=== PATIENT | male | born 1955 | race Caucasian/White ===

== ENCOUNTER 2017-08-19 21:37 | Inpatient (IN) | payer MEDICARE, OTHER ==
[2017-08-19] MEDS ORDERED: ALBUTEROL 2.5 MG/3 ML NEB SOL ONE (21:55)
[2017-08-19 22:38] LABS: Potassium 4.1 mEq/L (3.6-5.0)
[2017-08-19 22:43] LABS: Arterial Blood Carboxyhemoglob 2.9 % (0-1.5); Blood Gas Oxyhemoglobin 92.4 % (94-97); Blood O2 Saturation 96.1 % (92-98.5)
[2017-08-19 22:44] LABS: Albumin 4.4 g/dL (3.2-5.5); Bilirubin Direct 0.1 mg/dL (0-0.2); Bilirubin Total 0.9 mg/dL (0.3-1.2); Protein, Total 8.5 g/dL (6.0-8.3)
[2017-08-19 22:45] LABS: Absolute Lymphocytes (CBC) 2.9 K/uL (0.7-4.9); Absolute Monocytes 0.8 K/uL (0.1-1.3); Absolute Neutrophil 6.5 K/uL (1.8-8.0); Basophils % 0.7 % (0-1.3); Eosinophils % 13.8 % (0-4.4); Hematocrit 51.4 % (39.6-49.0); Lymphocytes % 24.3 % (15.3-44.8); MCH 29.8 pg (27.0-35.0); MCV 89.5 fL (80-100); MPV 8.7 fL (7.6-11.3); Monocytes % 6.4 % (3.3-12.3); RBC Red Blood Cell Count 5.74 M/uL (4.33-5.43)
[2017-08-19 22:49] LABS: Protime INR 1.19
[2017-08-19] MEDS ORDERED: NA CHLORIDE 0.9% 1,000 ML ONE (23:05)
[2017-08-19] MEDS ORDERED: HYDRALAZINE HCL 20 MG/ML VIAL ONE (23:05)
--- NOTE | 2017-08-19 23:08 | EDPHYS ---
Physician Documentation [facility] Name: Hubert Lynch Age: 61 yrs Sex: Male : 1955 Arrival Date: 08/19/2017 Time: 21:39 Bed 4 Private MD: ED Physician Brad Jin HPI: 08/19 22:01 This 61 yrs old Male presents to ER via EMS with complaints of shortness of jr8 breath. 22:01 The patient has shortness of breath at rest. Onset: The symptoms/episode began/occurred jr8 gradually, 2 day(s) ago. Duration: The symptoms are continuous, and are steadily getting worse. The patient's shortness of breath is aggravated by walking. Associated signs and symptoms: The patient has no apparent associated signs or symptoms. Severity of symptoms: At their worst the symptoms were moderate in the emergency department the symptoms are unchanged. It is unknown whether or not the patient has had similar symptoms in the past. The patient has not recently seen a physician. Patient stated that he has had worsening of shortness of breath over the last few days. Stated that it was so bad tonight he called EMS. EMS stated that he was 84% on RA upon arrival. GEOFFREY with steroids given. CPAP applied after no relief. Patient stated that he feels better on CPAP . Historical: - Allergies: 21:43 No Known Allergies; bb - Home Meds: 21:43 Combivent 18-103 mcg/actuation Inhl aero [Active]; bb - PMHx: 21:43 Hypertension; COPD; bb - Immunization history:: Adult Immunizations unknown. - Social history:: Smoking status: Patient uses tobacco products, smokes one pack cigarettes per day. ROS: 22:01 Eyes: Negative for injury, pain, redness, and discharge, ENT: Negative for injury, jr8 pain, and discharge, Neck: Negative for injury, pain, and swelling, Cardiovascular: Negative for chest pain, palpitations, and edema, Abdomen/GI: Negative for abdominal pain, nausea, vomiting, diarrhea, and constipation, Back: Negative for injury and pain, MS/Extremity: Negative for injury and deformity, Skin: Negative for injury, rash, and discoloration, Neuro: Negative for headache, weakness, numbness, tingling, and seizure. 22:01 Respiratory: Positive for cough, dyspnea on exertion, shortness of breath, wheezing. Exam: 22:01 Eyes: Pupils equal round and reactive to light, extra-ocular motions intact. Lids and jr8 lashes normal. Conjunctiva and sclera are non-icteric and not injected. Cornea within normal limits. Periorbital areas with no swelling, redness, or edema. ENT: Nares patent. No nasal discharge, no septal abnormalities noted. Tympanic membranes are normal and external auditory canals are clear. Oropharynx with no redness, swelling, or masses, exudates, or evidence of obstruction, uvula midline. Mucous membranes moist. Neck: Trachea midline, no thyromegaly or masses palpated, and no cervical lymphadenopathy. Supple, full range of motion without nuchal rigidity, or vertebral point tenderness. No Meningismus. Abdomen/GI: Soft, non-tender, with normal bowel sounds. No distension or tympany. No guarding or rebound. No evidence of tenderness throughout. Back: No spinal tenderness. No costovertebral tenderness. Full range of motion. Skin: Warm, dry with normal turgor. Normal color with no rashes, no lesions, and no evidence of cellulitis. MS/ Extremity: Pulses equal, no cyanosis. Neurovascular intact. Full, normal range of motion. Neuro: Awake and alert, GCS 15, oriented to person, place, time, and situation. Cranial nerves II-XII grossly intact. Motor strength 5/5 in all extremities. Sensory grossly intact. Cerebellar exam normal. Normal gait. 22:01 Cardiovascular: Rate: tachycardic, Rhythm: regular, Pulses: Pulses are 2+ in bilateral radial, brachial, femoral, popliteal, posterior tibial and and dorsalis pedis arteries.. Heart sounds: normal, normal S1and S2, no S3 or S4, no murmur, no rub, no gallop, Edema: is not appreciated, JVD: is not appreciated. 22:01 Respiratory: moderate respiratory distress is noted, Respirations: labored breathing, tachypnea, Breath sounds: rales, that are mild, are located in both bases, wheezing: expiratory that is moderate, is heard diffusely. Vital Signs: 21:43 BP 172 / 131; Pulse 127; Resp 30 S; Temp 97.6(A); Pulse Ox 97% on 35% BiPAP; Weight bb 65.77 kg (R); Height 5 ft. 8 in. (172.72 cm) (R); 22:30 BP 183 / 119; Pulse 115; Resp 23; Pulse Ox 99% on 35% BiPAP; lp1 23:00 BP 158 / 100; Pulse 108; Resp 23; Pulse Ox 98% on 35% BiPAP; lp1 23:20 BP 178 / 105; Pulse 117; Resp 25; Pulse Ox 98% on 35% BiPAP; lp1 23:40 BP 159 / 92; Pulse 114; Resp 25; Pulse Ox 98% on 35% BiPAP; lp1 21:43 Body Mass Index 22.05 (65.77 kg, 172.72 cm) bb MDM: 21:40 Patient medically screened. jr8 23:06 Data reviewed: vital signs, nurses notes, lab test result(s), EKG, radiologic studies, jr8 plain films, and as a result, I will admit patient. Data interpreted: Pulse oximetry: on room air is 84 %. Interpretation: hypoxia. Counseling: I had a detailed discussion with the patient and/or guardian regarding: the historical points, exam findings, and any diagnostic results supporting the discharge/admit diagnosis, lab results, radiology results, the need for further work-up and treatment in the hospital. Response to treatment: the patient's symptoms have mildly improved after treatment. Physician consultation: Aparna Valdez MD was called at 23:07, was contacted at 23:07, regarding admission, to the telemetry unit. and will see patient in ED. 08/19 21:40 Order name: Basic Metabolic Panel; Complete Time: 22:50 08/19 21:40 Order name: BNP; Complete Time: 22:50 08/19 21:40 Order name: CBC with Diff; Complete Time: 22:50 08/19 21:40 Order name: LFT's; Complete Time: 22:50 [facility] 08/19 21:40 Order name: Magnesium; Complete Time: 22:50 08/19 21:40 Order name: PT-INR; Complete Time: 22:50 08/19 21:40 Order name: Ptt, Activated; Complete Time: 22:50 [facility] 08/19 21:40 Order name: Troponin (emerg Dept Use Only); Complete Time: 22:50 [facility] 08/19 21:40 Order name: XRAY Chest (1 view) 08/19 21:40 Order name: Blood Culture Adult (2) [facility] 08/19 22:29 Order name: ABG; Complete Time: 22:55 [facility] 08/19 22:35 Order name: BIPAP [facility] 08/19 21:40 Order name: EKG; Complete Time: 21:41 [facility] 08/19 21:40 Order name: Cardiac monitoring; Complete Time: 21:52 [facility] 08/19 21:40 Order name: EKG - Nurse/Tech; Complete Time: 21:52 [facility] 08/19 21:40 Order name: IV Saline Lock; Complete Time: 22:09 [facility] 08/19 21:40 Order name: Labs collected and sent; Complete Time: 23:16 [facility] 08/19 21:40 Order name: O2 Per Protocol; Complete Time: 22:09 [facility] 08/19 21:40 Order name: O2 Sat Monitoring; Complete Time: 21:53 [facility] Administered Medications: 22:09 Drug: Albuterol 2.5 mg Route: Inhalation; 1 22:30 Drug: Albuterol 2.5 mg Route: Inhalation; 1 23:01 Drug: Albuterol 2.5 mg Route: Inhalation; [facility] 23:15 Drug: NS 0.9% 1000 ml Route: IV; Rate: 1000 ml; Site: left wrist; [facility] 08/20 00:16 Follow up: IV Status: Infusion continued upon admission [facility] 08/19 23:15 Drug: hydrALAZINE 10 mg Route: IV; Rate: calculated rate; Site: left wrist; [facility] 08/20 00:15 Follow up: Response: Blood pressure is lowered; IV Status: Completed infusion 1 Disposition: 05:41 Co-signature as Attending Physician, Brad Jin MD. [email or web address] Disposition: 08/19/17 23:07 Hospitalization ordered by Aparna Valdez for Inpatient Admission. Preliminary diagnosis is Chronic obstructive pulmonary disease with (acute) exacerbation. - Bed requested for Telemetry/MedSurg (Inpatient). - Status is Inpatient Admission. lp1 - Condition is Stable. - Problem is new. - Symptoms have improved. UTI on Admission? No Signatures: Dispatcher [employer] EDMS Esmer Parra RN RN bb Pena, Laura, RN RN lp1 Hipolito Arita PA PA jr8 Belen Yang RN RN cg Brad Jin MD MD ma2
--- NOTE | 2017-08-19 23:08 | ER ---
Nurse's Notes [facility] Emergency Department Name: Hubert Lynch Age: 61 yrs Sex: Male : 1955 Arrival Date: 08/19/2017 Time: 21:39 Bed 4 Private MD: Diagnosis: Chronic obstructive pulmonary disease with (acute) exacerbation Presentation: 08/19 21:33 Presenting complaint: EMS states: they were toned out for report of pt with respiratory bb distress pt's room sats were 84% on their arrival they put pt on C-pap and administered solu-medrol 125 mg and neb txs A\T\A x 2. Transition of care: patient was not received from another setting of care. Onset of symptoms was August 17, 2017. Care prior to arrival: Medication(s) given: Albuterol Neb x 2, Atrovent Neb x 2, solu-medrol 125 mg IV initiated. 20 GA, in the left wrist. 21:33 Method Of Arrival: EMS: [facility] bb 21:33 Acuity: DAVID 2 bb Historical: - Allergies: 21:43 No Known Allergies; bb - Home Meds: 21:43 Combivent 18-103 mcg/actuation Inhl aero [Active]; bb - PMHx: 21:43 Hypertension; COPD; bb - Immunization history:: Adult Immunizations unknown. - Social history:: Smoking status: Patient uses tobacco products, smokes one pack cigarettes per day. Screenin:25 Abuse screen: Denies threats or abuse. Denies injuries from another. Nutritional lp1 screening: No deficits noted. Tuberculosis screening: No symptoms or risk factors identified. Fall Risk Total Garg Fall Scale indicates High Risk Score (45 or more points). Fall prevention measures have been instituted. Side Rails Up X 2 As available patient and family educated on Fall Prevention Program and Strategies. Assessment: 21:54 Reassessment: pt states he is supposed to take cholesterol and blood pressure bb medication but he does not take them. 22:00 General: Appears distressed, Behavior is calm, cooperative. Pain: Denies pain. Neuro: lp1 Level of Consciousness is awake, alert, obeys commands, Oriented to person, place, time, situation. Cardiovascular: Capillary refill is > 3 seconds is sluggish Patient's skin is warm and dry. Rhythm is sinus tachycardia. Respiratory: Airway is patent Trachea midline Respiratory effort is even, labored, Respiratory pattern is tachypnea Breath sounds with wheezes bilaterally. GI: Abdomen is flat. : No signs and/or symptoms were reported regarding the genitourinary system. EENT: No signs and/or symptoms were reported regarding the EENT system. Derm: Skin is fragile, is thin, with poor turgor Skin is dry, Skin is pale. Musculoskeletal: Circulation, motion, and sensation intact. 23:00 Reassessment: Patient and/or family updated on plan of care and expected duration. Pain lp1 level reassessed. Patient continuing with BiPAP; Patient states symptoms have improved. Vital Signs: 21:43 BP 172 / 131; Pulse 127; Resp 30 S; Temp 97.6(A); Pulse Ox 97% on 35% BiPAP; Weight bb 65.77 kg (R); Height 5 ft. 8 in. (172.72 cm) (R); 22:30 BP 183 / 119; Pulse 115; Resp 23; Pulse Ox 99% on 35% BiPAP; lp1 23:00 BP 158 / 100; Pulse 108; Resp 23; Pulse Ox 98% on 35% BiPAP; lp1 23:20 BP 178 / 105; Pulse 117; Resp 25; Pulse Ox 98% on 35% BiPAP; lp1 23:40 BP 159 / 92; Pulse 114; Resp 25; Pulse Ox 98% on 35% BiPAP; lp1 21:43 Body Mass Index 22.05 (65.77 kg, 172.72 cm) bb ED Course: 21:39 Patient arrived in ED. jr8 21:40 Hipolito Arita PA is PHCP. jr8 21:40 Brad Jin MD is Attending Physician. jr8 21:43 Triage completed. bb 21:43 Arm band placed on Patient placed in an exam room, on a stretcher, on oxygen, on bb awake overnight monitor, on pulse oximetry, RT at bedside for placement of Bipap. Settings: 12/6, 12, 35%. 22:00 Patient has correct armband on for positive identification. Bed in low position. Call lp1 light in reach. equipment monitor phototypesetting on. Pulse ox on. NIBP on. 22:00 Inserted saline lock: 22 gauge in right antecubital area, using aseptic technique. lp1 22:00 Maintain EMS IV. Dressing intact. Site clean \T\ dry. Gauge \T\ site: 20g Left Wrist. lp 1 22:08 Suzan Mcgovern, RN is Primary Nurse. lp1 22:10 Inserted saline lock: 20 gauge in left forearm, using aseptic technique. Blood bb collected. 22:24 X-ray completed. Portable x-ray completed in exam room. Patient tolerated procedure 1 well. 22:25 XRAY Chest (1 view) In Process Unspecified. EDMS 23:07 Aparna Valdez MD is Hospitalizing Provider. jr8 23:26 No provider procedures requiring assistance completed. Patient admitted, IV remains in lp1 place. 20g IV to left forearm DC'd due to infiltration. Administered Medications: 22:09 Drug: Albuterol 2.5 mg Route: Inhalation; lp1 22:30 Drug: Albuterol 2.5 mg Route: Inhalation; lp1 23:01 Drug: Albuterol 2.5 mg Route: Inhalation; lp1 23:15 Drug: NS 0.9% 1000 ml Route: IV; Rate: 1000 ml; Site: left wrist; lp1 08/20 00:16 Follow up: IV Status: Infusion continued upon admission lp1 08/19 23:15 Drug: hydrALAZINE 10 mg Route: IV; Rate: calculated rate; Site: left wrist; lp1 08/20 00:15 Follow up: Response: Blood pressure is lowered; IV Status: Completed infusion lp1 Outcome: 08/19 23:07 Decision to Hospitalize by Provider. jr8 23:27 Condition: stable lp1 23:27 Instructed on the need for admit. 08/20 00:22 Admitted to Tele accompanied by nurse, via stretcher, room 422, with oxygen, with 1 chart, Report called to MORENA Griffin 00:30 Patient left the ED. 1 Signatures: Dispatcher [employer] EDMS Dilia Rose [facility] Esmer Parra RN RN bb Pena, Laura, MORENA RN 1 Hipolito Arita PA PA jr8 Corrections: (The following items were deleted from the chart) 00:50 00:49 Patient left the ED. 1 1
--- NOTE | 2017-08-19 23:30 | P.HP ---
Certification for Inpatient Patient admitted to: Inpatient With expected LOS: >2 Midnights Practitioner: I am a practitioner with admitting privileges, knowledge of patient current condition, hospital course, and medical plan of care. Services: Services provided to patient in accordance with Admission requirements found in Title 42 Section 412.3 of the Code of Federal Regulations Patient History Date of Service: 08/19/17 Reason for admission: COPD exacerbation History of Present Illness: Mr Lynch is a 61 years old male with history of COPD, HTN, dyslipidemia, who start about 3 weeks ago with increasing cough, unable to bring up any secretions. He has been feeling worse in the last couple of days, more SOB and cough. He denied fever or chills. No chest pain either. He called 911 today since he had severe SOB. EMS found the patient on respiratory distress, O2 Sat 84% on RA. The patient states that has not been treated with Advair for the last month due to refill problems. In ER the patient was placed on BiPAP, had several breathing treatments rounds, IV steroids, and slowly has been improving. At presentation he was afebrile, tachycardic, tachypneic, WBC 11.9K, CXR shows no acute infiltrate, awaiting final report by radiologist. Allergies No Known Drug Allergies Allergy (Unverified 11/14/14 14:11) Unknown - Past Medical/Surgical History -: COPD -: tobacco abuse -: HTN -: dyslipidemia Past Surgical History: Reviewed- Non-Contributory - Family History Family History: Reviewed- Non-Contributory - Social History Smoking Status: Heavy Tobacco smoker (>10 cigarettes/day) Counseled patient to stop smoking for: less than 10 minutes Smoking therapy provided: Yes Patient receptive to therapy: Yes CD- Drugs: No Place of Residence: Home Review of Systems 10-point ROS is otherwise unremarkable Physical Examination - Physical Exam General: Alert, In no apparent distress HEENT: Atraumatic, PERRLA, Mucous membr. moist/pink, EOMI, Sclerae nonicteric Neck: Supple, 2+ carotid pulse no bruit, No LAD, Without JVD or thyroid abnormality Respiratory: Diminished, Expiratory wheezes (bilateral) Cardiovascular: Regular rate/rhythm, Normal S1 S2 Gastrointestinal: Normal bowel sounds, No tenderness Musculoskeletal: No tenderness Integumentary: No rashes Neurological: Normal speech, Normal strength at 5/5 x4 extr, Normal tone, Normal affect Lymphatics: No axilla or inguinal lymphadenopathy - Studies Laboratory Data (last 24 hrs) 08/19/17 22:15: PT 14.1 H, INR 1.19, APTT 29.4 08/19/17 22:15: WBC 11.9 H, Hgb 17.1, Hct 51.4 H, Plt Count 187 08/19/17 22:15: B-Natriuretic Peptide 35 08/19/17 22:15: Sodium 137, Potassium 4.1, BUN 18, Creatinine 1.07, Glucose 96, Magnesium 2.0, Total Bilirubin 0.9, AST 32, ALT 31, Alkaline Phosphatase 91 Assessment and Plan - Problems (Diagnosis) (1) COPD exacerbation Current Visit: Yes Status: Acute (2) HTN (hypertension) Current Visit: Yes Status: Acute Qualifiers: Hypertension type: essential hypertension Qualified Code(s): I10 - Essential (primary) hypertension (3) Tobacco abuse Current Visit: Yes Status: Acute - Plan The patient will be admitted to the hospital due to COPD exacerbation due to acute bronchitis. CXR shows no acute infiltrate, WBC elevated. Will give empiric antibiotic, IV steroids and scheduled breathing treatment. Consult Dr Denney. - Advance Directives Does patient have a Living Will: No Does patient have a Durable POA for Healthcare: No - Code Status/Comfort Care Code Status Assessed: Yes Code Status: Full Code
[2017-08-20] MEDS ORDERED: ACETAMINOPHEN 500 MG TAB PO PRN (01:07)
[2017-08-20] MEDS: NA CHLORIDE 0.9% 1,000 ML IV SCH ×4 (01:07→16:55)
[2017-08-20] MEDS ORDERED: ONDANSETRON 4 MG/2 ML VIAL IV PRN (01:07)
[2017-08-20] MEDS: METHYLPREDNISOLONE 125 MG INJ IV SCH ×4 (02:12→17:01)
[2017-08-20] MEDS: Levofloxacin 750mg IV 750 MG/150 ML BAG IV SCH (02:13)
[2017-08-20] MEDS: IPRATROPIUM BROM 0.5MG/2.5ML NEB SCH ×7 (02:36→23:38)
[2017-08-20] MEDS: ALBUTEROL 2.5 MG/3 ML NEB SOL NEB SCH ×7 (02:36→23:38)
[2017-08-20 06:54] LABS: Potassium 4.8 mEq/L (3.6-5.0)
[2017-08-20 07:09] LABS: Absolute Lymphocytes (CBC) 0.6 K/uL (0.7-4.9); Absolute Monocytes 0.1 K/uL (0.1-1.3); Absolute Neutrophil 4.3 K/uL (1.8-8.0); Basophils % 0.3 % (0-1.3); Eosinophils % 0.2 % (0-4.4); Hematocrit 49.6 % (39.6-49.0); Lymphocytes % 12.7 % (15.3-44.8); MCH 30.4 pg (27.0-35.0); MCV 89.7 fL (80-100); MPV 8.9 fL (7.6-11.3); Monocytes % 1.2 % (3.3-12.3); RBC Red Blood Cell Count 5.53 M/uL (4.33-5.43)
--- NOTE | 2017-08-20 07:24 | RAD REPORT ---
EXAM DESCRIPTION: RAD - Chest Single View - 08/19/2017 10:26 pm CLINICAL HISTORY: Dyspnea COMPARISON: None. TECHNIQUE: AP portable chest image was obtained 2215 hours . FINDINGS: Lungs are hyperexpanded with flattened diaphragm and costophrenic angle blunting. Fibrotic lung pattern is present. This COPD pattern has no comparison to assess for progression. Small granul omas are noted. No consolidation or mass. Minimal interstitial edema or infiltrate could be masked in this setting. No significant infiltrative process currently seen. Failure and volume overload are no t suspected. Heart and vasculature are normal. No measurable pleural effusion and no pneumothorax. No gross bony abnormality seen. No acute aortic findings suspected. IMPRESSION: Prominent COPD pattern without focal infiltrate, mass or consolidation. Chronic interstitial lung disease can mask early stages of edema or infiltrate.
[2017-08-20] MEDS: ENOXAPARIN 40 MG/0.4 ML SQ SCH (09:50)
[2017-08-20 10:04] LABS: Blood Morphology Comment NOT SEEN (NOT SEEN); Platelet Estimate ADEQ; Urine White Blood Cell Casts OK
[2017-08-20] MEDS ORDERED: IPRATROPIUM BROM 0.5MG/2.5ML NEB SCH (14:00)
--- NOTE | 2017-08-20 14:03 | PN ---
Date of Progress Note: 08/20/2017 Subjective: The patient seen and examined, chart reviewed, and case discussed with RN. The patient states, he is very much short of breath. States, he ran out of his Advair. Review of Systems: Negative except as above. Medications: Reviewed. Physical Examination: Vital Signs: Temperature 99.5, heart rate 117, respirations 20, blood pressure 130/86, and O2 95% on 3 L via nasal cannula. General: Awake, alert, oriented x3, in some mild respiratory distress, appears older than stated age . Ill-appearing male. CV: S1, S2. Sinus tachycardia. No murmurs. Peripheral pulses weak bilaterally. Respiratory: diminished breath sounds. Wheezing is present throughout. The patient is tachypneic. Gastrointestinal: Abdomen is soft, nontender, nondistended. Positive bowel sounds. No guarding or rigidity. Extremities: No clubbing, cyanosis, edema. Neurologic: Nonfocal. Laboratory Data: Sodium 138, potassium 4.8, chloride 105, CO2 25, BUN 20, creatinine 1, glucose 124, and calcium 9.4. WBC 5, H and H 16.8, 49.6, platelets 177, and neutrophils 85%. Blood culture pend ing. Assessment: A 61-year-old male with; 1.Acute chronic obstructive pulmonary disease exacerbation. We will continue with breathing treatme nts and IV steroids. Chest x-ray did not show any acute infiltrate. We will continue to monitor. W e will get respiratory therapy to evaluate for possible home oxygen need. 2.Essential hypertension. We will resume home medications as appropriate. 3.Nicotine dependence with cigarette smoking. Counseled. 4.Dyslipidemia. Resume home medications as appropriate. Plan: Followup with pulmonology evaluation. Continue prophylactic antibiotics. SA/MODL Voice ID: [id number] Report ID: [id number]
[2017-08-20] MEDS: NICOTINE 21 MG/PAT TD PRN (16:52)
[2017-08-21] MEDS: METHYLPREDNISOLONE 125 MG INJ IV SCH ×2 (00:43→05:44)
[2017-08-21] MEDS: Levofloxacin 750mg IV 750 MG/150 ML BAG IV SCH (00:43)
[2017-08-21] MEDS: NA CHLORIDE 0.9% 1,000 ML IV SCH (00:44)
[2017-08-21] MEDS: IPRATROPIUM BROM 0.5MG/2.5ML NEB SCH ×2 (04:00→07:28)
[2017-08-21] MEDS: ALBUTEROL 2.5 MG/3 ML NEB SOL NEB SCH ×2 (04:00→07:28)
[2017-08-21 05:16] LABS: Absolute Monocytes 0.7 K/uL (0.1-1.3); Absolute Neutrophil 14.4 K/uL (1.8-8.0); Basophils % 0.2 % (0-1.3); Hematocrit 46.3 % (39.6-49.0); Lymphocytes % 6.2 % (15.3-44.8); MCH 29.9 pg (27.0-35.0); MCV 91.2 fL (80-100); MPV 9.1 fL (7.6-11.3); Monocytes % 4.4 % (3.3-12.3); RBC Red Blood Cell Count 5.07 M/uL (4.33-5.43)
[2017-08-21 05:46] LABS: Potassium 4.7 mEq/L (3.6-5.0)
[2017-08-21 08:29] LABS: Blood Morphology Comment NOT SEEN (NOT SEEN); Platelet Estimate ADEQ
[2017-08-21] MEDS: ENOXAPARIN 40 MG/0.4 ML SQ SCH (09:00)
--- NOTE | 2017-08-21 10:28 | P.DS ---
Admission Date: 08/19/17 Discharge Date: 08/21/17 Disposition: ROUTINE DISCHARGE Discharge Condition: FAIR Reason for Admission: COPD exacerbation Brief History of Present Illness: Patient is 61 years of age admitted with COPD exacerbation Hospital Course: Patient did well low no complaints he was hypoxic hypercapnic apparently he ran out of his inhaler the time of discharge he was doing well alert oriented responsive cooperative in no significant distress room-air sats were fine he did have mild hypoxemia on exertion patient is to resume his Advair prescribed him some prednisone chest x-ray shows hyperinflation he continues to smoke I counseled him for 3 min not to smoke and nicotine replacement therapy The time of discharge vital signs all stable chest examination renal shows bilateral rhonchi diminished air entry cardiovascular smiles was normal abdomen soft extremities no edema he was ambulating prior to discharge Vital Signs/Physical Exam: Temp Pulse Resp BP Pulse Ox 98.4 F 96 H 18 152/86 H 93 08/21/17 08:00 08/21/17 08:00 08/21/17 08:00 08/21/17 08:00 08/21/17 08:00 Laboratory Data at Discharge: WBC 16.1 K/uL (4.3-10.9) H D 08/21/17 04:17 Hgb 15.2 g/dL (13.6-17.9) 08/21/17 04:17 Hct 46.3 % (39.6-49.0) 08/21/17 04:17 Plt Count 187 K/uL (152-406) 08/21/17 04:17 PT 14.1 SECONDS (9.5-12.5) H 08/19/17 22:15 INR 1.19 08/19/17 22:15 APTT 29.4 SECONDS (24.3-36.9) 08/19/17 22:15 Sodium 137 mEq/L (135-145) 08/21/17 04:17 Potassium 4.7 mEq/L (3.6-5.0) 08/21/17 04:17 BUN 20 mg/dL (6-20) 08/21/17 04:17 Creatinine 0.96 mg/dL (0.61-1.24) 08/21/17 04:17 Glucose 116 mg/dL (65-120) 08/21/17 04:17 Magnesium 2.0 mg/dL (1.8-2.5) 08/19/17 22:15 Total Bilirubin 0.9 mg/dL (0.3-1.2) 08/19/17 22:15 AST 32 IU/L (10-42) 08/19/17 22:15 ALT 31 IU/L (10-60) 08/19/17 22:15 Alkaline Phosphatase 91 IU/L (42-121) 08/19/17 22:15 B-Natriuretic Peptide 35 pg/ml (<=100) 08/19/17 22:15 Home Medications: Ipratropium/Albuterol Sulfate [Combivent Respimat Inhal [place]] 1 puff IH BID Fluticasone/Salmeterol [Advair 250-50 Diskus] 1 each IH BID #1 blst.w.dev Prednisone [Deltasone] 20 mg PO BID #14 tablet 08/21/17 New Medications: Fluticasone/Salmeterol [Advair 250-50 Diskus] 1 each IH BID #1 blst.w.dev Prednisone [Deltasone] 20 mg PO BID #14 tablet Patient Discharge Instructions: Patient to follow with me in 2 weeks discharge room-air sat at rest greater than 88% Diet: Regular Activity: Ad alena
[2017-08-21] MEDS: NICOTINE 21 MG/PAT TD PRN (11:14)
--- NOTE | 2017-08-21 22:39 | EKG ---
Test Date: 2017-08-19 Test Time: 21:47:16 Athletic Monitor: CHRISTEN MEASUREMENT RESULTS: Intervals: Rate: 116 MA: 122 QRSD: 76 QT: 320 QTc: 444 [place]: P: 86 MA: 122 QRS: 79 T: 73 INTERPRETIVE STATEMENTS: Sinus tachycardia Biatrial enlargement Abnormal ECG No previous ECG available for comparison Electronically Signed On 08-21-17 22:38:25 CDT by Terence Mohan
== END 2017-08-21 12:41 | disposition home or self-care (01) | DRG 192 ==
LOC: ER 21:37 → 4TH 23:07
PROVIDERS: ADMIT Internal Medicine; ATTEND Internal Medicine
PROC: 5A09357 Assistance with Respiratory Ventilation, Less than 24 Consecutive Hours, Continuous Positive Airway Pressure (ICD-10-PCS; principal; 2017-08-19)
DX: J44.1 Chronic obstructive pulmonary disease with (acute) exacerbation (principal); I10 Essential (primary) hypertension; R06.03 Acute respiratory distress; E78.5 Hyperlipidemia, unspecified; F17.210 Nicotine dependence, cigarettes, uncomplicated; R09.02 Hypoxemia; R06.89 Other abnormalities of breathing
CPT/HCPCS: 36415; 71045; 80048; 80076; 82805; 83735; 83880; 84484; 85025; 85610; 85730; 87040; 93005; 94640; 94660; 96365; 99285; J0360; J1650; J2930; J7030

== ENCOUNTER 2021-12-13 15:48 | Emergency (ER) | payer MEDICARE, OTHER ==
--- OUTSIDE RECORDS SUMMARY | 2021-12-13 15:51 | XMS REPORT | Continuity of Care Document ---
:1955 Author Organization [facility] t Address [address] [place] [address] Care Team Providers Name Role Phone Ruddy Garcia MD Attending Clinician Doctor Unassigned, [place] Attending Clinician Unavailable Ruddy Garcia MD Admitting Clinician Payers Payer Name Policy Type Policy Number Effective Date Expiration Date S ource Problems This patient has no known problems. Allergies, Adverse Reactions, Alerts This patient has no known allergies or adverse reactions. Social History Social Habit Start Date Stop Date Quantity Comments Source Alcohol intake [facility] Sex Assigned At [facility] Smoking Status Start Date Stop Date Source Current some day smoker 2018-12-19 00:00:00 [facility] Medications Ordered Filled Start Stop Current Ordering Indication Dosage Frequency Signature Comments Components Source Medication Medication Date Date Medication? Clinician (SIG) Name Name budesonide/ 2019-0 Yes Inhale. Uni vers formoterol 8-14 ity of fumarate 20:20: [place] (SYMBICORT 01 Medical INHALE) [place] ipratropium 2019-0 Yes Inhale. Uni vers /albuterol 8-14 ity of sulfate 20:20: [place] (COMBIVENT 01 Medical INHALE) [place] fluticasone 2019-0 Yes Inhale. Uni vers propion/cornelius 8-14 ity of meterol 20:20: [place] (ADVAIR Medical DISKUS [place] INHALE) ceFAZolin 2019-0 Yes PRN, Univers (ANCEF) 8-14 Starting ity of injection 19:30: 12/20/18 at [place] [id number], Branch Until Discontinu ed, ALEJANDRA, Intra-op carbachol 2019-0 Yes PRN, Univers (MIOSTAT) 8-14 Starting ity of 0.01 % 19:29: Wed [place] intraocular 12/20/18 at [place] injection 1429, Branch Until Discontinu ed, Routine, Intra-op balanced 2019-0 Yes PRN, [facility] salt irrig 12-20 Starting ity o f soln comb1 19:16: Wed [place] (BSS PLUS) 12/20/[address] [facility] ical ophthalmic 1416, Branch solution Until 500 mL bag Discontinu ed, Routine, Intra-op bupivacaine 2019-0 Yes PRN, [facility] s (preserv 12-20 Starting ity of free) 19:07: Tue [place] (SENSORCAIN 00 12/20/18 at [place] dical E MPF) 0.75 1407, Branch % (7.5 Until mg/mL) Discontinu injection ed, Routine, Intra-op lactated 2018-0 2019- No 500mL at [address] [place] [address] s ringers IV 12-20 mL/hr, 500 it y of infusion 16:15: 16:32 mL, IV [place] 500 mL 00 :00 Infusion, Medical ONCE, 1 Branch dose, Tue12/20/18 at 1115, Routine, [facility] Pre-op budesonide/ 2019-0 Yes Inhale. Uni vers formoterol 8-13 ity of fumarate 13:41: [place] (SYMBICORT 21 Medical INHALE) Branch ipratropium 2019-0 Yes Inhale. Uni vers /albuterol 8-13 ity of sulfate 13:41: [place] (COMBIVENT 21 Medical INHALE) Branch fluticasone 2019-0 Yes Inhale. Uni vers propion/cornelius 8-13 ity of meterol 13:41: [place] (ADVAIR 21 Medical DISKUS Branch INHALE) Vital Signs Vital Name Observation Time Observation Value Comments Source Systolic blood 2018-12-20 19:42:00 156 mm[Hg] [facility] pressure [facility] Diastolic blood 2018-12-20 19:42:00 96 mm[Hg] [facility] Body temperature 2018-12-20 19:42:00 36.78 Bonnie [facility] rate 2018-12-20 19:42:00 18 /min [facility] O[facility] saturation in 2018-12-20 19:42:00 100 /min [facility] Arterial blood by [facility] Pulse oximetry Branch Heart rate 2018-12-20 16:23:00 73 /min [facility] acute hospital Body height 2018-12-18 18:12:00 172.7 cm General acute hospital Body weight 2018-12-18 18:12:00 65.772 kg [facility] acute hospital BMI 2018-12-18 18:12:00 22.05 kg/m2 [facility] acute hospital Procedures Procedure Date / Time Performed Performing Clinician Sourc e ASSIGNMENT OF BENEFITS 2018-12-19 14:02:27 Doctor Unassigned, No [facility] Name [facility] Encounters Start End Encounter Admission Attending Care Care Encounter Source Date/Time Date/Time Type Type Clinicians Facility Department ID 2018-12-20 2018-12-20 [facility] [id number] Univers 11:11:00 15:19:00 Encounter Ruddy Robertson [id number] ity of [place] [id number] [place] [id number] [facility] 071 Branch 2018-12-19 2018-12-19 Orders Doctor CHRISSY [id number] Univers 00:00:00 00:00:00 Only Unassigned, KEITH [id number] ity of [place] [facility] [id number] Alli as [id number] [place] [id number] Branch Results This patient has no known results.
[2021-12-13] MEDS ORDERED: IPRATROPIUM BROM 0.5MG/2.5ML ONE (16:50)
[2021-12-13] MEDS ORDERED: ALBUTEROL 2.5 MG/3 ML NEB SOL ONE (16:50)
[2021-12-13] MEDS ORDERED: METHYLPREDNISOLONE 125 MG INJ ONE (16:50)
[2021-12-13 17:33] LABS: Absolute Lymphocytes (CBC) 1.8 K/uL (0.7-4.9); Hematocrit 45.6 % (39.6-49.0); Lymphocytes % 25.5 % (15.3-44.8); MPV 7.6 fL (7.6-11.3); RBC Red Blood Cell Count 5.18 M/uL (4.33-5.43)
[2021-12-13 17:51] LABS: Bilirubin Total 0.5 mg/dL (0.2-1.0); Potassium 3.9 mmol/L (3.5-5.1); Protein, Total 9.3 g/dL (6.4-8.2); Troponin High Sensitivity 5.9 pg/mL (<58.9)
--- NOTE | 2021-12-13 18:02 | RAD REPORT ---
EXAM DESCRIPTION: Luis Single View12/13/2021 5:14 pm CLINICAL HISTORY: Shortness of breath COMPARISON: 2018 FINDINGS: Lungs are markedly hyperaerated. Calcified granulomas left lung. The lungs appear clear of acute infiltrate. The heart is normal size IMPRESSION: COPD without visualization of an acute abnormality
[2021-12-13] MEDS ORDERED: DIPHENHYDRAMINE 50 MG/ML VIAL ONE (18:15)
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
[2021-12-13 19:53] VITALS: TEMP 97.9
[2021-12-13 19:55] VITALS: O2SAT 99
[2021-12-13 19:58] VITALS: BP 182/84
== END 2021-12-13 18:29 | disposition home or self-care (01) ==
LOC: ER 15:48
PROC: 05HQ33Z Insertion of Infusion Device into Left External Jugular Vein, Percutaneous Approach (ICD-10-PCS; principal; 2021-12-13)
DX: J44.1 Chronic obstructive pulmonary disease with (acute) exacerbation (principal); I10 Essential (primary) hypertension; F17.210 Nicotine dependence, cigarettes, uncomplicated; Z20.822 Contact with and (suspected) exposure to COVID-19
CPT/HCPCS: 85025; 36415; 84484; 80053; 71045; 94640; 96372; 96374; 99285; 36569; U0003; J1200; J2930

== ENCOUNTER 2024-06-17 17:21 | Inpatient (IN) | payer OTHER ==
[2024-06-17] MEDS ORDERED: IPRATROPIUM BROM 0.5MG/2.5ML ONE (17:40)
[2024-06-17] MEDS ORDERED: LEVALBUTEROL 1.25 MG/3 ML NEB ONE (17:41)
[2024-06-17] MEDS ORDERED: METHYLPREDNISOLONE 125 MG INJ ONE (17:41)
--- NOTE | 2024-06-17 18:23 | RAD REPORT ---
EXAMINATION: ONE VIEW CHEST XR CLINICAL INDICATION: LABORER ELECTROPLATING TECHNIQUE: Frontal chest projection is submitted. Examination is limited by patient positioning and t echnique. COMPARISON: 12/13/2021 FINDINGS: The lungs are diffusely emphysematous but grossly clear. The heart is normal in size. Numerous calcif ied granulomata. No displaced fractures identified. IMPRESSION: COPD without an acute process suspected. Evidence of prior granulomatous infection.
[2024-06-17] MEDS ORDERED: CEFTRIAXONE 1000 MG/VIAL ONE (18:44)
[2024-06-17] MEDS ORDERED: NA CHLORIDE 0.9% 250 ML ONE (18:44)
[2024-06-17] MEDS ORDERED: AZITHROMYCIN 500 MG INJ IVPB ONE (18:44)
--- NOTE | 2024-06-17 18:55 | EDPHYS ---
Physician Documentation [facility] Name: Hubert Lynch Age: 68 yrs Sex: Male : 1955 Arrival Date: 06/17/2024 Time: 17:21 Bed 4 Private MD: ED Physician Tristin Bond HPI: 06/17 17:48 This 68 yrs old Male presents to ER via EMS with complaints of Shortness Of Breath. rn 17:48 The patient has shortness of breath at rest, with light activity. Onset: The rn symptoms/episode began/occurred 2 week(s) ago. Duration: The symptoms are intermittent. The patient's shortness of breath is aggravated by coughing, exertion, light activity. Associated signs and symptoms: Pertinent positives: productive cough, fever, Pertinent negatives: hemoptysis. Severity of symptoms: At their worst the symptoms were moderate in the emergency department the symptoms are unchanged. The patient has experienced similar episodes in the past. Historical: - Allergies: 17:33 No Known Allergies; iw - Home Meds: 17:33 Combivent 18-103 mcg/actuation Inhl aero [Active]; iw - PMHx: 17:33 COPD; Hypertension; iw - Immunization history:: Adult Immunizations. - Infectious Disease History:: Denies. - Family history:: not pertinent. - Hospitalizations: : No recent hospitalization is reported. - Social history:: Smoking status: Patient reports the use of cigarette tobacco products. ROS: 17:48 Constitutional: Positive for subjective fever and chills Cardiovascular: Negative for rn chest pain, palpitations, and edema, Respiratory: Positive for shortness of breath and productive cough Abdomen/GI: Negative for abdominal pain, nausea, vomiting, diarrhea, and constipation, MS/Extremity: Negative for injury and deformity, Skin: Negative for injury, rash, and discoloration, Neuro: Negative for headache, weakness, numbness, tingling, and seizure, Exam: 17:48 Constitutional: Thin male, tachypneic Head/Face: Normocephalic, atraumatic. salesperson men's furnishings: Tachycardic, regular Respiratory: Moderate tachypnea with diffuse wheezing Abdomen/GI: Soft, nontender 20:04 ECG was reviewed by the Attending Physician. wayne Vital Signs: 17:30 BP 161 / 110; Pulse 113; Resp 28 S; Temp 97.6(TE); Pulse Ox 95% on 4 lpm NC; iw MDM: 17:28 Medical Screening Exam initiated rn 17:49 ED course: EMS gave DuoNeb prior to arrival. Patient was 84% saturation on room air, rn does not have oxygen prescribed, has been using his roommates oxygen.. 18:50 Differential diagnosis: Chronic Obstructive Pulmonary Disease pneumonia, Pneumothorax rn pulmonary edema, reactive airway disease. Data reviewed: vital signs, nurses notes, lab test result(s), radiologic studies, plain films, and as a result, I will admit patient. Consideration of Admission/Observation Patient was admitted/placed on observation. Counseling: I had a detailed discussion with the patient and/or guardian regarding the historical points, exam findings, and any diagnostic results supporting the discharge/admit diagnosis, lab results, radiology results, the need for further work-up and treatment in the hospital. Response to treatment: the patient's symptoms have mildly improved after treatment, and as a result, I will admit patient. 06/17 17:31 Order name: Blood Culture Adult (2) rn 06/17 17:31 Order name: CBC with Diff rn 06/17 17:31 Order name: CMP rn 06/17 17:31 Order name: Lactate w/ 2H reflex if indic. rn 06/17 17:31 Order name: Protime (+inr) rn 06/17 17:31 Order name: Ptt, Activated rn 06/17 17:31 Order name: SARS-COV-2 Antigen Rapid rn 06/17 17:31 Order name: Flu rn 06/17 19:44 Order name: Urinalysis w/ reflexes EDMS 06/17 19:44 Order name: CBC with Automated Diff EDMS 06/17 19:44 Order name: CBC with Automated Diff EDMS 06/17 19:44 Order name: Comprehensive Metabolic Panel EDMS 06/17 19:44 Order name: Comprehensive Metabolic Panel EDVT 06/17 17:31 Order name: Chest Single View XRAY; Complete Time: 18:29 rn 06/17 17:31 Order name: EKG; Complete Time: 17:31 rn 06/17 17:31 Order name: Accucheck; Complete Time: 18:37 rn 06/17 17:31 Order name: Cardiac monitoring; Complete Time: 18:31 rn 06/17 17:31 Order name: EKG - Nurse/Tech; Complete Time: 18:37 rn 06/17 17:31 Order name: IV Saline Lock - Large Bore; Complete Time: 18:56 rn 06/17 17:31 Order name: Labs collected and sent; Complete Time: 19:08 rn 06/17 17:31 Order name: O2 Per Protocol; Complete Time: 18:37 rn 06/17 17:31 Order name: O2 Sat Monitoring; Complete Time: 18:37 rn 06/17 17:31 Order name: Vital Signs; Complete Time: 18:37 rn EC:04 Rate is 129 beats/min. Rhythm is regular. QRS [place] is Normal. [place] interval is normal. [place] QRS interval is normal. QT interval is normal. No Q waves. T waves are Normal. No ST changes noted. Clinical impression: Sinus tachycardia and No evidence of ischemia. Interpreted by me. Reviewed by me. Administered Medications: 18:27 Drug: Levalbuterol Inhalation 1.25 mg Inhalation once Route: Inhalation; iw 18:27 Drug: Levalbuterol Inhalation 1.25 mg Inhalation once Route: Inhalation; iw 18:27 Drug: Ipratropium Inhalation Aerosol 0.5 mg Inhalation once Route: Inhalation; iw 19:08 Drug: MethylPrednisoLONE IVP 125 mg IVP once Route: IVP; Site: left forearm; iw 19:08 Follow up: Response: No adverse reaction iw 19:08 Drug: Zithromax IVPB 500 mg IVPB once over 1 hrs; mix in 250 mL NS Route: IVPB; Infused iw Over: 1 hrs; Site: left forearm; 19:08 Drug: Rocephin IV 1 grams IV at calculated rate once; Given slow IV push per pharmacy iw instructions Route: IV; Rate: calculated rate; Site: left forearm; 19:08 Follow up: IV Status: Completed infusion iw Disposition: 18:53 Critical Care:. 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 Total time: 35 minutes rn Signatures: Dispatcher [employer] Olman Theodore MD MD cha Williams, Irene, RN RN iw Nieto, Roman, MD MD rn Villegas, Rebecca rv1 Corrections: (The following items were deleted from the chart) 19:52 18:54 rn rv1
--- NOTE | 2024-06-17 18:55 | ER ---
Nurse's Notes [facility] Name: Hubert Lynch Age: 68 yrs Sex: Male : 1955 Arrival Date: 06/17/2024 Time: 17:21 Bed 4 Private MD: Diagnosis: COPD/ Chronic obstructive pulmonary disease with (acute) exacerbation;Hypoxemia Presentation: 06/17 17:32 Chief complaint: EMS states: COPD exacerbation, audible wheezing, BP was 172/102, HR iw 120 , 82 RA, up to 94 on NC , had breathing tx earlier today. Coronavirus screen: Client presents with at least one sign or symptom that may indicate coronavirus-19. Ebola Screen: No symptoms or risks identified at this time. Risk Assessment: Do you want to hurt yourself or someone else? Patient reports no desire to harm self or others. Onset of symptoms was June 17, 2024. 17:32 Method Of Arrival: EMS: [facility] iw 17:32 Acuity: DAVID 3 iw 17:32 Initial Sepsis Screen: Does the patient meet any 2 criteria? RR > 20 per min. HR > 90 iw bpm. Does the patient have a suspected source of infection? No. Patient's initial sepsis screen is negative. Historical: - Allergies: 17:33 No Known Allergies; iw - Home Meds: 17:33 Combivent 18-103 mcg/actuation Inhl aero [Active]; iw - PMHx: 17:33 COPD; Hypertension; iw - Immunization history:: Adult Immunizations. - Infectious Disease History:: Denies. - Family history:: not pertinent. - Hospitalizations: : No recent hospitalization is reported. - Social history:: Smoking status: Patient reports the use of cigarette tobacco products. Screenin:30 [facility] ED Fall Risk Assessment (Adult) History of falling in the last 3 months, iw including since admission No falls in past 3 months (0 pts) Confusion or Disorientation No (0 pts) Intoxicated or Sedated No (0 pts) Impaired Gait No (0 pts) Mobility Assist Device Used No (0 pt) Altered Elimination No (0 pt) Score/Fall Risk Level 0 - 2 = Low Risk Oriented to surroundings. Abuse screen: Denies threats or abuse. Nutritional screening: No deficits noted. Tuberculosis screening: No symptoms or risk factors identified. Assessment: 17:45 General: Appears uncomfortable, Behavior is calm, cooperative. Pain: Denies pain. iw Neuro: Level of Consciousness is awake, alert, obeys commands, Oriented to person, place, time, situation, Moves all extremities. Full function. Cardiovascular: Patient's skin is warm and dry. Rhythm is sinus tachycardia. Respiratory: Reports shortness of breath at rest on exertion cough that is productive, labored breathing Airway is patent Respiratory effort is even, labored, Respiratory pattern is regular, symmetrical, tachypnea. GI: Abdomen is flat, non-distended. Derm: Skin is intact, is fragile, Skin is normal. Musculoskeletal: Range of motion: intact in all extremities. 18:29 Reassessment: unable to obtain IV access at this time, Charge Nurse at bedside for US IV. 19:00 Reassessment: pt refused 2nd set of blood cultures, has been stuck 4 times , ER iw notified. Vital Signs: 17:30 BP 161 / 110; Pulse 113; Resp 28 S; Temp 97.6(TE); Pulse Ox 95% on 4 lpm NC; iw ED Course: 17:23 Patient arrived in ED. eb 17:28 Tristin Bond MD is Attending Physician. rn 17:33 Triage completed. iw 17:34 Lana Platt, RN is Primary Nurse. iw 17:34 Arm band placed on. iw 18:00 Missed attempt(s): 24 gauge in right hand. Bleeding controlled, band aid applied, iw catheter tip intact. 18:00 Missed attempt(s): 22 gauge in right wrist. Bleeding controlled, band aid applied, iw catheter tip intact. 18:05 Chest Single View XRAY In Process Unspecified. EDMS 18:31 Patient has correct armband on for positive identification. Client placed on continuous iw cardiac and pulse oximetry monitoring. NIBP monitoring applied. clinical research monitor on. 18:40 Missed attempt(s): 20 gauge in left antecubital area. VIA Ultrasound. Bleeding ss controlled, band aid applied, catheter tip intact. 18:54 Onofre Corbett MD is Hospitalizing Provider. rn 18:54 Accessed peripheral vein via ultrasound, utilizing dynamic ultrasound technique Blood ss collected. using 20G Nexia IV catheter ,sterile technique, per hospital protocol. Clean \T\ dry. Dressing intact. Good blood return. Flushes easily. . 19:11 Provided Education on: lab wait time . iw 19:59 No provider procedures requiring assistance completed. Patient admitted, IV remains in cp4 place. Administered Medications: 18:27 Drug: Levalbuterol Inhalation 1.25 mg Inhalation once Route: Inhalation; iw 18: Drug: Levalbuterol Inhalation 1.25 mg Inhalation once Route: Inhalation; iw 18: Drug: Ipratropium Inhalation Aerosol 0.5 mg Inhalation once Route: Inhalation; iw 19:08 Drug: MethylPrednisoLONE IVP 125 mg IVP once Route: IVP; Site: left forearm; iw 19:08 Follow up: Response: No adverse reaction iw 19: Drug: Zithromax IVPB 500 mg IVPB once over 1 hrs; mix in 250 mL NS Route: IVPB; Infused iw Over: 1 hrs; Site: left forearm; 19:08 Drug: Rocephin IV 1 grams IV at calculated rate once; Given slow IV push per pharmacy iw instructions Route: IV; Rate: calculated rate; Site: left forearm; 19:08 Follow up: IV Status: Completed infusion iw Medication: 21:52 VIS not applicable for this client. ha1 Outcome: 18:54 Decision to Hospitalize by Provider. rn 21:51 Admitted to Med/surg accompanied by tech, via stretcher, room 229, with chart, [facility] 21:51 Condition: stable 21:51 Instructed on the need for admit, Demonstrated understanding of instructions, 21:52 Patient left the ED. ha1 Signatures: Dispatcher [employer] EDLana Martell RN RN Tristin Bond MD MD rn Blanchard, Shelby, RN RN Katie Diallo Heidy, RN RN [facility] Nisa Oneal [facility] Corrections: (The following items were deleted from the chart) 18:29 17:30 BP 161 / 110; Pulse 113bpm; Resp 28bpm; Spontaneous; Temp 97.6F Temporal; iw
[2024-06-17 19:03] LABS: Absolute Lymphocytes (CBC) 1.2 K/uL (0.7-4.9); Absolute Monocytes 1.2 K/uL (0.1-1.3); Absolute Neutrophil 8.7 K/uL (1.8-8.0); Basophils % 0.2 % (0-1.3); Eosinophils % 0.3 % (0-4.4); Hematocrit 48.8 % (39.6-49.0); Hemoglobin 16.1 g/dL (13.6-17.9); MCH 30.5 pg (27.0-35.0); MCV 92.5 fL (80-100); MPV 8.3 fL (7.6-11.3); Monocytes % 10.5 % (3.3-12.3); Nucleated Red Blood Cells % 0.1 % (0-0); Platelets 204 thou/uL (152-406); RBC Red Blood Cell Count 5.27 M/uL (4.33-5.43)
[2024-06-17 19:07] LABS: SARS-CoV-2 Antigen CONTROL BLUE LINE VIS/BG OK; SARS-CoV-2 Antigen Rapid Res Negative (Negative)
[2024-06-17 19:12] LABS: PT Prothrombin Time 14.2 SECONDS (9.4-12.5); PTT, Activated Partial Thromb 29.8 SECONDS (24.3-36.9); Protime INR 1.36
[2024-06-17 19:19] LABS: Albumin 3.3 g/dL (3.4-5.0); Albumin/Globulin Ratio 0.6 (1.1-1.8); Anion Gap 9.1 mEq/L (5.0-15.0); Bilirubin Total 0.9 mg/dL (0.2-1.0); Globulin 5.5 g/dL (2.3-3.5); Potassium 4.1 mEq/L (3.5-5.1); Protein, Total 8.8 g/dL (6.4-8.2)
[2024-06-17] MEDS ORDERED: ACETAMINOPHEN 325 MG TABLET PO PRN (19:40)
[2024-06-17] MEDS ORDERED: ALBUTEROL 2.5 MG/3 ML NEB SOL NEB PRN (19:40)
[2024-06-17] MEDS ORDERED: ONDANSETRON 4 MG/2 ML VIAL IV PRN (19:40)
--- NOTE | 2024-06-17 19:40 | P.HP ---
Certification for Inpatient Patient admitted to: Inpatient With expected LOS: >2 Midnights Practitioner: I am a practitioner with admitting privileges, knowledge of patient current condition, hospital course, and medical plan of care. Services: Services provided to patient in accordance with Admission requirements found in Title 42 Section 412.3 of the Code of Federal Regulations Patient History Date of Service: 06/17/24 Reason for admission: COPD exacerbation History of Present Illness: 68 yrs old Male with past medical history of COPD, hypertension, hyperlipidemia who was brought to ER with shortness of breath which has been going on for the last 2 weeks and has been progressively getting worse. Associated with cough with mucoid expectoration with some yellowish tinge. Denies any hemoptysis. No nausea vomiting or diarrhea. Denies any sick contacts. Has subjective fever. Shortness of breath worsens with even minimal exertions. Patient was assessed in the ER and is admitted for further management of COPD exacerbation Allergies No Known Drug Allergies Allergy (Verified 08/20/17 01:40) Unknown No Known Allergies Allergy (Uncoded 08/20/17 01:10) Unknown Home medications list reviewed: Yes Home Medications: Fluticasone/Salmeterol [Advair 250/50 Diskus*] 1 puff IH BID #1 disk 10/01/14 predniSONE [Deltasone] 10 mg PO BID #20 tab 10/01/14 levoFLOXacin [Levaquin] 500 mg PO DAILY #10 tab 10/02/14 Ipratropium/Albuterol Sulfate [Combivent Respimat 20-100 Mcg] 1 puff IH BID 08/20/17 Fluticasone Propion/Salmeterol [Advair 250-50 Diskus] 1 each IH BID #1 blst.w.dev 08/21/17 Nicotine [Nicoderm] 21 mg TD DAILY #30 patch.td24 08/21/17 predniSONE [Deltasone] 20 mg PO BID #14 tablet 08/21/17 - Past Medical/Surgical History Diabetic: No Past Medical History: Reviewed- Non-Contributory -: COPD -: tobacco abuse -: HTN -: dyslipidemia Past Surgical History: Reviewed- Non-Contributory - Family History Mother -: Heart disease Notes: had pacemaker - Social History Smoking Status: Current some day smoker Alcohol use: No CD- Drugs: Yes Caffeine use: Yes Review of Systems 10-point ROS is otherwise unremarkable Physical Examination - Vital Signs Temperature: 97.6 F Blood Pressure: 160/110 Pulse: 110 Respirations: 20 Pulse Ox (%): 92 - Physical Exam General: Alert, Oriented x3, Cooperative, Moderate distress HEENT: Atraumatic, Normocephalic Neck: Supple, No Thyromegaly Respiratory: Diminished, Crackles/rales, Expiratory wheezes Cardiovascular: No edema, Regular rate/rhythm, Normal S1 S2 Capillary refill: <2 Seconds Gastrointestinal: Soft and benign, W/out hepatosplenomegaly Musculoskeletal: No clubbing, No swelling Integumentary: No rashes Neurological: Normal speech, Normal strength at 5/5 x4 extr, Cranial nerves 3-12 intact Lymphatics: No axilla or inguinal lymphadenopathy - Studies Laboratory Data (last 24 hrs) 06/17/24 06/17/24 06/17/24 18:50 18:50 18:50 WBC 11.10 H Hgb 16.1 Hct 48.8 Plt Count 204 PT 14.2 H INR 1.36 APTT 29.8 Sodium 135 L Potassium 4.1 BUN 13 Creatinine 1.12 Glucose 112 H Total Bilirubin 0.9 AST 20 ALT 35 Alkaline Phosphatase 129 H Microbiology Data (last 24 hrs): 06/17/24 18:35 Nasopharnyx Influenza Type A Antigen Screen - Final 06/17/24 18:35 Nasopharnyx Influenza Type B Antigen Screen - Final Assessment and Plan - Plan COPD exacerbation Monitor closely on telemetry Started on bronchodilators Oxygen supplementation Steroids added Chest x-ray findings noted Acute hypoxic respiratory failure Oxygen supplementation Will try to wean down oxygen requirement Monitor closely Pneumonitis Started on empiric antibiotic Will obtain chest x-ray in a.m. COVID-negative Influenza negative Hypertension Continue home medications and titrate as needed GI/DVT prophylaxis Advanced directive full code Discharge Plan: Home Plan to discharge in: 48 Hours - Advance Directives Does patient have a Living Will: No Does patient have a Durable POA for Healthcare: No - Code Status/Comfort Care Code Status: Full Code Time Spent Managing Pts Care (In Minutes): 48
[2024-06-17 22:20] VITALS: BMI 22.0
[2024-06-18] MEDS: HYDRALAZINE HCL 20 MG/ML VIAL IV PRN (00:44)
[2024-06-18] MEDS: ALBUTEROL 2.5 MG/3 ML NEB SOL NEB SCH (01:00)
[2024-06-18] MEDS: IPRATROPIUM BROM 0.5MG/2.5ML NEB SCH (01:00)
[2024-06-18 05:24] LABS: Absolute Lymphocytes (CBC) 0.5 K/uL (0.7-4.9); Absolute Monocytes 0.2 K/uL (0.1-1.3); Absolute Neutrophil 8.3 K/uL (1.8-8.0); Basophils % 0.1 % (0-1.3); Hematocrit 44.7 % (39.6-49.0); Hemoglobin 15.5 g/dL (13.6-17.9); Lymphocytes % 5.6 % (15.3-44.8); MCH 31.6 pg (27.0-35.0); MCHC 34.5 g/dL (32.0-36.0); MCV 91.4 fL (80-100); Monocytes % 2.2 % (3.3-12.3); Neutrophils % 92.1 % (41.7-73.7); Platelets 192 thou/uL (152-406); RBC Red Blood Cell Count 4.89 M/uL (4.33-5.43); Red Cell Distribution Width 13.9 % (12.1-15.2)
[2024-06-18 05:58] LABS: Albumin 2.7 g/dL (3.4-5.0); Albumin/Globulin Ratio 0.5 (1.1-1.8); Anion Gap 7.4 mEq/L (5.0-15.0); Bilirubin Total 0.4 mg/dL (0.2-1.0); Potassium 4.4 mEq/L (3.5-5.1); Protein, Total 7.7 g/dL (6.4-8.2)
[2024-06-18] MEDS: DULERA 200/5 (MOMETASONE/FORMOTEROL) INHALER IH SCH (07:00)
[2024-06-18 08:59] LABS: Band Neutrophils 7 % (0-1); Differential Total Cells Count 100; Lymphocytes 7 % (15-42); Segmented Neutrophils 85 % (40-80)
[2024-06-18 09:00] LABS: Blood Morphology Comment NOT SEEN (NOT SEEN); Dohle Bodies PRESENT; Monocytes 1 % (0-10); Platelet Estimate ADEQ; Platelets, Giant FEW
[2024-06-18] MEDS: NICOTINE 21 MG/PAT TD SCH (09:00)
[2024-06-18] MEDS: CEFTRIAXONE 1,000 MG in NA CHLORIDE 0.9% 50 ML IVPB SCH (09:06)
[2024-06-18] MEDS: AZITHROMYCIN IV 500 MG in NA CHLORIDE 0.9% 250 ML IVPB SCH (09:07)
[2024-06-18] MEDS: ENOXAPARIN 40 MG/0.4 ML SQ SCH (09:07)
[2024-06-18 09:08] LABS: Magnesium 2.5 mg/dL (1.6-2.4)
[2024-06-18 09:11] LABS: Phosphorus 1.3 mg/dL (2.5-4.9)
[2024-06-18] MEDS: SODIUM PHOSPHATE 15 MM in NA CHLORIDE 0.9% 250 ML IV ONE (10:31)
[2024-06-18] MEDS: lisinopriL 5 MG TAB PO SCH (10:31)
[2024-06-18 10:45] LABS: Specific Gravity 1.023 (1.005-1.030); Sqamous Epithelial None Seen /HPF (None Seen); Urine Bacteria None Seen /HPF (<20); Urine Bilirubin NEGATIVE (Negative); Urine Blood Negative (Negative); Urine Clarity Clear (Clear); Urine Color Yellow (Yellow); Urine Culture Reflex Order NOT NEEDED; Urine Glucose 3+ (Negative); Urine Ketones 1+ (Negative); Urine Microscopic Reflex YN ORDER UMIC; Urine Mucus Slight /HPF (None Seen); Urine Nitrite NEGATIVE (Negative); Urine Protein 1+ (Negative); Urine RBC <5 /HPF (None Seen); Urine Urobilinogen 1+ (Normal); Urine WBC <5 /HPF (<5)
[2024-06-18] MEDS: CHLORASEPTIC LOZENGES PO PRN (13:55)
--- NOTE | 2024-06-18 15:05 | P.PN ---
Date of Service: 06/18/24 Subjective awake eating breakfast, on 5 LNC Reports seeing a providers at the [facility] Reports he is using Oxygen from a friend and receives his inhalers from "the street" Home O2 evaluation, 88% on room air ROS 10 point ROS as noted above, otherwise negative Physical Exam General: Alert, Oriented x3, NAD HEENT: Atraumatic, Normocephalic Neck: Supple, No Thyromegaly Respiratory: Crackles/rales, Expiratory wheezes, on 5 LNC Cardiovascular: No edema, mild tachycardia, Normal S1 S2 Capillary refill: <2 Seconds Gastrointestinal: Soft and benign on palpation, active bowel sounds Musculoskeletal: No clubbing, No swelling Integumentary: No rashes Neurological: Normal speech, Normal strength at 5/5 x4 extr, Cranial nerves 3-12 intact Lymphatics: No axilla or inguinal lymphadenopathy Vitals Reviewed Problem list Acute hypoxic respiratory failure 2/2 COPD exacerbation Pneumonitis Sore throat Assessment and Plan Acute hypoxic respiratory failure 2/2 COPD exacerbation Monitor closely on telemetry Continue bronchodilators Oxygen supplementation Steroids added Chest x-ray findings noted Will try to wean down oxygen requirement Monitor closely Home O2 evaluation, 88% on room air, home oxygen ordered Pneumonitis Started on empiric antibiotic Will obtain chest x-ray in a.m. COVID-negative Influenza negative Hypertension Continue home medications and titrate as needed Consult Dr. Denney Sore throat -Chloraseptic lozenge DVT prophylaxis lovenox Advanced directive full code Discharge Plan: Home Plan to discharge in: 48 Hours
[2024-06-18] MEDS ORDERED: Levofloxacin 750mg IV 750 MG/150 ML BAG IV SCH (20:00)
[2024-06-18] MEDS: levoFLOXacin 750 MG TAB PO SCH (21:05)
[2024-06-18] MEDS: ALBUTEROL 2.5 MG/3 ML NEB SOL ONE (22:28)
[2024-06-18] MEDS: IPRATROPIUM BROM 0.5MG/2.5ML ONE (22:28)
[2024-06-19 05:28] LABS: Absolute Lymphocytes (CBC) 0.8 K/uL (0.7-4.9); Absolute Monocytes 1.4 K/uL (0.1-1.3); Absolute Neutrophil 10.2 K/uL (1.8-8.0); Basophils % 0.2 % (0-1.3); Eosinophils % 0.2 % (0-4.4); Hematocrit 44.6 % (39.6-49.0); Hemoglobin 15.4 g/dL (13.6-17.9); Lymphocytes % 6.8 % (15.3-44.8); MCH 31.6 pg (27.0-35.0); MCHC 34.6 g/dL (32.0-36.0); MCV 91.2 fL (80-100); Monocytes % 10.9 % (3.3-12.3); Neutrophils % 81.9 % (41.7-73.7); Platelets 222 thou/uL (152-406); RBC Red Blood Cell Count 4.89 M/uL (4.33-5.43); Red Cell Distribution Width 14.1 % (12.1-15.2)
[2024-06-19 05:49] LABS: Anion Gap 6.3 mEq/L (5.0-15.0)
[2024-06-19 05:50] LABS: Magnesium 2.4 mg/dL (1.6-2.4); Phosphorus 1.5 mg/dL (2.5-4.9); Potassium 4.3 mEq/L (3.5-5.1)
--- NOTE | 2024-06-19 07:18 | RAD REPORT ---
Procedure: Chest Single View HISTORY: Cough COMPARISON: June 17, 2024 FINDINGS: The lungs appear clear of acute infiltrate.. The lungs remain moderately to markedly hyperaerated. No significant pleural effusion noted. The heart is normal size. IMPRESSION: COPD without visualization acute abnormality
[2024-06-19 08:19] VITALS: BP 141/78
[2024-06-19 08:21] VITALS: O2SAT 99
[2024-06-19] MEDS ORDERED: lisinopriL 5 MG TAB PO SCH (09:00)
[2024-06-19 09:33] VITALS: TEMP 97.9
[2024-06-19] MEDS: predniSONE 20 MG TAB PO ONE (10:57)
--- NOTE | 2024-06-19 11:42 | P.DS ---
Admission Date: 06/17/24 Discharge Date: 06/19/24 Disposition: ROUTINE DISCHARGE Discharge Condition: GOOD Reason for Admission: COPD exacerbation Brief History of Present Illness: 68 yrs old Male with past medical history of COPD, hypertension, hyperlipidemia who was brought to ER with shortness of breath which has been going on for the last 2 weeks and has been progressively getting worse. Associated with cough with mucoid expectoration with some yellowish tinge. Denies any hemoptysis. No nausea vomiting or diarrhea. Denies any sick contacts. Has subjective fever. Shortness of breath worsens with even minimal exertions. Patient was assessed in the ER and is admitted for further management of COPD exacerbation Hospital Course: Problem list Acute hypoxic respiratory failure 2/2 COPD exacerbation Pneumonitis Sore throat Patient was admitted to the hospital for COPD exacerbation. He was started on steroids, empiric antibiotics with levofloxacin, as needed nebulizer treatments had gradual improvement in his symptoms. He has a concentrator for home oxygen at home but did not have a portable tank, we attempted to arrange for portable tank/formal home oxygen set up but patient declined as they would not do this without setting up a concentrator which she already had. He states at home that he has inhalers including Combivent, Trelegy which he will be using. He will be sent a prescription for a short course of prednisone and levofloxacin. It will be important he follows up with his primary care doctor as well as a pulmonologistDr. Denney. He had a chest x-ray this morning that showed COPD with no visualized acute abnormality. He has remained afebrile throughout hospitalization. Continue your home medication as previously prescribed Prescription for prednisone and levofloxacin the antibiotic sent to pharmacy [facility] in [place] follow-up with your primary care doctor in Dr. Denney in the next 1 to 2 weeks Vital Signs/Physical Exam: Temp Pulse Resp BP Pulse Ox 97.9 F 98 H 18 141/78 H 90 L 06/19/24 08:00 06/19/24 08:16 06/19/24 08:00 06/19/24 08:16 06/19/24 08:00 General: Alert, In no apparent distress, Oriented x3 HEENT: Atraumatic, PERRLA Neck: Supple, JVD not distended Respiratory: Diminished, Expiratory wheezes (mild) Cardiovascular: Regular rate/rhythm, Normal S1 S2 Gastrointestinal: Normal bowel sounds Musculoskeletal: No tenderness Integumentary: No rashes Neurological: Normal speech, Normal tone, Normal affect Lymphatics: No axilla or inguinal lymphadenopathy Laboratory Data at Discharge: WBC 12.40 thou/uL (4.3-10.9) H 06/19/24 05:05 Hgb 15.4 g/dL (13.6-17.9) 06/19/24 05:05 Hct 44.6 % (39.6-49.0) 06/19/24 05:05 Plt Count 222 thou/uL (152-406) 06/19/24 05:05 PT 14.2 SECONDS (9.4-12.5) H 06/17/24 18:50 INR 1.36 06/17/24 18:50 APTT 29.8 SECONDS (24.3-36.9) 06/17/24 18:50 Sodium 136 mEq/L (136-145) 06/19/24 05:05 Potassium 4.3 mEq/L (3.5-5.1) 06/19/24 05:05 BUN 26 mg/dL (7-18) H 06/19/24 05:05 Creatinine 1.03 mg/dL (0.70-1.30) 06/19/24 05:05 Glucose 116 mg/dL (74-106) H 06/19/24 05:05 Phosphorus 1.5 mg/dL (2.5-4.9) L* 06/19/24 05:05 Magnesium 2.4 mg/dL (1.6-2.4) 06/19/24 05:05 Total Bilirubin 0.4 mg/dL (0.2-1.0) 06/18/24 05:08 AST 15 U/L (15-37) 06/18/24 05:08 ALT 27 U/L (16-61) 06/18/24 05:08 Alkaline Phosphatase 107 U/L (45-117) 06/18/24 05:08 Home Medications: Fluticasone/Salmeterol [Advair 250/50 Diskus*] 1 puff IH BID #1 disk 10/01/14 Ipratropium/Albuterol Sulfate [Combivent Respimat 20-100 Mcg] 1 puff IH BID 08/20/17 Fluticasone Propion/Salmeterol [Advair 250-50 Diskus] 1 each IH BID #1 blst.w.dev 08/21/17 Nicotine [Nicoderm*] 21 mg TD DAILY #30 patch.td24 08/21/17 levoFLOXacin [Levaquin*] 750 mg PO DAILY #5 tab 06/19/24 predniSONE [Deltasone*] 10 mg PO BID 7 Days #14 tab 06/19/24 New Medications: predniSONE [Deltasone*] 10 mg PO BID 7 Days #14 tab levoFLOXacin [Levaquin*] 750 mg PO DAILY #5 tab Physician Discharge Instructions: Patient was admitted to the hospital for COPD exacerbation. He was started on steroids, empiric antibiotics with levofloxacin, as needed nebulizer treatments had gradual improvement in his symptoms. He has a concentrator for home oxygen at home but did not have a portable tank, we attempted to arrange for portable tank/formal home oxygen set up but patient declined as they would not do this without setting up a concentrator which she already had. He states at home that he has inhalers including Combivent, Trelegy which he will be using. He will be sent a prescription for a short course of prednisone and levofloxacin. It will be important he follows up with his primary care doctor as well as a pulmonologistDr. Denney. He had a chest x-ray this morning that showed COPD with no visualized acute abnormality. He has remained afebrile throughout hospitalization. Continue your home medication as previously prescribed Prescription for prednisone and levofloxacin the antibiotic sent to pharmacy [facility] in [place] follow-up with your primary care doctor in Dr. Denney in the next 1 to 2 weeks Diet: Regular Activity: Ad alena Followup: Tommie Denney MD [ACTIVE - CAN ADMIT] - 1-2 Weeks Moises Vyas DO [Primary Care Provider] - 1 Week Time spent managing pt's care (in minutes): 41
--- NOTE | 2024-06-19 12:46 | EKG ---
Test Date: 2024-06-17 Test Time: 18:29:10 Grain Sacker: DAVIAN MEASUREMENT RESULTS: Intervals: Rate: 129 [place]: 130 QRSD: 78 QT: 294 QTc: 430 [place]: P: 86 [place]: 130 QRS: 80 T: 67 INTERPRETIVE STATEMENTS: Sinus tachycardia Biatrial enlargement Abnormal ECG Compared to ECG 08/19/2017 21:47:16 No significant changes Electronically Signed On 06-19-24 12:42:28 RUBY SOFTWARE DEVELOPER by Noah Cobos
--- NOTE | 2024-06-19 12:53 | P.CNS ---
Date of Consult: 06/19/24 Reason for Consult: COPD exacerbation Chief Complaint: COPD exacerbation History of Present Illness: Patient is 68 years of age has been sick for about 3 days admitted with worsening dyspnea cough congestion history of COPD heavy smoker 1 pack a day denies any fever chills had a productive cough takes his friends Trevor does not follow-up with any physicians Allergies No Known Drug Allergies Allergy (Verified 08/20/17 01:40) Unknown No Known Allergies Allergy (Uncoded 08/20/17 01:10) Unknown Home Medications: Fluticasone/Salmeterol [Advair 250/50 Diskus*] 1 puff IH BID #1 disk 10/01/14 Ipratropium/Albuterol Sulfate [Combivent Respimat 20-100 Mcg] 1 puff IH BID 08/20/17 Fluticasone Propion/Salmeterol [Advair 250-50 Diskus] 1 each IH BID #1 blst.w.dev 08/21/17 Nicotine [Nicoderm*] 21 mg TD DAILY #30 patch.td24 08/21/17 levoFLOXacin [Levaquin*] 750 mg PO DAILY #5 tab 06/19/24 predniSONE [Deltasone*] 10 mg PO BID 7 Days #14 tab 06/19/24 - Past Medical/Surgical History Diabetic: No -: COPD -: tobacco abuse -: HTN -: dyslipidemia -: TUBERCULOSIS IN - Family History Mother Medical History: Heart disease Notes: had pacemaker - Social History Smoking Status: Current every day smoker Alcohol use: No CD- Drugs: Yes Caffeine use: Yes Place of Residence: Home Review of Systems 10-point ROS is otherwise unremarkable Physical Examination Temp Pulse Resp BP Pulse Ox 97.9 F 98 H 18 141/78 H 90 L 06/19/24 08:00 06/19/24 08:16 06/19/24 08:00 06/19/24 08:16 06/19/24 08:00 General: Alert, Oriented x3 Neck: Supple Respiratory: Rhonchi/gurgles Cardiovascular: No edema, Regular rate/rhythm, Normal S1 S2 Gastrointestinal: Normal bowel sounds, Soft and benign, Non-distended - Problems (1) COPD exacerbation Status: Acute Plan: Patient is 68 years of age admitted with worsening dyspnea cough congestion chest x-ray hyperinflated consistent with COPD admitted with an exacerbation takes his friend's trilogy at home he is doing much better plan to discharge him on prednisone antibiotics continue with Trevor to follow-up with me as an outpatient will need outpatient pulmonary function testing he will need low-dose CAT scan for lung cancer screening patient has been counseled not to smoke was reviewed unremarkable patient's phosphorus is a little low
== END 2024-06-19 12:09 | disposition home or self-care (01) | DRG 190 ==
LOC: ER 17:21 → 2ND 19:40
PROVIDERS: ADMIT Family Medicine; ATTEND Hospitalist
DX: J44.1 Chronic obstructive pulmonary disease with (acute) exacerbation (principal); J96.01 Acute respiratory failure with hypoxia; J98.4 Other disorders of lung; J02.9 Acute pharyngitis, unspecified; I10 Essential (primary) hypertension; E78.5 Hyperlipidemia, unspecified; F17.210 Nicotine dependence, cigarettes, uncomplicated; Z79.51 Long term (current) use of inhaled steroids; Z79.52 Long term (current) use of systemic steroids; Z99.81 Dependence on supplemental oxygen; Z11.52 Encounter for screening for COVID-19; Z82.49 Family history of ischemic heart disease and other diseases of the circulatory system
CPT/HCPCS: 36415; 71045; 80048; 80053; 81001; 83605; 83735; 84100; 85025; 85610; 85730; 87040; 87804; 87811; 93005; 94640; 94760; 96374; 96375; 99285; J0360; J0696; J1650; J2919; J3535; J7050; J7512; J7613; J7614; J7644

== ENCOUNTER 2024-07-02 12:50 | Inpatient (IN) | payer OTHER ==
[2024-07-02 14:17] LABS: Absolute Basophils 0.1 K/uL (0-0.5); Absolute Eosinophils 0.1 K/uL (0-0.5); Absolute Lymphocytes (CBC) 1.3 K/uL (0.7-4.9); Absolute Monocytes 0.7 K/uL (0.1-1.3); Absolute Neutrophil 9.3 K/uL (1.8-8.0); Basophils % 0.6 % (0-1.3); Hemoglobin 16.2 g/dL (13.6-17.9); Lymphocytes % 11.4 % (15.3-44.8); MCH 30.7 pg (27.0-35.0); MCHC 33.1 g/dL (32.0-36.0); MCV 92.7 fL (80-100); MPV 7.9 fL (7.6-11.3); Monocytes % 6.4 % (3.3-12.3); Neutrophils % 80.6 % (41.7-73.7); Nucleated Red Blood Cells % 0.1 % (0-0); Platelets 272 thou/uL (152-406); RBC Red Blood Cell Count 5.29 M/uL (4.33-5.43); Red Cell Distribution Width 14.9 % (12.1-15.2)
--- NOTE | 2024-07-02 15:11 | RAD REPORT ---
EXAM: Chest Single View HISTORY: COPD COMPARISON: 06/19/2024 FINDINGS: LUNGS/PLEURA: The lungs are clear. No pleural effusions or pneumothorax. No pulmonary edema. Emphysem a. MEDIASTINUM: The mediastinal silhouette is within normal limits. CARDIAC: The cardiac silhouette is within normal limits. UPPER ABDOMEN: No significant abnormality. BONES: No acute abnormality. LINES/TUBES/OTHER: N/A IMPRESSION: Emphysema without superimposed acute process.
[2024-07-02] MEDS ORDERED: METHYLPREDNISOLONE 125 MG INJ ONE (15:25)
[2024-07-02] MEDS ORDERED: IPRATROPIUM BROM 0.5MG/2.5ML ONE ×2 (15:25→20:06)
[2024-07-02] MEDS ORDERED: ALBUTEROL 2.5 MG/3 ML NEB SOL ONE ×2 (15:25→20:05)
[2024-07-02 16:06] LABS: Anion Gap 6.2 mEq/L (5.0-15.0); Potassium 4.2 mEq/L (3.5-5.1)
[2024-07-02 16:13] LABS: Troponin High Sensitivity 565.3 pg/mL (<58.9)
--- NOTE | 2024-07-02 16:26 | EDPHYS ---
Physician Documentation [facility] Name: Hubert Lynch Age: 68 yrs Sex: Male : 1955 Arrival Date: 07/02/2024 Time: 12:50 Bed 14 Private MD: ED Physician Juan Carlos Winslow HPI: 07/02 16:22 This 68 yrs old Male presents to ER via EMS with complaints of Breathing Difficulty, ms3 Shortness Of Breath. 16:22 68-year-old male with past medical history of COPD and hypertension presents to the [facility] emergency department for shortness of breath, cough with congestion. Patient denies pain. Patient states he is on home oxygen at 2 to 3 L. Patient states that shortness of breath has recently become worse.. Historical: - Allergies: 13:05 No Known Allergies; db - PMHx: 13:05 COPD; Hypertension; db - Immunization history:: Adult Immunizations unknown. - Infectious Disease History:: Denies. - Social history:: Smoking status: Patient reports the use of cigarette tobacco products, smokes one pack cigarettes per day. ROS: 16:22 Constitutional: Negative for fever, and chills. Cardiovascular: Negative for chest ms3 pain, and palpitations. Abdomen/GI: Negative for abdominal pain, nausea, vomiting, diarrhea, and constipation, MS/Extremity: Negative for injury and deformity, 16:22 Respiratory: Positive for cough, shortness of breath, wheezing, Exam: 16:22 Constitutional: This is a well developed, well nourished patient who is awake, alert, ms3 and in no acute distress. Cardiovascular: Regular rate and rhythm with a normal S1 and S2. No gallops, murmurs, or rubs. Normal PMI, no JVD. No pulse deficits. Abdomen/GI: Soft, non-tender, with normal bowel sounds. No distension or tympany. No guarding or rebound. No evidence of tenderness throughout. 16:22 ECG was reviewed by the Attending Physician. 16:22 Respiratory: the patient does not display signs of respiratory distress, Respirations: labored breathing, that is mild, Breath sounds: wheezing: expiratory that is moderate, is heard in the left posterior upper lobe, right posterior upper lobe, left posterior lower lobe, right posterior middle lobe and right posterior lower lobe, Vital Signs: 12:53 BP 143 / 109; Pulse 120; Resp 22; Temp 98.5(O); Pulse Ox 92% on R/A; Weight 65.77 kg; db Height 5 ft. 8 in. ; 14:00 BP 148 / 111; Pulse 110; Resp 24; Pulse Ox 100% on 2 lpm NC; db 15:00 BP 154 / 93; Pulse 115; Resp 28; Pulse Ox 96% on 2 lpm NC; db 16:30 BP 157 / 94; Pulse 128; Resp 24; Pulse Ox 97% on 2 lpm NC; db 17:35 BP 152 / 97; Pulse 120; Resp 24; Pulse Ox 96% 2 lpm ; db 18:30 BP 137 / 95; Pulse 120; Resp 22; Pulse Ox 97% on 2 lpm NC; db 12:53 Body Mass Index 22.05 (65.77 kg, 172.72 cm) db 12:53 PLACED ON 2L NC O2 db MDM: 13:28 Medical Screening Exam initiated ms3 16:20 Differential diagnosis: CHF exacerbation, Chronic Obstructive Pulmonary Disease ms3 Myocardial Infarction pulmonary edema, Pulmonary Embolism. Data reviewed: vital signs, nurses notes, lab test result(s), EKG, radiologic studies, and as a result, I will admit patient. Consideration of Admission/Observation Patient was admitted/placed on observation. Management of patient was discussed with the following: Assistant Project Manager: Dr Cobos- Recommends Heparin, NPO after midnight. Management of patient was discussed with the following: Hospitalist: Dr De La Rosa. I considered the following discharge prescriptions or medication management in the emergency department Medications were administered in the Emergency Department. See MAR. Independent interpretation of the following test(s) in the Emergency Department EKG: See my EKG interpretation above. Counseling: I had a detailed discussion with the patient and/or guardian regarding the historical points, exam findings, and any diagnostic results supporting the discharge/admit diagnosis, lab results, radiology results, the need for further work-up and treatment in the hospital. ED course: Discussed case with Dr. Cobos he recommends heparin drip. He will consult on patient. Discussed plan with patient he understands and agrees with plan. All questions were answered. 07/02 13:29 Order name: Basic Metabolic Panel; Complete Time: 16:19 ms3 07/02 13:29 Order name: CBC with Diff; Complete Time: 15:46 ms3 07/02 13:29 Order name: Troponin HS; Complete Time: 16:19 ms3 07/02 16:47 Order name: Ptt, Activated; Complete Time: 18:47 db 07/02 17:10 Order name: Protime (+INR); Complete Time: 18:47 EDMS 07/02 17:25 Order name: NT PRO-BNP EDMS 07/02 17:25 Order name: Thyroid Stimulating Hormone EDMS 07/02 17:25 Order name: CBC with Automated Diff EDMS 07/02 17:25 Order name: CBC with Automated Diff EDMS 07/02 17:25 Order name: Comprehensive Metabolic Panel EDMS 07/02 17:25 Order name: Comprehensive Metabolic Panel EDMS 07/02 17:25 Order name: Lipid Profile EDMS 07/02 17:25 Order name: Lipid Profile EDMS 07/02 17:25 Order name: Lipid Profile EDMS 07/02 17:25 Order name: Lipid Profile EDMS 07/02 17:25 Order name: Magnesium EDMS 07/02 17:25 Order name: Magnesium EDMS 07/02 17:25 Order name: Troponin High Sensitivity EDMS 07/02 17:25 Order name: Troponin High Sensitivity EDMS 07/02 17:25 Order name: Troponin High Sensitivity EDMS 07/02 17:25 Order name: Troponin High Sensitivity EDMS 07/02 17:25 Order name: Troponin High Sensitivity EDMS 07/02 17:25 Order name: Urinalysis w/ reflexes EDMS 07/02 17:26 Order name: Blood Culture EDMS 07/02 17:26 Order name: Sputum Culture EDMS 07/02 13:29 Order name: XRAY Chest (1 view); Complete Time: 15:46 ms3 07/02 17:25 Order name: Echo with Doppler EDMS 07/02 13:29 Order name: EKG; Complete Time: 13:30 ms3 07/02 17:25 Order name: Physical Therapy Consult EDMS 07/02 13:29 Order name: Cardiac monitoring; Complete Time: 14:03 ms3 07/02 13:29 Order name: EKG - Nurse/Tech; Complete Time: 14:03 ms3 07/02 13:29 Order name: IV Saline Lock; Complete Time: 14:03 ms3 07/02 13:29 Order name: Labs collected and sent; Complete Time: 14:03 ms3 07/02 13:29 Order name: O2 Per Protocol; Complete Time: 14:03 ms3 07/02 13:29 Order name: O2 Sat Monitoring; Complete Time: 14:03 ms3 07/02 14:21 Order name: Labs - recollect needed: recollect green top; Complete Time: 15:37 bd EC:22 Rate is 109 beats/min. Rhythm is regular. QRS [place] is Normal. UT interval is normal. ms3 QRS interval is normal. Clinical impression: Sinus tachycardia. Interpreted by me. Reviewed by me. Administered Medications: 15:30 Drug: DuoNeb Nebulize (2.5 mg - 0.5 mg) 3 ml Nebulizer once Route: Nebulizer; db 15:32 Drug: MethylPrednisoLONE IVP 125 mg IVP once Route: IVP; Site: right hand; db 17:18 Drug: Aspirin PO Chewable Tablet 324 mg PO once; 81 mg tablets x 4 Route: PO; db 17:28 Drug: Heparin (NM-Bolus No thrombolytic) - HEParin IVP 60 units/kg IVP once; Max 5000 db units {Co-Signature: aa5 (Xiomy Velez RN).} Route: IVP; Site: right hand; 17:30 Drug: Heparin (NM Drip) 12 units/kg/hr - ([place] [address] units, D5W IV 500 ml) IV at db calculated rate Per protocol; Max initial rate 1000 units/hr {Co-Signature: aa5 (Xiomy Velez RN).} {Note: STARTED AT 800UNITS/HR.} Route: IV; Rate: calculated rate; Site: right hand; Disposition: 16:25 Critical Care:. ms3 Disposition Summary: 07/02/24 16:25 Hospitalization Ordered Notes: Hospitalization Status: Inpatient Admission ms3 Provider: Amado De La Rosa ms3 Location: Telemetry/MedSurg (Inpatient) ms3 Condition: Stable ms3 Problem: new ms3 Symptoms: are unchanged ms3 Bed/Room Type: Standard ms3 Room Assignment: 405(07/02/24 18:15) bd Diagnosis - Subsequent non-ST elevation (NSTEMI) myocardial infarction ms3 - Shortness of breath ms3 - COPD/ Chronic obstructive pulmonary disease with (acute) exacerbation ms3 Forms: - Medication Reconciliation Form ms3 - SBAR form ms3 - Leadership Thank You Letter ms3 Critical care time excluding procedures: 16:25 Critical care time: Bedside Care: 40 minutes, Consultation: 10 minutes. Total time: 50 ms3 minutes Signatures: Dispatcher [employer] EDMS Dorothea Gannon Marcus, DO DO ms3 Malissa Fonseca, RN RN db Xiomy Velez RN aa5 Corrections: (The following items were deleted from the chart) 13:06 13:05 Social history: Smoking status: Patient denies any tobacco usage or history of. dbdb 17:09 17:02 PROTIME (+INR)+COAG.LAB.BRZ ordered. EDMS EDMS 18:15 16:25 ms3 bd
--- NOTE | 2024-07-02 16:26 | ER ---
Nurse's Notes [facility] Name: Hubert Lynch Age: 68 yrs Sex: Male : 1955 Arrival Date: 07/02/2024 Time: 12:50 Bed 14 Private MD: Diagnosis: Subsequent non-ST elevation (NSTEMI) myocardial infarction;Shortness of breath;COPD/ Chronic obstructive pulmonary disease with (acute) exacerbation Presentation: 07/02 12:53 Chief complaint: EMS states: DIFFICULTY BREATHING WITH SOB, COPD X 1 WEEK. STATES SEEN db 2 WEEKS AGO FOR SIMILAR COMPLAINT. PT REPORTS TAKING BREATHING TREATMENT PRIOR TO EMS ARRIVAL. 92% RA PLACED ON 2L NC O2 BY EMS. Coronavirus screen: Client denies travel out of the [place] in the last 14 days. At this time, the client does not indicate any symptoms associated with coronavirus-19. Ebola Screen: Patient negative for fever greater than or equal to 101.5 degrees Fahrenheit, and additional compatible Ebola Virus Disease symptoms Patient denies exposure to infectious person. Patient denies travel to an Ebola-affected area in the 21 days before illness onset. No symptoms or risks identified at this time. Initial Sepsis Screen: Does the patient meet any 2 criteria? No. Patient's initial sepsis screen is negative. Does the patient have a suspected source of infection? No. Patient's initial sepsis screen is negative. Risk Assessment: Do you want to hurt yourself or someone else? Patient reports no desire to harm self or others. Onset of symptoms was June 25, 2024. Care prior to arrival: Oxygen administered. via nasal cannula. 12:53 Method Of Arrival: EMS: [facility] db 12:53 Acuity: DAVID 2 db Triage Assessment: 13:05 General: Appears in no apparent distress. uncomfortable, Behavior is calm, cooperative. db Pain: Denies pain. Neuro: Level of Consciousness is awake, alert, obeys commands, Oriented to person, place, time, situation. Respiratory: Reports shortness of breath at rest Airway is patent Respiratory effort is even, unlabored, Respiratory pattern is regular, symmetrical, Breath sounds are coarse bilaterally. Onset: The symptoms/episode began/occurred gradually, the patient has mild shortness of breath. Historical: - Allergies: 13:05 No Known Allergies; db - PMHx: 13:05 COPD; Hypertension; db - Immunization history:: Adult Immunizations unknown. - Infectious Disease History:: Denies. - Social history:: Smoking status: Patient reports the use of cigarette tobacco products, smokes one pack cigarettes per day. Screenin:06 [facility] ED Fall Risk Assessment (Adult) History of falling in the last 3 months, db including since admission No falls in past 3 months (0 pts) Confusion or Disorientation No (0 pts) Intoxicated or Sedated No (0 pts) Impaired Gait No (0 pts) Mobility Assist Device Used No (0 pt) Altered Elimination No (0 pt) Score/Fall Risk Level 0 - 2 = Low Risk Oriented to surroundings, Maintained a safe environment. Abuse screen: Denies threats or abuse. Denies injuries from another. Nutritional screening: No deficits noted. Tuberculosis screening: No symptoms or risk factors identified. Assessment: 13:06 Reassessment: SEE TRIAGE FOR INITIAL ASSESSMENT. db 14:04 Reassessment: Patient appears in no apparent distress at this time. Patient and/or db family updated on plan of care and expected duration. Pain level reassessed. Patient is alert, oriented x 3, equal unlabored respirations, skin warm/dry/pink. General: Appears in no apparent distress. comfortable, Behavior is calm, cooperative. Pain: Denies pain. Neuro: Level of Consciousness is awake, alert, obeys commands, Oriented to person, place, time, situation. Cardiovascular: Reports shortness of breath, Capillary refill < 3 seconds Patient's skin is warm and dry. Rhythm is sinus tachycardia. Respiratory: Reports cough that is Airway is patent Respiratory effort is even, unlabored, Respiratory pattern is regular, symmetrical. 14:40 Reassessment: CALLED LAB FOR RECOLLECT. db 15:30 Reassessment: Patient appears in no apparent distress at this time. Patient and/or db family updated on plan of care and expected duration. Pain level reassessed. Patient is alert, oriented x 3, equal unlabored respirations, skin warm/dry/pink. 16:48 Reassessment: Patient appears in no apparent distress at this time. No changes from db previously documented assessment. Patient and/or family updated on plan of care and expected duration. Pain level reassessed. Patient is alert, oriented x 3, equal unlabored respirations, skin warm/dry/pink. 17:38 Reassessment: Patient appears in no apparent distress at this time. Patient and/or db family updated on plan of care and expected duration. Pain level reassessed. Patient is alert, oriented x 3, equal unlabored respirations, skin warm/dry/pink. Respiratory: Airway is patent Respiratory effort is even, unlabored, Respiratory pattern is regular, symmetrical. 18:30 Reassessment: Patient appears in no apparent distress at this time. Patient and/or db family updated on plan of care and expected duration. Pain level reassessed. Patient is alert, oriented x 3, equal unlabored respirations, skin warm/dry/pink. 19:00 Reassessment: Pt alert and oriented, respiratory distress noted, on 3L NC pt saturation ay above 96%. On heparin gtt at 800 units/hr. Vital Signs: 12:53 BP 143 / 109; Pulse 120; Resp 22; Temp 98.5(O); Pulse Ox 92% on R/A; Weight 65.77 kg; db Height 5 ft. 8 in. ; 14:00 BP 148 / 111; Pulse 110; Resp 24; Pulse Ox 100% on 2 lpm NC; db 15:00 BP 154 / 93; Pulse 115; Resp 28; Pulse Ox 96% on 2 lpm NC; db 16:30 BP 157 / 94; Pulse 128; Resp 24; Pulse Ox 97% on 2 lpm NC; db 17:35 BP 152 / 97; Pulse 120; Resp 24; Pulse Ox 96% 2 lpm ; db 18:30 BP 137 / 95; Pulse 120; Resp 22; Pulse Ox 97% on 2 lpm NC; db 12:53 Body Mass Index 22.05 (65.77 kg, 172.72 cm) db 12:53 PLACED ON 2L NC O2 db ED Course: 12:50 Initial Neb Treatment Given as ordered Patient was instructed and evaluated on db procedure Patient tolerated procedure well without adverse effect. 12:53 Arm band placed on Patient placed in an exam room. db 13:01 Patient arrived in ED. db 13:05 Triage completed. db 13:07 Malissa Fonseca, MORENA is Primary Nurse. db 13:13 Juan Carlos Winslow DO is Attending Physician. ms3 14:00 Initial lab(s) drawn, by me, sent to lab. Inserted saline lock: 22 gauge in right hand, db using aseptic technique. Blood collected. Flushed with 10 mL NS. 14:04 Patient has correct armband on for positive identification. Bed in low position. Call db light in reach. Side rails up X 1. Client placed on continuous cardiac and pulse oximetry monitoring. NIBP monitoring applied. nurseryman assistant on. Pulse ox on. NIBP on. Warm blanket given. Pillow given. 14:14 XRAY Chest (1 view) In Process Unspecified. EDMS 15:35 Lab(s) recollected, by me, sent to lab. db 16:25 Amado De La Rosa MD is Hospitalizing Provider. ms3 20:51 No provider procedures requiring assistance completed. Patient admitted, IV remains in ha1 place. Administered Medications: 15:30 Drug: DuoNeb Nebulize (2.5 mg - 0.5 mg) 3 ml Nebulizer once Route: Nebulizer; db 15:32 Drug: MethylPrednisoLONE IVP 125 mg IVP once Route: IVP; Site: right hand; db 17:18 Drug: Aspirin PO Chewable Tablet 324 mg PO once; 81 mg tablets x 4 Route: PO; db 17:28 Drug: Heparin (MA-Bolus No thrombolytic) - HEParin IVP 60 units/kg IVP once; Max 5000 db units {Co-Signature: aa5 (Xiomy Velez RN).} Route: IVP; Site: right hand; 17:30 Drug: Heparin (MA Drip) 12 units/kg/[place] - ([place] [address] units, D5W IV 500 ml) IV at db calculated rate Per protocol; Max initial rate 1000 units/hr {Co-Signature: aa5 (Xiomy Velez RN).} {Note: STARTED AT 800UNITS/HR.} Route: IV; Rate: calculated rate; Site: right hand; Medication: 13:06 VIS not applicable for this client. db Outcome: 16:25 Decision to Hospitalize by Provider. ms3 20:51 Admitted to Tele accompanied by tech, via stretcher, room 408, ha1 20:51 Condition: stable 20:51 Instructed on the need for admit, Demonstrated understanding of instructions, 20:52 Patient left the ED. ha1 Signatures: Dispatcher [employer] EDMS Juan Carlos Winslow DO DO ms3 Cecilia Brito RN RN ha1 Malissa Fonseca RN RN db [place], AwMORENA melvin RN, Audri RN aa5 Corrections: (The following items were deleted from the chart) 13:06 13:05 Social history: Smoking status: Patient denies any tobacco usage or history of. dbdb
--- NOTE | 2024-07-02 16:46 | P.CNS ---
Date of Consult: 07/02/24 Chief Complaint: SOB History of Present Illness: Patient with PMH of COPD on home oxygen, tobacco use, presented with worsening SOB, denies chest pain, no palpitations, no syncope. Allergies No Known Drug Allergies Allergy (Verified 08/20/17 01:40) Unknown No Known Allergies Allergy (Uncoded 08/20/17 01:10) Unknown Home medications list reviewed: Yes Home Medications: Fluticasone/Salmeterol [Advair 250/50 Diskus*] 1 puff IH BID #1 disk 10/01/14 Ipratropium/Albuterol Sulfate [Combivent Respimat 20-100 Mcg] 1 puff IH BID 08/20/17 Fluticasone Propion/Salmeterol [Advair 250-50 Diskus] 1 each IH BID #1 blst.w.dev 08/21/17 Nicotine [Nicoderm*] 21 mg TD DAILY #30 patch.td24 08/21/17 levoFLOXacin [Levaquin*] 750 mg PO DAILY #5 tab 06/19/24 predniSONE [Deltasone*] 10 mg PO BID 7 Days #14 tab 06/19/24 - Past Medical/Surgical History Diabetic: No -: COPD -: tobacco abuse -: HTN -: dyslipidemia -: TUBERCULOSIS IN - Family History Mother Medical History: Heart disease Notes: had pacemaker - Social History Smoking Status: Current every day smoker Alcohol use: No CD- Drugs: Yes Caffeine use: Yes Review of Systems 10-point ROS is otherwise unremarkable Physical Examination General: Alert, In no apparent distress HEENT: Atraumatic, PERRLA, Mucous membr. moist/pink, EOMI, Sclerae nonicteric Neck: Supple, 2+ carotid pulse no bruit, No LAD, Without JVD or thyroid abnormality Respiratory: Clear to auscultation bilaterally, Normal air movement Cardiovascular: Regular rate/rhythm, Normal S1 S2 Gastrointestinal: Normal bowel sounds, No tenderness Musculoskeletal: No tenderness Integumentary: No rashes Neurological: Normal gait, Normal speech, Normal tone, Normal affect Lymphatics: No axilla or inguinal lymphadenopathy Laboratory Data (last 24 hrs) 07/02/24 07/02/24 15:35 14:00 WBC 11.50 H Hgb 16.2 Hct 49.0 Plt Count 272 Sodium 137 Potassium 4.2 BUN 14 Creatinine 1.03 Glucose 96 - Problems (1) NSTEMI (non-ST elevated myocardial infarction) Current Visit: Yes Status: Acute Plan: Patient denies chest pain but first set of enzymes is elevated, which can be demand ischemia from his COPD, although patient got multiple risk factors for CAD. Keep patient NPO after midnight trend cardiac enzymes for 3 sets, if troponin trending down then get nuclear stress test (Lexiscan in am) ASA 81 mg daily Lipitor 40 mg daily Heparin drip get Echo (2) Tachycardia Current Visit: Yes Status: Acute Plan: most likely secondary to his COPD exacerbation, continue to monitor on tele (3) COPD exacerbation Current Visit: No Status: Acute Plan: per primary team.
[2024-07-02] MEDS ORDERED: ASPIRIN 81 MG CHEWABLE TABLET ONE (17:06)
[2024-07-02] MEDS ORDERED: HEPARIN/D5W 25,000 UNIT/500 ML BAG IV ONE (17:06)
[2024-07-02] MEDS ORDERED: HEPARIN 5000 UNIT/ML 1 ML VIAL ONE (17:06)
[2024-07-02] MEDS ORDERED: ZOLPIDEM TARTRATE 5 MG TABLET PO PRN (17:10)
[2024-07-02] MEDS ORDERED: ALPRAZOLAM 0.25 MG TABLET PO PRN (17:10)
[2024-07-02] MEDS ORDERED: MORPHINE 4 MG/ML SYR IV PRN (17:10)
[2024-07-02] MEDS ORDERED: ACETAMINOPHEN 500 MG TAB PO PRN (17:10)
[2024-07-02] MEDS ORDERED: NITROGLYCERIN 0.4 MG/TAB SL PRN (17:10)
[2024-07-02] MEDS ORDERED: ONDANSETRON 4 MG/2 ML VIAL IV PRN (17:10)
[2024-07-02 17:23] LABS: PTT, Activated Partial Thromb 26.5 SECONDS (24.3-36.9); Protime INR 1.06
--- NOTE | 2024-07-02 17:41 | P.HP ---
Patient History Date of Service: 07/02/24 Reason for admission: SOB History of Present Illness: This is a 68-year-old male with a past medical history of COPD on home oxygen, current tobacco use, hypertension and, dyslipidemia presenting with shortness of breath that has been worsening over the last day. He states he is on 2 to 3 L of oxygen at home. He denies any fevers alcohol use or illicit drug use. He is a current every day smoker. He is tripoding. He does endorse some mild chest. He rates the discomfort at a 7 out of 10. Associated symptoms include cough Allergies No Known Drug Allergies Allergy (Verified 08/20/17 01:40) Unknown No Known Allergies Allergy (Uncoded 08/20/17 01:10) Unknown Home Medications: Fluticasone/Salmeterol [Advair 250/50 Diskus*] 1 puff IH BID #1 disk 10/01/14 Ipratropium/Albuterol Sulfate [Combivent Respimat 20-100 Mcg] 1 puff IH BID 08/20/17 Fluticasone Propion/Salmeterol [Advair 250-50 Diskus] 1 each IH BID #1 blst.w.dev 08/21/17 Nicotine [Nicoderm*] 21 mg TD DAILY #30 patch.td24 08/21/17 levoFLOXacin [Levaquin*] 750 mg PO DAILY #5 tab 06/19/24 predniSONE [Deltasone*] 10 mg PO BID 7 Days #14 tab 06/19/24 - Past Medical/Surgical History Diabetic: No -: COPD -: tobacco abuse -: HTN -: dyslipidemia -: TUBERCULOSIS IN - Family History Mother -: Heart disease Notes: had pacemaker - Social History Smoking Status: Current every day smoker Counseled patient to stop smoking for: less than 10 minutes Smoking therapy provided: Yes Alcohol use: No CD- Drugs: Yes Caffeine use: Yes Review of Systems General: Unremarkable Eyes: Unremarkable ENT: Unremarkable Respiratory: Cough, Shortness of Breath Cardiovascular: Unremarkable Gastrointestinal: Unremarkable Musculoskeletal: Unremarkable Integumentary: Unremarkable Neurological: Unremarkable Lymphatics: Unremarkable Physical Examination - Physical Exam General: Alert, Oriented x3, Moderate distress HEENT: Atraumatic, Normocephalic Neck: Supple Respiratory: Expiratory wheezes, Inspiratory wheezes Cardiovascular: No edema, Normal pulses Capillary refill: <2 Seconds Gastrointestinal: Normal bowel sounds Musculoskeletal: No clubbing, Swelling Integumentary: No rashes Neurological: Normal gait - Studies Laboratory Data (last 24 hrs) 07/02/24 07/02/24 07/02/24 17:01 17:00 15:35 WBC Hgb Hct Plt Count PT Cancelled 12.0 INR Cancelled 1.06 APTT 26.5 Sodium 137 Potassium 4.2 BUN 14 Creatinine 1.03 Glucose 96 07/02/24 14:00 WBC 11.50 H Hgb 16.2 Hct 49.0 Plt Count 272 PT INR APTT Sodium Potassium BUN Creatinine Glucose Assessment and Plan - Plan Shortness of breath NSTEMI Elevated troponin COPD exacerbation Acute on chronic respiratory failure Leukocytosis Tachycardia -Admit plan for possible heart cath in the a.m. -Will continue to trend troponins, could be demand ischemia -Cardiology consulted in the ED -Continue ASA, statin, therapeutic Lovenox -Echo pending -Start nebulized albuterol and nebulized ipratropium -Start steroids DVT prophylaxis with weight-based Lovenox - Advance Directives Does patient have a Living Will: No Does patient have a Durable POA for Healthcare: No
[2024-07-02] MEDS: ALBUTEROL 2.5 MG/3 ML NEB SOL NEB SCH ×2 (19:00→20:59)
[2024-07-02] MEDS: IPRATROPIUM BROM 0.5MG/2.5ML NEB SCH ×2 (19:00→21:02)
[2024-07-02 19:15] LABS: Specific Gravity 1.008 (1.005-1.030); Urine Bilirubin NEGATIVE (Negative); Urine Blood Negative (Negative); Urine Clarity Clear (Clear); Urine Color Light-Yellow (Yellow); Urine Glucose NEGATIVE (Negative); Urine Ketones NEGATIVE (Negative); Urine Microscopic Reflex YN NO UMIC; Urine Nitrite NEGATIVE (Negative); Urine Protein NEGATIVE (Negative); Urine Urobilinogen Normal (Normal); Urine pH 6.5 (5.0-7.0)
[2024-07-02 20:37] LABS: Thyroid Stimulating Hormone 1.37 uIU/mL (0.358-3.740)
[2024-07-02 20:40] LABS: Troponin High Sensitivity 375.4 pg/mL (<58.9)
[2024-07-02] MEDS: ENOXAPARIN 80 MG/0.8 ML SQ SCH (21:06)
[2024-07-02] MEDS: ATORVASTATIN 40 MG TAB PO SCH (21:06)
[2024-07-02] MEDS: predniSONE 20 MG TAB PO SCH (21:06)
[2024-07-02 21:55] VITALS: BMI 22.4
[2024-07-03 04:33] VITALS: TEMP 98.1
[2024-07-03] MEDS: METOPROLOL TAR 25 MG TAB PO SCH (06:00)
[2024-07-03 06:39] LABS: Absolute Lymphocytes (CBC) 0.4 K/uL (0.7-4.9); Absolute Monocytes 0.2 K/uL (0.1-1.3); Eosinophils % 0.4 % (0-4.4); Hematocrit 46.1 % (39.6-49.0); Hemoglobin 15.8 g/dL (13.6-17.9); Lymphocytes % 4.4 % (15.3-44.8); MCH 31.4 pg (27.0-35.0); MCHC 34.2 g/dL (32.0-36.0); MCV 91.7 fL (80-100); MPV 8.3 fL (7.6-11.3); Monocytes % 2.1 % (3.3-12.3); Neutrophils % 93.1 % (41.7-73.7); Platelets 273 thou/uL (152-406); RBC Red Blood Cell Count 5.03 M/uL (4.33-5.43); Red Cell Distribution Width 14.6 % (12.1-15.2)
[2024-07-03 07:00] LABS: Albumin/Globulin Ratio 0.7 (1.1-1.8); Anion Gap 9.1 mEq/L (5.0-15.0); Bilirubin Total 0.4 mg/dL (0.2-1.0); Globulin 4.5 g/dL (2.3-3.5); Magnesium 2.7 mg/dL (1.6-2.4); Potassium 5.1 mEq/L (3.5-5.1); Protein, Total 7.5 g/dL (6.4-8.2)
[2024-07-03] MEDS: ASPIRIN 325 MG TAB PO SCH (08:53)
--- NOTE | 2024-07-03 09:34 | P.PN ---
Subjective Date of Service: 07/03/24 Chief Complaint: SOB Subjective: No new changes (patient still feel shortness of breath with cough) Review of Systems 10-point ROS is otherwise unremarkable Physical Examination - Vital Signs Temperature: 98.1 F Blood Pressure: 162/95 Pulse: 104 Respirations: 20 Pulse Ox (%): 96 - Physical Exam General: Alert, In no apparent distress HEENT: Atraumatic, PERRLA, EOMI Neck: Supple, JVD not distended Respiratory: Clear to auscultation bilaterally, Normal air movement Cardiovascular: Regular rate/rhythm, Normal S1 S2 Gastrointestinal: Normal bowel sounds, No tenderness Musculoskeletal: No tenderness Integumentary: No rashes Neurological: Normal speech, Normal tone, Normal affect Lymphatics: No axilla or inguinal lymphadenopathy - Studies Laboratory Data (last 24 hrs) 07/02/24 07/02/24 07/02/24 17:01 17:00 15:35 WBC Hgb Hct Plt Count PT Cancelled 12.0 INR Cancelled 1.06 APTT 26.5 Sodium 137 Potassium 4.2 BUN 14 Creatinine 1.03 Glucose 96 07/02/24 14:00 WBC 11.50 H Hgb 16.2 Hct 49.0 Plt Count 272 PT INR APTT Sodium Potassium BUN Creatinine Glucose Medications List Reviewed: Yes Assessment And Plan - Current Problems (Diagnosis) (1) NSTEMI (non-ST elevated myocardial infarction) Current Visit: Yes Status: Acute Plan: Patient denies chest pain but first set of enzymes is elevated, which can be demand ischemia from his COPD, although patient got multiple risk factors for CAD. Keep patient NPO after midnight cardiac enzymes trending down but will do coronary angiogram due to patient multiple risk factors. ASA 81 mg daily Lipitor 40 mg daily Heparin drip get Echo (2) Tachycardia Current Visit: Yes Status: Acute Plan: most likely secondary to his COPD exacerbation, continue to monitor on tele (3) COPD exacerbation Current Visit: No Status: Acute Plan: per primary team. Patient still feel very short of breath.
--- NOTE | 2024-07-03 09:57 | P.PN ---
Date of Service: 07/03/24 Subjective: Had a bad last night last. States he was up coughing for most of the night. Associated symptoms include sputum production, mild headache. He rates the cough as a 9 out of 10. He denies any chest pain. Review of Systems General: Unremarkable Eyes: Unremarkable ENT: Unremarkable Respiratory: Cough, Shortness of Breath Cardiovascular: Unremarkable Gastrointestinal: Unremarkable Musculoskeletal: Unremarkable Integumentary: Unremarkable Neurological: Unremarkable Lymphatics: Unremarkable Physical Examination - Physical Exam General: Alert, Oriented x3, Moderate distress HEENT: Atraumatic, Normocephalic Neck: Supple Respiratory: Expiratory wheezes, Inspiratory wheezes, coarse breath sounds bilaterally Cardiovascular: No edema, Normal pulses Capillary refill: <2 Seconds Gastrointestinal: Normal bowel sounds Musculoskeletal: No clubbing, Swelling Integumentary: No rashes Neurological: Normal gait - Studies Laboratory Data (last 24 hrs) 07/02/24 07/02/24 07/02/24 17:01 17:00 15:35 WBC Hgb Hct Plt Count PT Cancelled 12.0 INR Cancelled 1.06 APTT 26.5 Sodium 137 Potassium 4.2 BUN 14 Creatinine 1.03 Glucose 96 07/02/24 14:00 WBC 11.50 H Hgb 16.2 Hct 49.0 Plt Count 272 PT INR APTT Sodium Potassium BUN Creatinine Glucose Assessment and Plan - Plan Shortness of breath NSTEMI Elevated troponin COPD exacerbation Acute on chronic respiratory failure Tachycardia Hyponatremia Hyperlipidemia Leukocytosis resolved -Echo pending -Troponin downtrending could be due to demand ischemia -Cardiology consulted in the ED -Continue ASA, statin, therapeutic Lovenox -Echo pending -Switched over to levalbuterol for the tachycardia -Start IV Solu-Medrol -Blood cultures with no growth to date -Lipid panel reviewed. Elevated LDL. Elevated total cholesterol DVT prophylaxis with weight-based Lovenox - Advance Directives Does patient have a Living Will: No Does patient have a Durable POA for Healthcare: No
[2024-07-03] MEDS ORDERED: NA CHLORIDE 0.9% 500 ML ONE (10:35)
[2024-07-03] MEDS ORDERED: HEPA 1000U/500MLS 2,000 UNIT/1,000 ML BAG IV ONE (10:45)
[2024-07-03] MEDS ORDERED: HEPARIN 10,000 UNIT/10 ML VIAL IV ONE (10:45)
[2024-07-03] MEDS ORDERED: MIDAZOLAM HCL 2 MG/2 ML INJ ONE (10:45)
[2024-07-03] MEDS ORDERED: LIDOCAINE 1% 20 ML MDV ONE (10:45)
[2024-07-03] MEDS ORDERED: ATROPINE SULF 1 MG/10 ML SYR IV ONE (10:45)
[2024-07-03] MEDS ORDERED: TICAGRELOR 90 MG TABLET PO ONE (10:46)
[2024-07-03] MEDS ORDERED: HEPARIN 5000 UNIT/ML 1 ML VIAL ONE (10:46)
[2024-07-03] MEDS ORDERED: CLOPIDOGREL 75 MG TABLET ONE (10:46)
[2024-07-03] MEDS ORDERED: ASPIRIN 325 MG TAB ONE (10:46)
[2024-07-03] MEDS ORDERED: FENTANYL CITR 100 MCG/2 ML ONE (10:47)
[2024-07-03] MEDS ORDERED: ALBUTEROL 2.5 MG/3 ML NEB SOL ONE (13:12)
[2024-07-03] MEDS ORDERED: IPRATROPIUM BROM 0.5MG/2.5ML ONE (13:12)
[2024-07-03] MEDS: LEVALBUTEROL 1.25 MG/3 ML NEB NEB SCH (13:25)
[2024-07-03] MEDS: IPRATROPIUM BROM 0.5MG/2.5ML NEB SCH (13:25)
[2024-07-03 15:22] VITALS: BP 141/86; O2SAT 98
[2024-07-03] MEDS ORDERED: METHYLPREDNISOLONE 40 MG INJ IV SCH (17:00)
--- NOTE | 2024-07-03 21:50 | OP ---
Date of Procedure: 07/03/2024 Surgeon: Noah Cobos Procedure Performed: Left heart catheterization with selective coronary angiogram. Indication For Procedure: [id number]. Complications: None. Estimated Blood Loss: Less than 50 cc. Access: Right ulnar, closed by TR band. Sedation Time: 20 minutes with 1 of Versed and 25 of fentanyl. Description Of Procedure: After risks, benefits, and alternatives were explained to the patient, the patient agreed to proceed with procedure and signed informed consent. The patient was brought back to the supervisor dental laboratory, prepped and draped in sterile fashion. Time-out was performed. Sedation was admini stered. Next, we tried the right radial artery to access, but it was too small, so we switched to th e right ulnar artery. 6-Syriac sheath was introduced without any difficulty. Mize 4 catheter was a dvanced over J-wire to the LV cavity. LVEDP was obtained. Pullback did not show any gradient. Same catheter was used for selective angiogram of the left and right coronary systems, and then this cath eter was pulled back to do nonselective angiogram of the left subclavian and CRUZ arteries. At the e nd of the procedure, catheter was removed over a J-wire. Sheath was removed. TR band was applied, h emostasis achieved, and the patient was moved back to recovery room in stable condition. Findings: 1. Left main: Ostial 30% disease, then distal 50% disease, calcified into the LAD. 2. LAD with ostial 70% disease, then proximal mild luminal irregularities, followed by mid long diffu se disease ranging between 70% to 95% with mid to distal mild luminal irregularities. 3. Left circumflex: Mild luminal irregularities. 4. OM1: Large with a proximal 80% disease, then mild luminal irregularities. 5. RCA: Dominant with proximal 50% disease, then mild luminal irregularities, followed by mid 50% di sease, then distal mild luminal irregularities. 6. RPDA: Mild luminal irregularities. 7. Subclavian artery/CRUZ: Patent. 8. LVEDP: 10 mmHg. Assessment And Plan: Significant multivessel disease, including distal left main, ostial left anteri or descending, mid left anterior descending, and obtuse marginal 1. Moderate right coronary artery d isease. Plan is to transfer to [facility] to be evaluated for CABG. BARNHART/NICK Voice ID: [id number] Report ID: [id number]
--- NOTE | 2024-07-05 17:00 | EKG ---
Test Date: 2024-07-02 Test Time: 13:51:21 Spanish Interpreter/Translator: SHANNON MEASUREMENT RESULTS: Intervals: Rate: 109 MO: 140 QRSD: 66 QT: 342 QTc: 460 [place]: P: 89 MO: 140 QRS: 82 T: 46 INTERPRETIVE STATEMENTS: Sinus tachycardia Right atrial enlargement Septal infarct, age undetermined Abnormal ECG Compared to ECG 06/17/2024 18:29:10 Myocardial infarct finding now present Electronically Signed On 07-05-24 16:48:22 HEAD TRANSFER CLERK by Noah Cobos
== END 2024-07-03 14:30 | disposition short-term general hospital (02) | DRG 280 ==
LOC: ER 12:50 → ERHOLD 17:10 → 4TH 18:55
PROVIDERS: ADMIT Family Medicine; ATTEND Family Medicine
PROC: 4A023N7 Measurement of Cardiac Sampling and Pressure, Left Heart, Percutaneous Approach (ICD-10-PCS; principal; 2024-07-02)
PROC: B2111ZZ Fluoroscopy of Multiple Coronary Arteries using Low Osmolar Contrast (ICD-10-PCS; 2024-07-02)
DX: I21.4 Non-ST elevation (NSTEMI) myocardial infarction (principal); J15.1 Pneumonia due to Pseudomonas; J96.21 Acute and chronic respiratory failure with hypoxia; J44.1 Chronic obstructive pulmonary disease with (acute) exacerbation; E87.1 Hypo-osmolality and hyponatremia; I25.10 Atherosclerotic heart disease of native coronary artery without angina pectoris; I10 Essential (primary) hypertension; Z99.81 Dependence on supplemental oxygen; Z72.0 Tobacco use; E78.5 Hyperlipidemia, unspecified; D72.829 Elevated white blood cell count, unspecified; R00.0 Tachycardia, unspecified
CPT/HCPCS: 36415; 71045; 76937; 80048; 80053; 80061; 81003; 83735; 83880; 84443; 84484; 85025; 85610; 85730; 87040; 87070; 87077; 87186; 87205; 93005; 93458; 94640; 94760; 96374; 96375; 99152; 99285; C1893; J0461; J1644; J2003; J2250; J2919; J3010; J7040; J7512; J7613; J7614; J7644; Q9966

== ENCOUNTER 2024-07-31 12:07 | Inpatient (IN) | payer OTHER ==
--- OUTSIDE RECORDS SUMMARY | 2024-07-31 12:17 | XMS REPORT | Continuity of Care Document ---
Author Name Unknown Address [address] [facility] [place] [address] [facility] Address [address] [place] [address] Care Team Providers Care Selling Specialist Name Role Phone Maribel Suresh Primary Care Physician [phone] Marcellus Gilbert Attending Clinician Unavailjeanna dugan Doctor Unassigned, [place] Attending Clinician U MARIELA Lau Attending Clinician Unavail Mariela Cervantes MD Attending Clinician [phone] Barbara BERG, Eliu Duenas Attending Clinician Unavail able ERIC FERRER Attending Clinician Unavailable Angie Platt DO Attending Clinician [phone] Eric Ferrer MD Attending Clinician [phone] Jose MORRISSEY, Ruddy Duenas Attending Clinician [phone] Marcellus Gilbert Admitting Clinician MARIELA Ambriz Admitting Clinician Unavail able ERIC FERRER Admitting Clinician Hebert Ferrer MD, Eric Admitting Clinician [phone] Jose MORRISSEY, Ruddy Duenas Admitting Clinician [phone] Payers Payer Name Policy Type Policy Number Effective Date Expirati on Date Source Problems Condition Name Condition Details Condition Category Status Onset Date Resolution Date Last Treatment Date Treating Clinician Comments Source SOB (shortness of breath) SOB (shortness of breath) Disease Active 2021-05 0- 00:00: 00 [facility] Allergies, Adverse Reactions, Alerts Allergy Name Allergy Type Status Severity Reaction(s) Onset Date Inactive Date Treating Clinician Comments Source No Known Allergie s DA Active U 2 00:00: 00 [facility] NO KNOWN ALLERGIE S Drug Class Active [facility] Social History Social Habit Start Date Stop Date Quantity Comments Source History of tobacco use Occasional tobacco smoker [facility] Exposure to SARS-CoV-2 (event) 2022-06-30 00:00:00 2022-07-10 18:14:00 Not sure [facility] Alcohol intake 2022-07-10 00:00:00 2022-07-10 00:00:00 Current drinker of alcohol (finding) [facility] History SDOH Transport Med 2022-03-09 00:00:00 2022-03-09 00:00:00 2 [facility] History SDOH Transport Non-Med 2022-03-09 00:00:00 2022-03-09 00:00:00 2 [facility] Tobacco use and exposure 2018 00:00:00 2018 00:00:00 Smokeless tobacco non-user [facility] Sex Ass[birth year] At 1955 00:00:00 1955 00:00:00 [facility] Smoking Status Start Date Stop Date Source Occasional tobacco smoker 2018 00:00:00 [facility] Medications Ordered Medication Name Filled Medication Name Start Date Stop Date Current Medication? Ordering Clinician Indication Dosage Frequency Signature (SIG) Comments Components Source doxycycline hyclate (Vibramycin ) capsule 100 mg 3- 03:00: 00 07-11 02:57 :00 No 100mg 100 mg, Oral, ONCE, 1 dose, On 07/10/22 at 2100, ALEJANDRA
Re ason for Anti-Infec tive: Empiric Therapy for Suspected Infection< br>Empiric Therapy Site: Respirator y
Durat ion of therapy: 72 hours [facility] ipratropium -albuteroL (DUONEB) 0.5 mg-3 mg(2.5 mg base)/3 mL nebulizer solution 3 mL 07-11 01:15: 00 07-11 01:29 :00 No 3mL 3 mL, Inhalation , ONCE, 1 dose, On 07/10/22 at 191[facility] (CATAPRES[facility] tablet 0.2 mg 07-11 01:15: 00 07-11 01:23 :00 No .2mg 0.2 mg, Oral, ONCE, 1 dose, On 07/10/22 at 191, STAT [facility] methylpredn isolone sod succ (SOLU-MEDRO L) injection 125 mg 07-11 01:15: 00 07-11 02:04 :00 No 125mg 125 mg, Intravenou s, ONCE, 1 dose, On 07/10/22 at 191, 2 mL [facility] furosemide (LASIX) injection 40 mg 07-11 00:30: 00 07-11 02:03 :00 No 40mg 40 mg, IV Push, ONCE, 1 dose, On 07/10/22 at 1830, [facility] ipratropium -albuteroL (DUONEB) 0.5 mg-3 mg(2.5 mg base)/3 mL nebulizer solution 3 mL 07-11 00:30: 00 07-11 00:36 :00 No 3mL 3 mL, Inhalation , ONCE, 1 dose, On 07/10/22 at 1830, [facility] doxycycline hyclate 100 mg capsule 07-10 00:00: 00 Yes [id number] 100mg Take 1 capsule by mouth in the morning and 1 capsule in the evening. [facility] hydrOXYzine 10 mg tablet 07-10 00:00: 00 Yes [id number] 10mg Take 1 tablet by mouth every 8 (eight) hours as needed for Itching for up to 10 doses. [facility] amLODIPine 5 mg tablet 07-10 00:00: 00 08-10 04:59 :00 No [id number] 5mg Take 1 tablet by mouth in the morning for 30 doses. [facility] hydrocortis one 1 % ointment 07-10 00:00: 00 07-21 04:59 :00 No [id number] Apply to affected area(s) 2 (two) times daily as needed for Itching or Dermatitis /Rash for up to 10 days. [facility] predniSONE 20 mg tablet 07-10 00:00: 00 07-16 05:59 :00 No [id number] 20mg Take 1 tablet by mouth in the morning and 1 tablet in the evening. Do all this for 5 days. [facility] hydroCHLORO thiazide 25 mg tablet 2021-05 00:00: 00 04-09 05:59 :00 No [id number] 25mg Take 1 tablet by mouth in the morning for 30 days. [facility] predniSONE 20 mg tablet 2021-05 00:00: 00 03-13 04:59 :00 No [id number] 40mg Take 2 tablets by mouth in the morning for 3 days. [facility] ipratropium /albuterol sulfate (COMBIVENT INHALE) 2021-05 15:45: 43 Yes Inhale. [facility] budesonide/ formoterol fumarate (SYMBICORT INHALE) 2021-05 14:43: 19 03-08 00:00 :00 No Inhale. [facility] amLODIPine 5 mg tablet 2021-05 14:43: 19 03-08 00:00 :00 No 5mg Take 5 mg by mouth in the morning. [facility] dextrometho rphan-mackenzief enesin 10-100 mg/5 mL solution 2021-05 00:00: 00 Yes [id number] 10mL Take 10 mL by mouth every 6 (six) hours as needed for Cough. [facility] albuterol 90 mcg/actuati on inhaler 2021-05 00:00: 00 Yes [id number] 2{puff} Inhale 2 Puffs every 4 (four) hours as needed for Wheezing or Shortness of Breath. [facility] hydrocortis one 1 % ointment 2021-05 00:00: 00 07-10 00:00 :00 No [id number] Apply to affected area(s) 2 (two) times daily as needed for Itching or Dermatitis /Rash. [facility] hydrOXYzine 10 mg tablet 2021-05 00:00: 00 07-10 00:00 :00 No [id number] 10mg Take 1 tablet by mouth every 8 (eight) hours as needed for Itching. [facility] lisinopriL 5 mg tablet 2021-05 00:00: 00 04-08 05:59 :00 No [id number] 5mg Take 1 tablet by mouth in the morning for 30 days. [facility] levoFLOXaci n 750 mg tablet 2021-05 00:00: 00 03-13 04:59 :00 No [id number] 750mg Take 1 tablet by mouth in the morning for 4 days. [facility] sodium chloride 7% (HYPER-CHARLIE) nebulizer solution 4 mL 2021-05 17:45: 00 Yes 4mL 4 mL, Inhalation , DAILY, First dose on 03/07/22 at 1245, Until Discontinu ed, Routine [facility] predniSONE (DELTASONE) tablet 40 mg 2021-05 14:00: 00 03-12 13:59 :00 No 40mg 40 mg, Oral, DAILY, 5 doses, First dose on 03/07/22 at 0900, Last dose on Bianka 03/11/22 at 0900, Routine [facility] hydrOXYzine (ATARAX) tablet 10 mg 2021-05 12:32: 22 Yes 10mg 10 mg, Oral, Q8HPRN, Starting on 03/07/22 at 0732, Until Discontinu ed, Routine, Itching [facility] ipratropium -albuteroL (DUONEB) 0.5 mg-3 mg(2.5 mg base)/3 mL nebulizer solution 3 mL 2021-05 01:00: 00 Yes 3mL 3 mL, Inhalation , Q4H, First dose (after last modificati on) on 03/06/22 at 2000, Until Discontinu ed, Routine [facility] enoxaparin (LOVENOX) injection 40 mg 2021-05 22:00: 00 Yes 40mg 40 mg, Subcutaneo us, DAILY, First dose on 03/06/22 at 1700, Until Discontinu ed, Routine [facility] nicotine (NICODERM) 21 mg/24 hr patch 1 Patch 2021-05 21:30: 00 Yes 1{patch } 1 Patch, Topical, Administer over 24 Hours, Q24H, First dose on 03/06/22 at 1630, Until Discontinu ed, Routine [facility] hydroCHLORO thiazide (ESIDRIX) tablet 25 mg 2021-05 20:30: 00 Yes 25mg 25 mg, Oral, DAILY, First dose on 03/06/22 at 1530, Until Discontinu ed, Routine [facility] amLODIPine (NORVASC) tablet 10 mg 2021-05 20:30: 00 Yes 10mg 10 mg, Oral, DAILY, First dose on 03/06/22 at 1530, Until Discontinu ed, Routine [facility] hydrocortis one (CORTIZONE- 10) 1 % ointment 2021-05 20:30: 00 Yes Topical (Apply To Affected Areas), BID, First dose on 03/06/22 at 1530, Until Discontinu ed, Routine [facility] levoFLOXaci n (LEVAQUIN) tablet 750 mg 2021-05 17:00: 00 03-13 16:59 :00 No 750mg 750 mg, Oral, Q24H ABX, 7 doses, First dose on Tue03/06/22 at 1200, Last dose on Tue03/12/22 at 1200, ALEJANDRA
Re ason for Anti-Infec tive: Documented Infection< br>Documen aracely Infection Site: Respirator y
Durat ion of Therapy: 7 days
Re stricted use approved by: ADC PROVIDER [facility] ipratropium -albuteroL (DUONEB) 0.5 mg-3 mg(2.5 mg base)/3 mL nebulizer solution 3 mL 2021-05 17:00: 00 03-06 20:51 :01 No 3mL 3 mL, Inhalation , Q6H, First dose on 03/06/22 at 1200, Until Discontinu ed, Routine [facility] dextrometho rphan-guaif enesin (ROBITUSSIN DM) 10-100 mg/5 mL solution 10 mL 2021-05 16:58: 57 Yes 10mL 10 mL, Oral, Q6HPRN, Starting on 03/06/22 at 1158, Until Discontinu ed, Routine, Cough [facility] ondansetron (ZOFRAN (PF)) injection 4 mg 2021-05 16:57: 41 Yes 4mg 4 mg, Slow IV Push, Q6HPRN, Starting on 03/06/22 at 1157, Until Discontinu ed, Routine, Nausea and Vomiting (N/V) [facility] acetaminoph en (TYLENOL) tablet 650 mg 2021-05 16:57: 29 Yes 650mg 650 mg, Oral, Q6HPRN, Starting on 03/06/22 at 1157, Until Discontinu ed, Routine, Pain (scale 1-3), Temp > 38.5 C [facility] albuterol (PROVENTIL) 2.5 mg /3 mL (0.083 %) nebulizer solution 5 mg 2021-05 16:15: 00 03-06 15:19 :00 No 5mg 5 mg, Inhalation , ONCE, 1 dose, On 03/06/22 at 1115, ALEJANDRA [facility] magnesium sulfate in water 2 gram/50 mL (4 %) infusion 2 g 2021-05 16:15: 00 03-06 16:20 :00 No 2g 2 g, IV Piggyback, Administer over 60 Minutes, ONCE, 1 dose, On 03/06/22 at 1115, Routine [facility] ipratropium (ATROVENT) 0.02 % nebulizer solution 0.5 mg 2021-05 15:00: 00 03-06 14:13 :00 No .5mg 0.5 mg, Inhalation , ONCE, 1 dose, On 03/06/22 at 1000, ALEJANDRA [facility] methylpredn isolone sod succ (SOLU-MEDRO L) injection 125 mg 2021-05 15:00: 00 03-06 14:17 :00 No 125mg 125 mg, Slow IV Push, ONCE NOW, 1 dose, On 03/06/22 at 1000, ALEJANDRA [facility] albuterol (PROVENTIL) 2.5 mg /3 mL (0.083 %) nebulizer solution 5 mg 2021-05 15:00: 00 03-06 14:13 :00 No 5mg 5 mg, Inhalation , ONCE, 1 dose, On 03/06/22 at 1000, ALEJANDRA [facility] budesonide/ formoterol fumarate (SYMBICORT INHALE) 0 12-20 20:20: 01 Yes Inhale. [facility] ipratropium /albuterol sulfate (COMBIVENT INHALE) 0 12-20 20:20: 01 Yes Inhale. [facility] fluticasone propion/charlie meterol (ADVAIR DISKUS INHALE) 0 12-20 20:20: 01 Yes Inhale. [facility] ceFAZolin (ANCEF) injection 0 12-20 19:30: 00 Yes PRN, Starting Tue12/20/18 at 1430, Until Discontinu ed, ALEJANDRA, Intra-op [facility] carbachol (MIOSTAT) 0.01 % intraocular injection 12-20 19:29: 00 Yes PRN, Starting Tue12/20/18 at 1429, Until Discontinu ed, Routine, Intra-op [facility] balanced salt irrig soln comb1 (BSS PLUS) ophthalmic solution 500 mL bag 12-20 19:16: 00 Yes PRN, Starting Tue12/20/18 at 1416, Until Discontinu ed, Routine, Intra-op [facility] bupivacaine (preserv free) (SENSORCAIN E MPF) 0.75 % (7.5 mg/mL) injection 12-20 19:07: 00 Yes PRN, Starting Tue12/20/18 at 1407, Until Discontinu ed, Routine, Intra-op [facility] lactated ringers IV infusion 500 mL 12-20 16:15: 00 12-20 16:32 :00 No 500mL at 20 mL/hr, 500 mL, IV Infusion, ONCE, 1 dose, Tue12/20/18 at 1115, Routine, DSU Pre-op [facility] budesonide/ formoterol fumarate (SYMBICORT INHALE) 12-20 15:20: 01 Yes Inhale. [facility] budesonide/ formoterol fumarate (SYMBICORT INHALE) 12-19 13:41: 21 Yes Inhale. [facility] ipratropium /albuterol sulfate (COMBIVENT INHALE) 12-19 13:41: 21 Yes Inhale. [facility] fluticasone propion/charlie meterol (ADVAIR DISKUS INHALE) 12-19 13:41: 21 Yes Inhale. [facility] Vital Signs Vital Name Observation Time Observation Value Comments S oureliud Systolic blood pressure 2022-07-11 02:30:00 134 mm[facility]Hg[facility] Diastolic blood pressure 2022-07-11 02:30:00 86 mm[Hg] [facility] Heart rate 2022-07-11 02:30:00 100 /min [facility] Respiratory rate 2022-07-11 02:30:00 31 /min [facility] Oxygen saturation in Arterial blood by Pulse oximetry 2022-07-11 02:30:00 93 /min [facility] Body temperature 2022-07-11 00:15:00 36.78 Bonnie [facility] Body height 2022-07-11 00:15:00 172.7 cm [facility] Body weight 2022-07-11 00:15:00 63.504 kg [facility] BMI 2022-07-11 00:15:00 21.29 kg/m2 [facility] Respiratory rate 2022-03-08 17:00:00 16 /min [facility] Oxygen saturation in Arterial blood by Pulse oximetry 2022-03-08 17:00:00 92 /min [facility] Heart rate 2022-03-08 16:30:00 99 /min [facility] Body temperature 2022-03-08 16:30:00 36.39 Bonnie [facility] Systolic blood pressure 2022-03-08 16:30:00 145 mm[Hg] [facility] Diastolic blood pressure 2022-03-08 16:30:00 93 mm[Hg] [facility] Body weight 2022-03-08 09:00:00 66.996 kg [facility] BMI 2022-03-08 09:00:00 22.46 kg/m2 [facility] Body height 2022-03-06 14:02:00 172.7 cm [facility] Systolic blood pressure 2018-12-20 19:42:00 156 mm[Hg] [facility] Diastolic blood pressure 2018-12-20 19:42:00 96 mm[Hg] [facility] Body temperature 2018-12-20 19:42:00 36.78 Bonnie [facility] Respiratory rate 2018-12-20 19:42:00 18 /min [facility] Oxygen saturation in Arterial blood by Pulse oximetry 2018-12-20 19:42:00 100 /min [facility] Heart rate 2018-12-20 16:23:00 73 /min [facility] Body height 2018-12-18 18:12:00 172.7 cm [facility] Body weight 2018-12-18 18:12:00 65.772 kg [facility] BMI 2018-12-18 18:12:00 22.05 kg/m2 [facility] Procedures Procedure Date / Time Performed Performing Clinician Source DILATION OF 2 COR ART WITH 4 DRUG-ELUT, PERC APPRO 2024-07-11 00:00:00 [facility] INSERT EXT HEART ASSIST IN HEART, INTRAOP, PERC 2024-07-11 00:00:00 [facility] MEASURE OF CARDIAC SAMPL PRESSURE, L HEART, PERC 2024-07-11 00:00:00 [facility] ASSIST WITH CARDIAC OUTPUT USING IMPELLER PUMP, CO 2024-07-11 00:00:00 [facility] FLUOROSCOPY OF MULT COR ART USING L OSM CONTRAST 2024-07-11 00:00:00 [facility] ULTRASONOGRAPHY OF MULTIPLE CORONARY ARTERIES, INT 2024-07-11 00:00:00 [facility] MEDICATION CORRESPONDENCE 2022-08-02 05:01:00 Do ctor Unassigned, [place] [facility] EKG-12 LEAD 2022-07-11 02:53:59 Mariela Jerry [facility] COMP. METABOLIC PANEL ([id number]) 2022-07-11 02:00:00 Mariela Jerry [facility] RAPID STREP SCREEN FOR GROUP A 2022-07-11 01:23:00 Mariela Jerry [facility] RAPID INFLUENZA A/B 2022-07-11 01:23:00 Mariela Jerry [facility] XR CHEST 2 VW 2022-07-11 01:21:24 Mariela Jerry [facility] TROPONIN I 2022-07-11 00:59:00 Mariela Jerry [facility] CBC WITH DIFF 2022-07-11 00:59:00 Mariela Jerry [facility] N-TERMINAL PRO-BNP 2022-07-11 00:59:00 Mariela Jerry [facility] COVID-19 (ID NOW RAPID TESTING) 2022-07-11 00:59:00 Mariela Jerry [facility] CONSENT/REFUSAL FOR DIAGNOSIS AND TREATMENT 2022-07-11 00:03:12 Doctor Unassigned, [place] [facility] AUTHORIZATION FOR RELEASE OF PHI 2022-06-22 06:01:00 Doctor Unassigned, [place] [facility] EXTERNAL PROVIDER - ADC REFERRAL 2022-03-17 06:01:00 Doctor Unassigned, [place] [facility] MAGNESIUM 2022-03-07 08:47:[address] [facility] BASIC METABOLIC PANEL (NA, K, CL, CO2, GLUCOSE, BUN, CREATININE, CA) 2022-03-07 08:47:00 Eric Ferrer [facility] CBC WITH DIFF 2022-03-07 08:47:[address] [facility] LEGIONELLA URINARY ANTIGEN TST 2022-03-06 21:41[facility] 2022-03-06 21:41:00 Carissa [facility] PNEUMOCOCCAL ANTIGEN 2022-03-06 21:40:00 Kavin Ferrer i [facility] PROCALCITONIN 2022-03-06 18:08:00 Eric Ferrer [facility] MRSA / MSSA SCREEN BY PCRSAPPHIRE 2022-03-06 18:08:00 Eric Ferrer [facility] RESPIRATORY PANEL BY PCR 2022-03-06 18:08:00 Glenna Ferrer [facility] XR CHEST 1 VW 2022-03-06 14:30:00 Angie Platt [facility] HB ECG ROUTINE & RHYTHM STRIP 2022-03-06 14:15:12 Angie Platt [facility] TROPONIN I 2022-03-06 14:09:00 Angie Platt Un [facility] COMP. METABOLIC PANEL ([id number]) 2022-03-06 14:09:00 Angie Platt [facility] CBC WITH DIFF 2022-03-06 14:09:00 Angie Platt [facility] COVID-19 (ID NOW RAPID TESTING) 2022-03-06 14:09:00 Angie Platt [facility] NOTICE OF PRIVACY PRACTICES 2022-03-06 13:48:55 Doctor Unassigned, [place] [facility] CONSENT/REFUSAL FOR DIAGNOSIS AND TREATMENT 2022-03-06 13:48:32 Doctor Unassigned, [place] [facility] ASSIGNMENT OF BENEFITS 2018-12-19 14:02:27 Docto r Unassigned, [place] [facility] Encounters Start Date/Time End Date/Time Encounter Type Admission Type Attending [facility] Facility Care Department Encounter ID Source 2024-07-03 16:22:00 2024-07-12 10:12:00 Inpatient UR Marcellus Gilbert [facility] INTE.02 [id number] [facility] 2022-08-02 00:00:00 2022-08-02 00:00:00 Orders Only Doctor Unassigned, [place] [facility] 1.2840.114 350.1.13.10 [id number] [id number] [facility] 2022-07-10 18:17:00 2022-07-10 21:16:00 Emergency X MARIELA JERRY [facility] ERT [id number] [facility] 2022-07-10 18:17:00 2022-07-10 21:16:[address] [facility] [id number] 350.1.13.10 [id number] [id number] [facility] 2022-06-22 00:00:00 2022-06-22 00:00:00 Orders Only Doctor Unassigned, [place] [facility] 1.2840.114 350.1.13.10 [id number] [id number] [facility] 2022-03-17 00:00:00 2022-03-17 00:00:00 Orders Only Doctor Unassigned, [place] [facility] [id number] 350.1.13.10 [id number] [id number] [facility] 2022-03-09 00:00:00 2022-03-09 00:00:00 Transition of Care Abiel Jimenezele Henrique BRIENZane AMOR [facility]STRADA [id number] 350.1.13.10 [id number] [id number] [facility] 2022-03-06 08:50:00 2022-03-08 15:45:00 Inpatient X [facility] [id number] [facility] 2022-03-06 08:50:00 2022-03-08 15:45:00 Hospital Encounter LcAngie Jelani [facility] [id number] 350.1.13.10 4.2.7.2.686 [id number] [facility] 2022-03-06 00:00:00 2022-03-06 00:00:00 Orders Only Doctor Unassigned, [place] [facility] [id number] 350.1.13.10 4.2.7.2.686 [id number] [facility] 2018-12-20 11:11:00 2018-12-20 15:19:00 Hospital Encounter Jose Ruddy Henrique [facility] [id number] 350.1.13.10 4.2.7.2.686 [id number] [facility] 2018-12-19 00:00:00 2018-12-19 00:00:00 Orders Only Doctor Unassigned, [place] [facility] [id number] 350.1.13.10 4.2.7.2.686 [id number] [facility] Results Test Description Test Time Test Comments Results Result Co mments Source [id number] 08:37:00* Test Item Value Reference Range Interpretation Comme nts MAGNESIUM (test code = MAG) 2.15 mg/dL 1.6-2.6 N CBC W/AUTO [id number] 07:49:00* Test Item Value Reference Range Interpretation Comme nts WHITE BLOOD CELL (test code = WBC) 7.4 x10 3/uL 4.5-11.0 N RED BLOOD CELL (test code = RBC) 4.10 x10 6/uL 4.00-5.60 N HEMOGLOBIN (test code = HGB) 12.3 g/dL 12.5-16.9 L HEMATOCRIT (test code = HCT) 38.5 % 37.5-50.7 N MEAN CELL VOLUME (test code = MCV) 93.9 fL 81.0-99.0 N MEAN CELL HGB (test code = MCH) 30.0 pg 27.0-33.0 N MEAN CELL HGB CONCETRATION (test code = MCHC) 31.9 g/dL 33.0-37.0 L RED CELL DISTRIBUTION WIDTH CV (test code = RDW) 14.3 % 11.5-14.5 N RED CELL DISTRIBUTION WIDTH SD (test code = RDW-SD) 49.5 fL 37.0-54.0 N PLATELET COUNT (test code = PLT) 143 x10 3/uL 150-400 L MEAN PLATELET VOLUME (test c ode = MPV) 10.8 fL 7.0-9.0 H NEUTROPHIL % (test code = NT%) 88.4 % 56.0-77.0 H IMMATURE GRANULOCYTE % (test code = IG%) 0.8 % 0.0-2.0 N LYMPHOCYTE % (test code = LY%) 7.3 % 14.0-32.0 L MONOCYTE % (test code = MO%) 3.4 % 4.8-9.0 L EOSINOPHIL % (test code = EO%) 0.0 % 0.3-3.7 L BASOPHIL % (test code = BA%) 0.1 % 0.0-2.0 N NUCLEATED RBC % (test code = NRBC%) 0.0 % 0-0 N NEUTROPHIL # (test code = NT#) 6.56 x10 3/uL 2.0-7.6 N IMMATURE GRANULOCYTE # (test code = IG#) 0.06 x10 3/uL 0.00-0.03 H LYMPHOCYTE # (test code = LY#) 0.54 x10 3/uL 1.0-3.8 L MONOCYTE # (test code = MO#) 0.25 x10 3/uL 0.1-0.8 N EOSINOPHIL # (test code = EO#) 0.00 x10 3/uL 0.0-0.2 N BASOPHIL # (test code = BA#) 0.01 x10 3/uL 0.0-0.2 N NUCLEATED RBC # (test code = NRBC#) 0.00 x10 3/uL 0.0-0.1 N COAGULATION TIME [id number] 09:48:00* Test Item Value Reference Range Interpretation Comme nts COAGULATION TIME ACTIVATED (test code = ACT) 291 SECONDS Performed by certified dehydrogenation operator head at [facility] COAGULATION TIME [id number] 09:09:00* Test Item Value Reference Range Interpretation Comme nts COAGULATION TIME ACTIVATED (test code = ACT) 313 SECONDS Performed by certified dehydrogenation operator head at [facility] COAGULATION TIME [id number] 08:48:00* Test Item Value Reference Range Interpretation Comme nts COAGULATION TIME ACTIVATED (test code = ACT) 324 SECONDS Performed by certified dehydrogenation operator head at [facility] COAGULATION TIME [id number] 08:16:00* Test Item Value Reference Range Interpretation Comme nts COAGULATION TIME ACTIVATED (test code = ACT) 233 SECONDS Performed by certified dehydrogenation operator head at [facility] COAGULATION TIME [id number] 08:05:00* Test Item Value Reference Range Interpretation Comme nts COAGULATION TIME ACTIVATED (test code = ACT) 211 SECONDS Performed by certified dehydrogenation operator head at [facility] BASIC METABOLIC [id number] 07:46:00* Test Item Value Reference Range Interpretation Comme nts SODIUM (test code = NA) 139 mEq/L 134-147 N POTASSIUM (test code = K) 4.3 mEq/L 3.4-5.0 N CHLORIDE (test code = CL) 102 mEq/L 100-108 N CARBON DIOXIDE (test code = CO2) 32 mEq/l 21-33 N ANION GAP (test code = GAP) 9 0-20 N GLUCOSE (test code = GLU) 106 mg/dL 77-141 BLOOD UREA NITROGEN (test code = BUN) 15 mg/dL 7-25 N GLOMERULAR FILTRATION RATE (test code = GFR) 95.2 70-80 H The Glomerular Filtration Rate is a calculated parameterbased on serum Creatinine, patient age and sex. GFR valuesless than 60 mL/min/1.73 square meters are indicative ofChronic Kidney Disease. Values less than 15 mL/min/1.73square meters indicate Kidney failure. The calculation forGFR is based on the CKD-EPI (2020) calculation. This formulais race indifferent and is the recommended formula for GFRby the National Kidney Foundation for Adults.The GFR will not calculate if the sex is unknown or if thepatient's age is <18 years. CREATININE (test code = CREAT) 0.8 mg/dL 0.6-1.3 N CALCIUM (test code = CA) 8.2 mg/dL 8.0-10.5 N [id number] 07:46:00* Test Item Value Reference Range Interpretation Comme nts MAGNESIUM (test code = MAG) 1.90 mg/dL 1.6-2.6 N CBC W/AUTO [id number] 06:50:00* Test Item Value Reference Range Interpretation Comme nts WHITE BLOOD CELL (test code = WBC) 8.3 x10 3/uL 4.5-11.0 N RED BLOOD CELL (test code = RBC) 4.33 x10 6/uL 4.00-5.60 N HEMOGLOBIN (test code = HGB) 13.0 g/dL 12.5-16.9 N HEMATOCRIT (test code = HCT) 40.2 % 37.5-50.7 N MEAN CELL VOLUME (test code = MCV) 92.8 fL 81.0-99.0 N MEAN CELL HGB (test code = MCH) 30.0 pg 27.0-33.0 N MEAN CELL HGB CONCETRATION (test code = MCHC) 32.3 g/dL 33.0-37.0 L RED CELL DISTRIBUTION WIDTH CV (test code = RDW) 14.3 % 11.5-14.5 N RED CELL DISTRIBUTION WIDTH SD (test code = RDW-SD) 48.8 fL 37.0-54.0 N PLATELET COUNT (test code = PLT) 167 x10 3/uL 150-400 N MEAN PLATELET VOLUME (test c ode = MPV) 10.4 fL 7.0-9.0 H NEUTROPHIL % (test code = NT%) 73.0 % 56.0-77.0 N IMMATURE GRANULOCYTE % (test code = IG%) 0.8 % 0.0-2.0 N LYMPHOCYTE % (test code = LY%) 18.2 % 14.0-32.0 N MONOCYTE % (test code = MO%) 7.4 % 4.8-9.0 N EOSINOPHIL % (test code = EO%) 0.5 % 0.3-3.7 N BASOPHIL % (test code = BA%) 0.1 % 0.0-2.0 N NUCLEATED RBC % (test code = NRBC%) 0.0 % 0-0 N NEUTROPHIL # (test code = NT#) 6.03 x10 3/uL 2.0-7.6 N IMMATURE GRANULOCYTE # (test code = IG#) 0.07 x10 3/uL 0.00-0.03 H LYMPHOCYTE # (test code = LY#) 1.50 x10 3/uL 1.0-3.8 N MONOCYTE # (test code = MO#) 0.61 x10 3/uL 0.1-0.8 N EOSINOPHIL # (test code = EO#) 0.04 x10 3/uL 0.0-0.2 N BASOPHIL # (test code = BA#) 0.01 x10 3/uL 0.0-0.2 N NUCLEATED RBC # (test code = NRBC#) 0.00 x10 3/uL 0.0-0.1 N PROTHROMBIN [id number] 16:59:00* Test Item Value Reference Range Interpretation Comme nts PROTHROMBIN TIME PATIENT (test code = PTP) 12.0 SECONDS 9.3-12.9 N INTERNATIONAL NORMAL RATIO (test code = INR) 1.1 0.8-1.2 N TARGET INR BY INDICATION Indication INR1. Prophylaxis of venous thrombosis 2.0 - 3.0 (orthopedic surgery), Prophylaxis of venous thrombosis (other than high-risk surgery), Treatment of Deep Vein Thrombosis/Pulmonary Embolism, Prevention of systemic embolism - Tissue heart valves, Acute Myocardial Infarction (to prevent systemic embolism), Valvular heart disease, Atrial Fibrillation, Bileaflet mechanical valve in aortic position.2. Mechanical prosthetic valves (high risk), 2.5 - 3.5 Presence of Lupus Anticoagulant or Antiphospholipid Antibodies, Prevention of systemic embolism - Acute Myocardial Infarction (to prevent recurrent infarct). BASIC METABOLIC [id number] 07:17:00* Test Item Value Reference Range Interpretation Comme nts SODIUM (test code = NA) 133 mEq/L 134-147 L POTASSIUM (test code = K) 4.3 mEq/L 3.4-5.0 N CHLORIDE (test code = CL) 96 mEq/L 100-108 L CARBON DIOXIDE (test code = CO2) 32 mEq/l 21-33 N ANION GAP (test code = GAP) 10 0-20 N GLUCOSE (test code = GLU) 189 mg/dL 77-141 H BLOOD UREA NITROGEN (test code = BUN) 19 mg/dL 7-25 N GLOMERULAR FILTRATION RATE (test code = GFR) 95.2 70-80 H The Glomerular Filtration Rate is a calculated parameterbased on serum Creatinine, patient age and sex. GFR valuesless than 60 mL/min/1.73 square meters are indicative ofChronic Kidney Disease. Values less than 15 mL/min/1.73square meters indicate Kidney failure. The calculation forGFR is based on the CKD-EPI (2020) calculation. This formulais race indifferent and is the recommended formula for GFRby the National Kidney Foundation for Adults.The GFR will not calculate if the sex is unknown or if thepatient's age is <18 years. CREATININE (test code = CREAT) 0.8 mg/dL 0.6-1.3 N CALCIUM (test code = CA) 8.4 mg/dL 8.0-10.5 N [id number] 07:17:00* Test Item Value Reference Range Interpretation Comme nts MAGNESIUM (test code = MAG) 1.96 mg/dL 1.6-2.6 N CBC W/AUTO [id number] 06:52:00* Test Item Value Reference Range Interpretation Comme nts WHITE BLOOD CELL (test code = WBC) 8.5 x10 3/uL 4.5-11.0 N RED BLOOD CELL (test code = RBC) 4.30 x10 6/uL 4.00-5.60 N HEMOGLOBIN (test code = HGB) 12.9 g/dL 12.5-16.9 N HEMATOCRIT (test code = HCT) 40.2 % 37.5-50.7 N MEAN CELL VOLUME (test code = MCV) 93.5 fL 81.0-99.0 N MEAN CELL HGB (test code = MCH) 30.0 pg 27.0-33.0 N MEAN CELL HGB CONCETRATION (test code = MCHC) 32.1 g/dL 33.0-37.0 L RED CELL DISTRIBUTION WIDTH CV (test code = RDW) 14.3 % 11.5-14.5 N RED CELL DISTRIBUTION WIDTH SD (test code = RDW-SD) 49.1 fL 37.0-54.0 N PLATELET COUNT (test code = PLT) 144 x10 3/uL 150-400 L MEAN PLATELET VOLUME (test c ode = MPV) 10.3 fL 7.0-9.0 H NEUTROPHIL % (test code = NT%) 90.1 % 56.0-77.0 H IMMATURE GRANULOCYTE % (test code = IG%) 0.9 % 0.0-2.0 N LYMPHOCYTE % (test code = LY%) 4.3 % 14.0-32.0 L MONOCYTE % (test code = MO%) 4.6 % 4.8-9.0 L EOSINOPHIL % (test code = EO%) 0.0 % 0.3-3.7 L BASOPHIL % (test code = BA%) 0.1 % 0.0-2.0 N NUCLEATED RBC % (test code = NRBC%) 0.0 % 0-0 N NEUTROPHIL # (test code = NT#) 7.63 x10 3/uL 2.0-7.6 H IMMATURE GRANULOCYTE # (test code = IG#) 0.08 x10 3/uL 0.00-0.03 H LYMPHOCYTE # (test code = LY#) 0.36 x10 3/uL 1.0-3.8 L MONOCYTE # (test code = MO#) 0.39 x10 3/uL 0.1-0.8 N EOSINOPHIL # (test code = EO#) 0.00 x10 3/uL 0.0-0.2 N BASOPHIL # (test code = BA#) 0.01 x10 3/uL 0.0-0.2 N NUCLEATED RBC # (test code = NRBC#) 0.00 x10 3/uL 0.0-0.1 N BASIC METABOLIC [id number] 09:12:00* Test Item Value Reference Range Interpretation Comme nts SODIUM (test code = NA) 136 mEq/L 134-147 N POTASSIUM (test code = K) 5.1 mEq/L 3.4-5.0 H CHLORIDE (test code = CL) 96 mEq/L 100-108 L CARBON DIOXIDE (test code = CO2) 34 mEq/l 21-33 H ANION GAP (test code = GAP) 11 0-20 N GLUCOSE (test code = GLU) 234 mg/dL 77-141 H BLOOD UREA NITROGEN (test code = BUN) 22 mg/dL 7-25 N GLOMERULAR FILTRATION RATE (test code = GFR) 81.0 70-80 H The Glomerular Filtration Rate is a calculated parameterbased on serum Creatinine, patient age and sex. GFR valuesless than 60 mL/min/1.73 square meters are indicative ofChronic Kidney Disease. Values less than 15 mL/min/1.73square meters indicate Kidney failure. The calculation forGFR is based on the CKD-EPI (2020) calculation. This formulais race indifferent and is the recommended formula for GFRby the National Kidney Foundation for Adults.The GFR will not calculate if the sex is unknown or if thepatient's age is <18 years. CREATININE (test code = CREAT) 1.0 mg/dL 0.6-1.3 N CALCIUM (test code = CA) 9.3 mg/dL 8.0-10.5 N [id number] 09:12:00* Test Item Value Reference Range Interpretation Comme nts MAGNESIUM (test code = MAG) 2.12 mg/dL 1.6-2.6 N CBC W/AUTO [id number] 08:57:00* Test Item Value Reference Range Interpretation Comme nts WHITE BLOOD CELL (test code = WBC) 9.6 x10 3/uL 4.5-11.0 N RED BLOOD CELL (test code = RBC) 4.86 x10 6/uL 4.00-5.60 N HEMOGLOBIN (test code = HGB) 14.6 g/dL 12.5-16.9 N HEMATOCRIT (test code = HCT) 46.8 % 37.5-50.7 N MEAN CELL VOLUME (test code = MCV) 96.3 fL 81.0-99.0 N MEAN CELL HGB (test code = MCH) 30.0 pg 27.0-33.0 N MEAN CELL HGB CONCETRATION (test code = MCHC) 31.2 g/dL 33.0-37.0 L RED CELL DISTRIBUTION WIDTH CV (test code = RDW) 14.7 % 11.5-14.5 H RED CELL DISTRIBUTION WIDTH SD (test code = RDW-SD) 52.2 fL 37.0-54.0 N PLATELET COUNT (test code = PLT) 173 x10 3/uL 150-400 N MEAN PLATELET VOLUME (test c ode = MPV) 10.7 fL 7.0-9.0 H NEUTROPHIL % (test code = NT%) 89.5 % 56.0-77.0 H IMMATURE GRANULOCYTE % (test code = IG%) 0.5 % 0.0-2.0 N LYMPHOCYTE % (test code = LY%) 6.8 % 14.0-32.0 L MONOCYTE % (test code = MO%) 3.1 % 4.8-9.0 L EOSINOPHIL % (test code = EO%) 0.0 % 0.3-3.7 L BASOPHIL % (test code = BA%) 0.1 % 0.0-2.0 N NUCLEATED RBC % (test code = NRBC%) 0.0 % 0-0 N NEUTROPHIL # (test code = NT#) 8.62 x10 3/uL 2.0-7.6 H IMMATURE GRANULOCYTE # (test code = IG#) 0.05 x10 3/uL 0.00-0.03 H LYMPHOCYTE # (test code = LY#) 0.66 x10 3/uL 1.0-3.8 L MONOCYTE # (test code = MO#) 0.30 x10 3/uL 0.1-0.8 N EOSINOPHIL # (test code = EO#) 0.00 x10 3/uL 0.0-0.2 N BASOPHIL # (test code = BA#) 0.01 x10 3/uL 0.0-0.2 N NUCLEATED RBC # (test code = NRBC#) 0.00 x10 3/uL 0.0-0.1 N COMPREHENSIVE METABOLIC [id number] 06:08:00* Test Item Value Reference Range Interpretation Comme nts SODIUM (test code = NA) 138 mEq/L 134-147 N POTASSIUM (test code = K) 4.9 mEq/L 3.4-5.0 N CHLORIDE (test code = CL) 100 mEq/L 100-108 N CARBON DIOXIDE (test code = CO2) 34 mEq/l 21-33 H ANION GAP (test code = GAP) 9 0-20 N GLUCOSE (test code = GLU) 127 mg/dL 77-141 N BLOOD UREA NITROGEN (test code = BUN) 20 mg/dL 7-25 N GLOMERULAR FILTRATION RATE (test code = GFR) 95.2 70-80 H The Glomerular Filtration Rate is a calculated parameterbased on serum Creatinine, patient age and sex. GFR valuesless than 60 mL/min/1.73 square meters are indicative ofChronic Kidney Disease. Values less than 15 mL/min/1.73square meters indicate Kidney failure. The calculation forGFR is based on the CKD-EPI (202) calculation. This formulais race indifferent and is the recommended formula for GFRby the National Kidney Foundation for Adults.The GFR will not calculate if the sex is unknown or if thepatient's age is <18 years. CREATININE (test code = CREAT) 0.8 mg/dL 0.6-1.3 N TOTAL PROTEIN (test code = PROT) 6.7 g/dL 5.7-8.2 N Note change in REFERENCE RANGE due to change in REAGENT. ALBUMIN (test code = ALB) 3.20 g/dL 3.4-5.0 L CALCIUM (test code = CA) 9.2 mg/dL 8.0-10.5 N BILIRUBIN TOTAL (test code = BILT) 0.50 mg/dL 0.0-1.0 N SGOT/AST (test code = AST) 32 IUnit/L 8-34 N SGPT/ALT (test code = ALT) 59 IUnit/L 10-49 H ALKALINE PHOSPHATASE TOTAL (test code = ALKP) 93 IUnit/L 20-125 N [id number] 06:08:00* Test Item Value Reference Range Interpretation Comme nts MAGNESIUM (test code = MAG) 2.18 mg/dL 1.6-2.6 N CBC W/AUTO [id number] 05:37:00* Test Item Value Reference Range Interpretation Comme nts WHITE BLOOD CELL (test code = WBC) 9.7 x10 3/uL 4.5-11.0 N RED BLOOD CELL (test code = RBC) 4.85 x10 6/uL 4.00-5.60 N HEMOGLOBIN (test code = HGB) 14.9 g/dL 12.5-16.9 N HEMATOCRIT (test code = HCT) 45.4 % 37.5-50.7 N MEAN CELL VOLUME (test code = MCV) 93.6 fL 81.0-99.0 N MEAN CELL HGB (test code = MCH) 30.7 pg 27.0-33.0 N MEAN CELL HGB CONCETRATION (test code = MCHC) 32.8 g/dL 33.0-37.0 L RED CELL DISTRIBUTION WIDTH CV (test code = RDW) 14.5 % 11.5-14.5 N RED CELL DISTRIBUTION WIDTH SD (test code = RDW-SD) 50.3 fL 37.0-54.0 N PLATELET COUNT (test code = PLT) 188 x10 3/uL 150-400 N MEAN PLATELET VOLUME (test c ode = MPV) 10.5 fL 7.0-9.0 H NEUTROPHIL % (test code = NT%) 89.8 % 56.0-77.0 H IMMATURE GRANULOCYTE % (test code = IG%) 0.5 % 0.0-2.0 N LYMPHOCYTE % (test code = LY%) 4.3 % 14.0-32.0 L MONOCYTE % (test code = MO%) 5.3 % 4.8-9.0 N EOSINOPHIL % (test code = EO%) 0.0 % 0.3-3.7 L BASOPHIL % (test code = BA%) 0.1 % 0.0-2.0 N NUCLEATED RBC % (test code = NRBC%) 0.0 % 0-0 N NEUTROPHIL # (test code = NT#) 8.72 x10 3/uL 2.0-7.6 H IMMATURE GRANULOCYTE # (test code = IG#) 0.05 x10 3/uL 0.00-0.03 H LYMPHOCYTE # (test code = LY#) 0.42 x10 3/uL 1.0-3.8 L MONOCYTE # (test code = MO#) 0.51 x10 3/uL 0.1-0.8 N EOSINOPHIL # (test code = EO#) 0.00 x10 3/uL 0.0-0.2 N BASOPHIL # (test code = BA#) 0.01 x10 3/uL 0.0-0.2 N NUCLEATED RBC # (test code = NRBC#) 0.00 x10 3/uL 0.0-0.1 N COMPREHENSIVE METABOLIC [id number] 06:25:00* Test Item Value Reference Range Interpretation Comme nts SODIUM (test code = NA) 138 mEq/L 134-147 N POTASSIUM (test code = K) 4.3 mEq/L 3.4-5.0 N CHLORIDE (test code = CL) 99 mEq/L 100-108 L CARBON DIOXIDE (test code = CO2) 33 mEq/l 21-33 N ANION GAP (test code = GAP) 10 0-20 N GLUCOSE (test code = GLU) 108 mg/dL 77-141 N BLOOD UREA NITROGEN (test code = BUN) 18 mg/dL 7-25 N GLOMERULAR FILTRATION RATE (test code = GFR) 91.9 70-80 H The Glomerular Filtration Rate is a calculated parameterbased on serum Creatinine, patient age and sex. GFR valuesless than 60 mL/min/1.73 square meters are indicative ofChronic Kidney Disease. Values less than 15 mL/min/1.73square meters indicate Kidney failure. The calculation forGFR is based on the CKD-EPI (202) calculation. This formulais race indifferent and is the recommended formula for GFRby the National Kidney Foundation for Adults.The GFR will not calculate if the sex is unknown or if thepatient's age is <18 years. CREATININE (test code = CREAT) 0.9 mg/dL 0.6-1.3 N TOTAL PROTEIN (test code = PROT) 7.1 g/dL 5.7-8.2 N Note change in REFERENCE RANGE due to change in REAGENT. ALBUMIN (test code = ALB) 3.50 g/dL 3.4-5.0 N CALCIUM (test code = CA) 9.0 mg/dL 8.0-10.5 N BILIRUBIN TOTAL (test code = BILT) 0.60 mg/dL 0.0-1.0 N SGOT/AST (test code = AST) 39 IUnit/L 8-34 H SGPT/ALT (test code = ALT) 65 IUnit/L 10-49 H ALKALINE PHOSPHATASE TOTAL (test code = ALKP) 95 IUnit/L 20-125 N [id number] 06:25:00* Test Item Value Reference Range Interpretation Comme nts MAGNESIUM (test code = MAG) 2.28 mg/dL 1.6-2.6 N CBC W/AUTO [id number] 06:18:00* Test Item Value Reference Range Interpretation Comme nts WHITE BLOOD CELL (test code = WBC) 9.0 x10 3/uL 4.5-11.0 N RED BLOOD CELL (test code = RBC) 4.93 x10 6/uL 4.00-5.60 N HEMOGLOBIN (test code = HGB) 14.9 g/dL 12.5-16.9 N HEMATOCRIT (test code = HCT) 46.5 % 37.5-50.7 N MEAN CELL VOLUME (test code = MCV) 94.3 fL 81.0-99.0 N MEAN CELL HGB (test code = MCH) 30.2 pg 27.0-33.0 N MEAN CELL HGB CONCETRATION (test code = MCHC) 32.0 g/dL 33.0-37.0 L RED CELL DISTRIBUTION WIDTH CV (test code = RDW) 14.3 % 11.5-14.5 N RED CELL DISTRIBUTION WIDTH SD (test code = RDW-SD) 49.7 fL 37.0-54.0 N PLATELET COUNT (test code = PLT) 195 x10 3/uL 150-400 N MEAN PLATELET VOLUME (test c ode = MPV) 10.8 fL 7.0-9.0 H NEUTROPHIL % (test code = NT%) 88.9 % 56.0-77.0 H IMMATURE GRANULOCYTE % (test code = IG%) 0.7 % 0.0-2.0 N LYMPHOCYTE % (test code = LY%) 4.9 % 14.0-32.0 L MONOCYTE % (test code = MO%) 5.5 % 4.8-9.0 N EOSINOPHIL % (test code = EO%) 0.0 % 0.3-3.7 L BASOPHIL % (test code = BA%) 0.0 % 0.0-2.0 N NUCLEATED RBC % (test code = NRBC%) 0.0 % 0-0 N NEUTROPHIL # (test code = NT#) 8.03 x10 3/uL 2.0-7.6 H IMMATURE GRANULOCYTE # (test code = IG#) 0.06 x10 3/uL 0.00-0.03 H LYMPHOCYTE # (test code = LY#) 0.44 x10 3/uL 1.0-3.8 L MONOCYTE # (test code = MO#) 0.50 x10 3/uL 0.1-0.8 N EOSINOPHIL # (test code = EO#) 0.00 x10 3/uL 0.0-0.2 N BASOPHIL # (test code = BA#) 0.00 x10 3/uL 0.0-0.2 N NUCLEATED RBC # (test code = NRBC#) 0.00 x10 3/uL 0.0-0.1 N COMPREHENSIVE METABOLIC [id number] 06:04:00* Test Item Value Reference Range Interpretation Comme nts SODIUM (test code = NA) 137 mEq/L 134-147 N POTASSIUM (test code = K) 4.3 mEq/L 3.4-5.0 N CHLORIDE (test code = CL) 97 mEq/L 100-108 L CARBON DIOXIDE (test code = CO2) 38 mEq/l 21-33 H ANION GAP (test code = GAP) 6 0-20 N GLUCOSE (test code = GLU) 116 mg/dL 77-141 N BLOOD UREA NITROGEN (test code = BUN) 23 mg/dL 7-25 N GLOMERULAR FILTRATION RATE (test code = GFR) 91.9 70-80 H The Glomerular Filtration Rate is a calculated parameterbased on serum Creatinine, patient age and sex. GFR valuesless than 60 mL/min/1.73 square meters are indicative ofChronic Kidney Disease. Values less than 15 mL/min/1.73square meters indicate Kidney failure. The calculation forGFR is based on the CKD-EPI (202) calculation. This formulais race indifferent and is the recommended formula for GFRby the National Kidney Foundation for Adults.The GFR will not calculate if the sex is unknown or if thepatient's age is <18 years. CREATININE (test code = CREAT) 0.9 mg/dL 0.6-1.3 N TOTAL PROTEIN (test code = PROT) 6.5 g/dL 5.7-8.2 N Note change in REFERENCE RANGE due to change in REAGENT. ALBUMIN (test code = ALB) 3.20 g/dL 3.4-5.0 L CALCIUM (test code = CA) 8.7 mg/dL 8.0-10.5 BILIRUBIN TOTAL (test code = BILT) 0.50 mg/dL 0.0-1.0 N SGOT/AST (test code = AST) 50 IUnit/L 8-34 H SGPT/ALT (test code = ALT) 65 IUnit/L 10-49 H ALKALINE PHOSPHATASE TOTAL (test code = ALKP) 85 IUnit/L 20-125 N [id number] 06:04:00* Test Item Value Reference Range Interpretation Comme nts PHOSPHOROUS (test code = PHOS) 2.7 MG/DL 2.5-4.9 N [id number] 06:04:00* Test Item Value Reference Range Interpretation Comme nts MAGNESIUM (test code = MAG) 2.33 mg/dL 1.6-2.6 N CALCIUM [id number] 06:04:00* Test Item Value Reference Range Interpretation Comme nts CALCIUM IONIZED (test code = NAMITA) 1.14 MMOL/L 1.09-1.30 N CBC W/AUTO [id number] 04:44:00* Test Item Value Reference Range Interpretation Comme nts WHITE BLOOD CELL (test code = WBC) 9.5 x10 3/uL 4.5-11.0 N RED BLOOD CELL (test code = RBC) 4.44 x10 6/uL 4.00-5.60 N HEMOGLOBIN (test code = HGB) 13.9 g/dL 12.5-16.9 HEMATOCRIT (test code = HCT) 42.0 % 37.5-50.7 MEAN CELL VOLUME (test code = MCV) 94.6 fL 81.0-99.0 N MEAN CELL HGB (test code = MCH) 31.3 pg 27.0-33.0 N MEAN CELL HGB CONCETRATION (test code = MCHC) 33.1 g/dL 33.0-37.0 N RED CELL DISTRIBUTION WIDTH CV (test code = RDW) 14.4 % 11.5-14.5 N RED CELL DISTRIBUTION WIDTH SD (test code = RDW-SD) 50.0 fL 37.0-54.0 N PLATELET COUNT (test code = PLT) 190 x10 3/uL 150-400 N MEAN PLATELET VOLUME (test c ode = MPV) 10.5 fL 7.0-9.0 H NEUTROPHIL % (test code = NT%) 88.2 % 56.0-77.0 H IMMATURE GRANULOCYTE % (test code = IG%) 0.8 % 0.0-2.0 N LYMPHOCYTE % (test code = LY%) 5.0 % 14.0-32.0 L MONOCYTE % (test code = MO%) 5.9 % 4.8-9.0 N EOSINOPHIL % (test code = EO%) 0.0 % 0.3-3.7 L BASOPHIL % (test code = BA%) 0.1 % 0.0-2.0 N NUCLEATED RBC % (test code = NRBC%) 0.0 % 0-0 N NEUTROPHIL # (test code = NT#) 8.36 x10 3/uL 2.0-7.6 H IMMATURE GRANULOCYTE # (test code = IG#) 0.08 x10 3/uL 0.00-0.03 H LYMPHOCYTE # (test code = LY#) 0.47 x10 3/uL 1.0-3.8 L MONOCYTE # (test code = MO#) 0.56 x10 3/uL 0.1-0.8 N EOSINOPHIL # (test code = EO#) 0.00 x10 3/uL 0.0-0.2 N BASOPHIL # (test code = BA#) 0.01 x10 3/uL 0.0-0.2 N NUCLEATED RBC # (test code = NRBC#) 0.00 x10 3/uL 0.0-0.1 N BASIC METABOLIC [id number] 05:55:00* Test Item Value Reference Range Interpretation Comme nts SODIUM (test code = NA) 141 mEq/L 134-147 N POTASSIUM (test code = K) 4.7 mEq/L 3.4-5.0 N CHLORIDE (test code = CL) 107 mEq/L 100-108 N CARBON DIOXIDE (test code = CO2) 31 mEq/l 21-33 N ANION GAP (test code = GAP) 8 0-20 N GLUCOSE (test code = GLU) 128 mg/dL 77-141 N BLOOD UREA NITROGEN (test code = BUN) 23 mg/dL 7-25 N GLOMERULAR FILTRATION RATE (test code = GFR) 95.2 70-80 H The Glomerular Filtration Rate is a calculated parameterbased on serum Creatinine, patient age and sex. GFR valuesless than 60 mL/min/1.73 square meters are indicative ofChronic Kidney Disease. Values less than 15 mL/min/1.73square meters indicate Kidney failure. The calculation forGFR is based on the CKD-EPI (2020) calculation. This formulais race indifferent and is the recommended formula for GFRby the National Kidney Foundation for Adults.The GFR will not calculate if the sex is unknown or if thepatient's age is <18 years. CREATININE (test code = CREAT) 0.8 mg/dL 0.6-1.3 N CALCIUM (test code = CA) 6.9 mg/dL 8.0-10.5 L [id number] 05:55:00* Test Item Value Reference Range Interpretation Comme nts MAGNESIUM (test code = MAG) 1.87 mg/dL 1.6-2.6 CBC W/AUTO [id number] 05:31:00* Test Item Value Reference Range Interpretation Comme nts WHITE BLOOD CELL (test code = WBC) 8.5 x10 3/uL 4.5-11.0 N RED BLOOD CELL (test code = RBC) 3.53 x10 6/uL 4.00-5.60 L HEMOGLOBIN (test code = HGB) 10.6 g/dL 12.5-16.9 L HEMATOCRIT (test code = HCT) 34.1 % 37.5-50.7 L MEAN CELL VOLUME (test code = MCV) 96.6 fL 81.0-99.0 N MEAN CELL HGB (test code = MCH) 30.0 pg 27.0-33.0 N MEAN CELL HGB CONCETRATION (test code = MCHC) 31.1 g/dL 33.0-37.0 L RED CELL DISTRIBUTION WIDTH CV (test code = RDW) 14.7 % 11.5-14.5 H RED CELL DISTRIBUTION WIDTH SD (test code = RDW-SD) 51.8 fL 37.0-54.0 N PLATELET COUNT (test code = PLT) 155 x10 3/uL 150-400 N MEAN PLATELET VOLUME (test c ode = MPV) 10.2 fL 7.0-9.0 H NEUTROPHIL % (test code = NT%) 89.0 % 56.0-77.0 H IMMATURE GRANULOCYTE % (test code = IG%) 0.8 % 0.0-2.0 N LYMPHOCYTE % (test code = LY%) 3.5 % 14.0-32.0 L MONOCYTE % (test code = MO%) 6.7 % 4.8-9.0 N EOSINOPHIL % (test code = EO%) 0.0 % 0.3-3.7 L BASOPHIL % (test code = BA%) 0.0 % 0.0-2.0 N NUCLEATED RBC % (test code = NRBC%) 0.0 % 0-0 N NEUTROPHIL # (test code = NT#) 7.57 x10 3/uL 2.0-7.6 N IMMATURE GRANULOCYTE # (test code = IG#) 0.07 x10 3/uL 0.00-0.03 H LYMPHOCYTE # (test code = LY#) 0.30 x10 3/uL 1.0-3.8 L MONOCYTE # (test code = MO#) 0.57 x10 3/uL 0.1-0.8 N EOSINOPHIL # (test code = EO#) 0.00 x10 3/uL 0.0-0.2 N BASOPHIL # (test code = BA#) 0.00 x10 3/uL 0.0-0.2 N NUCLEATED RBC # (test code = NRBC#) 0.00 x10 3/uL 0.0-0.1 N B-TYPE NATRIURETIC [id number] 10:16:00* Test Item Value Reference Range Interpretation Comme nts B-TYPE NATRIURETIC PEPTIDE ( test code = BNP) 174.0 PG/ML 0-100 H BASIC METABOLIC [id number] 10:14:00* Test Item Value Reference Range Interpretation Comme nts SODIUM (test code = NA) 135 mEq/L 134-147 N POTASSIUM (test code = K) 5.0 mEq/L 3.4-5.0 N CHLORIDE (test code = CL) 102 mEq/L 100-108 N CARBON DIOXIDE (test code = CO2) 34 mEq/l 21-33 H ANION GAP (test code = GAP) 4 0-20 N GLUCOSE (test code = GLU) 131 mg/dL 77-141 N BLOOD UREA NITROGEN (test code = BUN) 30 mg/dL 7-25 H GLOMERULAR FILTRATION RATE (test code = GFR) 72.2 70-80 N The Glomerular Filtration Rate is a calculated parameterbased on serum Creatinine, patient age and sex. GFR valuesless than 60 mL/min/1.73 square meters are indicative ofChronic Kidney Disease. Values less than 15 mL/min/1.73square meters indicate Kidney failure. The calculation forGFR is based on the CKD-EPI (2021) calculation. This formulais race indifferent and is the recommended formula for GFRby the National Kidney Foundation for Adults.The GFR will not calculate if the sex is unknown or if thepatient's age is <18 years. CREATININE (test code = CREAT) 1.1 mg/dL 0.6-1.3 N CALCIUM (test code = CA) 8.3 mg/dL 8.0-10.5 N COMPREHENSIVE METABOLIC [id number] 04:03:00* Test Item Value Reference Range Interpretation Comme nts SODIUM (test code = NA) 137 mEq/L 134-147 N POTASSIUM (test code = K) 5.5 mEq/L 3.4-5.0 H CHLORIDE (test code = CL) 103 mEq/L 100-108 N CARBON DIOXIDE (test code = CO2) 33 mEq/l 21-33 N ANION GAP (test code = GAP) 7 0-20 N GLUCOSE (test code = GLU) 152 mg/dL 77-141 H BLOOD UREA NITROGEN (test code = BUN) 28 mg/dL 7-25 H GLOMERULAR FILTRATION RATE (test code = GFR) 65.1 70-80 L The Glomerular Filtration Rate is a calculated parameterbased on serum Creatinine, patient age and sex. GFR valuesless than 60 mL/min/1.73 square meters are indicative ofChronic Kidney Disease. Values less than 15 mL/min/1.73square meters indicate Kidney failure. The calculation forGFR is based on the CKD-EPI (2021) calculation. This formulais race indifferent and is the recommended formula for GFRby the National Kidney Foundation for Adults.The GFR will not calculate if the sex is unknown or if thepatient's age is <18 years. CREATININE (test code = CREAT) 1.2 mg/dL 0.6-1.3 N TOTAL PROTEIN (test code = PROT) 6.8 g/dL 5.7-8.2 Note change in REFERENCE RANGE due to change in REAGENT. ALBUMIN (test code = ALB) 3.40 g/dL 3.4-5.0 N CALCIUM (test code = CA) 8.8 mg/dL 8.0-10.5 N BILIRUBIN TOTAL (test code = BILT) 0.50 mg/dL 0.0-1.0 N SGOT/AST (test code = AST) 60 IUnit/L 8-34 H SGPT/ALT (test code = ALT) 48 IUnit/L 10-49 N ALKALINE PHOSPHATASE TOTAL (test code = ALKP) 93 IUnit/L 20-125 N [id number] 04:03:00* Test Item Value Reference Range Interpretation Comme nts PHOSPHOROUS (test code = PHOS) 3.9 MG/DL 2.5-4.9 N [id number] 04:03:00* Test Item Value Reference Range Interpretation Comme nts MAGNESIUM (test code = MAG) 2.64 mg/dL 1.6-2.6 H CALCIUM [id number] 04:03:00* Test Item Value Reference Range Interpretation Comme nts CALCIUM IONIZED (test code = NAMITA) 1.12 MMOL/L 1.09-1.30 N CBC W/AUTO [id number] 02:55:00* Test Item Value Reference Range Interpretation Comme nts WHITE BLOOD CELL (test code = WBC) 11.2 x10 3/uL 4.5-11.0 H RED BLOOD CELL (test code = RBC) 4.64 x10 6/uL 4.00-5.60 N HEMOGLOBIN (test code = HGB) 14.5 g/dL 12.5-16.9 N HEMATOCRIT (test code = HCT) 44.1 % 37.5-50.7 N MEAN CELL VOLUME (test code = MCV) 95.0 fL 81.0-99.0 N MEAN CELL HGB (test code = MCH) 31.3 pg 27.0-33.0 N MEAN CELL HGB CONCETRATION (test code = MCHC) 32.9 g/dL 33.0-37.0 L RED CELL DISTRIBUTION WIDTH CV (test code = RDW) 14.9 % 11.5-14.5 H RED CELL DISTRIBUTION WIDTH SD (test code = RDW-SD) 51.5 fL 37.0-54.0 N PLATELET COUNT (test code = PLT) 243 x10 3/uL 150-400 N MEAN PLATELET VOLUME (test code = MPV) 9.7 fL 7.0-9.0 H NEUTROPHIL % (test code = NT%) 91.1 % 56.0-77.0 H IMMATURE GRANULOCYTE % (test code = IG%) 0.5 % 0.0-2.0 N LYMPHOCYTE % (test code = LY%) 3.8 % 14.0-32.0 L MONOCYTE % (test code = MO%) 4.5 % 4.8-9.0 L EOSINOPHIL % (test code = EO%) 0.0 % 0.3-3.7 L BASOPHIL % (test code = BA%) 0.1 % 0.0-2.0 N NUCLEATED RBC % (test code = NRBC%) 0.0 % 0-0 N NEUTROPHIL # (test code = NT#) 10.17 x10 3/uL 2.0-7.6 H IMMATURE GRANULOCYTE # (test code = IG#) 0.06 x10 3/uL 0.00-0.03 H LYMPHOCYTE # (test code = LY#) 0.42 x10 3/uL 1.0-3.8 L MONOCYTE # (test code = MO#) 0.50 x10 3/uL 0.1-0.8 N EOSINOPHIL # (test code = EO#) 0.00 x10 3/uL 0.0-0.2 N BASOPHIL # (test code = BA#) 0.01 x10 3/uL 0.0-0.2 N NUCLEATED RBC # (test code = NRBC#) 0.00 x10 3/uL 0.0-0.1 N SED RATE [id number] 21:17:00* Test Item Value Reference Range Interpretation Comme nts SED RATE WESTERGREN (test co de = SEDW) 18 mm/hr 0-15 H LACTIC [id number] 21:05:00* Test Item Value Reference Range Interpretation Comme nts LACTIC ACID (test code = LACT) 1.6 mmol/L 0.4-1.9 N BASIC METABOLIC [id number] 20:54:00* Test Item Value Reference Range Interpretation Comme nts SODIUM (test code = NA) 135 mEq/L 134-147 N POTASSIUM (test code = K) 5.4 mEq/L 3.4-5.0 H CHLORIDE (test code = CL) 103 mEq/L 100-108 N CARBON DIOXIDE (test code = CO2) 27 mEq/l 21-33 N ANION GAP (test code = GAP) 10 0-20 N GLUCOSE (test code = GLU) 138 mg/dL 77-141 N BLOOD UREA NITROGEN (test code = BUN) 24 mg/dL 7-25 N GLOMERULAR FILTRATION RATE (test code = GFR) 59.1 70-80 L The Glomerular Filtration Rate is a calculated parameterbased on serum Creatinine, patient age and sex. GFR valuesless than 60 mL/min/1.73 square meters are indicative ofChronic Kidney Disease. Values less than 15 mL/min/1.73square meters indicate Kidney failure. The calculation forGFR is based on the CKD-EPI (2020) calculation. This formulais race indifferent and is the recommended formula for GFRby the National Kidney Foundation for Adults.The GFR will not calculate if the sex is unknown or if thepatient's age is <18 years. CREATININE (test code = CREAT) 1.3 mg/dL 0.6-1.3 N CALCIUM (test code = CA) 9.0 mg/dL 8.0-10.5 N UA RFLX MICR CULT IF [id number] 19:43:00* Test Item Value Reference Range Interpretation Comme nts UA COLOR (test code = COLU) YELLOW YEL/STRAW UA APPEARANCE (test code = APPU) CLEAR CLEAR UA GLUCOSE DIPSTICK (test co de = DGLUU) NEGATIVE NEGATIVE UA BILIRUBIN DIPSTICK (test code = BILU) NEGATIVE NEGATIVE UA KETONE DIPSTICK (test cod e = KETU) NEGATIVE NEGATIVE UA SPECIFIC GRAVITY (test co de = SGU) 1.058 1.005-1.030 H UA BLOOD DIPSTICK (test code = JAZMYNE) NEGATIVE NEGATIVE UA PH DIPSTICK (test code = HAYLIE) 5.0 5.0-7.0 N UA PROTEIN DIPSTICK (test co de = PROU) NEGATIVE NEGATIVE UA UROBILINIOGEN DIPSTICK (test code = URO) 0.2 mg/dL 0.2-1.0 UA NITRITE DIPSTICK (test co de = DELROY) NEGATIVE NEGATIVE UA LEUKOCYTE ESTERASE DIPSTI CK (test code = LEUU) NEGATIVE NEGATIVE UA WBC (test code = WBCU) 0-3 WBC/HPF 0-3 UA RBC (test code = RBCU) 0-3 RBC/HPF 0-3 UA WBC NO REFLEX (test code = WBCUCL) 0-3 WBC/HPF 0-3 UA BACTERIA (test code = BACU) TRACE /HPF NONE SEEN UA SQUAMOUS CELLS (test code = SQU) NONE SEEN /HPF NONE SEEN UA HYALINE CAST (test code = HYALU) 0-2 /LPF NONE SEEN UA MUCUS (test code = MUCU) TRACE /LPF NONE SEEN Indication for culture: Dysuria/FrequencySpecimen Description: CLEAN CATCHPLT [id number] 19:32:00* Test Item Value Reference Range Interpretation Comme nts PLATELET ESTIMATE (test code = PLTEST) x10 3/uL 150-400 PLATELET MORPHOLOGY (test code = PLTMORPH) AGGREGATES FEW, SMAL L AGGREGATES CBC W/AUTO [id number] 19:32:00* Test Item Value Reference Range Interpretation Comme nts WHITE BLOOD CELL (test code = WBC) 10.7 x10 3/uL 4.5-11.0 N RED BLOOD CELL (test code = RBC) 5.46 x10 6/uL 4.00-5.60 N HEMOGLOBIN (test code = HGB) 16.5 g/dL 12.5-16.9 N HEMATOCRIT (test code = HCT) 51.8 % 37.5-50.7 H MEAN CELL VOLUME (test code = MCV) 94.9 fL 81.0-99.0 N MEAN CELL HGB (test code = MCH) 30.2 pg 27.0-33.0 N MEAN CELL HGB CONCETRATION (test code = MCHC) 31.9 g/dL 33.0-37.0 L RED CELL DISTRIBUTION WIDTH CV (test code = RDW) 15.3 % 11.5-14.5 H RED CELL DISTRIBUTION WIDTH SD (test code = RDW-SD) 52.8 fL 37.0-54.0 N PLATELET COUNT (test code = PLT) 199 x10 3/uL 150-400 N IMMATURE PLATELET FRACTION (test code = IPF) 11.4 % 0.9-11.2 H MEAN PLATELET VOLUME (test c ode = MPV) 11.1 fL 7.0-9.0 H NEUTROPHIL % (test code = NT%) 92.8 % 56.0-77.0 H IMMATURE GRANULOCYTE % (test code = IG%) 0.9 % 0.0-2.0 N LYMPHOCYTE % (test code = LY%) 2.9 % 14.0-32.0 L MONOCYTE % (test code = MO%) 3.0 % 4.8-9.0 L EOSINOPHIL % (test code = EO%) 0.2 % 0.3-3.7 L BASOPHIL % (test code = BA%) 0.2 % 0.0-2.0 N NUCLEATED RBC % (test code = NRBC%) 0.0 % 0-0 N NEUTROPHIL # (test code = NT#) 9.94 x10 3/uL 2.0-7.6 H IMMATURE GRANULOCYTE # (test code = IG#) 0.10 x10 3/uL 0.00-0.03 H LYMPHOCYTE # (test code = LY#) 0.31 x10 3/uL 1.0-3.8 L MONOCYTE # (test code = MO#) 0.32 x10 3/uL 0.1-0.8 N EOSINOPHIL # (test code = EO#) 0.02 x10 3/uL 0.0-0.2 N BASOPHIL # (test code = BA#) 0.02 x10 3/uL 0.0-0.2 N NUCLEATED RBC # (test code = NRBC#) 0.00 x10 3/uL 0.0-0.1 N SED RATE [id number] 19:24:00* Test Item Value Reference Range Interpretation Comme nts SED RATE WESTERGREN (test code = SEDW) mm/hr 0-15 COVID 19 INHOUSE [id number] 19:14:00* Test Item Value Reference Range Interpretation Comme nts COVID 19 INHOUSE AG (test code = [id number]) Negative Negative A negative resul t is presumptive and should be confirmedwith an FDA authorized molecular assay, if necessary forpatient management.A positive result does not rule out co-infections withother pathogens.This test detects both viable (live) and non-viable,SARS-CoV, and SARS-CoV-2. Test performance depends on theamount of virus (antigen) in the sample.This test has not been FDA cleared or approved; the test hasbeen authorized by FDA under an Emergency Use Authorization(EUA) for use by laboratories certified under the CLIA thatmeet the requirements to perform moderate, high or waivedcomplexity tests. B-TYPE NATRIURETIC [id number] 19:04:00* Test Item Value Reference Range Interpretation Comme nts B-TYPE NATRIURETIC PEPTIDE ( test code = BNP) 85.0 PG/ML 0-100 N COMPREHENSIVE METABOLIC [id number] 18:52:00* Test Item Value Reference Range Interpretation Comme nts SODIUM (test code = NA) 137 mEq/L 134-147 N POTASSIUM (test code = K) 5.7 mEq/L 3.4-5.0 H CHLORIDE (test code = CL) 101 mEq/L 100-108 N CARBON DIOXIDE (test code = CO2) 31 mEq/l 21-33 N ANION GAP (test code = GAP) 11 0-20 N GLUCOSE (test code = GLU) 146 mg/dL 77-141 H BLOOD UREA NITROGEN (test code = BUN) 25 mg/dL 7-25 N GLOMERULAR FILTRATION RATE (test code = GFR) 59.1 70-80 L The Glomerular Filtration Rate is a calculated parameterbased on serum Creatinine, patient age and sex. GFR valuesless than 60 mL/min/1.73 square meters are indicative ofChronic Kidney Disease. Values less than 15 mL/min/1.73square meters indicate Kidney failure. The calculation forGFR is based on the CKD-EPI (2020) calculation. This formulais race indifferent and is the recommended formula for GFRby the National Kidney Foundation for Adults.The GFR will not calculate if the sex is unknown or if thepatient's age is <18 years. CREATININE (test code = CREAT) 1.3 mg/dL 0.6-1.3 N TOTAL PROTEIN (test code = PROT) 8.1 g/dL 5.7-8.2 N Note change in REFERENCE RANGE due to change in REAGENT. ALBUMIN (test code = ALB) 4.10 g/dL 3.4-5.0 N CALCIUM (test code = CA) 9.5 mg/dL 8.0-10.5 N BILIRUBIN TOTAL (test code = BILT) 0.50 mg/dL 0.0-1.0 N SGOT/AST (test code = AST) 39 IUnit/L 8-34 H SGPT/ALT (test code = ALT) 51 IUnit/L 10-49 H ALKALINE PHOSPHATASE TOTAL (test code = ALKP) 116 IUnit/L 20-125 N LIPID PROFILE (CORONARY RISK)2024-07-03 18:52:00* Test Item Value Reference Range Interpretation Comme nts TRIGLYCERIDES (test code = TRIG) 148 mg/dL 40-150 N CHOLESTEROL (test code = CHOL) 270 mg/dL <200 H CHOLESTEROL/HDL RATIO (test code = CHOLHDL) 2.46 RATIO 3.43-4.97 L RISK ASSOCIATED WITH CHOL/HDL RATIOS: RISK MALE FEMALE1/2 AVERAGE 3.43 3.27AVERAGE 4.97 4.442X AVERAGE 9.55 7.053X AVERAGE 23.39 11.04 NOTE THAT THE REFERENCE VALUE IS RELATEDTO RISK LEVELS RECOMMENDED BY THE NATL.HEART, LUNG, AND BLOOD INST. HDL CHOLESTEROL (test code = HDL) 109.9 MG/DL 40-60 H HDL Interpreta tion < 40.0 mg/dL Low (undesirable, high risk)> 60.0 mg/dL High (desirable, low risk) Reference interval for healthy adults was established by theNational Cholesterol Education Program (NCEP). LIPOPROTEIN LDL (test code = LDL) 143.0 mg/dL 0-100 H <100 USJCDFT00 0-129 NEAR OPTIMAL/ABOVE [id number] HIGH>UG=770 VERY HIGH*Guidelines provided by the National Cholesterol EducationProgram Adult Treatment Panel III [id number] 18:52:00* Test Item Value Reference Range Interpretation Comme nts MAGNESIUM (test code = MAG) 2.36 mg/dL 1.6-2.6 N TROP-I HIGH [id number] 18:52:00* Test Item Value Reference Range Interpretation Comme nts TROP-I HIGH SENSITIVITY (test code = TROPIHS) 469 ng/L 0-54 HH Critical result called to TERESA RENTERIA RNby [id number] at 1852 07/03/24Nurse read back result and tech confirmed it's correct? YESCAUTION: Units of the current test methodology (ng/L) differfrom the prior test methodology (ng/mL) by a factor of 1000. 99th Percentile Upper Reference Limit (URL): Females: 34 ng/LMales: 54 ng/L In order to distinguish acute elevations of high sensitivitytroponin from other clinical conditions, the FourthUniversal Definition of Myocardial Infarction stressesclinical assessment and the demonstration of a rise and/orfall in serial troponin results above the URL. These results were obtained using [employer] IM TnIHreagent. Results from different methodologies should not becompared to one another as quantitative results and URLs mayvary by method. C REACTIVE [id number] 18:45:00* Test Item Value Reference Range Interpretation Comme [facility] C REACTIVE PROTEIN (test code = CRP) 13.2 MG/L <5.0 H Note change in REFERENCE RANGE due to change in REAGENT. PROTHROMBIN [id number] 18:39:00* Test Item Value Reference Range Interpretation Comme [facility] PROTHROMBIN TIME PATIENT (test code = PTP) 11.7 SECONDS 9.3-12.9 N INTERNATIONAL NORMAL RATIO (test code = INR) 1.0 0.8-1.2 N TARGET INR BY INDICATION Indication INR1. Prophylaxis of venous thrombosis 2.0 - 3.0 (orthopedic surgery), Prophylaxis of venous thrombosis (other than high-risk surgery), Treatment of Deep Vein Thrombosis/Pulmonary Embolism, Prevention of systemic embolism - Tissue heart valves, Acute Myocardial Infarction (to prevent systemic embolism), Valvular heart disease, Atrial Fibrillation, Bileaflet mechanical valve in aortic position.2. Mechanical prosthetic valves (high risk), 2.5 - 3.5 Presence of Lupus Anticoagulant or Antiphospholipid Antibodies, Prevention of systemic embolism - Acute Myocardial Infarction (to prevent recurrent infarct). THROMBOPLASTIN TIME [id number] 18:39:00* Test Item Value Reference Range Interpretation Comme [facility] THROMBOPLASTIN TIME PARTIAL (test code = PTT) 21.9 Seconds 25.0-39.5 L Therapeutic Rang e: 58.8 - 96.0 Seconds Effective 03/02/2024 [id number]%2024-07-03 18:34:00* Test Item Value Reference Range Interpretation Comme [facility] HGBA1C% (test code = HGBA1C%) 5.5 %A1C 4.8-6.0 N COMP Metabolic Panel (87473)2022-07-11 02:45:20* Test Item Value Reference Range Interpretation Comme [facility] NA (test code = 2176220248) 139 mmol/L 135-145 K (test code = 5384960415) 4.8 mmol/L 3.5-5.0 CL (test code = 5255052620) 102 mmol/L 98-108 CO2 TOTAL (test code = 8397445846) 30 mmol/L 23-31 AGAP (test code = 9068786610) 7 2-16 BUN (test code = 6822801974) 7 mg/dL 7-23 GLUCOSE (test code = 5142257674) 94 mg/dL 70-110 CREATININE (test code = 5338511328) 0.84 mg/dL 0.60-1.25 TOTAL BILI (test code = 2998053922) 0.8 mg/dL 0.1-1.1 CALCIUM (test code = 3516879634) 8.9 mg/dL 8.6-10.6 T PROTEIN (test code = 1997146063) 8.3 g/dL 6.3-8.2 H ALBUMIN (test code = 8230874047) 4.1 g/dL 3.5-5.0 ALK PHOS (test code = 3391794150) 80 U/L 34-122 ALTv (test code = 1742-6) 27 U/L 5-50 AST(SGOT) (test code = 3247797756) 38 U/L 13-40 eGFR (test code = 7604055697) 90.9 mL/min/1.73m2 DOUG (test code = DOUG) Association of Glomerular Filtration Rate (GFR) and Staging of Kidney Disease* + --+ --+ ------+| GFR (mL/min/1.73 m2) ?| With Kidney Damage ?| ?Without Kidney Damage+ --------+ --------+ +| ?>90 ?| ?Stage one ?| ? Normal ?+ ---+ ---+ -------+| ?60-89 ?| ?Stage two ?| ? Decreased GFR ? + --+ --+ ------+| ?30-59 ?| ?Stage three ?| ? Stage three ? + --+ --+ ------+| ?15-29 ?| ?Stage four ? | ? Stage four ?+ ---+ ---+ -------+| ?<15 (or dialysis) ? ?| ?Stage five ? | ? Stage five ?+ ---+ ---+ -------+ *Each stage assumes the associated GFR level has been in effect for at least three months. ?Stages 1 to 5, with or without kidney disease, indicate chronic kidney disease. Notes: Determination of stages one and two (with eGFR >59mL/min/1.73 m2) requires estimation of kidney damage for at least three months as defined by structural or functional abnormalities of the kidney, manifested by either:Pathological abnormalities or Markers of kidney damage (including abnormalities in the composition of the blood or urine or abnormalities in imaging tests). Lab Interpretation (test code = 21590-5) Abnormal [facility] with [id number] 01:45:17* Test Item Value Reference Range Interpretation Comme nts WBC (test code = 6690-2) 6.93 See_Comment [Automated [employer]] The system which generated this result transmitted reference range: 4.20 - 10.70 10*3/?L. The reference range was not used to interpret this result as normal/abnormal. RBC (test code = 789-8) 5.25 See_Comment [Automated [employer]] The system which generated this result transmitted reference range: 4.26 - 5.52 10*6/?L. The reference range was not used to interpret this result as normal/abnormal. HGB (test code = 718-7) 15.9 g/dL 12.2-16.4 HCT (test code = 4544-3) 47.2 % 38.4-49.3 MCV (test code = 787-2) 89.9 fL 81.7-95.6 MCH (test code = 785-6) 30.3 pg 26.1-32.7 MCHC (test code = 786-4) 33.7 g/dL 31.2-35.0 RDW-SD (test code = 34542-5) 44.1 fL 38.5-51.6 RDW-CV (test code = 788-0) 13.3 % 12.1-15.4 PLT (test code = 777-3) 260 See_Comment [Automated [employer]] The system which generated this result transmitted reference range: 150 - 328 10*3/?L. The reference range was not used to interpret this result as normal/abnormal. MPV (test code = 58588-4) 10.3 fL 9.8-13.0 NRBC/100 WBC (test code = 6296559197) 0.0 See_Comment [Automated me ssage] The system which generated this result transmitted reference range: 0.0 - 10.0 /100 WBCs. The reference range was not used to interpret this result as normal/abnormal. NRBC x10^3 (test code = 6601543937) See_Comment [Automated me ssage] The system which generated this result transmitted reference range: 10*3/?L. The reference range was not used to interpret this result as normal/abnormal. GRAN MAT (NEUT) % (test code = 770-8) 65.5 % IMM GRAN % (test code = 4698189643) 0.40 % LYMPH % (test code = 736-9) 18.8 % MONO % (test code = 5905-5) 10.5 % EOS % (test code = 713-8) 4.2 % BASO % (test code = 706-2) 0.6 % GRAN MAT x10^3(ANC) (test code = 2291389333) 4.54 10*3/uL 1.99-6.95 IMM GRAN x10^3 (test code = 2709254358) 0.03 10*3/uL 0.00-0.06 LYMPH x10^3 (test code = 731-0) 1.30 10*3/uL 1.09-3.23 MONO x10^3 (test code = 742-7) 0.73 10*3/uL 0.36-1.02 EOS x10^3 (test code = 711-2) 0.29 10*3/uL 0.06-0.53 BASO x10^3 (test code = 704-7) 0.04 10*3/uL 0.01-0.09 [facility] [id number] 01:41:36* Test Item Value Reference Range Interpretation Comme nts TROPONIN I (test code = 7559902100) 0.007 ng/mL <=0.034 DOUG (test code = DOUG) Reference (Normal) Range (defined by the 99th percentile reference limit): <= 0.034 ng/mL Note: Cardiac troponin begins to rise 3-4 hours after the onset of ischemia. Repeat in 4-6 hours if the sample was drawn within 3-4 hours of the onset of the symptom and found normal. Diagnosis of myocardial injury is made with acute changes in cTn concentrations with at least one serial sample above the 99th percentile upper reference limit (URL), taken together with the patient's clinical presentation. Biotin has been reported to cause a negative bias, interpret results relative to patient's use of biotin. Lab Interpretation (test code = 80529-4) Normal [facility] [id number]-QUD1706-01-05 01:38:36* Test Item Value Reference Range Interpretation Comme nts NT-proBNP (test code = 0646020670) 144 pg/mL <=125 H DOUG (test code = DOUG) Biotin has been reported to cause a negative bias, interpret results relative to patient's use of biotin. Lab Interpretation (test code = 22022-5) [facility]normal [facility] AustinSput[facility] [id number] 17:08:10* Test Item Value Reference Range Interpretation Comme nts SPUTUM CULTURE (test code = 622-1) 2+ Respiratory vance: Commensal upper respiratory microorganisms only. Gram stain (test code = 664-3) Few Epithelial cells DOUG (test code = DOUG) Bacterial pathogens associated with lower respiratory infections were not identified, which include Pseudomonas aeruginosa and Staphylococcus aureus (MRSA or MSSA). [facility] (NA, K, CL, CO2, GLUCOSE, BUN, CREATININE, CA)2022-03-07 10:12:31* Test Item Value Reference Range Interpretation Comme nts NA (test code = 2394019886) 138 mmol/L 135-145 K (test code = 4435375335) 5.6 mmol/L 3.5-5.0 H CL (test code = 6697711633) 99 mmol/L 98-108 CO2 TOTAL (test code = 4867241992) 31 mmol/L 23-31 AGAP (test code = 6443831509) 2-16 BUN (test code = 8719839871) 22 mg/dL 7-23 GLUCOSE (test code = 9278411196) 134 mg/dL 70-110 H CREATININE (test code = 2893255114) 1.00 mg/dL 0.60-1.25 CALCIUM (test code = 2160908080) 9.7 mg/dL 8.6-10.6 eGFR (test code = 2103055189) mL/min/1.73m2 DOUG (test code = DOUG) Association of Glomerular Filtration Rate (GFR) and Staging of Kidney Disease* + --+ --+ ------+| GFR (mL/min/1.73 m2) ?| With Kidney Damage ?| ?Without Kidney Damage+ --------+ --------+ +| ?>90 ?| ?Stage one ?| ? Normal ?+ ---+ ---+ -------+| ?60-89 ?| ?Stage two ?| ? Decreased GFR ? + --+ --+ ------+| ?30-59 ?| ?Stage three ?| ? Stage three ? + --+ --+ ------+| ?15-29 ?| ?Stage four ? | ? Stage four ?+ ---+ ---+ -------+| ?<15 (or dialysis) ? ?| ?Stage five ? | ? Stage five ?+ ---+ ---+ -------+ *Each stage assumes the associated GFR level has been in effect for at least three months. ?Stages 1 to 5, with or without kidney disease, indicate chronic kidney disease. Notes: Determination of stages one and two (with eGFR >59mL/min/1.73 m2) requires estimation of kidney damage for at least three months as defined by structural or functional abnormalities of the kidney, manifested by either:Pathological abnormalities or Markers of kidney damage (including abnormalities in the composition of the blood or urine or abnormalities in imaging tests). Lab Interpretation (test code = 69768-8) [facility]normal [facility] AustinMagn[facility] Akdos1918-22-27 10:12:31* Test Item Value Reference Range Interpretation Comme nts MAGNESIUM (test code = 7770530286) 2.3 mg/dL 1.7-2.4 Lab Interpretation (test cod e = 34437-9) Normal [facility] with Qfsxkfbmbrqu3508-64-21 09:56:07* Test Item Value Reference Range Interpretation Comme nts WBC (test code = 6690-2) See_Comment [Automated [employer]] The system which generated this result transmitted reference range: 4.20 - 10.70 10*3/?L. The reference range was not used to interpret this result as normal/abnormal. RBC (test code = 789-8) See_Comment [Automated messa ge] The system which generated this result transmitted reference range: 4.26 - 5.52 10*6/?L. The reference range was not used to interpret this result as normal/abnormal. HGB (test code = 718-7) 14.8 g/dL 12.2-16.4 HCT (test code = 4544-3) 42.9 % 38.4-49.3 MCV (test code = 787-2) 85.6 fL 81.7-95.6 MCH (test code = 785-6) 29.5 pg 26.1-32.7 MCHC (test code = 786-4) 34.5 g/dL 31.2-35.0 RDW-SD (test code = 40004-0) 46.2 fL 38.5-51.6 RDW-CV (test code = 788-0) 14.6 % 12.1-15.4 PLT (test code = 777-3) See_Comment H [Automated messa ge] The system which generated this result transmitted reference range: 150 - 328 10*3/?L. The reference range was not used to interpret this result as normal/abnormal. MPV (test code = 19704-7) 10.7 fL 9.8-13.0 NRBC/100 WBC (test code = 2051948254) See_Comment [Automated [employer] ssage] The system which generated this result transmitted reference range: 0.0 - 10.0 /100 WBCs. The reference range was not used to interpret this result as normal/abnormal. NRBC x10^3 (test code = 7909769658) See_Comment [Automated messa ge] The system which generated this result transmitted reference range: 10*3/?L. The reference range was not used to interpret this result as normal/abnormal. GRAN MAT (NEUT) % (test code = 770-8) 84.1 % IMM GRAN % (test code = 4724244093) 1.20 % LYMPH % (test code = 736-9) 10.5 % MONO % (test code = 5905-5) 4.0 % EOS % (test code = 713-8) 0.0 % BASO % (test code = 706-2) 0.2 % GRAN MAT x10^3(ANC) (test code = 0148054289) 8.16 10*3/uL 1.99-6.95 H IMM GRAN x10^3 (test code = 5630801265) 0.12 10*3/uL 0.00-0.06 H LYMPH x10^3 (test code = 731-0) 1.02 10*3/uL 1.09-3.23 L MONO x10^3 (test code = 742-7) 0.39 10*3/uL 0.36-1.02 EOS x10^3 (test code = 711-2) 0.06-0.53 L BASO x10^3 (test code = 704-7) 0.01-0.09 Lab Interpretation (test code = 15284-9) [facility]09* Test Item Value Reference Range Interpretation Comments Procalcitonin (test code = 5656619503) 0.05 ng/mL See_Comment [Automated message] The system which generated this result transmitted reference range: <=0.07. The reference range was not used to interpret this result as normal/abnormal . DOUG (test code = DOUG) INTERPRETATION OF PROCALCITONIN RESULTS IN ADULTS >= 18 YEARS OF AGE Initiation and discontinuation of antibiotics on patients with suspected or confirmed Lower Respiratory Tract Infection in Adults >= 18 years of age. + +------ + ----+ +|Procalcit onin |Interpretation ?|Antibiotic ? ? |Considerations ? |ng/mL ? | ?|recommendation | ? + +------ + ----+ +| <0.1 ? | Bacterial ? ? ?| Strongly ? ? ?| ? | ?| infection very | discouraged ? | Overruling: ? | ?| unlikely ? ? ? | ? | ? Clinically unstable ? ? ? + +------ + ----+ ? High risk for adverse ? ? | <0.25 ?| Bacterial ? ? ?| Discouraged ? | ? outcome ? | ?| infection ? ? ?| ? | ? SEE IMPORTANT NOTE ?| ?| unlikely ? ? ? | ? | ? + +------ + ----+ +| >=0.25 ? ? ? | Bacterial ? ? ?| Encouraged ? ?| ? | ?| infection ? ? ?| ? | ? | ?| likely ? | ? | Consider treatment failure ?+ +----- + -----+ if levels does not decrease | >0.5 ? | Bacterial ? ? ?| Strongly ? ? ?| appropriately ? | ?| infection very | encouraged ? ?| ? | ?| likely ? | ? | ? + +------ + ----+ + Discontinuation of antibiotics in high-acuity patients with suspected or confirmed sepsis in Adults >= 18 years of age. + +------ + ----+ +|Procalcit onin |Interpretation ?|Antibiotic ? ? |Considerations ? |ng/mL ? | ?|recommendation | ? + +------ + ----+ +| <0.25 ?| Bacterial ? ? ?| Strongly ? ? ?| ? | ?| infection very | discouraged ? | Overruling: ? | ?| unlikely ? ? ? | ? | ? Clinically unstable ? ? ? + +------ + ----+ ? High risk for adverse ? ? | <0.5 or drop | Bacterial ? ? ?| Discouraged ? | ? outcome ? | >80% from ? ?| infection ? ? ?| ? | ? SEE IMPORTANT NOTE ?| highest PCT ?| unlikely ? ? ? | ? | ? | level ?| ?| ? | ? + +------ + ----+ +| >=0.5 ?| Bacterial ? ? ?| Encouraged ? ?| ? | ?| infection ? ? ?| ? | ? | ?| likely ? | ? | Consider treatment failure ?+ +----- + -----+ if levels does not decrease | >1.0 ? | Bacterial ? ? ?| Strongly ? ? ?| appropriately ? | ?| infection very | encouraged ? ?| ? | ?| likely ? | ? | ? + +------ + ----+ + Percentage of drop of Procalcitonin calculation for Discontinuation of antibiotics in high-acuity patients with suspected or confirmed sepsis in Adults >= 18 years of age. ? Procalcitonin highest{}-Procalcitoni n current{}Delta Procalcitonin = ___ x100% ? Procalcitonin current {} IMPORTANT NOTE: Procalcitonin may be elevated without bacterial infection by physiologic stress related to trauma, devries, chronic dialysis, metastatic cancer, surgery in the past seven days, malaria, some fungal infections, and some forms of vasculitis. The interpretation algorithm may not apply to patients with immunosuppression (equivalent of >10 mg of prednisone daily), HIV with CD4 cell count < 350 cells/mm3, active malignancy on systemic chemotherapy, solid organ transplant or hematopoietic stem cell transplantation, or hospital acquired pneumonia. Additionally, some clinical trials of procalcitonin have excluded patients with shock requiring vasopressor use, acute respiratory failure requiring mechanical ventilation, or those with known lung abscess/empyema. For further information please refer to:[email or web address] p Lab Interpretation (test code = 54171-1) [facility] [id number] 14:41:37* Test Item Value Reference Range Interpretation Comments TROPONIN I (test code = 6143645317) 0.003 ng/mL See_Comment [Automated message] The system which generated this result transmitted reference range: <=0.034. The reference range was not used to interpret this result as normal/abnormal. DOUG (test code = DOUG) Reference (Normal) Range (defined by the 99th percentile reference limit): <= 0.034 ng/mL Note: Cardiac troponin begins to rise 3-4 hours after the onset of ischemia. Repeat in 4-6 hours if the sample was drawn within 3-4 hours of the onset of the symptom and found normal. Diagnosis of myocardial injury is made with acute changes in cTn concentrations with at least one serial sample above the 99th percentile upper reference limit (URL), taken together with the patient's clinical presentation. Biotin has been reported to cause a negative bias, interpret results relative to patient's use of biotin. Lab Interpretation (test code = 50283-2) Normal [facility]. METABOLIC PANEL (44949)2022-03-06 14:30:18* Test Item Value Reference Range Interpretation Comme nts NA (test code = 1034818803) 140 mmol/L 135-145 K (test code = 8400956832) 5.2 mmol/L 3.5-5.0 H CL (test code = 3724731692) 100 mmol/L 98-108 CO2 TOTAL (test code = 2651435210) 29 mmol/L 23-31 AGAP (test code = 1811551919) 2-16 BUN (test code = 8258578720) 7 mg/dL 7-23 GLUCOSE (test code = 8720059408) 120 mg/dL 70-110 H CREATININE (test code = 5955896340) 0.74 mg/dL 0.60-1.25 TOTAL BILI (test code = 8705005075) 1.0 mg/dL 0.1-1.1 CALCIUM (test code = 9014114714) 9.9 mg/dL 8.6-10.6 T PROTEIN (test code = 5537984254) 8.7 g/dL 6.3-8.2 H ALBUMIN (test code = 3798800377) 4.4 g/dL 3.5-5.0 ALK PHOS (test code = 1835957616) 103 U/L 34-122 ALTv (test code = 1742-6) 22 U/L 5-50 AST(SGOT) (test code = 9742427713) 31 U/L 13-40 eGFR (test code = 2888902642) mL/min/1.73m2 DOUG (test code = DOUG) Association of Glomerular Filtration Rate (GFR) and Staging of Kidney Disease* + --+ --+ ------+| GFR (mL/min/1.73 m2) ?| With Kidney Damage ?| ?Without Kidney Damage+ --------+ --------+ +| ?>90 ?| ?Stage one ?| ? Normal ?+ ---+ ---+ -------+| ?60-89 ?| ?Stage two ?| ? Decreased GFR ? + --+ --+ ------+| ?30-59 ?| ?Stage three ?| ? Stage three ? + --+ --+ ------+| ?15-29 ?| ?Stage four ? | ? Stage four ?+ ---+ ---+ -------+| ?<15 (or dialysis) ? ?| ?Stage five ? | ? Stage five ?+ ---+ ---+ -------+ *Each stage assumes the associated GFR level has been in effect for at least three months. ?Stages 1 to 5, with or without kidney disease, indicate chronic kidney disease. Notes: Determination of stages one and two (with eGFR >59mL/min/1.73 m2) requires estimation of kidney damage for at least three months as defined by structural or functional abnormalities of the kidney, manifested by either:Pathological abnormalities or Markers of kidney damage (including abnormalities in the composition of the blood or urine or abnormalities in imaging tests). Lab Interpretation (test code = 51313-0) Abnormal [facility] WITH [id number] 14:18:56* Test Item Value Reference Range Interpretation Comme nts WBC (test code = 6690-2) See_Comment [Automated [employer]] The system which generated this result transmitted reference range: 4.20 - 10.70 10*3/?L. The reference range was not used to interpret this result as normal/abnormal. RBC (test code = 789-8) See_Comment [Automated [employer]] The system which generated this result transmitted reference range: 4.26 - 5.52 10*6/?L. The reference range was not used to interpret this result as normal/abnormal. HGB (test code = 718-7) 14.6 g/dL 12.2-16.4 HCT (test code = 4544-3) 42.7 % 38.4-49.3 MCV (test code = 787-2) 87.0 fL 81.7-95.6 MCH (test code = 785-6) 29.7 pg 26.1-32.7 MCHC (test code = 786-4) 34.2 g/dL 31.2-35.0 RDW-SD (test code = 67212-8) 47.8 fL 38.5-51.6 RDW-CV (test code = 788-0) 14.8 % 12.1-15.4 PLT (test code = 777-3) See_Comment [Automated messa ge] The system which generated this result transmitted reference range: 150 - 328 10*3/?L. The reference range was not used to interpret this result as normal/abnormal. MPV (test code = 90891-3) 9.7 fL 9.8-13.0 L NRBC/100 WBC (test code = 6529320185) See_Comment [Automated [employer] ssage] The system which generated this result transmitted reference range: 0.0 - 10.0 /100 WBCs. The reference range was not used to interpret this result as normal/abnormal. NRBC x10^3 (test code = 1068512890) See_Comment [Automated [employer]] The system which generated this result transmitted reference range: 10*3/?L. The reference range was not used to interpret this result as normal/abnormal. GRAN MAT (NEUT) % (test code = 770-8) 77.2 % IMM GRAN % (test code = 0980600895) 0.50 % LYMPH % (test code = 736-9) 14.0 % MONO % (test code = 5905-5) 7.6 % EOS % (test code = 713-8) 0.3 % BASO % (test code = 706-2) 0.4 % GRAN MAT x10^3(ANC) (test code = 0263621993) 8.15 10*3/uL 1.99-6.95 H IMM GRAN x10^3 (test code = 3837599174) 0.05 10*3/uL 0.00-0.06 LYMPH x10^3 (test code = 731-0) 1.48 10*3/uL 1.09-3.23 MONO x10^3 (test code = 742-7) 0.80 10*3/uL 0.36-1.02 EOS x10^3 (test code = 711-2) 0.03 10*3/uL 0.06-0.53 L BASO x10^3 (test code = 704-7) 0.04 10*3/uL 0.01-0.09 Lab Interpretation (test code = 33484-3) Abnormal [facility] Notes Date/Time Note Provider Source 2024-07-12 07:38:00 [facility] ([facility]) Discharge Summary REPORT#:[id number] REPORT STATUS: Signed REPORT INITIALIZATION DATE:07/12/24 TIME: 737 PATIENT: HUBERT LYNCH UNIT #: [id number] ROOM/BED: [place] [address] : 53 AGE: 68 SEX: M ATTEND: Marcellus Gilbert MD ADM AUTHOR: Asim Helms MONOGRAM OPERATOR REPT SERVICE DT/TIME: 07/12/24 07 * ALL edits or amendments must be made on the electronic/computer document * PCP PCP PCP: PCP: No Primary or Family Physician Discharge to: home General Information Date of admission: Observation Start Date: Date of admission: 07/03/24 Discharge date: 07/12/24 Discharge diagnosis: Multivessel CAD s/p PCI and Stent in placed. Acute COPD excerbation. SOB due to CAD. Hyperkalemia. HX of COPD and PNA. Hospital course: 68-year-old gentleman with a past medical history of COPD, on home oxygen, 4 L who presented to the hospital at [place] for complaints of worsening shortness of breath productive cough,. Patient was treated for COPD exacerbation and pneumonia with antibiotics. He underwent heart catheterization at [facility] multivessel coronary artery disease. He was admitted for CV surgery eval. Patient was seen by cv surgery. he had a CABG work up however in high risk PCI, he was recommended for PCI with Impella. He had a stent in placed. He will go for Effeint and ASA. Consultants: cardiology, cardiovascular surgery Pt. condition on discharge: improved, stable Allergies: Allergies: No Known Allergies (Coded, 07/03/24) Med Rec Med Rec Discharge meds: Continue taking these medications: Fluticasone/Umeclidin/Vilanter (TRELEGY ELLIPTA 200-62.5-25) 200-62.5 BLST.W.DEV 1 PUFF INHALATION DAILY. ALBUTEROL (ACCUNEB) 1.25 MG/3 ML NEB 1.25 MILLIGRAM INHALATION RT - EVERY 4 HOURS NEEDED. as needed for copd IPRATROPIUM/ALBUTEROL (DUONEB 0.5 MG-3/3ML) 0.5 MG-3 MG (2.5 MG BASE)/3 ML NEB 3 MILLILITERS NEB RT - EVERY 4 HOURS NEEDED. as needed for copd Start taking the following new medications: PRASUGREL (EFFIENT) 10 MG TAB 10 MILLIGRAM ORAL DAILY. Qty = 30 No Refills ATORVASTATIN (LIPITOR) 40 MG TAB 40 MILLIGRAM ORAL 2100 Qty = 30 No Refills METOPROLOL SUCC XL (TOPROL XL) 25 MG TAB.SR.24H 50 MILLIGRAM ORAL DAILY. Qty = 30 No Refills VALSARTAN (DIOVAN) 160 MG TAB 160 MILLIGRAM ORAL DAILY. Qty = 30 No Refills ASPIRIN EC (ECOTRIN) 81 MG TAB.EC 81 MILLIGRAM ORAL DAILY. Qty = 30 No Refills amLODIPine (NORVASC) 5 MG TAB 5 MILLIGRAM ORAL DAILY. Qty = 30 No Refills predniSONE (predniSONE) 20 MG TAB 20 MILLIGRAM ORAL DAILY. Qty = 5 No Refills Objective VS/I O Last Documented: Result Date Time Pulse Ox 96 07/12 652 B/P 139/67 07/12 652 B/P Mean 0.0 07/12 652 O2 Delivery Nasal cannula 07/12 652 Temp 36.7 07/12 652 Pulse 94 07/12 652 Resp 22 07/12 652 O2 Flow Rate 4 07/12 1999 FiO2 32 07/11 1611 24 hour I O ending at 0700: 07/12 0700 07/11 1900 Intake Total 350 Output Total 1300 Balance 350 -1300 Intake, Oral 350 Output, Urine 1300 Patient 67.2 kg 74 kg Weight Weight Standing scale Stated/Reported Measurement Method PATIENT WEIGHT: Weight (lb): 148 Weight (oz): 2.41 Weight (kg): 67.200 Discharge Instructions PCP )( Discharge to: Home/Self Care Discharge Instructions Additional Discharge Routines: PCP Follow-Up, Cytology Teacher Follow-Up )( Diet: Cardiac )( Activity: Resume Normal Activity Follow-up Appointments PCP follow up: PCP: No Primary or Family Physician PCP follow up timeframe: In 2-3 weeks Consulting provider 1: Provider 1: Nereyda Toribio MD Specialty: CardiologyInterventional Consult follow up timeframe: In 2-3 weeks at 0858 at 1254 RPT #:[id number] END OF REPORT [facility] 2024-07-12 06:53:00 [id number] [place] [address] PATIENT NAME: HUBERT LYNCH ADMIT DATE: 07/03/24 ACCOUNT NO: [id number] ROOM NO: G.DCCVN1 AGE: 68 REPORT TYPE: eELECTROCARDIOGRAM REPORT SEX: M ADMITTING PHYSICIAN:Marcellus Gilbert MD ATTENDING PHYSICIAN:Marcellus Gilbert MD Order: [id number] Test Reason : POST OP Test Date/Time Stamp: TueJul 12 2024 06:53:47 Blood Pressure : / mmHG Vent. Rate : 085 BPM Atrial Rate : 085 BPM P-R Int : 120 ms QRS Dur : 082 ms QT Int : 338 ms P-R-T Axes : 086 085 040 degrees QTc Int : 402 ms Normal sinus rhythm Right atrial enlargement Nonspecific ST and T wave abnormality Abnormal ECG When compared with ECG of 11-JUL-2024 10:26, No changes Confirmed by MD ROSENTHAL GERARD ([id number]) on 07/13/2024 1:11:02 PM Referred By: Self Referred Confirmed by:ISAIAH ROSENTHAL MD at 1311 PATIENT NAME: HUBERT LYNCH [facility] 2024-07-12 05:55:00 [facility] ([facility]) Hospitalist Progress Note REPORT#:[id number] REPORT STATUS: Signed REPORT INITIALIZATION DATE:07/12/24 TIME: 554 PATIENT: HUBERT LYNCH UNIT #: [id number] [facility] AGE: 68 SEX: M ATTEND: Marcellus Gilbert MD ADM AUTHOR: Asim Helms MONOGRAM OPERATOR REPT SERVICE DT/TIME: 07/12/24554 * ALL edits or amendments must be made on the electronic/computer document * Subjective Chief complaint: S/p PCI and stent placement. No CP, fever, chills. NO N/v/d. BP and HR stable. Review of Systems Constitutional: Reports: fatigue, generalized weakness. Allergy/Immun: Denies: anaphylaxis, rhinorrhea, sneezing. Respiratory: Denies: BARBA (dyspnea on exertion), parox nocturnal dyspnea, pleuritic pain, pneumonia, SOB. Cardiovascular: Denies: BARBA (dyspnea on exertion), orthopnea, palpitations. GI: Denies: abdominal pain, dysphagia, GERD, hematochezia, melena. : Denies: flank pain, nocturia, penile lesion. Musculoskeletal: Denies: extremity pain, joint pain, joint swelling, myalgias. Neuro: Denies: confusion, gait problem, lightheaded, slurred speech. Objective General VS/I O: Vital Signs: Date Time Temp Pulse Resp B/P B/P Pulse O2 O2 Flow FiO2 Mean Ox Delivery Rate 07/12 0653 36.7 94 22 139/67 0.0 96 Nasal cannula 07/12 0417 36.8 80 19 139/65 0.0 99 Room air 07/11 2326 36.9 89 19 133/59 0.0 98 Nasal cannula 07/12 1999 Nasal 4 cannula 07/11 195 Nasal 3 cannula 07/11 1906 36.8 102 18 133/66 0.0 95 Nasal cannula 07/11 1800 96 119/67 89 100 07/11 1707 37.2 86 20 119/73 0.0 100 Nasal cannula 07/11 1700 89 119/73 89 99 07/11 1611 98 Nasal 3 32 cannula 07/11 1600 73 102 124/60 84 93 / 1400 87 74 97 / 1352 Nasal 4 cannula 07/11 1300 71 141/76 104 100 / 1229 37.0 07/11 1200 69 19 139/73 101 99 03/ 1100 73 29 102/69 81 98 / 1038 Nasal 4 cannula 24 hour I O ending at 0700: 07/12 0700 07/11 1900 Intake Total 350 Output Total 1300 Balance 350 -1300 Intake, Oral 350 Output, Urine 1300 Patient 67.2 kg 74 kg Weight Weight Standing scale Stated/Reported Measurement Method PATIENT WEIGHT: Weight (lb): 148 Weight (oz): 2.41 Weight (kg): 67.200 Medications: Active Meds + DC'd Last 24 Hrs Prasugrel (EFFIENT) 10 MG DAILY PO Prednisone (predniSONE) 40 MG DAILY 0600 PO Prasugrel (EFFIENT) 30 MG ONCE ONE PO (DC) Atropine Sulfate (ATROPINE SULFATE 0.1MG/ML SYR) 0.5 MG ASDIR PRN IV Sodium Chloride (SODIUM CHLORIDE 0.9%) 1,000 ML .[id number] ONE IV (DC) Sodium Chloride (SODIUM CHLORIDE 0.9%) 500 ML ASDIR PRN IV Clopidogrel Bisulfate (CLOPIDOGREL BISULFATE) 0 .STK-MED ONE .ROUTE (DC) Sodium Chloride (SODIUM CHLORIDE 0.9%) 250 ML .STK-MED ONE IV (DC) Aminophylline (Aminophylline) 0 .STK-MED ONE IV (DC) Sodium Chloride (SODIUM CHLORIDE 0.9%) 250 ML .STK-MED ONE IV (DC) Adenosine (ADENOCARD I.V.) 0 .STK-MED ONE IV (DC) Phenylephrine HCl (Phenylephrine PF 500 mcg/5 mL Inj) 0 .STK-MED ONE .ROUTE (DC) Heparin Sodium/Sodium Chloride (HEPARIN 2,000 UNITS/NS 1,000mL) 1,000 ML .STK-MED ONE IV (DC) Iopamidol (ISOVUE-370 200ML) 0 .STK-MED ONE IV (DC) Heparin Sodium (HEPARIN SODIUM) 0 .STK-MED ONE .ROUTE (DC) Methylprednisolone Sodium Succinate (Solu-Medrol 40 MG Vial) 40 MG Q12H IV (DC) Clopidogrel Bisulfate (Plavix) 75 MG DAILY PO (DC) Metoprolol Succinate (TOPROL XL) 50 MG DAILY PO Amlodipine Besylate (NORVASC) 5 MG BEDTIME PO Hydralazine HCl (APRESOLINE) 10 MG Q6H PRN PRN IV Valsartan (DIOVAN 160MG TAB) 160 MG DAILY PO Heparin Sodium (HEPARIN 5000 UNITS/ML) 5,000 UNIT Q12HR SUBQ Fluticasone Propionate (Flonase Nasal [place]) 2 SPRAY DAILY NASAL (CKD) Atorvastatin Calcium (LIPITOR) 40 MG 2100 PO Levalbuterol HCl (Levalbuterol 1.25 mg/3 mL NEB) 1.25 MG RTQ6H INH Sterile Water (WATER FOR INJECTION) 1 ML ASDIR PRN IV Ipratropium [place] (ATROVENT) 500 MCG RTQ6H INH Levalbuterol HCl (Levalbuterol 1.25 mg/3 mL NEB) 1.25 MG RTQ4H PRN PRN INH Sterile Water (WATER FOR INJECTION) 1 ML ASDIR PRN IV Budesonide (PULMICORT RESPULES) 0.5 MG RTBID INH Aspirin (ASPIRIN) 81 MG DAILY PO Dietitian nutrition assessment The data set between the solid lines has been imported from the dietitian's assessment. BMI Calculated: 25.0 Nutrition related diagnosis: Nutrition diagnosis details: Nutrition problem: Nutrition etiology: Nutrition signs and symptoms: Nutrition prescription: Dietitian name: Assessment completed: Physical Exam General appearance: alert, awake Head/Eyes: atraumatic, normocephalic, PERRLA Neck: full range of motion, supple/no meningismus, no bruit/NL carotids, no JVD Cardiovascular: normal capillary refill, normal heart sounds, regular rate rhythm Respiratory: aerating well Abdomen: non-tender, normal bowel sounds, soft Genitourinary: no bladder distention, no flank pain, no urinary catheter Extremities: no calf tenderness, no clubbing, no cyanosis Musculoskeletal: no CVA tenderness, no muscle spasm Neuro/COMMUNITY HEALTH EDUCATION COORDINATOR: alert, oriented X 3, CNII-XII intact Results Findings/Data: Laboratory Tests 07/11 07/11 07/11 07/11 07/11 0944 0905 0844 0812 0800 Coagulation Activated Coag Time (SECONDS) 291 313 324 233 211 Results: vital signs reviewed, vital signs stable, current med profile rev'd Treatment Prophylaxis Treatment Prophylaxis Oxygen: room air Diagnosis, Assessment Plan Hospital course to date: Assessment and plan: Multivessel CAD. Acute COPD excerbation. SOB due to CAD. Hyperkalemia. HX of COPD and PNA. Plan: CVN1. S/p PCI and stent placement. Pulmonary for COPD. Monitor respirartory status, breathing tx, o2 support. IS. Pain meds. Antiemetics. Cough meds. Follow labs and replace as needed. Continue home meds. Monitor. Orders: Procedure Date/time Status Discharge Order 07/13 735 Active Discharge Follow Up 07/13 735 Active Code status: full code Plan discussed with: patient, admitting physician, consultants, nurse at 0738 at 1254 RPT #:[id number] END OF REPORT [facility] 2024-07-11 15:35:00 [facility] Pulmonology Progress Note REPORT#:[id number] REPORT STATUS: Signed REPORT INITIALIZATION DATE:07/11/24 TIME: 1534 PATIENT: HUBERT LYNCH UNIT #: [id number] ROOM/BED: [facility]1-1 : 53 AGE: 68 SEX: M ATTEND: Marcellus Gilbert MD ADM AUTHOR: Ariela Mccurdy MD REPT SERVICE DT/TIME: 07/11/24 153 * ALL edits or amendments must be made on the electronic/computer document * Subjective Chief complaint: SOB HPI: 68 yo M with h/o COPD, chronic hypoxia on home oxygen who presented for OHS in [place] with worsening SOB and productive cough. She was treated there for COPD exacerbation and pneumonia. She had LHC which showed mvd. She was transfered to [facility] for further care. She has had productive cough with yellow sputum. She is a chronic smoker - 1 pack per day. Pt has required BIPAP during hospital course. Comments: no adverse events overnight PCI planned for today ROS All systems rev neg: except as marked Review of Systems ROS All systems rev neg: except as marked Objective General VS/I O: Last Documented: Result Date Time Pulse Ox 97 07/11 1400 Pulse 87 07/11 1400 Resp 74 07/11 1400 O2 Delivery Nasal cannula 07/11 1352 O2 Flow Rate 4 07/11 1352 B/P 141/76 07/11 1300 B/P Mean 104 07/11 1300 Temp 98.6 07/11 1229 FiO2 36 07/10 1928 24 hour I O ending at 0700: 07/11 0700 07/10 1900 Intake Total 600 Output Total 800 500 Balance -800 100 Intake, Oral 600 Output, Urine 800 500 Weight Standing scale Measurement Method PATIENT WEIGHT: Weight (lb): 163 Weight (oz): 2.27 Weight (kg): 74.000 Medications: Active Meds + DC'd Last 24 Hrs Prasugrel (EFFIENT) 10 MG DAILY PO Prasugrel (EFFIENT) 30 MG ONCE ONE PO (DC) Atropine Sulfate (ATROPINE SULFATE 0.1MG/ML SYR) 0.5 MG ASDIR PRN IV Sodium Chloride (SODIUM CHLORIDE 0.9%) 1,000 ML .[id number] ONE IV Sodium Chloride (SODIUM CHLORIDE 0.9%) 500 ML ASDIR PRN IV Clopidogrel Bisulfate (CLOPIDOGREL BISULFATE) 0 .STK-MED ONE .ROUTE (DC) Sodium Chloride (SODIUM CHLORIDE 0.9%) 250 ML .STK-MED ONE IV (DC) Aminophylline (Aminophylline) 0 .STK-MED ONE IV (DC) Sodium Chloride (SODIUM CHLORIDE 0.9%) 250 ML .STK-MED ONE IV (DC) Adenosine (ADENOCARD I.V.) 0 .STK-MED ONE IV (DC) Phenylephrine HCl (Phenylephrine PF 500 mcg/5 mL Inj) 0 .STK-MED ONE .ROUTE (DC) Heparin Sodium/Sodium Chloride (HEPARIN 2,000 UNITS/NS 1,000mL) 1,000 ML .STK-MED ONE IV (DC) Iopamidol (ISOVUE-370 200ML) 0 .STK-MED ONE IV (DC) Heparin Sodium (HEPARIN SODIUM) 0 .STK-MED ONE .ROUTE (DC) Heparin Sodium (HEPARIN SODIUM) 0 .STK-MED ONE .ROUTE (DC) Heparin Sodium/Sodium Chloride (HEPARIN 2,000 UNITS/NS 1,000mL) 1,000 ML .STK-MED ONE IV (DC) Heparin Sodium/Sodium Chloride (HEPARIN 1,000 UNITS/NS 500ML) 500 ML .STK- MED ONE IV (DC) Lidocaine HCl (LIDOCAINE HCL/PF) 0 .STK-MED ONE .ROUTE (DC) Fentanyl Citrate (SUBLIMAZE) 0 .STK-MED ONE .ROUTE (DC) Midazolam HCl (VERSED) 0 .STK-MED ONE .ROUTE (DC) Nitroglycerin/Dextrose (NITROGLYCERIN 50,000MCG/D5W 250ML) 250 ML .STK-MED ONE IV (DC) Aspirin (ASPIRIN) 0 .STK-MED ONE PO (DC) Clopidogrel Bisulfate (Plavix) 0 .STK-MED ONE PO (DC) Methylprednisolone Sodium Succinate (Solu-Medrol 40 MG Vial) 40 MG Q12H IV Clopidogrel Bisulfate (Plavix) 75 MG DAILY PO (DC) Metoprolol Succinate (TOPROL XL) 50 MG DAILY PO Amlodipine Besylate (NORVASC) 5 MG BEDTIME PO Hydralazine HCl (APRESOLINE) 10 MG Q6H PRN PRN IV Valsartan (DIOVAN 160MG TAB) 160 MG DAILY PO Heparin Sodium (HEPARIN 5000 UNITS/ML) 5,000 UNIT Q12HR SUBQ Fluticasone Propionate (Flonase Nasal [place]) 2 SPRAY DAILY NASAL (CKD) Atorvastatin Calcium (LIPITOR) 40 MG 2100 PO Levalbuterol HCl (Levalbuterol 1.25 mg/3 mL NEB) 1.25 MG RTQ6H INH Sterile Water (WATER FOR INJECTION) 1 ML ASDIR PRN IV Ipratropium [place] (ATROVENT) 500 MCG RTQ6H INH Levalbuterol HCl (Levalbuterol 1.25 mg/3 mL NEB) 1.25 MG RTQ4H PRN PRN INH Sterile Water (WATER FOR INJECTION) 1 ML ASDIR PRN IV Budesonide (PULMICORT RESPULES) 0.5 MG RTBID INH Aspirin (ASPIRIN) 81 MG DAILY PO Physical Exam Head/eyes: atraumatic, normocephalic ENT: ENT: normal dentition, normal nose Neck: full range of motion, non-tender, no lymphadenopathy Cardiovascular: normal heart sounds, normal S1/S2, no murmur Respiratory/chest: on oxygen, wheezing, aerating well, clear to auscultation, symmetric expansion Abdomen: soft, non-tender, normal bowel sounds Genitourinary: no bladder distention, no flank pain Extremities: moves all, normal capillary refill Musculoskeletal: full range of motion, normal inspection, painless range of motion Neuro/COMMUNITY HEALTH EDUCATION COORDINATOR: alert, oriented X 3, CNII-XII intact Skin: dry, intact Diagnosis, Assessment Plan Free Text A P: Assessment: Acute on chronic hypoxic and hypercarbic respiratory failure COPD with acute exacerbation Acute bronchitis - Pseudomonas infection Multivessel CAD s/p PCI Heavy tobacco smoker Marijuana use Work-up/Imaging - personally reviewed CT Chest, 07/04/24 - centrilobular emphysema with apical predominance, [place] scarring, bronchial wall thickening CXR, 07/03/24 - hyperinflation, prominent vascular markings BNP elevated - 174 COVID and Flu negative Recommendations: Contnue steroids, weaned to IV Solumedrol 40mg q12h; will transition to PO prendisone 40mg daily from tomorrow Bronchodilators scheduled, Atrovent and Levalbuterol As needed bronchodilators Inhaled corticosteroid Continue antibiotics - Cefepime x 7d, s/p azithromycin x 3d Sputum culture- Psuedomonas Continue supplemental oxygen, wean to maintain O2 sat 90-94% BIPAP while sleeping and as needed Smoking cessation coounseling provided DVT ppx - heparin Thank you for this consult. Will continue to follow patient. Ariela Mccurdy MD Pulmonary Medicine at 1512 RPT #:[id number] END OF REPORT [facility] 2024-07-11 10:26:00 [phone] [place] [address] PATIENT NAME: HUBERT LYNCH ADMIT DATE: 07/03/24 ACCOUNT NO: [id number] ROOM NO: [facility] AGE: 68 REPORT TYPE: eELECTROCARDIOGRAM REPORT SEX: M ADMITTING PHYSICIAN:Marcellus Gilbert MD ATTENDING PHYSICIAN:Marcellus Gilbert MD Order: [id number] Test Reason : PCI Test Date/Time Stamp: TueJul 11 2024 10:26:52 Blood Pressure : / mmHG Vent. Rate : 078 BPM Atrial Rate : 078 BPM P-R Int : 130 ms QRS Dur : 078 ms QT Int : 358 ms P-R-T Axes : 084 078 049 degrees QTc Int : 408 ms Normal sinus rhythm Right atrial enlargement Anterior infarct , possibly acute ACUTE OH / STEMI Abnormal ECG No previous ECGs available Confirmed by MD ROSENTHAL GERARD ([id number]) on 07/11/2024 5:27:46 PM Referred By: Marcellus Gilbert Confirmed by:ISAIAH ROSENTHAL MD at 1727 PATIENT NAME: HUBERT LYNCH [facility] 2024-07-11 10:13:00 [facility] Hospitalist Progress Note REPORT#:[id number] REPORT STATUS: Signed REPORT INITIALIZATION DATE:07/11/24 TIME: 1013 PATIENT: HUBERT LYNCH UNIT #: [id number] ROOM/BED: [facility] [place] : 53 AGE: 68 SEX: M ATTEND: Marcellus Gilbert MD ADM AUTHOR: Asim Helms NP REPT SERVICE DT/TIME: 07/11/24 1013 * ALL edits or amendments must be made on the electronic/computer document * Subjective Chief complaint: NPO for PCI with Impella. No CP, fever, chills. NO N/v/d. BP and HR stable. Review of Systems Constitutional: Reports: fatigue, generalized weakness. Allergy/Immun: Denies: anaphylaxis, hives, itching. ENT: Denies: ear ringing, hearing loss, nose bleeding, sinus problem, throat pain, tongue pain. Respiratory: Denies: hemoptysis, pleurisy, pneumonia, SOB. Cardiovascular: Denies: BARBA (dyspnea on exertion), orthopnea, parox nocturnal dyspnea. GI: Denies: anorexia, diarrhea, hematochezia, hiatal hernia. : Denies: flank pain, nocturia, penile lesion, testicular pain. Musculoskeletal: Reports: extremity pain, joint pain. Neuro: Denies: change in LOC, focal weakness, headache, numbness. Objective General VS/I O: Vital Signs: Date Time Temp Pulse Resp B/P B/P Pulse O2 O2 Flow FiO2 Mean Ox Delivery Rate 03/ 0705 36.3 65 18 165/79 100 03/05 0425 36.6 66 16 127/71 0.0 100 Room air 03/04 2332 37.2 71 18 157/83 0.0 100 Nasal cannula 03/04 2200 Nasal 2 cannula 03/04 1928 96 Nasal 4 36 cannula 03/04 1835 36.7 81 17 162/80 0.0 99 Room air 03/04 1834 76 162/80 110 98 03/04 1712 36.9 82 13 161/94 94 03/04 1627 80 21 161/94 122 96 03/04 1625 94 28 165/100 127 97 03/04 1116 36.7 64 13 166/83 110.5 97 24 hour I O ending at 0700: 03/05 0700 03/04 1900 Intake Total 600 Output Total 800 500 Balance -800 100 Intake, Oral 600 Output, Urine 800 500 Weight Standing scale Measurement Method PATIENT WEIGHT: Weight (lb): 163 Weight (oz): 2.27 Weight (kg): 74.000 Medications: Active Meds + DC'd Last 24 Hrs Prasugrel (EFFIENT) 10 MG DAILY PO (UNV) Prasugrel (EFFIENT) 30 MG ONCE ONE PO (UNV) Atropine Sulfate (ATROPINE SULFATE 0.1MG/ML SYR) 0.5 MG ASDIR PRN IV ( UNV) Sodium Chloride (SODIUM CHLORIDE 0.9%) 1,000 ML .[id number] ONE IV (UNV) Sodium Chloride (SODIUM CHLORIDE 0.9%) 500 ML ASDIR PRN IV (UNV) Clopidogrel Bisulfate (CLOPIDOGREL BISULFATE) 0 .STK-MED ONE .ROUTE (DC) Sodium Chloride (SODIUM CHLORIDE 0.9%) 250 ML .STK-MED ONE IV (DC) Aminophylline (Aminophylline) 0 .STK-MED ONE IV (DC) Sodium Chloride (SODIUM CHLORIDE 0.9%) 250 ML .STK-MED ONE IV (DC) Adenosine (ADENOCARD I.V.) 0 .STK-MED ONE IV (DC) Phenylephrine HCl (Phenylephrine PF 500 mcg/5 mL Inj) 0 .STK-MED ONE .ROUTE (DC) Heparin Sodium/Sodium Chloride (HEPARIN 2,000 UNITS/NS 1,000mL) 1,000 ML .STK-MED ONE IV (DC) Iopamidol (ISOVUE-370 200ML) 0 .STK-MED ONE IV (DC) Heparin Sodium (HEPARIN SODIUM) 0 .STK-MED ONE .ROUTE (DC) Heparin Sodium (HEPARIN SODIUM) 0 .STK-MED ONE .ROUTE (DC) Heparin Sodium/Sodium Chloride (HEPARIN 2,000 UNITS/NS 1,000mL) 1,000 ML .STK-MED ONE IV (DC) Heparin Sodium/Sodium Chloride (HEPARIN 1,000 UNITS/NS 500ML) 500 ML .STK- MED ONE IV (DC) Lidocaine HCl (LIDOCAINE HCL/PF) 0 .STK-MED ONE .ROUTE (DC) Fentanyl Citrate (SUBLIMAZE) 0 .STK-MED ONE .ROUTE (DC) Midazolam HCl (VERSED) 0 .STK-MED ONE .ROUTE (DC) Nitroglycerin/Dextrose (NITROGLYCERIN 50,000MCG/D5W 250ML) 250 ML .STK-MED ONE IV (DC) Aspirin (ASPIRIN) 0 .STK-MED ONE PO (DC) Clopidogrel Bisulfate (Plavix) 0 .STK-MED ONE PO (DC) Methylprednisolone Sodium Succinate (Solu-Medrol 40 MG Vial) 40 MG Q12H IV Clopidogrel Bisulfate (Plavix) 75 MG DAILY PO (DCr) Metoprolol Succinate (TOPROL XL) 50 MG DAILY PO Amlodipine Besylate (NORVASC) 5 MG BEDTIME PO Hydralazine HCl (APRESOLINE) 10 MG Q6H PRN PRN IV Valsartan (DIOVAN 160MG TAB) 160 MG DAILY PO Heparin Sodium (HEPARIN 5000 UNITS/ML) 5,000 UNIT Q12HR SUBQ Fluticasone Propionate (Flonase Nasal [place]) 2 SPRAY DAILY NASAL (CKD) Cefepime HCl (MAXIPIME) 1 GM Q6H IV (DC) Sodium Chloride (SODIUM CHLORIDE) 10 ML Atorvastatin Calcium (LIPITOR) 40 MG 2100 PO Levalbuterol HCl (Levalbuterol 1.25 mg/3 mL NEB) 1.25 MG RTQ6H INH Sterile Water (WATER FOR INJECTION) 1 ML ASDIR PRN IV Ipratropium [place] (ATROVENT) 500 MCG RTQ6H INH Levalbuterol HCl (Levalbuterol 1.25 mg/3 mL NEB) 1.25 MG RTQ4H PRN PRN INH Sterile Water (WATER FOR INJECTION) 1 ML ASDIR PRN IV Budesonide (PULMICORT RESPULES) 0.5 MG RTBID INH Aspirin (ASPIRIN) 81 MG DAILY PO Dietitian nutrition assessment The data set between the solid lines has been imported from the dietitian's assessment. BMI Calculated: 25.0 Nutrition related diagnosis: Nutrition diagnosis details: Nutrition problem: Nutrition etiology: Nutrition signs and symptoms: Nutrition prescription: Dietitian name: Assessment completed: Physical Exam General appearance: alert, awake, oriented Head/Eyes: atraumatic, normocephalic, PERRLA Neck: full range of motion, supple/no meningismus, no bruit/NL carotids, no JVD Cardiovascular: normal capillary refill, normal heart sounds, regular rate rhythm Respiratory: aerating well Abdomen: non-tender, normal bowel sounds, soft Genitourinary: no bladder distention, no flank pain, no urinary catheter Extremities: no calf tenderness, no clubbing, no cyanosis Musculoskeletal: no CVA tenderness, no muscle spasm Neuro/COMMUNITY HEALTH EDUCATION COORDINATOR: alert, oriented X 3, CNII-XII intact Results Findings/Data: Laboratory Tests 07/12 627 Chemistry Sodium (134 - 147 mEq/L) 139 Potassium (3.4 - 5.0 mEq/L) 4.3 Chloride (100 - 108 mEq/L) 102 Carbon Dioxide (21 - 33 mEq/l) 32 Anion Gap (0 - 20) 9 BUN (7 - 25 mg/dL) 15 Creatinine (0.6 - 1.3 mg/dL) 0.8 Glomerular Filtr Rate (70 - 80) 95.2 H Glucose (77 - 141 mg/dL) 106 Calcium (8.0 - 10.5 mg/dL) 8.2 Magnesium (1.6 - 2.6 mg/dL) 1.90 Laboratory Tests 07/11 07/11 07/11 07/11 07/11 0944 0905 0844 0812 0800 Coagulation Activated Coag Time (SECONDS) 291 313 324 233 211 07/10 1636 Coagulation INR (0.8 - 1.2) 1.1 PT Patient/Control Mix (9.3 - 12.9 SECONDS) 12.0 Laboratory Tests 07/12 627 Hematology WBC (4.5 - 11.0 x10 3/uL) 8.3 RBC (4.00 - 5.60 x10 6/uL) 4.33 Hgb (12.5 - 16.9 g/dL) 13.0 Hct (37.5 - 50.7 %) 40.2 MCV (81.0 - 99.0 fL) 92.8 MCH (27.0 - 33.0 pg) 30.0 MCHC (33.0 - 37.0 g/dL) 32.3 L RDW (11.5 - 14.5 %) 14.3 Plt Count (150 - 400 x10 3/uL) 167 MPV (7.0 - 9.0 fL) 10.4 H Neut % (Auto) (56.0 - 77.0 %) 73.0 Lymph % (Auto) (14.0 - 32.0 %) 18.2 [place] % (Auto) (4.8 - 9.0 %) 7.4 Eos % (Auto) (0.3 - 3.7 %) 0.5 Baso % (Auto) (0.0 - 2.0 %) 0.1 Neut # (Auto) (2.0 - 7.6 x10 3/uL) 6.03 Lymph # (Auto) (1.0 - 3.8 x10 3/uL) 1.50 [place] # (Auto) (0.1 - 0.8 x10 3/uL) 0.61 Eos # (Auto) (0.0 - 0.2 x10 3/uL) 0.04 Baso # (Auto) (0.0 - 0.2 x10 3/uL) 0.01 Abs Immat Gran (auto) (0.00 - 0.03 x10 3/uL) 0.07 H Immature Gran % (0.0 - 2.0 %) 0.8 Nucleated RBC % (0 - 0 %) 0.0 Nucleated RBCs # (Man) (0.0 - 0.1 x10 3/uL) 0.00 Results: labs reviewed, vital signs reviewed, vital signs stable, current med profile rev'd Treatment Prophylaxis Treatment Prophylaxis Oxygen: room air Diagnosis, Assessment Plan Hospital course to date: Assessment and plan: Multivessel CAD. Acute COPD excerbation. SOB due to CAD. Hyperkalemia. HX of COPD and PNA. Plan: CVN1. NPO for PCI with Impella today. Pulmonary for COPD. Monitor respirartory status, breathing tx, o2 support. IS. Pain meds. Antiemetics. Cough meds. Follow labs and replace as needed. Continue home meds. Monitor. Code status: full code Plan discussed with: patient, admitting physician, consultants, nurse at 1015 at 1149 RPT #:[id number] END OF REPORT [facility] 2024-07-10 23:57:00 [facility] Cardiology Progress Note REPORT#:[id number] REPORT STATUS: Signed REPORT INITIALIZATION DATE:07/10/24 TIME: 2356 PATIENT: HUBERT LYNCH UNIT #: [id number] ROOM/BED: [place] [address] : 53 AGE: 68 SEX: M ATTEND: Marcellus Gilbert MD ADM AUTHOR: Nereyda Toribio MD REPT SERVICE DT/TIME: 07/10/24 9163 * ALL edits or amendments must be made on the electronic/computer document * Subjective Free Text Subj Notes Free Text Subj Notes: Doing okay Objective General VS/I O: 24 hour I O ending at 0700: 07/10 0700 07/09 1900 Intake Total Output Total 500 2210 Balance -500 -2210 Output, Urine 500 2210 Patient 74.1 kg Weight Weight Bed scale Measurement Method Vital Signs: Date Time Temp Pulse Resp B/P B/P Pulse O2 O2 Flow FiO2 Mean Ox Delivery Rate / 2332 99.0 71 18 157/83 0.0 100 Nasal cannula 03/ 1928 96 Nasal 4 36 cannula / 1835 98.1 81 17 162/80 0.0 99 Room air / 1834 76 162/80 110 98 03/04 1712 98.4 82 13 161/94 94 03/04 1627 80 21 161/94 122 96 03/04 1625 94 28 165/100 127 97 03/04 1116 98.1 64 13 166/83 110.5 97 03/04 0931 96 102 148/70 100 92 03/04 0834 97 Room air 21 /04 0830 Nasal 2 96 cannula 03/04 0646 97.7 75 14 137/64 0.0 95 03/04 0431 97.9 73 15 137/64 0.0 96 Nasal cannula 03/04 0231 92 Nasal 3 32 cannula PATIENT WEIGHT: Weight (lb): 163 Weight (oz): 5.8 Weight (kg): 74.100 Medications: Active Meds + DC'd Last 24 Hrs Methylprednisolone Sodium Succinate (Solu-Medrol 40 MG Vial) 40 MG Q12H IV Clopidogrel Bisulfate (Plavix) 75 MG DAILY PO Metoprolol Succinate (TOPROL XL) 50 MG DAILY PO Amlodipine Besylate (NORVASC) 5 MG BEDTIME PO Hydralazine HCl (APRESOLINE) 10 MG Q6H PRN PRN IV Valsartan (DIOVAN 160MG TAB) 160 MG DAILY PO Heparin Sodium (HEPARIN 5000 UNITS/ML) 5,000 UNIT Q12HR SUBQ Fluticasone Propionate (Flonase Nasal [place]) 2 SPRAY DAILY NASAL (CKD) Cefepime HCl (MAXIPIME) 1 GM Q6H IV (DC) Sodium Chloride (SODIUM CHLORIDE) 10 ML Atorvastatin Calcium (LIPITOR) 40 MG 2100 PO Levalbuterol HCl (Levalbuterol 1.25 mg/3 mL NEB) 1.25 MG RTQ6H INH Sterile Water (WATER FOR INJECTION) 1 ML ASDIR PRN IV Ipratropium [place] (ATROVENT) 500 MCG RTQ6H INH Levalbuterol HCl (Levalbuterol 1.25 mg/3 mL NEB) 1.25 MG RTQ4H PRN PRN INH Sterile Water (WATER FOR INJECTION) 1 ML ASDIR PRN IV Budesonide (PULMICORT RESPULES) 0.5 MG RTBID INH Aspirin (ASPIRIN) 81 MG DAILY PO Physical Exam General appearance: alert, awake, oriented Neck: non-tender, no JVD Cardiovascular: CV assessment: regular rate and rhythm Respiratory: on oxygen, shortness of breath, wheezing Abdomen: soft, non-tender, normal bowel sounds, no distention Genitourinary: no urinary catheter Lower extremity: LE assessment: no calf tenderness, no edema Musculoskeletal: normal inspection Neuro/COMMUNITY HEALTH EDUCATION COORDINATOR: alert, oriented X 3, normal speech Skin: dry, intact, normal color Psychiatry: normal affect, normal mood Results Findings/Data: Laboratory Tests 07/10 06 Chemistry Sodium (134 - 147 mEq/L) 133 L Potassium (3.4 - 5.0 mEq/L) 4.3 Chloride (100 - 108 mEq/L) 96 L Carbon Dioxide (21 - 33 mEq/l) 32 Anion Gap (0 - 20) 10 BUN (7 - 25 mg/dL) 19 Creatinine (0.6 - 1.3 mg/dL) 0.8 Glomerular Filtr Rate (70 - 80) 95.2 H Glucose (77 - 141 mg/dL) 189 H Calcium (8.0 - 10.5 mg/dL) 8.4 Magnesium (1.6 - 2.6 mg/dL) 1.96 Laboratory Tests 07/10 1636 Coagulation INR (0.8 - 1.2) 1.1 PT Patient/Control Mix (9.3 - 12.9 SECONDS) 12.0 Laboratory Tests 07/10 0605 Hematology WBC (4.5 - 11.0 x10 3/uL) 8.5 RBC (4.00 - 5.60 x10 6/uL) 4.30 Hgb (12.5 - 16.9 g/dL) 12.9 Hct (37.5 - 50.7 %) 40.2 MCV (81.0 - 99.0 fL) 93.5 MCH (27.0 - 33.0 pg) 30.0 MCHC (33.0 - 37.0 g/dL) 32.1 L RDW (11.5 - 14.5 %) 14.3 Plt Count (150 - 400 x10 3/uL) 144 L MPV (7.0 - 9.0 fL) 10.3 H Neut % (Auto) (56.0 - 77.0 %) 90.1 H Lymph % (Auto) (14.0 - 32.0 %) 4.3 L [place] % (Auto) (4.8 - 9.0 %) 4.6 L Eos % (Auto) (0.3 - 3.7 %) 0.0 L Baso % (Auto) (0.0 - 2.0 %) 0.1 Neut # (Auto) (2.0 - 7.6 x10 3/uL) 7.63 H Lymph # (Auto) (1.0 - 3.8 x10 3/uL) 0.36 L [place] # (Auto) (0.1 - 0.8 x10 3/uL) 0.39 Eos # (Auto) (0.0 - 0.2 x10 3/uL) 0.00 Baso # (Auto) (0.0 - 0.2 x10 3/uL) 0.01 Abs Immat Gran (auto) (0.00 - 0.03 x10 3/uL) 0.08 H Immature Gran % (0.0 - 2.0 %) 0.9 Nucleated RBC % (0 - 0 %) 0.0 Nucleated RBCs # (Man) (0.0 - 0.1 x10 3/uL) 0.00 Laboratory Tests 07/10 0605 Chemistry Magnesium (1.6 - 2.6 mg/dL) 1.96 Diagnosis, Assessment Plan Free Text DxA P Notes Free Text DxA P Notes: 68 YO male with MH of COPD, lifelong heavy smoker who initially presented at [facility] with shortness of breath attributed to COPD exacerbation and pneumonia. He was eventually discharged but presented back to the hospital with persistent shortness of breath which prompted coronary angiogram which revealed multivessel CAD. The patient is transferred to our facility for surgical revascularization evaluation. 1. Multivessel CAD * continue ASA and statin * echo EF 40-44%, G1DD, hypokinesis of the mid anteroseptal, apical septal wall and the apex * case presented at CV conference, STS 5.6. But in light of advanced COPD and O2 dependence he is considered high surgical risk so the collective decision is to proceed with PCI. WIll schedule him for Impella-assisted PCI LM-LAD on July 11, 2024Tuesday. Loaded with Plavix on 07/06/2024, and has been on Plavix 75 mg daily 2. COPD exacerbation lifelong tobacco abuse recently treated for pneumonia * pulmonary following 3. Hyperkalemia * K 5.7->5.4->5.5->4.7 * given Lokelma 10 mg 4. Acute systolic and diastolic HF/Ischemic cardiomyopathy * echo:EF 40-44%, G1DD, hypokinesis of the mid anteroseptal, apical septal wall and the apex * GDMT as tolerated: metoprolol succinate 50 mg daily, Valsartan 160 mg daily 5. Hypertension * BP trending up * cotinue metoprolol XL 50 mg daily * Valsartan 160 mg daily at 2357 RPT #:[id number] END OF REPORT [facility] 2024-07-10 13:51:00 [facility] Pulmonology Progress Note REPORT#:[id number] REPORT STATUS: Signed REPORT INITIALIZATION DATE:07/10/24 TIME: 135 PATIENT: HUBERT LYNCH UNIT #: [id number] ROOM/BED: [place] [address] : 53 AGE: 68 SEX: M ATTEND: Marcellus Gilbert MD ADM AUTHOR: Ariela Mccurdy MD REPT SERVICE DT/TIME: 07/10/24 1351 * ALL edits or amendments must be made on the electronic/computer document * Subjective Chief complaint: SOB HPI: 68 yo M with h/o COPD, chronic hypoxia on home oxygen who presented for [facility] in [place] with worsening SOB and productive cough. She was treated there for COPD exacerbation and pneumonia. She had LHC which showed mvd. She was transfered to [facility] for further care. She has had productive cough with yellow sputum. She is a chronic smoker - 1 pack per day. Pt has required BIPAP during hospital course. Comments: no adverse events reported overnight pt on NC 2L SOB improved ROS All systems rev neg: except as marked Review of Systems ROS All systems rev neg: except as marked Objective General VS/I O: Last Documented: Result Date Time Pulse Ox 97 07/10 1116 B/P 166/83 07/10 1116 B/P Mean 110.5 07/10 1116 Temp 98.1 07/10 1116 Pulse 64 07/10 1116 Resp 13 07/10 1116 FiO2 21 07/10 0834 O2 Delivery Room air 07/10 0834 O2 Flow Rate 2 07/10 0830 24 hour I O ending at 0700: 07/10 0700 07/09 1900 Intake Total Output Total 500 2210 Balance -500 -2210 Output, Urine 500 2210 Patient 74.1 kg Weight Weight Bed scale Measurement Method PATIENT WEIGHT: Weight (lb): 163 Weight (oz): 5.8 Weight (kg): 74.100 Medications: Active Meds + DC'd Last 24 Hrs Methylprednisolone Sodium Succinate (Solu-Medrol 40 MG Vial) 40 MG Q12H IV Clopidogrel Bisulfate (Plavix) 75 MG DAILY PO Metoprolol Succinate (TOPROL XL) 50 MG DAILY PO Amlodipine Besylate (NORVASC) 5 MG BEDTIME PO Hydralazine HCl (APRESOLINE) 10 MG Q6H PRN PRN IV Valsartan (DIOVAN 160MG TAB) 160 MG DAILY PO Heparin Sodium (HEPARIN 5000 UNITS/ML) 5,000 UNIT Q12HR SUBQ Fluticasone Propionate (Flonase Nasal [place]) 2 SPRAY DAILY NASAL (CKD) Cefepime HCl (MAXIPIME) 1 GM Q6H IV (DC) Sodium Chloride (SODIUM CHLORIDE) 10 ML Mupirocin (BACTROBAN 2% 22 GM OINTMENT) 1 APPLIC BID NASAL (DC) Atorvastatin Calcium (LIPITOR) 40 MG 2100 PO Levalbuterol HCl (Levalbuterol 1.25 mg/3 mL NEB) 1.25 MG RTQ6H INH Sterile Water (WATER FOR INJECTION) 1 ML ASDIR PRN IV Ipratropium [place] (ATROVENT) 500 MCG RTQ6H INH Levalbuterol HCl (Levalbuterol 1.25 mg/3 mL NEB) 1.25 MG RTQ4H PRN PRN INH Sterile Water (WATER FOR INJECTION) 1 ML ASDIR PRN IV Budesonide (PULMICORT RESPULES) 0.5 MG RTBID INH Aspirin (ASPIRIN) 81 MG DAILY PO Physical Exam Head/eyes: atraumatic, normocephalic ENT: ENT: normal dentition, normal nose Neck: full range of motion, non-tender, no lymphadenopathy Cardiovascular: normal heart sounds, normal S1/S2, no murmur Respiratory/chest: on oxygen, wheezing, aerating well, clear to auscultation, symmetric expansion Abdomen: soft, non-tender, normal bowel sounds Genitourinary: no bladder distention, no flank pain Extremities: moves all, normal capillary refill Musculoskeletal: full range of motion, normal inspection, painless range of motion Neuro/COMMUNITY HEALTH EDUCATION COORDINATOR: alert, oriented X 3, CNII-XII intact Skin: dry, intact Diagnosis, Assessment Plan Free Text A P: Assessment: Acute on chronic hypoxic and hypercarbic respiratory failure COPD with acute exacerbation Acute bronchitis - Pseudomonas infection Multivessel CAD Heavy tobacco smoker Marijuana use Work-up/Imaging - personally reviewed CT Chest, 07/04/24 - centrilobular emphysema with apical predominance, K[place] scarring, bronchial wall thickening CXR, 07/03/24 - hyperinflation, prominent vascular markings BNP elevated - 174 COVID and Flu negative Recommendations: Contnue steroids, weaned to IV Solumedrol 40mg q12h; SOB improved but still having expiratory wheezing on exam Bronchodilators scheduled, Atrovent and Levalbuterol As needed bronchodilators Inhaled corticosteroid Continue antibiotics - Cefepime x 7d, s/p azithromycin x 3d Sputum culture- Psuedomonas Continue supplemental oxygen, wean to maintain O2 sat 90-94% BIPAP while sleeping and as needed Smoking cessation coounseling provided Pt undergoing CABG evaluation; recommend improvement in respiratory status prior to surgical intervention; pt deemed high risks surgical risk; plan for PCI tomorrow DVT ppx - heparin Thank you for this consult. Will continue to follow patient. Ariela Mccurdy MD Pulmonary Medicine at 0859 RPT #:[id number] END OF REPORT [facility] 2024-07-10 11:10:00 [facility] ([facility] Hospitalist Progress Note REPORT#:[id number] REPORT STATUS: Signed REPORT INITIALIZATION DATE:07/10/24 TIME: 1110 PATIENT: HUBERT LYNCH UNIT #: [id number] ROOM/BED: [place] [address] : 53 AGE: 68 SEX: M ATTEND: Marcellus Gilbert MD ADM AUTHOR: Asim Helms MONOGRAM OPERATOR REPT SERVICE DT/TIME: 07/10/24 1110 * ALL edits or amendments must be made on the electronic/computer document * Subjective Chief complaint: He is waiting PCI. No CP, fever, chills. NO N/v/d. BP and HR stable. Review of Systems Constitutional: Reports: fatigue, generalized weakness. Allergy/Immun: Denies: anaphylaxis, itching, sneezing. Respiratory: Denies: hemoptysis, parox nocturnal dyspnea, pleurisy, pleuritic pain, productive cough (sputum). Cardiovascular: Denies: BARBA (dyspnea on exertion), orthopnea, palpitations. GI: Denies: abdominal pain, anorexia, diarrhea, hematemesis, melena, rectal pain. : Denies: flank pain, hematuria, nocturia, penile lesion. Musculoskeletal: Denies: extremity pain, joint swelling. Neuro: Denies: change in LOC, focal weakness, headache, seizure. Objective General VS/I O: Vital Signs: Date Time Temp Pulse Resp B/P B/P Pulse O2 O2 Flow FiO2 Mean Ox Delivery Rate 07/10 0834 97 Room air 21 07/10 0646 36.5 75 14 137/64 0.0 95 07/10 0431 36.6 73 15 137/64 0.0 96 Nasal cannula 07/10 0231 92 Nasal 3 32 cannula 07/09 2339 36.6 92 20 156/73 0.0 96 Room air 07/09 2200 Nasal 2 cannula 07/09 2026 97 176/85 122 100 07/09 2010 94 Nasal 2.5 cannula 07/09 1821 37.0 80 15 134/68 0.0 90 Room air 07/09 1820 83 31 134/68 92 86 07/09 1605 36.7 74 14 159/79 0.0 91 07/09 1600 75 23 159/79 112 91 07/09 1149 36.7 76 15 150/79 0.0 98 07/09 1148 77 150/79 107 97 24 hour I O ending at 0700: 07/10 0700 07/09 1900 Intake Total Output Total 500 2210 Balance -500 -2210 Output, Urine 500 2210 Patient 74.1 kg Weight Weight Bed scale Measurement Method PATIENT WEIGHT: Weight (lb): 163 Weight (oz): 5.8 Weight (kg): 74.100 Medications: Active Meds + DC'd Last 24 Hrs Sodium Polystyrene Sulfonate (KAYEXELATE) 30 GM ONCE ONE PO (DC) Methylprednisolone Sodium Succinate (Solu-Medrol 40 MG Vial) 40 MG Q12H IV Clopidogrel Bisulfate (Plavix) 75 MG DAILY PO Metoprolol Succinate (TOPROL XL) 50 MG DAILY PO Amlodipine Besylate (NORVASC) 5 MG BEDTIME PO Hydralazine HCl (APRESOLINE) 10 MG Q6H PRN PRN IV Valsartan (DIOVAN 160MG TAB) 160 MG DAILY PO Heparin Sodium (HEPARIN 5000 UNITS/ML) 5,000 UNIT Q12HR SUBQ Fluticasone Propionate (Flonase Nasal [place]) 2 SPRAY DAILY NASAL (CKD) Cefepime HCl (MAXIPIME) 1 GM Q6H IV Sodium Chloride (SODIUM CHLORIDE) 10 ML Mupirocin (BACTROBAN 2% 22 GM OINTMENT) 1 APPLIC BID NASAL (DC) Atorvastatin Calcium (LIPITOR) 40 MG 2100 PO Levalbuterol HCl (Levalbuterol 1.25 mg/3 mL NEB) 1.25 MG RTQ6H INH Sterile Water (WATER FOR INJECTION) 1 ML ASDIR PRN IV Ipratropium [place] (ATROVENT) 500 MCG RTQ6H INH Levalbuterol HCl (Levalbuterol 1.25 mg/3 mL NEB) 1.25 MG RTQ4H PRN PRN INH Sterile Water (WATER FOR INJECTION) 1 ML ASDIR PRN IV Budesonide (PULMICORT RESPULES) 0.5 MG RTBID INH Aspirin (ASPIRIN) 81 MG DAILY PO Dietitian nutrition assessment The data set between the solid lines has been imported from the dietitian's assessment. BMI Calculated: 22.5 Nutrition related diagnosis: Nutrition diagnosis details: Nutrition problem: Nutrition etiology: Nutrition signs and symptoms: Nutrition prescription: Dietitian name: Assessment completed: Physical Exam General appearance: alert, awake Head/Eyes: atraumatic, normocephalic, PERRLA Neck: full range of motion, supple/no meningismus, no bruit/NL carotids, no JVD Cardiovascular: normal capillary refill, normal heart sounds, regular rate rhythm Respiratory: aerating well Abdomen: non-tender, normal bowel sounds, soft Genitourinary: no bladder distention, no flank pain, no urinary catheter Extremities: no calf tenderness, no clubbing, no cyanosis Musculoskeletal: no CVA tenderness, no muscle spasm Neuro/COMMUNITY HEALTH EDUCATION COORDINATOR: alert, oriented X 3, CNII-XII intact Results Findings/Data: Laboratory Tests 07/10 604 Chemistry Sodium (134 - 147 mEq/L) 133 L Potassium (3.4 - 5.0 mEq/L) 4.3 Chloride (100 - 108 mEq/L) 96 L Carbon Dioxide (21 - 33 mEq/l) 32 Anion Gap (0 - 20) 10 BUN (7 - 25 mg/dL) 19 Creatinine (0.6 - 1.3 mg/dL) 0.8 Glomerular Filtr Rate (70 - 80) 95.2 H Glucose (77 - 141 mg/dL) 189 H Calcium (8.0 - 10.5 mg/dL) 8.4 Magnesium (1.6 - 2.6 mg/dL) 1.96 Laboratory Tests 03/04 0605 Hematology WBC (4.5 - 11.0 x10 3/uL) 8.5 RBC (4.00 - 5.60 x10 6/uL) 4.30 Hgb (12.5 - 16.9 g/dL) 12.9 Hct (37.5 - 50.7 %) 40.2 MCV (81.0 - 99.0 fL) 93.5 MCH (27.0 - 33.0 pg) 30.0 MCHC (33.0 - 37.0 g/dL) 32.1 L RDW (11.5 - 14.5 %) 14.3 Plt Count (150 - 400 x10 3/uL) 144 L MPV (7.0 - 9.0 fL) 10.3 H Neut % (Auto) (56.0 - 77.0 %) 90.1 H Lymph % (Auto) (14.0 - 32.0 %) 4.3 L [place] % (Auto) (4.8 - 9.0 %) 4.6 L Eos % (Auto) (0.3 - 3.7 %) 0.0 L Baso % (Auto) (0.0 - 2.0 %) 0.1 Neut # (Auto) (2.0 - 7.6 x10 3/uL) 7.63 H Lymph # (Auto) (1.0 - 3.8 x10 3/uL) 0.36 L [place] # (Auto) (0.1 - 0.8 x10 3/uL) 0.39 Eos # (Auto) (0.0 - 0.2 x10 3/uL) 0.00 Baso # (Auto) (0.0 - 0.2 x10 3/uL) 0.01 Abs Immat Gran (auto) (0.00 - 0.03 x10 3/uL) 0.08 H Immature Gran % (0.0 - 2.0 %) 0.9 Nucleated RBC % (0 - 0 %) 0.0 Nucleated RBCs # (Man) (0.0 - 0.1 x10 3/uL) 0.00 Results: labs reviewed, vital signs reviewed, vital signs stable, current med profile rev'd Treatment Prophylaxis Treatment Prophylaxis Oxygen: room air Diagnosis, Assessment Plan Hospital course to date: Assessment and plan: Multivessel CAD. Acute COPD excerbation. SOB due to CAD. Hyperkalemia. HX of COPD and PNA. Plan: CVN1. Will go for PCI with Impella tomorrow. Pulmonary for COPD. Monitor respirartory status, breathing tx, o2 support. IS. Pain meds. Antiemetics. Cough meds. Follow labs and replace as needed. Continue home meds. Monitor. Code status: full code Plan discussed with: patient, admitting physician, consultants, nurse at 1112 at 0853 RPT #:[id number] END OF REPORT [facility] 2024-07-09 11:00:00 [facility] Center Hospitalist Progress Note REPORT#:[id number] REPORT STATUS: Signed REPORT INITIALIZATION DATE:07/09/24 TIME: 1100 PATIENT: HUBERT LYNCH UNIT #: [id number] ROOM/BED: [place] [address] : 53 AGE: 68 SEX: M ATTEND: Marcellus Gilbert MD ADM AUTHOR: Asim Helms NP REPT SERVICE DT/TIME: 07/09/24 1100 * ALL edits or amendments must be made on the electronic/computer document * Subjective Chief complaint: He is doing better. Eating well. No CP, fever, chills. NO N/v/d. BP and HR stable. Review of Systems Constitutional: Reports: fatigue, generalized weakness. Eyes: Denies: discharge, diplopia, eye pain, photophobia. Respiratory: Denies: hemoptysis, pleurisy, pleuritic pain, pneumonia, wheezing. Cardiovascular: Denies: BARBA (dyspnea on exertion), orthopnea, palpitations. GI: Denies: anorexia, dysphagia, hematochezia, melena, nausea. : Denies: flank pain, nocturia, penile discharge, penile lesion, testicular swelling. Musculoskeletal: Denies: extremity pain, joint swelling, lumbar pain. Heme: Denies: bleeding. Neuro: Denies: bowel dysfunction, confusion, dizziness, numbness, syncope. Objective General VS/I O: Vital Signs: Date Time Temp Pulse Resp B/P B/P Pulse O2 O2 Flow FiO2 Mean Ox Delivery Rate 07/09 0818 93 Room air 07/09 0800 Nasal 2 cannula 07/09 0710 36.7 90 14 163/116 0.0 89 07/09 0309 37.2 74 22 165/79 0.0 94 Nasal cannula 07/09 0049 36.7 75 16 145/71 0.0 97 Nasal cannula 07/08 2200 Nasal 3 cannula 07/08 2000 98 Nasal 3 cannula 07/08 1921 36.9 76 20 126/76 0.0 97 Nasal cannula 07/08 1700 77 25 98 03/ 1600 78 25 95 03/ 1540 37.0 20 20 158/84 0.0 95 / 1538 83 22 158/84 115 95 / 1500 74 23 97 03/ 1400 68 21 98 / 1247 95 49 92 07/08 1228 36.8 23 23 147/75 0.0 93 07/08 1227 84 24 147/75 103 91 03/02 1200 80 24 81 24 hour I O ending at 0700: 07/09 0700 07/08 1900 Intake Total 765 Output Total 960 Balance -195 Intake, Oral 765 Number 1 Bowel Movements Output, Urine 960 Patient 67 kg Weight Weight Standing scale Measurement Method PATIENT WEIGHT: Weight (lb): 147 Weight (oz): 11.36 Weight (kg): 67.000 Medications: Active Meds + DC'd Last 24 Hrs Methylprednisolone Sodium Succinate (Solu-Medrol 40 MG Vial) 40 MG Q12H IV Clopidogrel Bisulfate (Plavix) 75 MG DAILY PO Metoprolol Succinate (TOPROL XL) 50 MG DAILY PO Amlodipine Besylate (NORVASC) 5 MG BEDTIME PO Hydralazine HCl (APRESOLINE) 10 MG Q6H PRN PRN IV Valsartan (DIOVAN 160MG TAB) 160 MG DAILY PO Heparin Sodium (HEPARIN 5000 UNITS/ML) 5,000 UNIT Q12HR SUBQ Fluticasone Propionate (Flonase Nasal [place]) 2 SPRAY DAILY NASAL (CKD) Cefepime HCl (MAXIPIME) 1 GM Q6H IV Sodium Chloride (SODIUM CHLORIDE) 10 ML Mupirocin (BACTROBAN 2% 22 GM OINTMENT) 1 APPLIC BID NASAL Atorvastatin Calcium (LIPITOR) 40 MG 2100 PO Levalbuterol HCl (Levalbuterol 1.25 mg/3 mL NEB) 1.25 MG RTQ6H INH Sterile Water (WATER FOR INJECTION) 1 ML ASDIR PRN IV Ipratropium [place] (ATROVENT) 500 MCG RTQ6H INH Levalbuterol HCl (Levalbuterol 1.25 mg/3 mL NEB) 1.25 MG RTQ4H PRN PRN INH Sterile Water (WATER FOR INJECTION) 1 ML ASDIR PRN IV Budesonide (PULMICORT RESPULES) 0.5 MG RTBID INH Aspirin (ASPIRIN) 81 MG DAILY PO Dietitian nutrition assessment The data set between the solid lines has been imported from the dietitian's assessment. BMI Calculated: 22.5 Nutrition related diagnosis: Nutrition diagnosis details: Nutrition problem: Nutrition etiology: Nutrition signs and symptoms: Nutrition prescription: Dietitian name: Assessment completed: Physical Exam General appearance: alert, awake, oriented Head/Eyes: atraumatic, normocephalic, PERRLA Neck: full range of motion, supple/no meningismus, no bruit/NL carotids, no JVD Cardiovascular: normal capillary refill, normal heart sounds, regular rate rhythm Respiratory: aerating well Abdomen: non-tender, normal bowel sounds, soft Genitourinary: no bladder distention, no flank pain, no urinary catheter Extremities: no calf tenderness, no clubbing, no cyanosis Musculoskeletal: no CVA tenderness, no muscle spasm Neuro/COMMUNITY HEALTH EDUCATION COORDINATOR: alert, oriented X 3, CNII-XII intact Results Findings/Data: Laboratory Tests 07/09 0840 Chemistry Sodium (134 - 147 mEq/L) 136 Potassium (3.4 - 5.0 mEq/L) 5.1 H Chloride (100 - 108 mEq/L) 96 L Carbon Dioxide (21 - 33 mEq/l) 34 H Anion Gap (0 - 20) 11 BUN (7 - 25 mg/dL) 22 Creatinine (0.6 - 1.3 mg/dL) 1.0 Glomerular Filtr Rate (70 - 80) 81.0 H Glucose (77 - 141 mg/dL) 234 H Calcium (8.0 - 10.5 mg/dL) 9.3 Magnesium (1.6 - 2.6 mg/dL) 2.12 Laboratory Tests 07/09 0841 Hematology WBC (4.5 - 11.0 x10 3/uL) 9.6 RBC (4.00 - 5.60 x10 6/uL) 4.86 Hgb (12.5 - 16.9 g/dL) 14.6 Hct (37.5 - 50.7 %) 46.8 MCV (81.0 - 99.0 fL) 96.3 MCH (27.0 - 33.0 pg) 30.0 MCHC (33.0 - 37.0 g/dL) 31.2 L RDW (11.5 - 14.5 %) 14.7 H Plt Count (150 - 400 x10 3/uL) 173 MPV (7.0 - 9.0 fL) 10.7 H Neut % (Auto) (56.0 - 77.0 %) 89.5 H Lymph % (Auto) (14.0 - 32.0 %) 6.8 L [place] % (Auto) (4.8 - 9.0 %) 3.1 L Eos % (Auto) (0.3 - 3.7 %) 0.0 L Baso % (Auto) (0.0 - 2.0 %) 0.1 Neut # (Auto) (2.0 - 7.6 x10 3/uL) 8.62 H Lymph # (Auto) (1.0 - 3.8 x10 3/uL) 0.66 L [place] # (Auto) (0.1 - 0.8 x10 3/uL) 0.30 Eos # (Auto) (0.0 - 0.2 x10 3/uL) 0.00 Baso # (Auto) (0.0 - 0.2 x10 3/uL) 0.01 Abs Immat Gran (auto) (0.00 - 0.03 x10 3/uL) 0.05 H Immature Gran % (0.0 - 2.0 %) 0.5 Nucleated RBC % (0 - 0 %) 0.0 Nucleated RBCs # (Man) (0.0 - 0.1 x10 3/uL) 0.00 Results: labs reviewed, vital signs reviewed, vital signs stable, current med profile rev'd Treatment Prophylaxis Treatment Prophylaxis Oxygen: room air Diagnosis, Assessment Plan Hospital course to date: Assessment and plan: Multivessel CAD. Acute COPD excerbation. SOB due to CAD. Hyperkalemia. HX of COPD and PNA. Plan: CVN1. Will go for PCI with Impella on tuesday. Pulmonary for COPD. Monitor respirartory status, breathing tx, o2 support. IS. Pain meds. Antiemetics. Cough meds. Follow labs and replace as needed. Continue home meds. Monitor. Code status: full code Plan discussed with: patient, admitting physician, consultants, nurse at 1102 at 0803 RPT #:[id number] END OF REPORT [facility] 2024-07-09 10:53:00 [facility]) Pulmonology Progress Note REPORT#:[id number] REPORT STATUS: Signed REPORT INITIALIZATION DATE:07/09/24 TIME: 105 PATIENT: HUBERT LYNCH UNIT #: [id number] ROOM/BED: [place] [address] : 53 AGE: 68 SEX: M ATTEND: Marcellus Gilbert MD ADM AUTHOR: Ariela Mccurdy MD REPT SERVICE DT/TIME: 07/09/24 1053 * ALL edits or amendments must be made on the electronic/computer document * Subjective Chief complaint: SOB HPI: 68 yo M with h/o COPD, chronic hypoxia on home oxygen who presented for OHS in [place] with worsening SOB and productive cough. She was treated there for COPD exacerbation and pneumonia. She had LHC which showed mvd. She was transfered to [facility] for further care. She has had productive cough with yellow sputum. She is a chronic smoker - 1 pack per day. Pt has required BIPAP during hospital course. Comments: respiratory status improving SOB/wheezing improving pt anxious to have LHC performed ROS All systems rev neg: except as marked Review of Systems ROS All systems rev neg: except as marked Objective General VS/I O: Last Documented: Result Date Time Pulse Ox 93 07/09 0818 O2 Delivery Room air 07/09 0818 B/P 163/116 07/09 0710 B/P Mean 0.0 07/09 0710 Temp 98.1 07/09 0710 Pulse 90 07/09 0710 Resp 14 07/09 0710 O2 Flow Rate 3 07/08 2200 FiO2 21 07/08 0830 24 hour I O ending at 0700: 07/09 0700 07/08 1900 Intake Total 765 Output Total 960 Balance -195 Intake, Oral 765 Number 1 Bowel Movements Output, Urine 960 Patient 67 kg Weight Weight Standing scale Measurement Method PATIENT WEIGHT: Weight (lb): 147 Weight (oz): 11.36 Weight (kg): 67.000 Medications: Active Meds + DC'd Last 24 Hrs Methylprednisolone Sodium Succinate (Solu-Medrol 40 MG Vial) 40 MG Q12H IV Clopidogrel Bisulfate (Plavix) 75 MG DAILY PO Metoprolol Succinate (TOPROL XL) 50 MG DAILY PO Amlodipine Besylate (NORVASC) 5 MG BEDTIME PO Hydralazine HCl (APRESOLINE) 10 MG Q6H PRN PRN IV Valsartan (DIOVAN 160MG TAB) 160 MG DAILY PO Heparin Sodium (HEPARIN 5000 UNITS/ML) 5,000 UNIT Q12HR SUBQ Fluticasone Propionate (Flonase Nasal [place]) 2 SPRAY DAILY NASAL (CKD) Cefepime HCl (MAXIPIME) 1 GM Q6H IV Sodium Chloride (SODIUM CHLORIDE) 10 ML Mupirocin (BACTROBAN 2% 22 GM OINTMENT) 1 APPLIC BID NASAL Atorvastatin Calcium (LIPITOR) 40 MG 2100 PO Levalbuterol HCl (Levalbuterol 1.25 mg/3 mL NEB) 1.25 MG RTQ6H INH Sterile Water (WATER FOR INJECTION) 1 ML ASDIR PRN IV Ipratropium [place] (ATROVENT) 500 MCG RTQ6H INH Levalbuterol HCl (Levalbuterol 1.25 mg/3 mL NEB) 1.25 MG RTQ4H PRN PRN INH Sterile Water (WATER FOR INJECTION) 1 ML ASDIR PRN IV Budesonide (PULMICORT RESPULES) 0.5 MG RTBID INH Aspirin (ASPIRIN) 81 MG DAILY PO Physical Exam Head/eyes: atraumatic, normocephalic ENT: ENT: normal dentition, normal nose Neck: full range of motion, non-tender, no lymphadenopathy Cardiovascular: normal heart sounds, normal S1/S2, no murmur Respiratory/chest: on oxygen, wheezing, aerating well, clear to auscultation, symmetric expansion Abdomen: soft, non-tender, normal bowel sounds Genitourinary: no bladder distention, no flank pain Extremities: moves all, normal capillary refill Musculoskeletal: full range of motion, normal inspection, painless range of motion Neuro/COMMUNITY HEALTH EDUCATION COORDINATOR: alert, oriented X 3, CNII-XII intact Skin: dry, intact Diagnosis, Assessment Plan Free Text A P: Assessment: Acute on chronic hypoxic and hypercarbic respiratory failure COPD with acute exacerbation Acute bronchitis - Pseudomonas infection Multivessel CAD Heavy tobacco smoker Marijuana use Work-up/Imaging - personally reviewed CT Chest, 07/04/24 - centrilobular emphysema with apical predominance, KAROLINA scarring, bronchial wall thickening CXR, 07/03/24 - hyperinflation, prominent vascular markings BNP elevated - 174 COVID and Flu negative Recommendations: Conitnue steroids, weaned to IV Solumedrol 40mg q12h; still having expiratory wheezing on exam and intermittent SOB Bronchodilators scheduled, Atrovent and Levalbuterol As needed bronchodilators Inhaled corticosteroid Conitnue antibiotics - Cefepime x 7d, s/p azithromycin x 3d Sputum culture- Psuedomonas Continue supplemental oxygen, pt on HFNC 4-5L; wean to maintain O2 sat 90-94% BIPAP while sleeping and as needed Smoking cessation coounseling provided Pt undergoing CABG evaluation; recommend improvement in respiratory status prior to surgical intervention; pt deemed high risks surgical risk; plan for PCI DVT ppx - heparin Thank you for this consult. Will continue to follow patient. Ariela Mccurdy MD Pulmonary Medicine at 1505 RPT #:[id number] END OF REPORT [facility] 2024-07-09 01:17:00 [facility] ([facility]) Cardiology Progress Note REPORT#:[id number] REPORT STATUS: Signed REPORT INITIALIZATION DATE:07/09/24 TIME: 116 PATIENT: HUBERT LYNCH UNIT #: [id number] ROOM/BED: [place] [address] : 53 AGE: 68 SEX: M ATTEND: Marcellus Gilbert MD ADM AUTHOR: Nereyda Toribio MD REPT SERVICE DT/TIME: 07/08/24116 * ALL edits or amendments must be made on the electronic/computer document * Subjective Free Text Subj Notes Free Text Subj Notes: Doing okay Objective General VS/I O: 24 hour I O ending at 0700: 07/09 0700 07/08 1900 Intake Total 765 Output Total 960 Balance -195 Intake, Oral 765 Number 1 Bowel Movements Output, Urine 960 Vital Signs: Date Time Temp Pulse Resp B/P B/P Pulse O2 O2 Flow FiO2 Mean Ox Delivery Rate 07/09 0049 98.1 75 16 145/71 0.0 97 Nasal cannula 03/02 2200 Nasal 3 cannula / 2001 98 Nasal 3 cannula 03/02 1921 98.4 76 20 126/76 0.0 97 Nasal cannula 03/02 1700 77 25 98 03/02 1600 78 25 95 03/02 1540 98.6 20 20 158/84 0.0 95 03/02 1538 83 22 158/84 115 95 03/02 1500 74 23 97 03/02 1400 68 21 98 03/02 1247 95 49 92 03/02 1228 98.2 23 23 147/75 0.0 93 03/02 1227 84 24 147/75 103 91 03/02 1200 80 24 81 03/02 1100 69 16 98 03/02 1000 94 39 91 03/02 0930 Nasal 3 cannula 03/02 0842 77 23 178/86 123 99 03/02 0830 96 Room air 21 03/02 0345 97.2 79 19 148/68 0.0 97 Room air PATIENT WEIGHT: Weight (lb): 148 Weight (oz): 2.41 Weight (kg): 67.200 Medications: Active Meds + DC'd Last 24 Hrs Methylprednisolone Sodium Succinate (Solu-Medrol 40 MG Vial) 40 MG Q12H IV Clopidogrel Bisulfate (Plavix) 75 MG DAILY PO Metoprolol Succinate (TOPROL XL) 50 MG DAILY PO Amlodipine Besylate (NORVASC) 5 MG BEDTIME PO Hydralazine HCl (APRESOLINE) 10 MG Q6H PRN PRN IV Valsartan (DIOVAN 160MG TAB) 160 MG DAILY PO Heparin Sodium (HEPARIN 5000 UNITS/ML) 5,000 UNIT Q12HR SUBQ Fluticasone Propionate (Flonase Nasal [place]) 2 SPRAY DAILY NASAL (CKD) Cefepime HCl (MAXIPIME) 1 GM Q6H IV Sodium Chloride (SODIUM CHLORIDE) 10 ML Mupirocin (BACTROBAN 2% 22 GM OINTMENT) 1 APPLIC BID NASAL Atorvastatin Calcium (LIPITOR) 40 MG 2100 PO Levalbuterol HCl (Levalbuterol 1.25 mg/3 mL NEB) 1.25 MG RTQ6H INH Methylprednisolone Sodium Succinate (Solu-Medrol 40 MG Vial) 40 MG Q8H IV (DC) Sterile Water (WATER FOR INJECTION) 1 ML ASDIR PRN IV Ipratropium [place] (ATROVENT) 500 MCG RTQ6H INH Levalbuterol HCl (Levalbuterol 1.25 mg/3 mL NEB) 1.25 MG RTQ4H PRN PRN INH Sterile Water (WATER FOR INJECTION) 1 ML ASDIR PRN IV Budesonide (PULMICORT RESPULES) 0.5 MG RTBID INH Aspirin (ASPIRIN) 81 MG DAILY PO Physical Exam General appearance: alert, awake, oriented Neck: non-tender, no JVD Cardiovascular: CV assessment: regular rate and rhythm Respiratory: on oxygen, shortness of breath, wheezing Abdomen: soft, non-tender, normal bowel sounds, no distention Genitourinary: no urinary catheter Lower extremity: LE assessment: no calf tenderness, no edema Musculoskeletal: normal inspection Neuro/COMMUNITY HEALTH EDUCATION COORDINATOR: alert, oriented X 3, normal speech Skin: dry, intact, normal color Psychiatry: normal affect, normal mood Results Findings/Data: Laboratory Tests 07/08 0426 Chemistry Sodium (134 - 147 mEq/L) 138 Potassium (3.4 - 5.0 mEq/L) 4.9 Chloride (100 - 108 mEq/L) 100 Carbon Dioxide (21 - 33 mEq/l) 34 H Anion Gap (0 - 20) 9 BUN (7 - 25 mg/dL) 20 Creatinine (0.6 - 1.3 mg/dL) 0.8 Glomerular Filtr Rate (70 - 80) 95.2 H Glucose (77 - 141 mg/dL) 127 Calcium (8.0 - 10.5 mg/dL) 9.2 Magnesium (1.6 - 2.6 mg/dL) 2.18 Total Bilirubin (0.0 - 1.0 mg/dL) 0.50 AST (8 - 34 IUnit/L) 32 ALT (10 - 49 IUnit/L) 59 H Total Alk Phosphatase (20 - 125 IUnit/L) 93 Total Protein (5.7 - 8.2 g/dL) 6.7 Albumin (3.4 - 5.0 g/dL) 3.20 L Laboratory Tests 07/08 0425 Hematology WBC (4.5 - 11.0 x10 3/uL) 9.7 RBC (4.00 - 5.60 x10 6/uL) 4.85 Hgb (12.5 - 16.9 g/dL) 14.9 Hct (37.5 - 50.7 %) 45.4 MCV (81.0 - 99.0 fL) 93.6 MCH (27.0 - 33.0 pg) 30.7 MCHC (33.0 - 37.0 g/dL) 32.8 L RDW (11.5 - 14.5 %) 14.5 Plt Count (150 - 400 x10 3/uL) 188 MPV (7.0 - 9.0 fL) 10.5 H Neut % (Auto) (56.0 - 77.0 %) 89.8 H Lymph % (Auto) (14.0 - 32.0 %) 4.3 L [place] % (Auto) (4.8 - 9.0 %) 5.3 Eos % (Auto) (0.3 - 3.7 %) 0.0 L Baso % (Auto) (0.0 - 2.0 %) 0.1 Neut # (Auto) (2.0 - 7.6 x10 3/uL) 8.72 H Lymph # (Auto) (1.0 - 3.8 x10 3/uL) 0.42 L [place] # (Auto) (0.1 - 0.8 x10 3/uL) 0.51 Eos # (Auto) (0.0 - 0.2 x10 3/uL) 0.00 Baso # (Auto) (0.0 - 0.2 x10 3/uL) 0.01 Abs Immat Gran (auto) (0.00 - 0.03 x10 3/uL) 0.05 H Immature Gran % (0.0 - 2.0 %) 0.5 Nucleated RBC % (0 - 0 %) 0.0 Nucleated RBCs # (Man) (0.0 - 0.1 x10 3/uL) 0.00 Laboratory Tests 07/08 0426 Chemistry Magnesium (1.6 - 2.6 mg/dL) 2.18 Diagnosis, Assessment Plan Free Text DxA P Notes Free Text DxA P Notes: 68 YO male with MH of COPD, lifelong heavy smoker who initially presented at [facility] with shortness of breath attributed to COPD exacerbation and pneumonia. He was eventually discharged but presented back to the hospital with persistent shortness of breath which prompted coronary angiogram which revealed multivessel CAD. The patient is transferred to our facility for surgical revascularization evaluation. 1. Multivessel CAD * continue ASA and statin * echo EF 40-44%, G1DD, hypokinesis of the mid anteroseptal, apical septal wall and the apex * case presented at CV conference, STS 5.6. But in light of advanced COPD and O2 dependence he is considered high surgical risk so the collective decision is to proceed with PCI. WIll schedule him for Impella-assisted PCI LM-LAD on July 11, 2024Tuesday. Loaded with Plavix on 07/06/2024, and has been on Plavix 75 mg daily 2. COPD exacerbation lifelong tobacco abuse recently treated for pneumonia * pulmonary following 3. Hyperkalemia * K 5.7->5.4->5.5->4.7 * given Lokelma 10 mg 4. Acute systolic and diastolic HF/Ischemic cardiomyopathy * echo:EF 40-44%, G1DD, hypokinesis of the mid anteroseptal, apical septal wall and the apex * GDMT as tolerated: metoprolol succinate 50 mg daily, Valsartan 160 mg daily 5. Hypertension * BP trending up * cotinue metoprolol XL 50 mg daily * Valsartan 160 mg daily at 2356 RPT #:[id number] END OF REPORT [facility] 2024-07-08 10:42:00 [facility] ([facility]) Pulmonology Progress Note REPORT#:[id number] REPORT STATUS: Signed REPORT INITIALIZATION DATE:07/08/24 TIME: 104 PATIENT: HUBERT LYNCH UNIT #: [id number] ROOM/BED: [place] [address] : 53 AGE: 68 SEX: M ATTEND: Marcellus Gilbert MD ADM AUTHOR: Ariela Mccurdy MD REPT SERVICE DT/TIME: 07/08/24 1042 * ALL edits or amendments must be made on the electronic/computer document * Subjective Chief complaint: SOB HPI: 68 yo M with h/o COPD, chronic hypoxia on home oxygen who presented for OHS in [place] with worsening SOB and productive cough. She was treated there for COPD exacerbation and pneumonia. She had LHC which showed mvd. She was transfered to [facility] for further care. She has had productive cough with yellow sputum. She is a chronic smoker - 1 pack per day. Pt has required BIPAP during hospital course. Comments: Pt denies SOB, chest pain Wheezing resolved VSS on O2 via AR Review of Systems ROS All systems rev neg: except as marked Objective General VS/I O: Last Documented: Result Date Time Pulse Ox 96 07/08 0830 FiO2 21 07/08 0830 O2 Delivery Room air 07/08 0830 B/P 148/68 07/08 0345 B/P Mean 0.0 07/08 0345 Temp 97.2 07/08 0345 Pulse 79 07/08 0345 Resp 19 07/08 0345 O2 Flow Rate 3 07/07 2100 24 hour I O ending at 0700: 07/08 0700 07/07 1900 Intake Total 700 650 Output Total 620 Balance 700 30 Intake, Oral 700 650 Number 1 Bowel Movements Number Voids 2 Output, Urine 620 Patient 67.2 kg Weight Weight Standing scale Measurement Method PATIENT WEIGHT: Weight (lb): 148 Weight (oz): 2.41 Weight (kg): 67.200 Medications: Active Meds + DC'd Last 24 Hrs Clopidogrel Bisulfate (Plavix) 75 MG DAILY PO Metoprolol Succinate (TOPROL XL) 50 MG DAILY PO Amlodipine Besylate (NORVASC) 5 MG BEDTIME PO Hydralazine HCl (APRESOLINE) 10 MG Q6H PRN PRN IV Valsartan (DIOVAN 160MG TAB) 160 MG DAILY PO Heparin Sodium (HEPARIN 5000 UNITS/ML) 5,000 UNIT Q12HR SUBQ Fluticasone Propionate (Flonase Nasal [place]) 2 SPRAY DAILY NASAL (CKD) Cefepime HCl (MAXIPIME) 1 GM Q6H IV Sodium Chloride (SODIUM CHLORIDE) 10 ML Mupirocin (BACTROBAN 2% 22 GM OINTMENT) 1 APPLIC BID NASAL Atorvastatin Calcium (LIPITOR) 40 MG 2100 PO Levalbuterol HCl (Levalbuterol 1.25 mg/3 mL NEB) 1.25 MG RTQ6H INH Methylprednisolone Sodium Succinate (Solu-Medrol 40 MG Vial) 40 MG Q8H IV Sterile Water (WATER FOR INJECTION) 1 ML ASDIR PRN IV Ipratropium [place] (ATROVENT) 500 MCG RTQ6H INH Levalbuterol HCl (Levalbuterol 1.25 mg/3 mL NEB) 1.25 MG RTQ4H PRN PRN INH Sterile Water (WATER FOR INJECTION) 1 ML ASDIR PRN IV Budesonide (PULMICORT RESPULES) 0.5 MG RTBID INH Aspirin (ASPIRIN) 81 MG DAILY PO Physical Exam Head/eyes: atraumatic, normocephalic ENT: ENT: normal dentition, normal nose Neck: full range of motion, non-tender, no lymphadenopathy Cardiovascular: normal heart sounds, normal S1/S2, no murmur Respiratory/chest: on oxygen, wheezing, aerating well, clear to auscultation, symmetric expansion Abdomen: soft, non-tender, normal bowel sounds Genitourinary: no bladder distention, no flank pain Extremities: moves all, normal capillary refill Musculoskeletal: full range of motion, normal inspection, painless range of motion Neuro/COMMUNITY HEALTH EDUCATION COORDINATOR: alert, oriented X 3, CNII-XII intact Skin: dry, intact Diagnosis, Assessment Plan Free Text A P: Assessment: Acute on chronic hypoxic and hypercarbic respiratory failure COPD with acute exacerbation Acute bronchitis - Pseudomonas infection Multivessel CAD Heavy tobacco smoker Marijuana use Work-up/Imaging - personally reviewed CT Chest, 07/04/24 - centrilobular emphysema with apical predominance, KAR[place]INA scarring, bronchial wall thickening CXR, 07/03/24 - hyperinflation, prominent vascular markings BNP elevated - 174 COVID and Flu negative Recommendations: Conitnue steroids IV Solumedrol 40mg, change to q12h, as SOB/wheezing improved Bronchodilators scheduled, Atrovent and Levalbuterol As needed bronchodilators Inhaled corticosteroid Conitnue antibiotics - Cefepime, s/p azithromycin x 3d Sputum culture- Psueomonas Continue supplemental oxygen, pt on HFNC 4-5L; wean to maintain O2 sat 90-94% BIPAP while sleeping and as needed Smoking cessation coounseling provided Pt undergoing CABG evaluation; recommend improvement in respiratory status prior to surgical intervention; pt deemed high risks surgical risk; plan for PCI DVT ppx - heparin Thank you for this consult. Will continue to follow patient. Ariela Mccurdy MD Pulmonary Medicine at 1143 RPT #:[id number] END OF REPORT [facility] 2024-07-08 10:09:00 [facility] Hospitalist Progress Note REPORT#:[id number] REPORT STATUS: Signed REPORT INITIALIZATION DATE:07/08/24 TIME: 100 PATIENT: HUBERT LYNCH UNIT #: [id number] ROOM/BED: [place] [address] : 53 AGE: 68 SEX: M ATTEND: Marcellus Gilbert MD ADM AUTHOR: Asim Helms NP REPT SERVICE DT/TIME: 07/08/24 1009 * ALL edits or amendments must be made on the electronic/computer document * Subjective Chief complaint: He is waiting for PCI. No CP, fever, chills. NO N/v/d. BP and HR stable. Review of Systems Constitutional: Reports: fatigue, generalized weakness. Allergy/Immun: Denies: anaphylaxis, hives, itching, rhinorrhea. Respiratory: Denies: BARBA (dyspnea on exertion), parox nocturnal dyspnea, pleuritic pain, pneumonia, SOB. Cardiovascular: Denies: BARBA (dyspnea on exertion), palpitations, parox nocturnal dyspnea. GI: Denies: anorexia, dysphagia, hematemesis, nausea. : Denies: flank pain, hematuria, nocturia, penile discharge, testicular pain. Musculoskeletal: Denies: extremity pain, joint pain, joint swelling, lumbar pain, neck pain. Endocrine: Denies: heat intolerance, polyphagia, polyuria. Neuro: Denies: bowel dysfunction, dizziness, gait problem, headache, lightheaded. Objective General VS/I O: Vital Signs: Date Time Temp Pulse Resp B/P B/P Pulse O2 O2 Flow FiO2 Mean Ox Delivery Rate 07/08 0830 96 Room air 21 07/08 0345 36.2 79 19 148/68 0.0 97 Room air 07/07 2337 36.6 86 24 159/76 0.0 91 Nasal cannula 07/07 2100 Nasal 3 cannula 07/07 2028 95 Nasal 2 cannula 07/07 1839 36.7 83 22 137/64 0.0 93 Nasal cannula 07/07 1828 73 21 96 07/07 1622 94 52 95 07/07 1535 36.8 96 16 148/78 0.0 93 Room air 07/07 1534 96 0 148/78 107 95 07/07 1500 85 96 07/07 1351 90 34 172/99 128 91 07/07 1258 99 25 160/85 115 88 07/07 1111 36.9 92 16 160/83 0.0 97 Room air 07/07 1109 90 22 160/83 115 96 07/07 1100 84 30 98 24 hour I O ending at 0700: 07/08 0700 07/07 1900 Intake Total 700 650 Output Total 620 Balance 700 30 Intake, Oral 700 650 Number 1 Bowel Movements Number Voids 2 Output, Urine 620 Patient 67.2 kg Weight Weight Standing scale Measurement Method PATIENT WEIGHT: Weight (lb): 148 Weight (oz): 2.41 Weight (kg): 67.200 Medications: Active Meds + DC'd Last 24 Hrs Clopidogrel Bisulfate (Plavix) 75 MG DAILY PO Metoprolol Succinate (TOPROL XL) 50 MG DAILY PO Amlodipine Besylate (NORVASC) 5 MG BEDTIME PO Hydralazine HCl (APRESOLINE) 10 MG Q6H PRN PRN IV Valsartan (DIOVAN 160MG TAB) 160 MG DAILY PO Heparin Sodium (HEPARIN 5000 UNITS/ML) 5,000 UNIT Q12HR SUBQ Fluticasone Propionate (Flonase Nasal [place]) 2 SPRAY DAILY NASAL (CKD) Cefepime HCl (MAXIPIME) 1 GM Q6H IV Sodium Chloride (SODIUM CHLORIDE) 10 ML Mupirocin (BACTROBAN 2% 22 GM OINTMENT) 1 APPLIC BID NASAL Atorvastatin Calcium (LIPITOR) 40 MG 2100 PO Levalbuterol HCl (Levalbuterol 1.25 mg/3 mL NEB) 1.25 MG RTQ6H INH Methylprednisolone Sodium Succinate (Solu-Medrol 40 MG Vial) 40 MG Q8H IV Sterile Water (WATER FOR INJECTION) 1 ML ASDIR PRN IV Ipratropium [place] (ATROVENT) 500 MCG RTQ6H INH Levalbuterol HCl (Levalbuterol 1.25 mg/3 mL NEB) 1.25 MG RTQ4H PRN PRN INH Sterile Water (WATER FOR INJECTION) 1 ML ASDIR PRN IV Budesonide (PULMICORT RESPULES) 0.5 MG RTBID INH Aspirin (ASPIRIN) 81 MG DAILY PO Dietitian nutrition assessment The data set between the solid lines has been imported from the dietitian's assessment. BMI Calculated: 22.4 Nutrition related diagnosis: Nutrition diagnosis details: Nutrition problem: Nutrition etiology: Nutrition signs and symptoms: Nutrition prescription: Dietitian name: Assessment completed: Physical Exam General appearance: alert, awake, oriented Head/Eyes: atraumatic, normocephalic, PERRLA Neck: full range of motion, supple/no meningismus, no bruit/NL carotids, no JVD Cardiovascular: normal capillary refill, normal heart sounds, regular rate rhythm Respiratory: aerating well Abdomen: non-tender, normal bowel sounds, soft Genitourinary: no bladder distention, no flank pain, no urinary catheter Extremities: no calf tenderness, no clubbing, no cyanosis Musculoskeletal: no CVA tenderness, no muscle spasm Neuro/COMMUNITY HEALTH EDUCATION COORDINATOR: alert, oriented X 3, CNII-XII intact Results Findings/Data: Laboratory Tests 07/08 425 Chemistry Sodium (134 - 147 mEq/L) 138 Potassium (3.4 - 5.0 mEq/L) 4.9 Chloride (100 - 108 mEq/L) 100 Carbon Dioxide (21 - 33 mEq/l) 34 H Anion Gap (0 - 20) 9 BUN (7 - 25 mg/dL) 20 Creatinine (0.6 - 1.3 mg/dL) 0.8 Glomerular Filtr Rate (70 - 80) 95.2 H Glucose (77 - 141 mg/dL) 127 Calcium (8.0 - 10.5 mg/dL) 9.2 Magnesium (1.6 - 2.6 mg/dL) 2.18 Total Bilirubin (0.0 - 1.0 mg/dL) 0.50 AST (8 - 34 IUnit/L) 32 ALT (10 - 49 IUnit/L) 59 H Total Alk Phosphatase (20 - 125 IUnit/L) 93 Total Protein (5.7 - 8.2 g/dL) 6.7 Albumin (3.4 - 5.0 g/dL) 3.20 L Laboratory Tests 07/08 424 Hematology WBC (4.5 - 11.0 x10 3/uL) 9.7 RBC (4.00 - 5.60 x10 6/uL) 4.85 Hgb (12.5 - 16.9 g/dL) 14.9 Hct (37.5 - 50.7 %) 45.4 MCV (81.0 - 99.0 fL) 93.6 MCH (27.0 - 33.0 pg) 30.7 MCHC (33.0 - 37.0 g/dL) 32.8 L RDW (11.5 - 14.5 %) 14.5 Plt Count (150 - 400 x10 3/uL) 188 MPV (7.0 - 9.0 fL) 10.5 H Neut % (Auto) (56.0 - 77.0 %) 89.8 H Lymph % (Auto) (14.0 - 32.0 %) 4.3 L [place] % (Auto) (4.8 - 9.0 %) 5.3 Eos % (Auto) (0.3 - 3.7 %) 0.0 L Baso % (Auto) (0.0 - 2.0 %) 0.1 Neut # (Auto) (2.0 - 7.6 x10 3/uL) 8.72 H Lymph # (Auto) (1.0 - 3.8 x10 3/uL) 0.42 L [place] # (Auto) (0.1 - 0.8 x10 3/uL) 0.51 Eos # (Auto) (0.0 - 0.2 x10 3/uL) 0.00 Baso # (Auto) (0.0 - 0.2 x10 3/uL) 0.01 Abs Immat Gran (auto) (0.00 - 0.03 x10 3/uL) 0.05 H Immature Gran % (0.0 - 2.0 %) 0.5 Nucleated RBC % (0 - 0 %) 0.0 Nucleated RBCs # (Man) (0.0 - 0.1 x10 3/uL) 0.00 Results: labs reviewed, vital signs reviewed, vital signs stable, current med profile rev'd Treatment Prophylaxis Treatment Prophylaxis Oxygen: room air Diagnosis, Assessment Plan Hospital course to date: Assessment and plan: Multivessel CAD. Acute COPD excerbation. SOB due to CAD. HX of COPD and PNA. Plan: CVN1. Will go for PCI with Impella. Pulmonary for COPD. Monitor respirartory status, breathing tx, o2 support. IS. Pain meds. Antiemetics. Cough meds. Follow labs and replace as needed. Continue home meds. Monitor. Code status: full code Plan discussed with: patient, admitting physician, consultants, nurse at 1011 at 1142 RPT #:[id number] END OF REPORT [facility] 2024-07-07 14:00:00 [facility] Cardiology Progress Note REPORT#:[id number] REPORT STATUS: Signed REPORT INITIALIZATION DATE:07/07/24 TIME: 1400 PATIENT: HUBERT LYNCH UNIT #: [id number] ROOM/BED: [place] [address] : 53 AGE: 68 SEX: M ATTEND: Marcellus Gilbert MD ADM AUTHOR: Nereyda Toribio MD REPT SERVICE DT/TIME: 07/07/24 1400 * ALL edits or amendments must be made on the electronic/computer document * Subjective Free Text Subj Notes Free Text Subj Notes: Doing okay, breathing improved Objective General VS/I O: 24 hour I O ending at 0700: 07/07 0700 07/06 1900 Intake Total 400 Output Total Balance 400 Intake, Oral 400 Number Voids 2 Vital Signs: Date Time Temp Pulse Resp B/P B/P Pulse O2 O2 Flow FiO2 Mean Ox Delivery Rate 07/07 1111 98.4 92 16 160/83 0.0 97 Room air 07/07 0930 Nasal 3 cannula 07/07 0822 97 Room air 21 07/07 0659 97.7 76 14 149/74 0.0 98 Nasal cannula 07/07 0409 98.2 107 14 147/77 99.9 93 Room air 07/07 0033 97.5 86 12 142/72 0.0 97 Nasal cannula 07/07 0031 85 22 142/72 97 98 07/06 2100 Nasal 3 cannula 07/06 2020 99 Room air 07/06 1839 97.9 86 14 167/88 114.1 92 Room air 07/06 1716 98.8 83 20 175/81 0.0 100 07/06 1628 85 28 92 07/06 1600 79 21 94 07/06 1500 92 34 91 PATIENT WEIGHT: Weight (lb): 147 Weight (oz): 7.83 Weight (kg): 66.900 Medications: Active Meds + DC'd Last 24 Hrs Clopidogrel Bisulfate (Plavix) 75 MG DAILY PO Metoprolol Succinate (TOPROL XL) 50 MG DAILY PO Amlodipine Besylate (NORVASC) 5 MG BEDTIME PO Hydralazine HCl (APRESOLINE) 10 MG Q6H PRN PRN IV Valsartan (DIOVAN 160MG TAB) 160 MG DAILY PO Heparin Sodium (HEPARIN 5000 UNITS/ML) 5,000 UNIT Q12HR SUBQ Fluticasone Propionate (Flonase Nasal [place]) 2 SPRAY DAILY NASAL (CKD) Cefepime HCl (MAXIPIME) 1 GM Q6H IV Sodium Chloride (SODIUM CHLORIDE) 10 ML Mupirocin (BACTROBAN 2% 22 GM OINTMENT) 1 APPLIC BID NASAL Atorvastatin Calcium (LIPITOR) 40 MG 2100 PO Levalbuterol HCl (Levalbuterol 1.25 mg/3 mL NEB) 1.25 MG RTQ6H INH Methylprednisolone Sodium Succinate (Solu-Medrol 40 MG Vial) 40 MG Q8H IV Sterile Water (WATER FOR INJECTION) 1 ML ASDIR PRN IV Ipratropium [place] (ATROVENT) 500 MCG RTQ6H INH Levalbuterol HCl (Levalbuterol 1.25 mg/3 mL NEB) 1.25 MG RTQ4H PRN PRN INH Sterile Water (WATER FOR INJECTION) 1 ML ASDIR PRN IV Budesonide (PULMICORT RESPULES) 0.5 MG RTBID INH Aspirin (ASPIRIN) 81 MG DAILY PO Physical Exam General appearance: alert, awake, oriented Neck: non-tender, no JVD Cardiovascular: CV assessment: regular rate and rhythm Respiratory: on oxygen, shortness of breath, wheezing Abdomen: soft, non-tender, normal bowel sounds, no distention Genitourinary: no urinary catheter Lower extremity: LE assessment: no calf tenderness, no edema Musculoskeletal: normal inspection Neuro/COMMUNITY HEALTH EDUCATION COORDINATOR: alert, oriented X 3, normal speech Skin: dry, intact, normal color Psychiatry: normal affect, normal mood Results Findings/Data: Laboratory Tests 07/07 0451 Chemistry Sodium (134 - 147 mEq/L) 138 Potassium (3.4 - 5.0 mEq/L) 4.3 Chloride (100 - 108 mEq/L) 99 L Carbon Dioxide (21 - 33 mEq/l) 33 Anion Gap (0 - 20) 10 BUN (7 - 25 mg/dL) 18 Creatinine (0.6 - 1.3 mg/dL) 0.9 Glomerular Filtr Rate (70 - 80) 91.9 H Glucose (77 - 141 mg/dL) 108 Calcium (8.0 - 10.5 mg/dL) 9.0 Magnesium (1.6 - 2.6 mg/dL) 2.28 Total Bilirubin (0.0 - 1.0 mg/dL) 0.60 AST (8 - 34 IUnit/L) 39 H ALT (10 - 49 IUnit/L) 65 H Total Alk Phosphatase (20 - 125 IUnit/L) 95 Total Protein (5.7 - 8.2 g/dL) 7.1 Albumin (3.4 - 5.0 g/dL) 3.50 Laboratory Tests 07/07 0451 Hematology WBC (4.5 - 11.0 x10 3/uL) 9.0 RBC (4.00 - 5.60 x10 6/uL) 4.93 Hgb (12.5 - 16.9 g/dL) 14.9 Hct (37.5 - 50.7 %) 46.5 MCV (81.0 - 99.0 fL) 94.3 MCH (27.0 - 33.0 pg) 30.2 MCHC (33.0 - 37.0 g/dL) 32.0 L RDW (11.5 - 14.5 %) 14.3 Plt Count (150 - 400 x10 3/uL) 195 MPV (7.0 - 9.0 fL) 10.8 H Neut % (Auto) (56.0 - 77.0 %) 88.9 H Lymph % (Auto) (14.0 - 32.0 %) 4.9 L [place] % (Auto) (4.8 - 9.0 %) 5.5 Eos % (Auto) (0.3 - 3.7 %) 0.0 L Baso % (Auto) (0.0 - 2.0 %) 0.0 Neut # (Auto) (2.0 - 7.6 x10 3/uL) 8.03 H Lymph # (Auto) (1.0 - 3.8 x10 3/uL) 0.44 L [place] # (Auto) (0.1 - 0.8 x10 3/uL) 0.50 Eos # (Auto) (0.0 - 0.2 x10 3/uL) 0.00 Baso # (Auto) (0.0 - 0.2 x10 3/uL) 0.00 Abs Immat Gran (auto) (0.00 - 0.03 x10 3/uL) 0.06 H Immature Gran % (0.0 - 2.0 %) 0.7 Nucleated RBC % (0 - 0 %) 0.0 Nucleated RBCs # (Man) (0.0 - 0.1 x10 3/uL) 0.00 Laboratory Tests 07/07 0451 Chemistry Magnesium (1.6 - 2.6 mg/dL) 2.28 Diagnosis, Assessment Plan Free Text DxA P Notes Free Text DxA P Notes: 68 YO male with MH of COPD, lifelong heavy smoker who initially presented at [facility] with shortness of breath attributed to COPD exacerbation and pneumonia. He was eventually discharged but presented back to the hospital with persistent shortness of breath which prompted coronary angiogram which revealed multivessel CAD. The patient is transferred to our facility for surgical revascularization evaluation. 1. Multivessel CAD * continue ASA and statin * echo EF 40-44%, G1DD, hypokinesis of the mid anteroseptal, apical septal wall and the apex * case presented at CV conference, STS 5.6. But in light of advanced COPD and O2 dependence he is considered high surgical risk so the collective decision is to proceed with PCI. WIll schedule him for Impella-assisted PCI LM-LAD on July 11, 2024Tuesday. loaded him with Plavix 300 mg on 07/06/2024, and has been on Plavix 75 mg daily. 2. COPD exacerbation lifelong tobacco abuse recently treated for pneumonia * pulmonary following 3. Hyperkalemia * K 5.7->5.4->5.5->4.7 * given Lokelma 10 mg 4. Acute systolic and diastolic HF/Ischemic cardiomyopathy * echo:EF 40-44%, G1DD, hypokinesis of the mid anteroseptal, apical septal wall and the apex * GDMT as tolerated: metoprolol succinate 50 mg daily, Valsartan 160 mg daily 5. Hypertension * BP trending up * cotinue metoprolol XL 50 mg daily * Valsartan 160 mg daily at 2355 RPT #:[id number] END OF REPORT [facility] 2024-07-07 13:26:00 [facility]) Cardiothoracic Surgery Prog REPORT#:[id number] REPORT STATUS: Signed REPORT INITIALIZATION DATE:07/07/24 TIME: 1326 PATIENT: HUBERT LYNCH UNIT #: [id number] [address] AGE: 68 SEX: M ATTEND: Marcellus Gilbert MD ADM AUTHOR: Bonita Resendiz Physic REPT SERVICE DT/TIME: 07/07/24 6226 * ALL edits or amendments must be made on the electronic/computer document * Subjective Chief complaint: SOB, Multivessel CAD Review of Systems Constitutional: Reports: fatigue. Allergy/Immun: Denies: anaphylaxis, hives, itching. Eyes: Denies: diplopia, eye pain. Respiratory: Reports: BARBA (dyspnea on exertion), SOB. Cardiovascular: Reports: BARBA (dyspnea on exertion). Denies: chest pain. GI: Denies: constipation, diarrhea. : Denies: dysuria, hematuria. Musculoskeletal: Denies: joint pain, joint swelling. Heme: Denies: bleeding, bruising. All systems rev neg: except as marked Objective Physical Exam HEENT: anicteric, mucosal membranes moist Neck: full range of motion, non-tender Cardiovascular: tachycardia Respiratory: crackles, decreased breath sounds Abdomen: soft, non-tender Extremities: dry, moves all Neuro/COMMUNITY HEALTH EDUCATION COORDINATOR: alert, oriented X 3 Skin: dry Diagnosis, Assessment Plan Free Text A P: This is a 68-year-old gentleman with a past medical history of COPD, on home oxygen, 4 L who presented to the hospital at [place] for complaints of worsening shortness of breath productive cough,. Patient was treated for COPD exacerbation and pneumonia with antibiotics. Patient then underwent heart catheterization at [facility] multivessel coronary artery disease. The patient does admit to productive cough with yellow sputum. Patient denies any history of PE and DVT. Denies any nausea vomiting diarrhea. Patient was transferred to [facility] for further workup and evaluation for coronary bypass graft surgery Patient reports he continues to smoke 1 pack/day. Patient denies any alcohol use. Patient transferred to [facility] for COPD exasperation and workup for multivessel coronary disease Assessment/plan 1. Coronary disease 2. COPD exacerbation With recent history of pneumonia 3. Current everyday smoker Patient will be admitted. Pulmonary consulted for COPD. Will order CT of the chest. Echocardiogram ordered. Consult cardiology. Workup underway for Multivessel CAD. Further recommendations to follow. 07/04/24 Patient resting Required BiPAP overnight. Denies chest pains Workup underway. Cardiology consulted Echocardiogram completed. Pending result CT of the chest Carotid Doppler shows 50 to 70% stenosis of the left carotid. Right carotid shows less than 50% stenosis Vein mapping completed Pulmonary consulted, appreciate input. Started on azithromycin Patient seen and examined at [facility]. Workup underway. Plan of care discussed with multidisciplinary team Pulmonary for COPD exacerbation. Cardiology consult. Further recs to follow. 07/05/24 Patient resting Denies chest pains 4L NC, BiPAP while sleeping, encourage I-S and deep breathing, started on IV Solu-Medrol 40 mg Q8 bronchodilators scheduled Atrovent, levalbuterol On IV antibiotics Rocephin and azithromycin Sputum culture pending Sinus rhythm Echocardiogram completed. EF 40-44%, grade 1 diastolic dysfunction, no AV regurgitation, trace MR, trace TR. Carotid Doppler shows 50 to 70% stenosis of the left carotid. Right carotid shows less than 50% stenosis Vein mapping completed Patient seen and examined at [facility]. Workup underway. Plan of care discussed with multidisciplinary team Patient will need to be discussed in the high risk clinical conference on Tuesday. Further recommendations to follow. Patient seen and examined at [facility]. Plan of care discussed with multidisciplinary team 07/07/24 Patient resting comfortable Denies complaint On room air Patient was discussed in the high risk conference on Tuesday. Since this was to consider PCI next week. CV surgery will be available if need at 1327 RPT #:[id number] END OF REPORT [facility] 2024-07-07 11:20:00 [facility] ([facility] Hospitalist Progress Note REPORT#:[id number] REPORT STATUS: Signed REPORT INITIALIZATION DATE:07/07/24 TIME: 112 PATIENT: HUBERT LYNCH UNIT #: [id number] ROOM/BED: [place] [address] : 53 AGE: 68 SEX: M ATTEND: Marcellus Gilbert MD ADM AUTHOR: Asim Helms NP REPT SERVICE DT/TIME: 07/07/24 1120 * ALL edits or amendments must be made on the electronic/computer document * Subjective Chief complaint: His breathing is stable. Not in distress. Right hand pain and swelling better. No CP, fever, chills. NO N/v/d. BP and HR stable. Review of Systems Constitutional: Reports: fatigue, generalized weakness. Allergy/Immun: Denies: anaphylaxis, rhinorrhea, sneezing. Respiratory: Denies: hemoptysis, pleurisy, pleuritic pain, SOB. Cardiovascular: Denies: BARBA (dyspnea on exertion), orthopnea, palpitations. GI: Denies: anorexia, dysphagia, hematochezia, hiatal hernia. : Denies: frequency, nocturia, penile lesion. Heme: Denies: adenopathy, bleeding, bruising. Neuro: Denies: bowel dysfunction, focal weakness, headache, numbness, spinning sensation. Objective General VS/I O: Vital Signs: Date Time Temp Pulse Resp B/P B/P Pulse O2 O2 Flow FiO2 Mean Ox Delivery Rate 07/07 1111 36.9 92 16 160/83 0.0 97 Room air 07/07 0659 36.5 76 14 149/74 0.0 98 Nasal cannula 07/07 0409 36.8 107 14 147/77 99.9 93 Room air 07/07 0033 36.4 86 12 142/72 0.0 97 Nasal cannula 07/07 0031 85 22 142/72 97 98 07/06 2100 Nasal 3 cannula 07/06 2020 99 Room air 07/06 1839 36.6 86 14 167/88 114.1 92 Room air 07/06 1716 37.1 83 20 175/81 0.0 100 07/06 1628 85 28 92 07/06 1600 79 21 94 07/06 1500 92 34 91 07/06 1400 75 33 90 07/06 1300 77 29 93 07/06 1200 66 26 97 07/06 1128 36.7 87 20 160/78 105.1 98 24 hour I O ending at 0700: 07/07 0700 07/06 1900 Intake Total 400 Output Total Balance 400 Intake, Oral 400 Number Voids 2 PATIENT WEIGHT: Weight (lb): 147 Weight (oz): 7.83 Weight (kg): 66.900 Medications: Active Meds + DC'd Last 24 Hrs Clopidogrel Bisulfate (Plavix) 75 MG DAILY PO Metoprolol Succinate (TOPROL XL) 50 MG DAILY PO Amlodipine Besylate (NORVASC) 5 MG BEDTIME PO Hydralazine HCl (APRESOLINE) 10 MG Q6H PRN PRN IV Valsartan (DIOVAN 160MG TAB) 160 MG DAILY PO Heparin Sodium (HEPARIN 5000 UNITS/ML) 5,000 UNIT Q12HR SUBQ Fluticasone Propionate (Flonase Nasal [place]) 2 SPRAY DAILY NASAL (CKD) Cefepime HCl (MAXIPIME) 1 GM Q6H IV Sodium Chloride (SODIUM CHLORIDE) 10 ML Mupirocin (BACTROBAN 2% 22 GM OINTMENT) 1 APPLIC BID NASAL Atorvastatin Calcium (LIPITOR) 40 MG 2100 PO Levalbuterol HCl (Levalbuterol 1.25 mg/3 mL NEB) 1.25 MG RTQ6H INH Methylprednisolone Sodium Succinate (Solu-Medrol 40 MG Vial) 40 MG Q8H IV Sterile Water (WATER FOR INJECTION) 1 ML ASDIR PRN IV Ipratropium [place] (ATROVENT) 500 MCG RTQ6H INH Levalbuterol HCl (Levalbuterol 1.25 mg/3 mL NEB) 1.25 MG RTQ4H PRN PRN INH Sterile Water (WATER FOR INJECTION) 1 ML ASDIR PRN IV Budesonide (PULMICORT RESPULES) 0.5 MG RTBID INH Aspirin (ASPIRIN) 81 MG DAILY PO Dietitian nutrition assessment The data set between the solid lines has been imported from the dietitian's assessment. BMI Calculated: 22.4 Nutrition related diagnosis: Nutrition diagnosis details: Nutrition problem: Nutrition etiology: Nutrition signs and symptoms: Nutrition prescription: Dietitian name: Assessment completed: Physical Exam General appearance: alert, awake, oriented Head/Eyes: atraumatic, normocephalic, PERRLA Neck: full range of motion, supple/no meningismus, no bruit/NL carotids, no JVD Cardiovascular: normal capillary refill, normal heart sounds, regular rate rhythm Respiratory: aerating well Abdomen: non-tender, normal bowel sounds, soft Genitourinary: no bladder distention, no flank pain, no urinary catheter Extremities: no calf tenderness, no clubbing, no cyanosis Musculoskeletal: no CVA tenderness, no muscle spasm Neuro/COMMUNITY HEALTH EDUCATION COORDINATOR: alert, oriented X 3, CNII-XII intact Results Findings/Data: Laboratory Tests 07/07 450 Chemistry Sodium (134 - 147 mEq/L) 138 Potassium (3.4 - 5.0 mEq/L) 4.3 Chloride (100 - 108 mEq/L) 99 L Carbon Dioxide (21 - 33 mEq/l) 33 Anion Gap (0 - 20) 10 BUN (7 - 25 mg/dL) 18 Creatinine (0.6 - 1.3 mg/dL) 0.9 Glomerular Filtr Rate (70 - 80) 91.9 H Glucose (77 - 141 mg/dL) 108 Calcium (8.0 - 10.5 mg/dL) 9.0 Magnesium (1.6 - 2.6 mg/dL) 2.28 Total Bilirubin (0.0 - 1.0 mg/dL) 0.60 AST (8 - 34 IUnit/L) 39 H ALT (10 - 49 IUnit/L) 65 H Total Alk Phosphatase (20 - 125 IUnit/L) 95 Total Protein (5.7 - 8.2 g/dL) 7.1 Albumin (3.4 - 5.0 g/dL) 3.50 Laboratory Tests 07/07 450 Hematology WBC (4.5 - 11.0 x10 3/uL) 9.0 RBC (4.00 - 5.60 x10 6/uL) 4.93 Hgb (12.5 - 16.9 g/dL) 14.9 Hct (37.5 - 50.7 %) 46.5 MCV (81.0 - 99.0 fL) 94.3 MCH (27.0 - 33.0 pg) 30.2 MCHC (33.0 - 37.0 g/dL) 32.0 L RDW (11.5 - 14.5 %) 14.3 Plt Count (150 - 400 x10 3/uL) 195 MPV (7.0 - 9.0 fL) 10.8 H Neut % (Auto) (56.0 - 77.0 %) 88.9 H Lymph % (Auto) (14.0 - 32.0 %) 4.9 L [place] % (Auto) (4.8 - 9.0 %) 5.5 Eos % (Auto) (0.3 - 3.7 %) 0.0 L Baso % (Auto) (0.0 - 2.0 %) 0.0 Neut # (Auto) (2.0 - 7.6 x10 3/uL) 8.03 H Lymph # (Auto) (1.0 - 3.8 x10 3/uL) 0.44 L [place] # (Auto) (0.1 - 0.8 x10 3/uL) 0.50 Eos # (Auto) (0.0 - 0.2 x10 3/uL) 0.00 Baso # (Auto) (0.0 - 0.2 x10 3/uL) 0.00 Abs Immat Gran (auto) (0.00 - 0.03 x10 3/uL) 0.06 H Immature Gran % (0.0 - 2.0 %) 0.7 Nucleated RBC % (0 - 0 %) 0.0 Nucleated RBCs # (Man) (0.0 - 0.1 x10 3/uL) 0.00 Results: labs reviewed, vital signs reviewed, vital signs stable, current med profile rev'd Treatment Prophylaxis Treatment Prophylaxis Oxygen: room air Diagnosis, Assessment Plan Hospital course to date: Assessment and plan: Multivessel CAD. Acute COPD excerbation. SOB due to CAD. HX of COPD and PNA. Plan: CVN1. PCI vs CABG. Pulmonary for COPD. Monitor respirartory status, breathing tx, o2 support. IS. Pain meds. Antiemetics. Cough meds. Follow labs and replace as needed. Continue home meds. Monitor. Code status: full code Plan discussed with: patient, admitting physician, consultants, nurse at 1121 at 1142 RPT #:[id number] END OF REPORT [facility] 2024-07-07 10:57:00 [facility] ([facility]) Pulmonology Progress Note REPORT#:[id number] REPORT STATUS: Signed REPORT INITIALIZATION DATE:07/07/24 TIME: 1056 PATIENT: HUBERT LYNCH UNIT #: [id number] ROOM/BED: 3356-1 : 53 AGE: 68 SEX: M ATTEND: Marcellus Gilbert MD ADM AUTHOR: Ariela Mccurdy MD REPT SERVICE DT/TIME: 07/07/24 105 * ALL edits or amendments must be made on the electronic/computer document * Subjective Chief complaint: SOB HPI: 68 yo M with h/o COPD, chronic hypoxia on home oxygen who presented for OHS in [place] with worsening SOB and productive cough. She was treated there for COPD exacerbation and pneumonia. She had LHC which showed mvd. She was transfered to [facility] for further care. She has had productive cough with yellow sputum. She is a chronic smoker - 1 pack per day. Pt has required BIPAP during hospital course. Comments: no adverse events overnight SOB improving still having some wheezing on exam no current complaints Review of Systems ROS All systems rev neg: except as marked Objective General VS/I O: Last Documented: Result Date Time Pulse Ox 98 07/07 0659 B/P 149/74 07/07 0659 B/P Mean 0.0 07/07 0659 O2 Delivery Nasal cannula 07/07 0659 Temp 97.7 07/07 0659 Pulse 76 07/07 0659 Resp 14 07/07 0659 O2 Flow Rate 3 07/06 2100 FiO2 40 07/05 0008 24 hour I O ending at 0700: 07/07 0700 07/06 1900 Intake Total 400 Output Total Balance 400 Intake, Oral 400 Number Voids 2 PATIENT WEIGHT: Weight (lb): 147 Weight (oz): 7.83 Weight (kg): 66.900 Medications: Active Meds + DC'd Last 24 Hrs Clopidogrel Bisulfate (Plavix) 75 MG DAILY PO Metoprolol Succinate (TOPROL XL) 50 MG DAILY PO Amlodipine Besylate (NORVASC) 5 MG BEDTIME PO Hydralazine HCl (APRESOLINE) 10 MG Q6H PRN PRN IV Valsartan (DIOVAN 160MG TAB) 160 MG DAILY PO Heparin Sodium (HEPARIN 5000 UNITS/ML) 5,000 UNIT Q12HR SUBQ Fluticasone Propionate (Flonase Nasal [place]) 2 SPRAY DAILY NASAL (CKD) Cefepime HCl (MAXIPIME) 1 GM Q6H IV Sodium Chloride (SODIUM CHLORIDE) 10 ML Mupirocin (BACTROBAN 2% 22 GM OINTMENT) 1 APPLIC BID NASAL Atorvastatin Calcium (LIPITOR) 40 MG 2100 PO Levalbuterol HCl (Levalbuterol 1.25 mg/3 mL NEB) 1.25 MG RTQ6H INH Methylprednisolone Sodium Succinate (Solu-Medrol 40 MG Vial) 40 MG Q8H IV Sterile Water (WATER FOR INJECTION) 1 ML ASDIR PRN IV Ipratropium [place] (ATROVENT) 500 MCG RTQ6H INH Levalbuterol HCl (Levalbuterol 1.25 mg/3 mL NEB) 1.25 MG RTQ4H PRN PRN INH Sterile Water (WATER FOR INJECTION) 1 ML ASDIR PRN IV Budesonide (PULMICORT RESPULES) 0.5 MG RTBID INH Aspirin (ASPIRIN) 81 MG DAILY PO Physical Exam Head/eyes: atraumatic, normocephalic ENT: ENT: normal dentition, normal nose Neck: full range of motion, non-tender, no lymphadenopathy Cardiovascular: normal heart sounds, normal S1/S2, no murmur Respiratory/chest: on oxygen, wheezing, aerating well, clear to auscultation, symmetric expansion Abdomen: soft, non-tender, normal bowel sounds Genitourinary: no bladder distention, no flank pain Extremities: moves all, normal capillary refill Musculoskeletal: full range of motion, normal inspection, painless range of motion Neuro/COMMUNITY HEALTH EDUCATION COORDINATOR: alert, oriented X 3, CNII-XII intact Skin: dry, intact Diagnosis, Assessment Plan Free Text A P: Assessment: Acute on chronic hypoxic and hypercarbic respiratory failure COPD with acute exacerbation Acute bronchitis - Pseudomonas infection Multivessel CAD Heavy tobacco smoker Marijuana use Work-up/Imaging - personally reviewed CT Chest, 07/04/24 - centrilobular emphysema with apical predominance, [place] scarring, bronchial wall thickening CXR, 07/03/24 - hyperinflation, prominent vascular markings BNP elevated - 174 COVID and Flu negative Recommendations: Conitnue steroids - IV Solumedrol 40mg PO q8h Bronchodilators scheduled, Atrovent and Levalbuterol As needed bronchodilators Inhaled corticosteroid Conitnue antibiotics - Cefepime and azithromycin Sputum culture- Psueomonas Check VBG Continue supplemental oxygen, pt on HFNC 4-5L; wean to maintain O2 sat 90-94% BIPAP while sleeping and as needed Smoking cessation coounseling provided Pt undergoing CABG evaluation; recommend improvement in respiratory status prior to surgical intervention; pt deemed high risks surgical risk; plan for PCI next DVT ppx - heparin Thank you for this consult. Will continue to follow patient. Ariela Mccurdy MD Pulmonary Medicine at 1016 RPT #:[id number] END OF REPORT [facility] 2024-07-06 09:47:00 [facility] Hospitalist Progress Note REPORT#:[id number] REPORT STATUS: Signed REPORT INITIALIZATION DATE:07/06/24 TIME: 946 PATIENT: HUBERT LYNCH UNIT #: [id number] ROOM/BED: [place] [id number] : 53 AGE: 68 SEX: M ATTEND: Marcellus Gilbert MD ADM AUTHOR: Asim Helms NP REPT SERVICE DT/TIME: 07/06/24 0947 * ALL edits or amendments must be made on the electronic/computer document * Subjective Chief complaint: He is doing better. No CP, fever, chills. NO N/v/d. BP and HR stable. Review of Systems Constitutional: Reports: fatigue, generalized weakness. Allergy/Immun: Denies: anaphylaxis, hives, itching, rhinorrhea. Eyes: Denies: discharge, diplopia, eye pain. Respiratory: Denies: hemoptysis, parox nocturnal dyspnea, pleurisy, pleuritic pain. Cardiovascular: Denies: BARBA (dyspnea on exertion), orthopnea, palpitations. GI: Denies: anorexia, diarrhea, GERD, hematochezia, hiatal hernia. : Denies: frequency, hematuria, penile discharge, testicular swelling. Musculoskeletal: Denies: extremity pain, joint swelling, myalgias. Neuro: Denies: bowel dysfunction, dizziness, gait problem. Objective General VS/I O: Vital Signs: Date Time Temp Pulse Resp B/P B/P Pulse O2 O2 Flow FiO2 Mean Ox Delivery Rate 07/06 0905 37.1 104 20 170/91 0.0 98 07/06 0734 92 Room air 07/06 0600 80 131/68 91 88 07/06 0500 93 22 141/74 101 88 07/06 0400 31 07/06 0400 Room air 07/06 0400 36.4 84 28 139/75 90 Room air 07/06 0400 84 139/75 100 91 07/06 0319 25 07/06 0319 99 07/06 0300 77 21 169/80 115 88 07/06 0204 85 131/70 93 90 07/06 0200 87 30 90 07/06 0130 86 28 88 07/06 0107 18 07/06 0100 75 28 125/59 85 89 07/06 0000 High flow 3 nasal cannula 07/06 0000 36.4 69 22 130/66 89 Room air 07/06 0000 69 18 130/66 91 91 07/05 2300 74 26 128/68 92 100 07/05 2230 68 18 99 07/05 2215 24 07/05 2215 96 07/05 2200 87 156/83 114 07/05 2145 97 07/05 2133 92 Nasal 3 cannula 07/05 2130 93 48 89 07/05 2100 86 27 141/66 95 97 07/05 1999 High flow 3 nasal cannula 07/05 1999 37.0 88 23 144/70 98 High flow 3 nasal cannula 07/05 1999 88 23 144/70 100 98 07/05 1939 90 22 97 07/05 1930 93 99 07/05 1915 98 91 07/05 1900 86 141/76 102 98 07/05 1600 36.8 07/05 1600 High flow 2 nasal cannula 07/05 1200 37.0 07/05 1200 High flow 2 nasal cannula 24 hour I O ending at 0700: 07/06 0700 07/05 1900 Intake Total 1045.00 750.00 Output Total 600 2024 Balance 445.00 -1275.00 Intake, IV 45.00 50.00 Intake, Oral 1000 700 Number 1 Bowel Movements Number Voids 3 Output, Urine 600 2024 Patient 66.9 kg Weight Weight Standing scale Measurement Method PATIENT WEIGHT: Weight (lb): 147 Weight (oz): 7.83 Weight (kg): 66.900 Medications: Active Meds + DC'd Last 24 Hrs Heparin Sodium (HEPARIN 5000 UNITS/ML) 5,000 UNIT Q12HR SUBQ Azithromycin (ZITHROMAX) 500 MG ONCE ONE PO (DC) Fluticasone Propionate (Flonase Nasal [place]) 2 SPRAY DAILY NASAL (CKD) Cefepime HCl (MAXIPIME) 1 GM Q6H IV Sodium Chloride (SODIUM CHLORIDE) 10 ML Mupirocin (BACTROBAN 2% 22 GM OINTMENT) 1 APPLIC BID NASAL Metoprolol Tartrate (LOPRESSOR) 25 MG Q12HR PO Magnesium Sulfate (MAGNESIUM SULFATE 2GM/SWFI 50ML) 50 ML ONCE ONE IV ( DC) Atorvastatin Calcium (LIPITOR) 40 MG 2100 PO Levalbuterol HCl (Levalbuterol 1.25 mg/3 mL NEB) 1.25 MG RTQ6H INH Methylprednisolone Sodium Succinate (Solu-Medrol 40 MG Vial) 40 MG Q8H IV Sterile Water (WATER FOR INJECTION) 1 ML ASDIR PRN IV Ipratropium [place] (ATROVENT) 500 MCG RTQ6H INH Ceftriaxone Sodium (ROCEPHIN 1000MG VIAL) 1,000 MG Q24H IV (DC) Sodium Chloride (SODIUM CHLORIDE) 10 ML Levalbuterol HCl (Levalbuterol 1.25 mg/3 mL NEB) 1.25 MG RTQ4H PRN PRN INH Sterile Water (WATER FOR INJECTION) 1 ML ASDIR PRN IV Budesonide (PULMICORT RESPULES) 0.5 MG RTBID INH Aspirin (ASPIRIN) 81 MG DAILY PO Azithromycin (ZITHROMAX) 500 MG Q24H IV (DC) Sodium Chloride (SODIUM CHLORIDE 0.9%) 250 ML Dietitian nutrition assessment The data set between the solid lines has been imported from the dietitian's assessment. BMI Calculated: 22.4 Nutrition related diagnosis: Nutrition diagnosis details: Nutrition problem: Nutrition etiology: Nutrition signs and symptoms: Nutrition prescription: Dietitian name: Assessment completed: Physical Exam General appearance: alert, awake, oriented Head/Eyes: atraumatic, normocephalic, PERRLA Neck: full range of motion, supple/no meningismus, no bruit/NL carotids, no JVD Cardiovascular: normal capillary refill, normal heart sounds, regular rate rhythm Respiratory: aerating well Abdomen: non-tender, normal bowel sounds, soft Genitourinary: no bladder distention, no flank pain, no urinary catheter Extremities: no calf tenderness, no clubbing, no cyanosis Musculoskeletal: no CVA tenderness, no muscle spasm Neuro/COMMUNITY HEALTH EDUCATION COORDINATOR: alert, oriented X 3, CNII-XII intact Results Findings/Data: Laboratory Tests 07/06 352 Chemistry Sodium (134 - 147 mEq/L) 137 Potassium (3.4 - 5.0 mEq/L) 4.3 Chloride (100 - 108 mEq/L) 97 L Carbon Dioxide (21 - 33 mEq/l) 38 H Anion Gap (0 - 20) 6 BUN (7 - 25 mg/dL) 23 Creatinine (0.6 - 1.3 mg/dL) 0.9 Glomerular Filtr Rate (70 - 80) 91.9 H Glucose (77 - 141 mg/dL) 116 Calcium (8.0 - 10.5 mg/dL) 8.7 Ionized Calcium Johnathan (1.09 - 1.30 MMOL/L) 1.14 Phosphorus (2.5 - 4.9 MG/DL) 2.7 Magnesium (1.6 - 2.6 mg/dL) 2.33 Total Bilirubin (0.0 - 1.0 mg/dL) 0.50 AST (8 - 34 IUnit/L) 50 H ALT (10 - 49 IUnit/L) 65 H Total Alk Phosphatase (20 - 125 IUnit/L) 85 Total Protein (5.7 - 8.2 g/dL) 6.5 Albumin (3.4 - 5.0 g/dL) 3.20 L Laboratory Tests 07/06 352 Hematology WBC (4.5 - 11.0 x10 3/uL) 9.5 RBC (4.00 - 5.60 x10 6/uL) 4.44 Hgb (12.5 - 16.9 g/dL) 13.9 Hct (37.5 - 50.7 %) 42.0 MCV (81.0 - 99.0 fL) 94.6 MCH (27.0 - 33.0 pg) 31.3 MCHC (33.0 - 37.0 g/dL) 33.1 RDW (11.5 - 14.5 %) 14.4 Plt Count (150 - 400 x10 3/uL) 190 MPV (7.0 - 9.0 fL) 10.5 H Neut % (Auto) (56.0 - 77.0 %) 88.2 H Lymph % (Auto) (14.0 - 32.0 %) 5.0 L [place] % (Auto) (4.8 - 9.0 %) 5.9 Eos % (Auto) (0.3 - 3.7 %) 0.0 L Baso % (Auto) (0.0 - 2.0 %) 0.1 Neut # (Auto) (2.0 - 7.6 x10 3/uL) 8.36 H Lymph # (Auto) (1.0 - 3.8 x10 3/uL) 0.47 L [place] # (Auto) (0.1 - 0.8 x10 3/uL) 0.56 Eos # (Auto) (0.0 - 0.2 x10 3/uL) 0.00 Baso # (Auto) (0.0 - 0.2 x10 3/uL) 0.01 Abs Immat Gran (auto) (0.00 - 0.03 x10 3/uL) 0.08 H Immature Gran % (0.0 - 2.0 %) 0.8 Nucleated RBC % (0 - 0 %) 0.0 Nucleated RBCs # (Man) (0.0 - 0.1 x10 3/uL) 0.00 Results: labs reviewed, vital signs reviewed, vital signs stable, current med profile rev'd Treatment Prophylaxis Treatment Prophylaxis Oxygen: room air Diagnosis, Assessment Plan Hospital course to date: Assessment and plan: Multivessel CAD. Acute COPD excerbation. SOB due to CAD. HX of COPD and PNA. Plan: CVN1. PCI vs CABG. Pulmonary for COPD. Monitor respirartory status, breathing tx, o2 support. IS. Pain meds. Antiemetics. Cough meds. Follow labs and replace as needed. Continue home meds. Monitor. Code status: full code Plan discussed with: patient, admitting physician, consultants, nurse at 0950 at 1344 RPT #:[id number] END OF REPORT [facility] 2024-07-06 09:39:00 [facility] ([facility]) Pulmonology Progress Note REPORT#:[id number] REPORT STATUS: Signed REPORT INITIALIZATION DATE:07/06/24 TIME: 938 PATIENT: HUBERT LYNCH UNIT #: [id number] ROOM/BED: [place] [id number] : 53 AGE: 68 SEX: M ATTEND: Marcellus Gilbert MD ADM AUTHOR: Ariela Mccurdy MD REPT SERVICE DT/TIME: 07/06/24 0939 * ALL edits or amendments must be made on the electronic/computer document * Subjective Chief complaint: SOB HPI: 68 yo M with h/o COPD, chronic hypoxia on home oxygen who presented for [facility]HS in [place] with worsening SOB and productive cough. She was treated there for COPD exacerbation and pneumonia. She had LHC which showed mvd. She was transfered to [facility] for further care. She has had productive cough with yellow sputum. She is a chronic smoker - 1 pack per day. Pt has required BIPAP during hospital course. Comments: no adverse events reported overnight pt on NC SOB/wheezing improving ROS All systems rev neg: except as marked Review of Systems ROS All systems rev neg: except as marked Objective General VS/I O: Last Documented: Result Date Time Pulse Ox 98 07/06 904 B/P 170/91 07/06 904 B/P Mean 0.0 07/06 904 Temp 98.8 07/06 904 Pulse 104 07/06 904 Resp 20 07/06 904 O2 Delivery Room air 07/06 0734 O2 Flow Rate 3 07/06 0000 FiO2 40 07/05 0008 24 hour I O ending at 0700: 07/06 0700 07/05 1900 Intake Total 1045.00 750.00 Output Total 600 2024 Balance 445.00 -1275.00 Intake, IV 45.00 50.00 Intake, Oral 1000 700 Number 1 Bowel Movements Number Voids 3 Output, Urine 600 2024 Patient 66.9 kg Weight Weight Standing scale Measurement Method PATIENT WEIGHT: Weight (lb): 147 Weight (oz): 7.83 Weight (kg): 66.900 Medications: Active Meds + DC'd Last 24 Hrs Heparin Sodium (HEPARIN 5000 UNITS/ML) 5,000 UNIT Q12HR SUBQ Azithromycin (ZITHROMAX) 500 MG ONCE ONE PO (DC) Fluticasone Propionate (Flonase Nasal [place]) 2 SPRAY DAILY NASAL (CKD) Cefepime HCl (MAXIPIME) 1 GM Q6H IV Sodium Chloride (SODIUM CHLORIDE) 10 ML Mupirocin (BACTROBAN 2% 22 GM OINTMENT) 1 APPLIC BID NASAL Metoprolol Tartrate (LOPRESSOR) 25 MG Q12HR PO Magnesium Sulfate (MAGNESIUM SULFATE 2GM/SWFI 50ML) 50 ML ONCE ONE IV ( DC) Atorvastatin Calcium (LIPITOR) 40 MG 2100 PO Levalbuterol HCl (Levalbuterol 1.25 mg/3 mL NEB) 1.25 MG RTQ6H INH Methylprednisolone Sodium Succinate (Solu-Medrol 40 MG Vial) 40 MG Q8H IV Sterile Water (WATER FOR INJECTION) 1 ML ASDIR PRN IV Ipratropium [place] (ATROVENT) 500 MCG RTQ6H INH Ceftriaxone Sodium (ROCEPHIN 1000MG VIAL) 1,000 MG Q24H IV (DC) Sodium Chloride (SODIUM CHLORIDE) 10 ML Levalbuterol HCl (Levalbuterol 1.25 mg/3 mL NEB) 1.25 MG RTQ4H PRN PRN INH Sterile Water (WATER FOR INJECTION) 1 ML ASDIR PRN IV Budesonide (PULMICORT RESPULES) 0.5 MG RTBID INH Aspirin (ASPIRIN) 81 MG DAILY PO Azithromycin (ZITHROMAX) 500 MG Q24H IV (DC) Sodium Chloride (SODIUM CHLORIDE 0.9%) 250 ML Physical Exam Head/eyes: atraumatic, normocephalic ENT: ENT: normal dentition, normal nose Neck: full range of motion, non-tender, no lymphadenopathy Cardiovascular: normal heart sounds, normal S1/S2, no murmur Respiratory/chest: on oxygen, wheezing, aerating well, clear to auscultation, symmetric expansion Abdomen: soft, non-tender, normal bowel sounds Genitourinary: no bladder distention, no flank pain Extremities: moves all, normal capillary refill Musculoskeletal: full range of motion, normal inspection, painless range of motion Neuro/COMMUNITY HEALTH EDUCATION COORDINATOR: alert, oriented X 3, CNII-XII intact Skin: dry, intact Diagnosis, Assessment Plan Free Text A P: Assessment: Acute on chronic hypoxic and hypercarbic respiratory failure COPD with acute exacerbation Acute bronchitis - Pseudomonas infection Multivessel CAD Heavy tobacco smoker Marijuana use Work-up/Imaging - personally reviewed CT Chest, 07/04/24 - centrilobular emphysema with apical predominance, KAROLINA scarring, bronchial wall thickening CXR, 07/03/24 - hyperinflation, prominent vascular markings BNP elevated - 174 COVID and Flu negative Recommendations: Pt currently in acute COPD exacerbation; still has wheezing on exam, but SOB improving conitnue steroids - IV Solumedrol 40mg PO q8h Bronchodilators scheduled, Atrovent and Levalbuterol As needed bronchodilators Inhaled corticosteroid Conitnue antibiotics - Cefepime and azithromycin Sputum culture- Psueomonas Check VBG Continue supplemental oxygen, pt on HFNC 4-5L; wean to maintain O2 sat 90-94% BIPAP while sleeping and as needed Smoking cessation coounseling provided Pt undergoing CABG evaluation; recommend improvement in respiratory status prior to surgical intervention Thank you for this consult. Will continue to follow patient. Ariela Mccurdy MD Pulmonary Medicine at 1651 [facility] #:[id number] END OF REPORT [facility] 2024-07-06 08:27:00 [facility] ([facility]) Cardiology Progress Note REPORT#:[id number] REPORT STATUS: Signed REPORT INITIALIZATION DATE:07/06/24 TIME: 826 PATIENT: HUBERT LYNCH UNIT #: [id number] [facility] AGE: 68 SEX: M ATTEND: Marcellus Gilbert MD ADM AUTHOR: Gerri Sterling AGACNP REPT SERVICE DT/TIME: 07/06/24826 * ALL edits or amendments must be made on the electronic/computer document * Subjective Patient reports: Yes: fatigue, shortness of breath. Objective General VS/I O: 24 hour I O ending at 0700: 07/06 0700 07/05 1900 Intake Total 1045.00 750.00 Output Total 600 2024 Balance 445.00 -1275.00 Intake, IV 45.00 50.00 Intake, Oral 1000 700 Number 1 Bowel Movements Number Voids 3 Output, Urine 600 2024 Patient 66.9 kg Weight Weight Standing scale Measurement Method Vital Signs Date Temp Pulse Resp B/P B/P Mean Pulse Ox FiO2 07/05-07/06 36.4-37.1 68-104 18-48 125-170/59-91 0.0-115 88-100 PATIENT WEIGHT: Weight (lb): 147 Weight (oz): 7.83 Weight (kg): 66.900 Medications: Active Meds + DC'd Last 24 Hrs Heparin Sodium (HEPARIN 5000 UNITS/ML) 5,000 UNIT Q12HR SUBQ Azithromycin (ZITHROMAX) 500 MG ONCE ONE PO (DC) Fluticasone Propionate (Flonase Nasal [place]) 2 SPRAY DAILY NASAL (CKD) Cefepime HCl (MAXIPIME) 1 GM Q6H IV Sodium Chloride (SODIUM CHLORIDE) 10 ML Mupirocin (BACTROBAN 2% 22 GM OINTMENT) 1 APPLIC BID NASAL Metoprolol Tartrate (LOPRESSOR) 25 MG Q12HR PO Furosemide (LASIX 20MG INJ) 20 MG ONCE ONE IV (DC) Magnesium Sulfate (MAGNESIUM SULFATE 2GM/SWFI 50ML) 50 ML ONCE ONE IV ( DC) Atorvastatin Calcium (LIPITOR) 40 MG 2100 PO Levalbuterol HCl (Levalbuterol 1.25 mg/3 mL NEB) 1.25 MG RTQ6H INH Methylprednisolone Sodium Succinate (Solu-Medrol 40 MG Vial) 40 MG Q8H IV Sterile Water (WATER FOR INJECTION) 1 ML ASDIR PRN IV Ipratropium [place] (ATROVENT) 500 MCG RTQ6H INH Ceftriaxone Sodium (ROCEPHIN 1000MG VIAL) 1,000 MG Q24H IV (DC) Sodium Chloride (SODIUM CHLORIDE) 10 ML Levalbuterol HCl (Levalbuterol 1.25 mg/3 mL NEB) 1.25 MG RTQ4H PRN PRN INH Metoprolol Tartrate (LOPRESSOR) 12.5 MG Q12HR PO (DC) Sterile Water (WATER FOR INJECTION) 1 ML ASDIR PRN IV Budesonide (PULMICORT RESPULES) 0.5 MG RTBID INH Aspirin (ASPIRIN) 81 MG DAILY PO Azithromycin (ZITHROMAX) 500 MG Q24H IV (DC) Sodium Chloride (SODIUM CHLORIDE 0.9%) 250 ML Physical Exam General appearance: chronically ill appearing, frail, alert, awake, oriented Neck: non-tender, no JVD Cardiovascular: CV assessment: regular rate and rhythm Respiratory: on oxygen, shortness of breath, wheezing Abdomen: soft, non-tender, normal bowel sounds, no distention Genitourinary: no urinary catheter Lower extremity: LE assessment: no calf tenderness, no edema Musculoskeletal: normal inspection Neuro/COMMUNITY HEALTH EDUCATION COORDINATOR: alert, oriented X 3, normal speech Skin: dry, intact, normal color Psychiatry: normal affect, normal mood Results Findings/Data: Laboratory Tests 07/06 0353 Chemistry Sodium (134 - 147 mEq/L) 137 Potassium (3.4 - 5.0 mEq/L) 4.3 Chloride (100 - 108 mEq/L) 97 L Carbon Dioxide (21 - 33 mEq/l) 38 H Anion Gap (0 - 20) 6 BUN (7 - 25 mg/dL) 23 Creatinine (0.6 - 1.3 mg/dL) 0.9 Glomerular Filtr Rate (70 - 80) 91.9 H Glucose (77 - 141 mg/dL) 116 Calcium (8.0 - 10.5 mg/dL) 8.7 Ionized Calcium Johnathan (1.09 - 1.30 MMOL/L) 1.14 Phosphorus (2.5 - 4.9 MG/DL) 2.7 Magnesium (1.6 - 2.6 mg/dL) 2.33 Total Bilirubin (0.0 - 1.0 mg/dL) 0.50 AST (8 - 34 IUnit/L) 50 H ALT (10 - 49 IUnit/L) 65 H Total Alk Phosphatase (20 - 125 IUnit/L) 85 Total Protein (5.7 - 8.2 g/dL) 6.5 Albumin (3.4 - 5.0 g/dL) 3.20 L Laboratory Tests 07/06 0353 Hematology WBC (4.5 - 11.0 x10 3/uL) 9.5 RBC (4.00 - 5.60 x10 6/uL) 4.44 Hgb (12.5 - 16.9 g/dL) 13.9 Hct (37.5 - 50.7 %) 42.0 MCV (81.0 - 99.0 fL) 94.6 MCH (27.0 - 33.0 pg) 31.3 MCHC (33.0 - 37.0 g/dL) 33.1 RDW (11.5 - 14.5 %) 14.4 Plt Count (150 - 400 x10 3/uL) 190 MPV (7.0 - 9.0 fL) 10.5 H Neut % (Auto) (56.0 - 77.0 %) 88.2 H Lymph % (Auto) (14.0 - 32.0 %) 5.0 L [place] % (Auto) (4.8 - 9.0 %) 5.9 Eos % (Auto) (0.3 - 3.7 %) 0.0 L Baso % (Auto) (0.0 - 2.0 %) 0.1 Neut # (Auto) (2.0 - 7.6 x10 3/uL) 8.36 H Lymph # (Auto) (1.0 - 3.8 x10 3/uL) 0.47 L [place] # (Auto) (0.1 - 0.8 x10 3/uL) 0.56 Eos # (Auto) (0.0 - 0.2 x10 3/uL) 0.00 Baso # (Auto) (0.0 - 0.2 x10 3/uL) 0.01 Abs Immat Gran (auto) (0.00 - 0.03 x10 3/uL) 0.08 H Immature Gran % (0.0 - 2.0 %) 0.8 Nucleated RBC % (0 - 0 %) 0.0 Nucleated RBCs # (Man) (0.0 - 0.1 x10 3/uL) 0.00 Laboratory Tests 07/06 0353 Chemistry Magnesium (1.6 - 2.6 mg/dL) 2.33 Results: labs reviewed, vital signs reviewed, rhythm personally rev'd Telemetry Interpretation: NSR Diagnosis, Assessment Plan Plan discussed with: patient, collaborating MD, nurse Free Text DxA P Notes Free Text DxA P Notes: 68 YO male with MH of COPD, lifelong heavy smoker who initially presented at [facility] with shortness of breath attributed to COPD exacerbation and pneumonia. He was eventually discharged but presented back to the hospital with persistent shortness of breath which prompted coronary angiogram which revealed multivessel CAD. The patient is transferred to our facility for surgical revascularization evaluation. 1. Multivessel CAD * continue ASA and statin * echo EF 40-44%, G1DD, hypokinesis of the mid anteroseptal, apical septal wall and the apex * case presented at CV conference, STS 5.6. But in light of advanced COPD and O2 dependence he is considered high surgical risk so the collective decision is to proceed with PCI. WIll schedule him for Impella-assisted PCI LM-LAD on July 11, 2024Tuesday. Will load him with Plavix 300 mg today then 75 mg daily. 2. COPD exacerbation lifelong tobacco abuse recently treated for pneumonia * pulmonary following 3. Hyperkalemia * K 5.7->5.4->5.5->4.7 * given Lokelma 10 mg 4. Acute systolic and diastolic HF/Ischemic cardiomyopathy * echo:EF 40-44%, G1DD, hypokinesis of the mid anteroseptal, apical septal wall and the apex * GDMT as tolerated: metoprolol succinate 50 mg daily, Valsartan 160 mg daily 5. Hypertension * BP trending up * cotinue metoprolol XL 50 mg daily * add Valsartan 160 mg daily MDM by Dr. Toribio. at 1029 at 1838 RPT #:[id number] END OF REPORT [facility] 2024-07-06 07:07:00 [facility] ([facility]) Clinical Note REPORT#:[id number] REPORT STATUS: Signed REPORT INITIALIZATION DATE:07/06/24 TIME: 706 PATIENT: HUBERT LYNCH UNIT #: [id number] ROOM/BED: [id number] : 53 AGE: 68 SEX: M ATTEND: Marcellus Gilbert MD ADM AUTHOR: Shahida Dunn APRN REPT SERVICE DT/TIME: 07/06/24 0707 * ALL edits or amendments must be made on the electronic/computer document * Clinical Note Note: Procedure Type: Isolated CABG Perioperative Outcome Estimate % Operative Mortality 5.16% Morbidity Mortality 17.9% Stroke 1.09% Renal Failure 1.7% Reoperation 3.56% Prolonged Ventilation 14.5% Deep Sternal Wound Infection 0.154% Long Hospital Stay (>14 days) 18% Short Hospital Stay (<6 days)* 18% *higher values reflect a better outcome at 0712 at 1321 RPT #:[id number] END OF REPORT [facility] 2024-07-05 15:41:00 [facility] Pulmonology Progress Note REPORT#:[id number] REPORT STATUS: Signed REPORT INITIALIZATION DATE:07/05/24 TIME: 154 PATIENT: HUBERT LYNCH UNIT #: [id number] ROOM/BED: [id number] : 53 AGE: 68 SEX: M ATTEND: Marcellus Gilbert MD ADM AUTHOR: Ariela Mccurdy MD REPT SERVICE DT/TIME: 07/05/24 1541 * ALL edits or amendments must be made on the electronic/computer document * Subjective Chief complaint: SOB HPI: 68 yo M with h/o COPD, chronic hypoxia on home oxygen who presented for OHS in [place] with worsening SOB and productive cough. She was treated there for COPD exacerbation and pneumonia. She had LHC which showed mvd. She was transfered to [facility] for further care. She has had productive cough with yellow sputum. She is a chronic smoker - 1 pack per day. Pt has required BIPAP during hospital course. Comments: pt still wheezing on exam on 4L NC; saturating low 90's pt reports feeling some improvement still has some SOB; also reports nasal drainage Review of Systems ROS All systems rev neg: except as marked Objective General VS/I O: Last Documented: Result Date Time Temp 98.6 07/05 1200 O2 Delivery High flow nasal cannula 07/05 1200 O2 Flow Rate 2 07/05 1200 Pulse Ox 89 07/05 0835 FiO2 40 07/05 0008 Pulse 69 07/05 0008 Resp 47 07/04 1800 B/P 143/81 07/04 1348 B/P Mean 106 07/04 1348 24 hour I O ending at 0700: 07/05 0700 07/04 1900 Intake Total 750.00 1560.00 Output Total 650 785 Balance 100.00 775.00 Intake, IV 30.00 260.00 Intake, Oral 720 1300 Intake, Oral 0 Supplement Number 0 Bowel Movements Number 1 Incontinent Voids Number Voids 0 Output, Stool 0 Output, Urine 650 785 Patient 67 kg Weight Weight Standing scale Measurement Method PATIENT WEIGHT: Weight (lb): 147 Weight (oz): 11.36 Weight (kg): 67.000 Medications: Active Meds + DC'd Last 24 Hrs Heparin Sodium (HEPARIN 5000 UNITS/ML) 5,000 UNIT Q12HR SUBQ Azithromycin (ZITHROMAX) 500 MG ONCE ONE PO Cefepime HCl (MAXIPIME) 1 GM Q6H IV Sodium Chloride (SODIUM CHLORIDE) 10 ML Mupirocin (BACTROBAN 2% 22 GM OINTMENT) 1 APPLIC BID NASAL Metoprolol Tartrate (LOPRESSOR) 25 MG Q12HR PO Furosemide (LASIX 20MG INJ) 20 MG ONCE ONE IV (DC) Magnesium Sulfate (MAGNESIUM SULFATE 2GM/SWFI 50ML) 50 ML ONCE ONE IV ( DC) Atorvastatin Calcium (LIPITOR) 40 MG 2100 PO Levalbuterol HCl (Levalbuterol 1.25 mg/3 mL NEB) 1.25 MG RTQ6H INH Methylprednisolone Sodium Succinate (Solu-Medrol 40 MG Vial) 40 MG Q8H IV Sterile Water (WATER FOR INJECTION) 1 ML ASDIR PRN IV Ipratropium [place] (ATROVENT) 500 MCG RTQ6H INH Ceftriaxone Sodium (ROCEPHIN 1000MG VIAL) 1,000 MG Q24H IV (DC) Sodium Chloride (SODIUM CHLORIDE) 10 ML Levalbuterol HCl (Levalbuterol 1.25 mg/3 mL NEB) 1.25 MG RTQ4H PRN PRN INH Metoprolol Tartrate (LOPRESSOR) 12.5 MG Q12HR PO (DC) Sterile Water (WATER FOR INJECTION) 1 ML ASDIR PRN IV Budesonide (PULMICORT RESPULES) 0.5 MG RTBID INH Aspirin (ASPIRIN) 81 MG DAILY PO Azithromycin (ZITHROMAX) 500 MG Q24H IV (DC) Sodium Chloride (SODIUM CHLORIDE 0.9%) 250 ML Physical Exam Head/eyes: atraumatic, normocephalic ENT: ENT: normal dentition, normal nose Neck: full range of motion, non-tender, no lymphadenopathy Cardiovascular: normal heart sounds, normal S1/S2, no murmur Respiratory/chest: on oxygen, wheezing, aerating well, clear to auscultation, symmetric expansion Abdomen: soft, non-tender, normal bowel sounds Genitourinary: no bladder distention, no flank pain Extremities: moves all, normal capillary refill Musculoskeletal: full range of motion, normal inspection, painless range of motion Neuro/COMMUNITY HEALTH EDUCATION COORDINATOR: alert, oriented X 3, CNII-XII intact Skin: dry, intact Diagnosis, Assessment Plan Free Text A P: Assessment: Acute on chronic hypoxic and hypercarbic respiratory failure COPD with acute exacerbation Acute bronchitis Multivessel CAD Heavy tobacco smoker Marijuana use Work-up/Imaging - personally reviewed CT Chest, 07/04/24 - centrilobular emphysema with apical predominance, KAROLINA scarring, bronchial wall thickening CXR, 07/03/24 - hyperinflation, prominent vascular markings BNP elevated - 174 COVID and Flu negative Recommendations: Pt currently in acute COPD exacerbation; still has wheezing on exam. conitnue steroids - IV Solumedrol 40mg PO q8h Bronchodilators scheduled, Atrovent and Levalbuterol As needed bronchodilators Inhaled corticosteroid IV antibiotics - Cefepime and azithromycin Sputum culture- GNRs Check VBG Continue supplemental oxygen, pt on HFNC 4-5L; wean to maintain O2 sat 90-94% BIPAP while sleeping and as needed Smoking cessation coounseling provided Pt undergoing CABG evaluation; recommend improvement in respiratory status prior to surgical interventionfluticas Thank you for this consult. Will continue to follow patient. Plan discussed with pt, pt's family and ICU team. Ariela Mccurdy MD Pulmonary Medicine at [address] [facility] #:[id number] END OF REPORT [facility] 2024-07-05 12:07:00 [facility] ([facility] Critical Care Progress Note REPORT#:[id number] REPORT STATUS: Signed REPORT INITIALIZATION DATE:07/05/24 TIME: 1207 PATIENT: HUBERT LYNCH UNIT #: [id number] ROOM/BED: [place] [address] : 53 AGE: 68 SEX: M ATTEND: Marcellus Gilbert MD ADM AUTHOR: Bobo Luu MD REPT SERVICE DT/TIME: 07/05/24 1207 * ALL edits or amendments must be made on the electronic/computer document * Subjective Chief complaint: cough, sob, fatigue HPI: Patient is a 68-year-old male with an extensive history of chronic hypoxic respiratory failure, COPD on home oxygen 2 to 4 L. Patient also is an everyday smoker of 1 pack/day. Patient was admitted at outside hospital June 17 and treated for COPD exacerbation and pneumonia with antibiotics, breathing treatments, steroids. He left the hospital after 4 days. He Alexx presented to the hospital July 02 with yellow sputum production, cough, shortness of breath, fatigue. Again being treated for COPD exacerbation. He underwent coronary angiography this morning and was found to have multivessel coronary artery disease. He was transferred here for evaluation by CT surgery for possible CABG evaluation. At the time he is hemodynamically stable although hypoxic on 5 L nasal cannula. He is not having any chest pain. He does have a productive cough with yellow sputum. He is slightly tachycardic in the low 100s after receiving breathing treatments and with any exertion or transferring in bed. He denies fever, lower extremity swelling, history of PE or DVT, hemoptysis, recent travel, nausea, vomiting, diarrhea, abdominal pain, rash, sick contacts. He had a negative influenza and COVID swab outside hospital. He has a workup pending for CABG evaluation and is currently being treated for COPD exacerbation. Will discuss further with pulmonology and CT surgery about steroid plan. Comments: Interval history- Patient slightly improved from the COPD standpoint. Heart rate is still elevated. Will increase it to 25 twice daily. Will give 1 dose of Lasix 20 IV. Objective General VS/I O Last Documented: Result Date Time Pulse Ox 89 07/05 0835 O2 Delivery Room air 07/05 0835 Temp 36.6 07/05 0400 FiO2 40 07/05 0008 Pulse 69 07/05 0008 O2 Flow Rate 6 07/04 1941 Resp 47 07/04 1800 B/P 143/81 07/04 1348 B/P Mean 106 07/04 1348 24 hour I O ending at 0700: 07/05 0700 07/04 1900 Intake Total 750.00 1560.00 Output Total 650 785 Balance 100.00 775.00 Intake, IV 30.00 260.00 Intake, Oral 720 1300 Intake, Oral 0 Supplement Number 0 Bowel Movements Number 1 Incontinent Voids Number Voids 0 Output, Stool 0 Output, Urine 650 785 Patient 67 kg Weight Weight Standing scale Measurement Method PATIENT WEIGHT: Weight (lb): 147 Weight (oz): 11.36 Weight (kg): 67.000 Medications: Active Meds + DC'd Last 24 Hrs Heparin Sodium (HEPARIN 5000 UNITS/ML) 5,000 UNIT Q12HR SUBQ Azithromycin (ZITHROMAX) 500 MG ONCE ONE PO Mupirocin (BACTROBAN 2% 22 GM OINTMENT) 1 APPLIC BID NASAL Metoprolol Tartrate (LOPRESSOR) 25 MG Q12HR PO Furosemide (LASIX 20MG INJ) 20 MG ONCE ONE IV (DC) Magnesium Sulfate (MAGNESIUM SULFATE 2GM/SWFI 50ML) 50 ML ONCE ONE IV ( DC) Atorvastatin Calcium (LIPITOR) 40 MG 2100 PO Levalbuterol HCl (Levalbuterol 1.25 mg/3 mL NEB) 1.25 MG RTQ6H INH Methylprednisolone Sodium Succinate (Solu-Medrol 40 MG Vial) 40 MG Q8H IV Sterile Water (WATER FOR INJECTION) 1 ML ASDIR PRN IV Ipratropium [place] (ATROVENT) 500 MCG RTQ6H INH Ceftriaxone Sodium (ROCEPHIN 1000MG VIAL) 1,000 MG Q24H IV Sodium Chloride (SODIUM CHLORIDE) 10 ML Levalbuterol HCl (Levalbuterol 1.25 mg/3 mL NEB) 1.25 MG RTQ4H PRN PRN INH Metoprolol Tartrate (LOPRESSOR) 12.5 MG Q12HR PO (DC) Sterile Water (WATER FOR INJECTION) 1 ML ASDIR PRN IV Budesonide (PULMICORT RESPULES) 0.5 MG RTBID INH Aspirin (ASPIRIN) 81 MG DAILY PO Azithromycin (ZITHROMAX) 500 MG Q24H IV (DC) Sodium Chloride (SODIUM CHLORIDE 0.9%) 250 ML Results Findings/data: Laboratory Tests 07/05 0509 Chemistry Sodium (134 - 147 mEq/L) 141 Potassium (3.4 - 5.0 mEq/L) 4.7 Chloride (100 - 108 mEq/L) 107 Carbon Dioxide (21 - 33 mEq/l) 31 Anion Gap (0 - 20) 8 BUN (7 - 25 mg/dL) 23 Creatinine (0.6 - 1.3 mg/dL) 0.8 Glomerular Filtr Rate (70 - 80) 95.2 H Glucose (77 - 141 mg/dL) 128 Calcium (8.0 - 10.5 mg/dL) 6.9 L Magnesium (1.6 - 2.6 mg/dL) 1.87 Laboratory Tests 07/05 0405 Hematology WBC (4.5 - 11.0 x10 3/uL) 8.5 RBC (4.00 - 5.60 x10 6/uL) 3.53 L Hgb (12.5 - 16.9 g/dL) 10.6 L Hct (37.5 - 50.7 %) 34.1 L MCV (81.0 - 99.0 fL) 96.6 MCH (27.0 - 33.0 pg) 30.0 MCHC (33.0 - 37.0 g/dL) 31.1 L RDW (11.5 - 14.5 %) 14.7 H Plt Count (150 - 400 x10 3/uL) 155 MPV (7.0 - 9.0 fL) 10.2 H Neut % (Auto) (56.0 - 77.0 %) 89.0 H Lymph % (Auto) (14.0 - 32.0 %) 3.5 L [place] % (Auto) (4.8 - 9.0 %) 6.7 Eos % (Auto) (0.3 - 3.7 %) 0.0 L Baso % (Auto) (0.0 - 2.0 %) 0.0 Neut # (Auto) (2.0 - 7.6 x10 3/uL) 7.57 Lymph # (Auto) (1.0 - 3.8 x10 3/uL) 0.30 L [place] # (Auto) (0.1 - 0.8 x10 3/uL) 0.57 Eos # (Auto) (0.0 - 0.2 x10 3/uL) 0.00 Baso # (Auto) (0.0 - 0.2 x10 3/uL) 0.00 Abs Immat Gran (auto) (0.00 - 0.03 x10 3/uL) 0.07 H Immature Gran % (0.0 - 2.0 %) 0.8 Nucleated RBC % (0 - 0 %) 0.0 Nucleated RBCs # (Man) (0.0 - 0.1 x10 3/uL) 0.00 Laboratory Tests 07/05/24 0509: [Embedded Image Not Available] 07/05/24 0405: [Embedded Image Not Available] Microbiology: 07/04 0935 SPUTUM: Sputum Culture - RES GRAM NEGATIVE XOCHILT GRAM NEGATIVE XOCHILT#2 07/04 0935 SPUTUM: Gram Stain - RES 07/04 0219 NASAL: MRSA DNA Surveillance Screen - COMP 07/03 1740 NASAL: MSSA Surveillance Screen - COMP 07/03 1740 NASAL: MRSA DNA Surveillance Screen - COMP 07/03 1740 NASAL: Influenza Virus Type B Antigen - COMP 07/03 1740 NASAL: Influenza Virus Type A Antigen - COMP Radiology data Recent Impressions: CAT SCAN - CT CHEST W/O CONTRAST 07/04 1400 Report Impression - Status: SIGNED Entered: 07/04/2024 1620 IMPRESSION: Emphysema and scar in both lungs. There are areas of coalescent bandlike scarring in the left upper lung surrounding a cavitary area. Peripheral high density change at this area may reflect areas of calcification are represents sequela of prior surgery. In the absence of previous surgery in this area, further characterization with PET/CT may be of benefit. Please see detailed descriptions and other findings as above Impression By: Kervin - Carolina Jimenez M.D. Free Text Obj Notes Free Text Obj Notes: GEN: Appears tachypneic and winded with activity HEENT: Atraumatic, normocephalic, dry mucous membranes NECK: Supple, good range of motion, no tenderness, no JVD LUNGS: Symmetrical air entry, tachypneic, retractions, accessory muscle use, diminished throughout with fine wheezing CV: S tachycardic, warm and well perfused GI: Abdomen is soft, not tender or distended EXT/Musc: No edema or cyanosis. Pedal pulses present. Compartments soft Skin: SWarm to touch NEURO: Awake, alert and oriented x3. No facial droop or focal deficit Diagnosis, Assessment Plan Free text A P: Patient is a 68-year-old male with history of tobacco abuse and COPD in the CVICU for evaluation of coronary artery bypass graft surgery for multivessel coronary artery disease Acute on chronic hypoxic respiratory failure Acute exacerbation of COPD on home oxygen 2 to 4 L Tobacco abuse Multivessel coronary artery disease -DuoNebs, Zithromax, pulmonary consult. Sputum cultures growing gram-negative rods. Patient still feels short of breath. Will change antibiotics to cefepime. Will complete Zithromax today. -Started on budesonide nebs and ipratropium nebs. -SpO2 goal of 88%, wean supplemental oxygen as tolerated, incentive spirometry, pulmonary hygiene -Duplexes of lower extremities -Influenza and COVID swab negative -Preop labs and workup per CT surgery, patient will be discussed in high risk surgery conference tomorrow -Will use BiPAP as needed -Beta-walter increased to 25 twice daily. Will give 1 dose of Lasix 20 IV Repeat BMP SCDs for DVT prophylaxis Full code Critical care time 33 minutes spent with patient excluding bedside procedures and teach at 1210 RPT #[id number] END OF REPORT [facility] 2024-07-05 07:50:00 [facility] ([facility]) Hospitalist Progress Note REPORT#:[id number] REPORT STATUS: Signed REPORT INITIALIZATION DATE:07/05/24 TIME: 075 PATIENT: HUBERT LYNCH UNIT #: [id number] ROOM/BED: [address] : 53 AGE: 68 SEX: M ATTEND: Marcellus Gilbert MD ADM AUTHOR: Asim Helms MONOGRAM OPERATOR REPT SERVICE DT/TIME: 07/05/24 0750 * ALL edits or amendments must be made on the electronic/computer document * Subjective Chief complaint: He is c/o right hand pain. Waiting for PCI. Walked with PT. No CP, fever, chills. NO N/v/d. Review of Systems Constitutional: Reports: fatigue, generalized weakness. Allergy/Immun: Denies: anaphylaxis, hives, rhinorrhea. Respiratory: Denies: BARBA (dyspnea on exertion), non productive cough, productive cough ( sputum), wheezing. Cardiovascular: Reports: chest pain. Denies: edema, orthopnea, parox nocturnal dyspnea. GI: Denies: anorexia, dysphagia, hematochezia, rectal pain. : Denies: dysuria, hematuria, penile discharge, testicular pain. Musculoskeletal: Denies: extremity pain, extremity swelling, joint swelling, myalgias. Neuro: Denies: bowel dysfunction, dizziness, headache, lightheaded, slurred speech. Objective General VS/I O: Vital Signs: Date Time Temp Pulse Resp B/P B/P Pulse O2 O2 Flow FiO2 Mean Ox Delivery Rate 07/05 0835 89 Room air 07/05 0400 36.6 07/05 0008 69 96 40 07/04 2000 37.6 07/04 1957 102 99 40 07/04 1941 96 Ventilator 6 40 07/04 1800 113 47 95 07/04 1705 96 Nasal 4 cannula 07/04 1700 118 39 96 07/04 1619 88 Room air 07/04 1600 36.9 07/04 1600 Nasal 4 cannula 07/04 1348 101 27 143/81 106 07/04 1300 101 30 129/69 90 93 07/04 1200 Nasal 2 cannula 07/04 1200 94 26 143/72 98 93 24 hour I O ending at 0700: 07/05 0700 07/04 1900 Intake Total 750.00 1560.00 Output Total 650 785 Balance 100.00 775.00 Intake, IV 30.00 260.00 Intake, Oral 720 1300 Intake, Oral 0 Supplement Number 0 Bowel Movements Number 1 Incontinent Voids Number Voids 0 Output, Stool 0 Output, Urine 650 785 Patient 67 kg Weight Weight Standing scale Measurement Method PATIENT WEIGHT: Weight (lb): 147 Weight (oz): 11.36 Weight (kg): 67.000 Medications: Active Meds + DC'd Last 24 Hrs Heparin Sodium (HEPARIN 5000 UNITS/ML) 5,000 UNIT Q12HR SUBQ Azithromycin (ZITHROMAX) 500 MG ONCE ONE PO Mupirocin (BACTROBAN 2% 22 GM OINTMENT) 1 APPLIC BID NASAL Metoprolol Tartrate (LOPRESSOR) 25 MG Q12HR PO Furosemide (LASIX 20MG INJ) 20 MG ONCE ONE IV (DC) Magnesium Sulfate (MAGNESIUM SULFATE 2GM/SWFI 50ML) 50 ML ONCE ONE IV ( DC) Atorvastatin Calcium (LIPITOR) 40 MG 2100 PO Levalbuterol HCl (Levalbuterol 1.25 mg/3 mL NEB) 1.25 MG RTQ6H INH Methylprednisolone Sodium Succinate (Solu-Medrol 40 MG Vial) 40 MG Q8H IV Sterile Water (WATER FOR INJECTION) 1 ML ASDIR PRN IV Ipratropium [place] (ATROVENT) 500 MCG RTQ6H INH Ceftriaxone Sodium (ROCEPHIN 1000MG VIAL) 1,000 MG Q24H IV Sodium Chloride (SODIUM CHLORIDE) 10 ML Levalbuterol HCl (Levalbuterol 1.25 mg/3 mL NEB) 1.25 MG RTQ4H PRN PRN INH Metoprolol Tartrate (LOPRESSOR) 12.5 MG Q12HR PO (DC) Sterile Water (WATER FOR INJECTION) 1 ML ASDIR PRN IV Budesonide (PULMICORT RESPULES) 0.5 MG RTBID INH Aspirin (ASPIRIN) 81 MG DAILY PO Azithromycin (ZITHROMAX) 500 MG Q24H IV (DC) Sodium Chloride (SODIUM CHLORIDE 0.9%) 250 ML Dietitian nutrition assessment The data set between the solid lines has been imported from the dietitian's assessment. BMI Calculated: 22.5 Nutrition related diagnosis: Nutrition diagnosis details: Nutrition problem: Nutrition etiology: Nutrition signs and symptoms: Nutrition prescription: Dietitian name: Assessment completed: Physical Exam General appearance: alert, awake, oriented Head/Eyes: atraumatic, normocephalic, PERRLA Neck: full range of motion, supple/no meningismus, no bruit/NL carotids, no JVD Cardiovascular: normal capillary refill, normal heart sounds, regular rate rhythm Respiratory: aerating well Abdomen: non-tender, normal bowel sounds, soft Genitourinary: no bladder distention, no flank pain, no urinary catheter Extremities: no calf tenderness, no clubbing, no cyanosis Musculoskeletal: no CVA tenderness, no muscle spasm Neuro/COMMUNITY HEALTH EDUCATION COORDINATOR: alert, oriented X 3, CNII-XII intact Results Findings/Data: Laboratory Tests 07/05 0509 Chemistry Sodium (134 - 147 mEq/L) 141 Potassium (3.4 - 5.0 mEq/L) 4.7 Chloride (100 - 108 mEq/L) 107 Carbon Dioxide (21 - 33 mEq/l) 31 Anion Gap (0 - 20) 8 BUN (7 - 25 mg/dL) 23 Creatinine (0.6 - 1.3 mg/dL) 0.8 Glomerular Filtr Rate (70 - 80) 95.2 H Glucose (77 - 141 mg/dL) 128 Calcium (8.0 - 10.5 mg/dL) 6.9 L Magnesium (1.6 - 2.6 mg/dL) 1.87 Laboratory Tests 07/05 0405 Hematology WBC (4.5 - 11.0 x10 3/uL) 8.5 RBC (4.00 - 5.60 x10 6/uL) 3.53 L Hgb (12.5 - 16.9 g/dL) 10.6 L Hct (37.5 - 50.7 %) 34.1 L MCV (81.0 - 99.0 fL) 96.6 MCH (27.0 - 33.0 pg) 30.0 MCHC (33.0 - 37.0 g/dL) 31.1 L RDW (11.5 - 14.5 %) 14.7 H Plt Count (150 - 400 x10 3/uL) 155 MPV (7.0 - 9.0 fL) 10.2 H Neut % (Auto) (56.0 - 77.0 %) 89.0 H Lymph % (Auto) (14.0 - 32.0 %) 3.5 L [place] % (Auto) (4.8 - 9.0 %) 6.7 Eos % (Auto) (0.3 - 3.7 %) 0.0 L Baso % (Auto) (0.0 - 2.0 %) 0.0 Neut # (Auto) (2.0 - 7.6 x10 3/uL) 7.57 Lymph # (Auto) (1.0 - 3.8 x10 3/uL) 0.30 L [place] # (Auto) (0.1 - 0.8 x10 3/uL) 0.57 Eos # (Auto) (0.0 - 0.2 x10 3/uL) 0.00 Baso # (Auto) (0.0 - 0.2 x10 3/uL) 0.00 Abs Immat Gran (auto) (0.00 - 0.03 x10 3/uL) 0.07 H Immature Gran % (0.0 - 2.0 %) 0.8 Nucleated RBC % (0 - 0 %) 0.0 Nucleated RBCs # (Man) (0.0 - 0.1 x10 3/uL) 0.00 Radiology data: Recent Impressions: CAT SCAN - CT CHEST W/O CONTRAST 07/04 1400 Report Impression - Status: SIGNED Entered: 07/04/2024 9520 IMPRESSION: Emphysema and scar in both lungs. There are areas of coalescent bandlike scarring in the left upper lung surrounding a cavitary area. Peripheral high density change at this area may reflect areas of calcification are represents sequela of prior surgery. In the absence of previous surgery in this area, further characterization with PET/CT may be of benefit. Please see detailed descriptions and other findings as above Impression By: Kervin Jimenez M.D. Results: labs reviewed, vital signs reviewed, vital signs stable, current med profile rev'd Treatment Prophylaxis Treatment Prophylaxis Oxygen: room air Diagnosis, Assessment Plan Hospital course to date: Assessment and plan: Multivessel CAD. Acute COPD excerbation. SOB due to CAD. HX of COPD and PNA. Plan: CVICU. Will go for PCI tomorrow. Pulmonary for COPD. Monitor respirartory status, breathing tx, o2 support. IS. Pain meds. Antiemetics. Cough meds. Follow labs and replace as needed. Continue home meds. Monitor. at 1130 at 1427 RPT #[id number] END OF REPORT [facility] 2024-07-05 07:42:00 [facility]) Cardiothoracic Surgery Prog REPORT#:[id number] REPORT STATUS: Signed REPORT INITIALIZATION DATE:07/05/24 TIME: 741 PATIENT: HUBERT LYNCH UNIT #: [id number] [address]: [address] : [address] AGE: 68 SEX: M ATTEND: Marcellus Gilbert MD ADM AUTHOR: Bonita Resendiz Physic REPT SERVICE DT/TIME: 07/05/2442 * ALL edits or amendments must be made on the electronic/computer document * Subjective Chief complaint: SOB, Multivessel CAD Review of Systems Constitutional: Reports: fatigue. Allergy/Immun: Denies: anaphylaxis, hives, itching. Eyes: Denies: diplopia, eye pain. Respiratory: Reports: BARBA (dyspnea on exertion), SOB. Cardiovascular: Reports: BARBA (dyspnea on exertion). Denies: chest pain. GI: Denies: constipation, diarrhea. : Denies: dysuria, hematuria. Musculoskeletal: Denies: joint pain, joint swelling. Heme: Denies: bleeding, bruising. All systems rev neg: except as marked Objective General VS/I O Last Documented: Result Date Time Temp 97.9 07/05 0400 Pulse Ox 96 07/05 0008 FiO2 40 07/05 0008 Pulse 69 07/05 0008 O2 Delivery Ventilator 07/04 1940 O2 Flow Rate 6 07/04 1940 Resp 47 07/04 1800 B/P 143/81 07/04 1348 B/P Mean 106 07/04 1348 24 hour I O ending at 0700: 07/05 0700 07/04 1900 Intake Total 750.00 1560.00 Output Total 650 785 Balance 100.00 775.00 Intake, IV 30.00 260.00 Intake, Oral 720 1300 Intake, Oral 0 Supplement Number 0 Bowel Movements Number 1 Incontinent Voids Number Voids 0 Output, Stool 0 Output, Urine 650 785 Patient 67 kg Weight Weight Standing scale Measurement Method PATIENT WEIGHT: Weight (lb): 147 Weight (oz): 11.36 Weight (kg): 67.000 Physical Exam General appearance: alert, awake, oriented HEENT: anicteric, mucosal membranes moist Neck: full range of motion, non-tender Cardiovascular: tachycardia Respiratory: crackles, decreased breath sounds Abdomen: soft, non-tender Extremities: dry, moves all Neuro/COMMUNITY HEALTH EDUCATION COORDINATOR: alert, oriented X 3 Skin: dry Diagnosis, Assessment Plan Free Text A P: This is a 68-year-old gentleman with a past medical history of COPD, on home oxygen, 4 L who presented to the hospital at [place] for complaints of worsening shortness of breath productive cough,. Patient was treated for COPD exacerbation and pneumonia with antibiotics. Patient then underwent heart catheterization at [facility] multivessel coronary artery disease. The patient does admit to productive cough with yellow sputum. Patient denies any history of PE and DVT. Denies any nausea vomiting diarrhea. Patient was transferred to [facility] for further workup and evaluation for coronary bypass graft surgery Patient reports he continues to smoke 1 pack/day. Patient denies any alcohol use. Patient transferred to [facility] for COPD exasperation and workup for multivessel coronary disease Assessment/plan 1. Coronary disease 2. COPD exacerbation With recent history of pneumonia 3. Current everyday smoker Patient will be admitted. Pulmonary consulted for COPD. Will order CT of the chest. Echocardiogram ordered. Consult cardiology. Workup underway for Multivessel CAD. Further recommendations to follow. 07/04/24 Patient resting Required BiPAP overnight. Denies chest pains Workup underway. Cardiology consulted Echocardiogram completed. Pending result CT of the chest Carotid Doppler shows 50 to 70% stenosis of the left carotid. Right carotid shows less than 50% stenosis Vein mapping completed Pulmonary consulted, appreciate input. Started on azithromycin Patient seen and examined at [facility]. Workup underway. Plan of care discussed with multidisciplinary team Pulmonary for COPD exacerbation. Cardiology consult. Further recs to follow. 07/05/24 Patient resting Denies chest pains 4L NC, BiPAP while sleeping, encourage I-S and deep breathing, started on IV Solu-Medrol 40 mg Q8 bronchodilators scheduled Atrovent, levalbuterol On IV antibiotics Rocephin and azithromycin Sputum culture pending Sinus rhythm Echocardiogram completed. EF 40-44%, grade 1 diastolic dysfunction, no AV regurgitation, trace MR, trace TR. Carotid Doppler shows 50 to 70% stenosis of the left carotid. Right carotid shows less than 50% stenosis Vein mapping completed Patient seen and examined at [facility]. Workup underway. Plan of care discussed with multidisciplinary team Patient will need to be discussed in the high risk clinical conference on Tuesday. Further recommendations to follow. Patient seen and examined at [facility]. Plan of care discussed with multidisciplinary team at 0746 at 0435 RPT #:[id number] END OF REPORT [facility] 2024-07-05 07:32:00 [facility] Cardiology Progress Note REPORT#:[id number] REPORT STATUS: Signed REPORT INITIALIZATION DATE:07/05/24 TIME: 731 PATIENT: HUBERT LYNCH UNIT #: [id number] [address] : [address] AGE: 68 SEX: M ATTEND: Marcellus Gilbert MD ADM AUTHOR: Gerri Sterling AGACNP REPT SERVICE DT/TIME: 07/05/24 0732 * ALL edits or amendments must be made on the electronic/computer document * Subjective Comments: SOB improved. Objective General VS/I O: 24 hour I O ending at 0700: 07/05 0700 07/04 1900 Intake Total 750.00 1560.00 Output Total 650 785 Balance 100.00 775.00 Intake, IV 30.00 260.00 Intake, Oral 720 1300 Intake, Oral 0 Supplement Number 0 Bowel Movements Number 1 Incontinent Voids Number Voids 0 Output, Stool 0 Output, Urine 650 785 Patient 67 kg Weight Weight Standing scale Measurement Method Vital Signs Date Temp Pulse Resp B/P B/P Mean Pulse Ox FiO2 07/04-07/05 36.6-37.6 69-118 26-59 129-154/69-82 90-108 88-100 40 PATIENT WEIGHT: Weight (lb): 147 Weight (oz): 11.36 Weight (kg): 67.000 Medications: Active Meds + DC'd Last 24 Hrs Atorvastatin Calcium (LIPITOR) 40 MG 2100 PO Levalbuterol HCl (Levalbuterol 1.25 mg/3 mL NEB) 1.25 MG RTQ6H INH Methylprednisolone Sodium Succinate (Solu-Medrol 40 MG Vial) 40 MG Q8H IV Sterile Water (WATER FOR INJECTION) 1 ML ASDIR PRN IV Ipratropium [place] (ATROVENT) 500 MCG RTQ6H INH Ceftriaxone Sodium (ROCEPHIN 1000MG VIAL) 1,000 MG Q24H IV Sodium Chloride (SODIUM CHLORIDE) 10 ML Levalbuterol HCl (Levalbuterol 1.25 mg/3 mL NEB) 1.25 MG RTQ4H PRN PRN INH Metoprolol Tartrate (LOPRESSOR) 12.5 MG Q12HR PO Sodium Zirconium Cyclosilicate (Lokelma) 10 GM ONCE ONE PO (DC) Sterile Water (WATER FOR INJECTION) 1 ML ASDIR PRN IV Budesonide (PULMICORT RESPULES) 0.5 MG RTBID INH Methylprednisolone Sodium Succinate (Solu-Medrol 40 MG Vial) 40 MG ONCE ONE IV (DC) Albuterol/Ipratropium (DUONEB) 3 ML RTQ4H PRN PRN NEB (DC) Aspirin (ASPIRIN) 81 MG DAILY PO Azithromycin (ZITHROMAX) 500 MG Q24H IV Sodium Chloride (SODIUM CHLORIDE 0.9%) 250 ML Physical Exam General appearance: chronically ill appearing, frail, alert, awake, oriented Neck: non-tender, no JVD Cardiovascular: CV assessment: regular rate and rhythm Respiratory: on oxygen, shortness of breath, wheezing Abdomen: soft, non-tender, normal bowel sounds, no distention Genitourinary: no urinary catheter Lower extremity: LE assessment: no calf tenderness, no edema Musculoskeletal: normal inspection Neuro/COMMUNITY HEALTH EDUCATION COORDINATOR: alert, oriented X 3, normal speech Psychiatry: normal affect, normal mood Results Findings/Data: Laboratory Tests 07/05 07/04 07/04 0509 0935 0935 Chemistry Sodium (134 - 147 mEq/L) 141 135 Potassium (3.4 - 5.0 mEq/L) 4.7 5.0 Chloride (100 - 108 mEq/L) 107 102 Carbon Dioxide (21 - 33 mEq/l) 31 34 H Anion Gap (0 - 20) 8 4 BUN (7 - 25 mg/dL) 23 30 H Creatinine (0.6 - 1.3 mg/dL) 0.8 1.1 Glomerular Filtr Rate (70 - 80) 95.2 H 72.2 Glucose (77 - 141 mg/dL) 128 131 Calcium (8.0 - 10.5 mg/dL) 6.9 L 8.3 Magnesium (1.6 - 2.6 mg/dL) 1.87 B-Natriuretic Peptide (0 - 100 PG/ML) 174.0 H Laboratory Tests 07/05 0405 Hematology WBC (4.5 - 11.0 x10 3/uL) 8.5 RBC (4.00 - 5.60 x10 6/uL) 3.53 L Hgb (12.5 - 16.9 g/dL) 10.6 L Hct (37.5 - 50.7 %) 34.1 L MCV (81.0 - 99.0 fL) 96.6 MCH (27.0 - 33.0 pg) 30.0 MCHC (33.0 - 37.0 g/dL) 31.1 L RDW (11.5 - 14.5 %) 14.7 H Plt Count (150 - 400 x10 3/uL) 155 MPV (7.0 - 9.0 fL) 10.2 H Neut % (Auto) (56.0 - 77.0 %) 89.0 H Lymph % (Auto) (14.0 - 32.0 %) 3.5 L [place] % (Auto) (4.8 - 9.0 %) 6.7 Eos % (Auto) (0.3 - 3.7 %) 0.0 L Baso % (Auto) (0.0 - 2.0 %) 0.0 Neut # (Auto) (2.0 - 7.6 x10 3/uL) 7.57 Lymph # (Auto) (1.0 - 3.8 x10 3/uL) 0.30 L [place] # (Auto) (0.1 - 0.8 x10 3/uL) 0.57 Eos # (Auto) (0.0 - 0.2 x10 3/uL) 0.00 Baso # (Auto) (0.0 - 0.2 x10 3/uL) 0.00 Abs Immat Gran (auto) (0.00 - 0.03 x10 3/uL) 0.07 H Immature Gran % (0.0 - 2.0 %) 0.8 Nucleated RBC % (0 - 0 %) 0.0 Nucleated RBCs # (Man) (0.0 - 0.1 x10 3/uL) 0.00 Laboratory Tests 07/05 07/04 0509 0935 Chemistry Magnesium (1.6 - 2.6 mg/dL) 1.87 B-Natriuretic Peptide (0 - 100 PG/ML) 174.0 H Radiology data: Recent Impressions: CAT SCAN - CT CHEST W/O CONTRAST 07/04 1400 Report Impression - Status: SIGNED Entered: 07/04/2024 1620 IMPRESSION: Emphysema and scar in both lungs. There are areas of coalescent bandlike scarring in the left upper lung surrounding a cavitary area. Peripheral high density change at this area may reflect areas of calcification are represents sequela of prior surgery. In the absence of previous surgery in this area, further characterization with PET/CT may be of benefit. Please see detailed descriptions and other findings as above Impression By: Kervin Jimenez M.D. Results: labs reviewed, vital signs reviewed, rhythm personally rev'd Telemetry Interpretation: NSR Diagnosis, Assessment Plan Plan discussed with: patient, collaborating MD, consultants (CAS GRANADO), nurse Free Text DxA P Notes Free Text DxA P Notes: 68 YO male with MH of COPD, lifelong heavy smoker who initially presented at [facility] with shortness of breath attributed to COPD exacerbation and pneumonia. He was eventually discharged but presented back to the hospital with persistent shortness of breath which prompted coronary angiogram which revealed multivessel CAD. The patient is transferred to our facility for surgical revascularization evaluation. 1. Multivessel CAD * CABG evaluation ongoing * continue ASA and statin * echocardiogram LVEF 40-44%, G1DD, hypokinesis of the mid anteroseptal and apical septal wall and the apex * case will be presented to CV conference, he is too frail with advanced COPD. CT showed emphysema and scar both lungs. If he is declined for CABG then will do PCI. 2. COPD exacerbation/Hypoxia lifelong tobacco abuse recently treated for pneumonia * pulmonary following 3. Hyperkalemia * K 5.7->5.4->5.5->4.7 * given Lokelma 10 mg yesterday 4. Acute systolic and diastolic HF/Ischemic cardiomyopathy * CABG workup ongoing * echo LVEF 40-44%, G1DD, hypokinesis of the mid anteroseptal and apical septal wall and the apex MDM by Dr. Toribio. at 0907 at 1826 RPT #:[id number] END OF REPORT [facility] 2024-07-04 18:26:00 [id number] [place] [address] PATIENT NAME: HUBERT LYNCH ADMIT DATE: 07/03/24 ACCOUNT NO: [id number] ROOM NO: [facility] AGE: 68 REPORT TYPE: eECHOCARDIOGRAM REPORT SEX: M ADMITTING PHYSICIAN:Marcellus Gilbert MD ATTENDING PHYSICIAN:Marcellus Gilbert MD *[place] [address] Transthoracic Echocardiogram Patient: Hubert Lynch Study Date: 07/03/2024 BP: 111 / 59 URN: [id number] Location: : 1955 Age: 68 Gender: M Height: 68 in / 172.7 cm Weight: 147 lb / 66.7 kg BMI/BSA: 22.4 kg/m 2 / 1.79 m 2 *Ordering Physician: * Bonita Resendiz Physic *Interpreting Physician: * Nereyda Toribio MD *Dot Compliance Specialist: * Chelsey Germain Indications: CARDIAC SURGERY PRE-OP. IF NOT DONE THIS ADMISSION. Study data: Transthoracic echocardiogram. Procedure: A transthoracic echocardiogram was performed. Images were obtained using a SlideJar cardiac ultrasound machine. The study was technically limited due to poor acoustic window availability, poor patient compliance, and body habitus. Complete 2D, complete spectral Doppler, and color Doppler. Location: Bedside. Patient status: Inpatient. Patient room number: 2201. Study status: Routine. Heart rate: 113 bpm. Findings Left ventricle: The cavity size is normal. Wall thickness is normal. Systolic function is mildly reduced. The estimated ejection fraction is 40-44%. PATIENT NAME: HUBERT LYNCH Regional wall motion: There is hypokinesis of the mid anteroseptal and apical septal garza and the apex. Grade I diastolic dysfunction. Right ventricle: Not well visualized. Systolic function is normal. Left atrium: Not well visualized. The atrium is normal in size. Right atrium: Not well visualized. The atrium is normal in size. Aorta: Aortic root: The root is normal-sized. Aortic valve: Not well visualized. The valve is structurally normal. The valve is trileaflet. There is no evidence of stenosis. There is no regurgitation. Mitral valve: The valve is structurally normal. There is no evidence of stenosis. There is trace regurgitation. Tricuspid valve: Not well visualized. The valve is structurally normal. There is trace regurgitation. Pulmonic valve: The valve is structurally normal. There is no evidence of stenosis. There is no regurgitation. Pericardium: A prominent pericardial fat pad is present. There is no pericardial effusion. Pulmonary arteries: The main pulmonary artery is normal-sized. Systemic veins: Inferior vena cava: The IVC is normal-sized. Measurements Left ventricle Value Ref FELECIA, LAX 4.1 cm 4.2 - 5.8 ESD, LAX 2.5 cm 2.5 - 4.0 FS, LAX 38 % 25 - 43 FELECIA major ax, A2C 6.9 cm --------- ESD major ax, A2C 6.4 cm --------- IVS, ED 1.0 cm 0.6 - 1.0 PW, ED 1.1 cm 0.6 - 1.0 IVS/PW, ED 0.87 --------- EF 69 % 52 - 72 E', lat colette, TDI 7.1 cm/sec >=10.0 E/e', lat colette, TDI 12 <=13 E', med colette, TDI 6.3 cm/sec >=7.0 E/e', med colette, TDI 13 --------- E', avg, TDI 6.7 cm/sec --------- E/e', avg, TDI 12 <=14 LVOT Value Ref Diam, S 2.07 cm --------- Area 3.4 cm 2 --------- Peak godwin, S 1.11 m/sec --------- Mean godwin, S 0.85 m/sec --------- VTI, S 18.9 cm --------- Peak grad, S 5 mm Hg --------- Mean grad, S 3 mm Hg --------- SV 64 ml --------- Qs 6.66 L/min --------- Qs/bsa 3.7 L/(min-m 2) --------- SV/bsa 36 ml/m 2 --------- PATIENT NAME: HUBERT LYNCH Right ventricle Value Ref TAPSE, MM 2.1 cm >=1.7 Left atrium Value Ref AP dim, ES 2.7 cm 3.0 - 4.0 Vol/bsa, S 15 ml/m 2 16 - 34 Vol/bsa, ES, 1-p A4C 8 ml/m 2 12 - 37 Vol, ES, 2-p 27 ml --------- Vol/bsa, ES, 2-p 15 ml/m 2 16 - 34 Vol/bsa, ES, A/L 9 ml/m 2 16 - 34 Aortic valve Value Ref Peak v, S 1.2 m/sec --------- Mean v, S 0.87 m/sec --------- VTI, S 20.2 cm --------- Mean grad, S 3 mm Hg --------- Peak grad, S 5.4 mm Hg --------- LVOT/AV, VTI ratio 0.93 --------- KRISHAN, VTI 3.15 cm 2 --------- LVOT/AV, Vpeak ratio 0.96 --------- KRISHAN, Vmax 3.23 cm 2 --------- Mitral valve Value Ref Peak E 0.81 m/sec --------- Peak A 1.11 m/sec --------- Decel time 73 ms --------- Peak grad, D 2.6 mm Hg --------- Peak E/A ratio 0.73 --------- Aortic root Value Ref Root diam 2.9 cm 2.5 - 4.0 Conclusions Summary: 1. Left ventricle: The cavity size is normal. Wall thickness is normal. Systolic function is mildly reduced. The estimated ejection fraction is 40-44%. Grade I diastolic dysfunction. 2. Right ventricle: Not well visualized. The tricuspid annular plane systolic excursion is 2.1 cm. 3. Aortic valve: Not well visualized. 4. Tricuspid valve: Not well visualized. 5. Pericardium, extracardiac: There is no pericardial effusion. 6. Inferior vena cava: The IVC is normal-sized. 7. Regional wall motion: There is hypokinesis of the mid anteroseptal and apical septal garza and the apex. Electronically signed by PATIENT NAME: HUBERT LYNCH Nereyda Toribio MD 07/04/2024 18:26 at 1826 PATIENT NAME: HUBERT LYNCH [facility] 2024-07-04 14:36:00 [facility] ([facility]) Critical Care Progress Note REPORT#:[id number] REPORT STATUS: Signed REPORT INITIALIZATION DATE:07/04/24 TIME: 1435 PATIENT: HUBERT LYNCH UNIT #: [id number] ROOM/BED: [place] [address] : 53 AGE: 68 SEX: M ATTEND: Marcellus Gilbert MD ADM AUTHOR: Bobo Luu MD REPT SERVICE DT/TIME: 07/04/24 1436 * ALL edits or amendments must be made on the electronic/computer document * Subjective Chief complaint: cough, sob, fatigue HPI: Patient is a 68-year-old male with an extensive history of chronic hypoxic respiratory failure, COPD on home oxygen 2 to 4 L. Patient also is an everyday smoker of 1 pack/day. Patient was admitted at outside hospital June 17 and treated for COPD exacerbation and pneumonia with antibiotics, breathing treatments, steroids. He left the hospital after 4 days. He Alexx presented to the hospital July 02 with yellow sputum production, cough, shortness of breath, fatigue. Again being treated for COPD exacerbation. He underwent coronary angiography this morning and was found to have multivessel coronary artery disease. He was transferred here for evaluation by CT surgery for possible CABG evaluation. At the time he is hemodynamically stable although hypoxic on 5 L nasal cannula. He is not having any chest pain. He does have a productive cough with yellow sputum. He is slightly tachycardic in the low 100s after receiving breathing treatments and with any exertion or transferring in bed. He denies fever, lower extremity swelling, history of PE or DVT, hemoptysis, recent travel, nausea, vomiting, diarrhea, abdominal pain, rash, sick contacts. He had a negative influenza and COVID swab outside hospital. He has a workup pending for CABG evaluation and is currently being treated for COPD exacerbation. Will discuss further with pulmonology and CT surgery about steroid plan. Comments: Interval history Patient is short of breath. His active wheezing. Having sputum production Objective General VS/I O Last Documented: Result Date Time B/P 143/81 07/04 1348 B/P Mean 106 07/04 1348 Pulse 101 07/04 1348 Resp 27 07/04 1348 Pulse Ox 93 07/04 1300 O2 Delivery Nasal cannula 07/04 1200 O2 Flow Rate 2 07/04 1200 FiO2 40 07/04 0809 Temp 36.8 07/04 0800 24 hour I O ending at 0700: 07/04 0700 07/03 1900 Intake Total 600.00 Output Total 775 Balance -175.00 Intake, IV 300.00 Intake, Oral 300 Output, Urine 775 Patient 64.9 kg 67 kg Weight Weight Bed scale Not applicable Measurement Method PATIENT WEIGHT: Weight (lb): 143 Weight (oz): 1.28 Weight (kg): 64.900 Medications: Active Meds + DC'd Last 24 Hrs Levalbuterol HCl (Levalbuterol 1.25 mg/3 mL NEB) 1.25 MG RTQ6H INH Methylprednisolone Sodium Succinate (Solu-Medrol 40 MG Vial) 40 MG Q8H IV Sterile Water (WATER FOR INJECTION) 1 ML ASDIR PRN IV Ipratropium [place] (ATROVENT) 500 MCG RTQ6H INH Ceftriaxone Sodium (ROCEPHIN 1000MG VIAL) 1,000 MG Q24H IV Sodium Chloride (SODIUM CHLORIDE) 10 ML Levalbuterol HCl (Levalbuterol 1.25 mg/3 mL NEB) 1.25 MG RTQ4H PRN PRN INH Metoprolol Tartrate (LOPRESSOR) 12.5 MG Q12HR PO Sodium Zirconium Cyclosilicate (Lokelma) 10 GM ONCE ONE PO (DC) Sterile Water (WATER FOR INJECTION) 1 ML ASDIR PRN IV Budesonide (PULMICORT RESPULES) 0.5 MG RTBID INH Methylprednisolone Sodium Succinate (Solu-Medrol 40 MG Vial) 40 MG ONCE ONE IV (DC) Albuterol/Ipratropium (DUONEB) 3 ML RTQ4H PRN PRN NEB (DC) Aspirin (ASPIRIN) 81 MG DAILY PO Azithromycin (ZITHROMAX) 500 MG Q24H IV Sodium Chloride (SODIUM CHLORIDE 0.9%) 250 ML Magnesium Sulfate (MAGNESIUM SULFATE 2GM/SWFI 50ML) 50 ML ONCE ONE IV ( DC) Results Findings/data: Laboratory Tests 07/04 07/04 07/04 07/03 07/03 0935 0935 [id number] 2011 2011 Chemistry Sodium (134 - 147 mEq/L) 135 137 135 Potassium (3.4 - 5.0 mEq/L) 5.0 5.5 H 5.4 H Chloride (100 - 108 mEq/L) 102 103 103 Carbon Dioxide (21 - 33 mEq/l) 34 H 33 27 Anion Gap (0 - 20) 4 7 10 BUN (7 - 25 mg/dL) 30 H 28 H 24 Creatinine (0.6 - 1.3 mg/dL) 1.1 1.2 1.3 Glomerular Filtr Rate (70 - 80) 72.2 65.1 L 59.1 L Glucose (77 - 141 mg/dL) 131 152 H 138 Lactic Acid (0.4 - 1.9 mmol/L) 1.6 Calcium (8.0 - 10.5 mg/dL) 8.3 8.8 9.0 Ionized Calcium Johnathan (1.09 - 1.30 1.12 MMOL/L) Phosphorus (2.5 - 4.9 MG/DL) 3.9 Magnesium (1.6 - 2.6 mg/dL) 2.64 H Total Bilirubin (0.0 - 1.0 mg/dL) 0.50 AST (8 - 34 IUnit/L) 60 H ALT (10 - 49 IUnit/L) 48 Total Alk Phosphatase (20 - 125 93 IUnit/L) B-Natriuretic Peptide (0 - 100 PG/ML) 174.0 H Total Protein (5.7 - 8.2 g/dL) 6.8 Albumin (3.4 - 5.0 g/dL) 3.40 07/03 07/03 07/03 07/03 1806 1805 1805 1805 Chemistry Sodium (134 - 147 mEq/L) 137 Potassium (3.4 - 5.0 mEq/L) 5.7 H Chloride (100 - 108 mEq/L) 101 Carbon Dioxide (21 - 33 mEq/l) 31 Anion Gap (0 - 20) 11 BUN (7 - 25 mg/dL) 25 Creatinine (0.6 - 1.3 mg/dL) 1.3 Glomerular Filtr Rate (70 - 80) 59.1 L Glucose (77 - 141 mg/dL) 146 H Hemoglobin A1c (4.8 - 6.0 %A1C) 5.5 Calcium (8.0 - 10.5 mg/dL) 9.5 Magnesium (1.6 - 2.6 mg/dL) 2.36 Total Bilirubin (0.0 - 1.0 mg/dL) 0.50 AST (8 - 34 IUnit/L) 39 H ALT (10 - 49 IUnit/L) 51 H Total Alk Phosphatase (20 - 125 IUnit/L) 116 Troponin I High Sens (0 - 54 ng/L) 469 *H C-Reactive Protein (<5.0 MG/L) 13.2 H B-Natriuretic Peptide (0 - 100 PG/ML) 85.0 Total Protein (5.7 - 8.2 g/dL) 8.1 Albumin (3.4 - 5.0 g/dL) 4.10 Triglycerides (40 - 150 mg/dL) 148 Cholesterol (<200 mg/dL) 270 H LDL Cholesterol Measurd (0 - 100 mg/dL) 143.0 H HDL Cholesterol (40 - 60 MG/DL) 109.9 H Cholesterol/HDL Ratio (3.43 - 4.97 RATIO) 2.46 L Laboratory Tests 07/03 1804 Coagulation INR (0.8 - 1.2) 1.0 PTT (Veronica) (25.0 - 39.5 Seconds) 21.9 L PT Patient/Control Mix (9.3 - 12.9 SECONDS) 11.7 Laboratory Tests 07/04 1806 Hematology WBC (4.5 - 11.0 x10 3/uL) 11.2 H 10.7 RBC (4.00 - 5.60 x10 6/uL) 4.64 5.46 Hgb (12.5 - 16.9 g/dL) 14.5 16.5 Hct (37.5 - 50.7 %) 44.1 51.8 H MCV (81.0 - 99.0 fL) 95.0 94.9 MCH (27.0 - 33.0 pg) 31.3 30.2 MCHC (33.0 - 37.0 g/dL) 32.9 L 31.9 L RDW (11.5 - 14.5 %) 14.9 H 15.3 H Plt Count (150 - 400 x10 3/uL) 243 199 MPV (7.0 - 9.0 fL) 9.7 H 11.1 H Neut % (Auto) (56.0 - 77.0 %) 91.1 H 92.8 H Lymph % (Auto) (14.0 - 32.0 %) 3.8 L 2.9 L [place] % (Auto) (4.8 - 9.0 %) 4.5 L 3.0 L Eos % (Auto) (0.3 - 3.7 %) 0.0 L 0.2 L Baso % (Auto) (0.0 - 2.0 %) 0.1 0.2 Neut # (Auto) (2.0 - 7.6 x10 3/uL) 10.17 H 9.94 H Lymph # (Auto) (1.0 - 3.8 x10 3/uL) 0.42 L 0.31 L [place] # (Auto) (0.1 - 0.8 x10 3/uL) 0.50 0.32 Eos # (Auto) (0.0 - 0.2 x10 3/uL) 0.00 0.02 Baso # (Auto) (0.0 - 0.2 x10 3/uL) 0.01 0.02 Abs Immat Gran (auto) (0.00 - 0.03 x10 3/uL) 0.06 H 0.10 H Immature Gran % (0.0 - 2.0 %) 0.5 0.9 Nucleated RBC % (0 - 0 %) 0.0 0.0 Nucleated RBCs # (Man) (0.0 - 0.1 x10 3/uL) 0.00 0.00 Immature Plt Fraction (0.9 - 11.2 %) 11.4 H Plt Morphology Comment AGGREGATES ESR Westergren (0 - 15 mm/hr) 18 H Laboratory Tests 07/03 1739 Serology SARS-CoV-2 Ag (Rapid) (Negative) Negative Laboratory Tests 07/03 190 Urines Urine Color (YEL/STRAW) YELLOW Urine Appearance (CLEAR) CLEAR Urine pH (5.0 - 7.0) 5.0 Ur Specific [place] (1.005 - 1.030) 1.058 H Urine Protein (NEGATIVE) NEGATIVE Urine Glucose (UA) (NEGATIVE) NEGATIVE Urine Ketones (NEGATIVE) NEGATIVE Urine Blood (NEGATIVE) NEGATIVE Urine Nitrite (NEGATIVE) NEGATIVE Urine Bilirubin (NEGATIVE) NEGATIVE Urine Urobilinogen (0.2 - 1.0 mg/dL) 0.2 Ur Leukocyte Esterase (NEGATIVE) NEGATIVE Urine RBC (0 - 3 RBC/HPF) 0-3 Urine WBC (0 - 3 WBC/HPF) 0-3 Ur Squamous Epith Cells (NONE SEEN /HPF) NONE SEEN Urine Bacteria (NONE SEEN /HPF) TRACE Hyaline Casts (NONE SEEN /LPF) 0-2 Urine Mucus (NONE SEEN /LPF) TRACE Laboratory Tests 07/04/24 0935: [Embedded Image Not Available] 07/04/24 0219: [Embedded Image Not Available] 07/03/24 2012: [Embedded Image Not Available] 07/03/24 1806: [Embedded Image Not Available] 07/03/24 1805: [Embedded Image Not Available] Microbiology: 07/04 934 SPUTUM: Sputum Culture - RES 07/04 934 SPUTUM: Gram Stain - RES 07/04 218 NASAL: MRSA DNA Surveillance Screen - RECD 07/03 1739 NASAL: MSSA Surveillance Screen - COMP 07/03 1739 NASAL: MRSA DNA Surveillance Screen - COMP 07/03 1739 NASAL: Influenza Virus Type B Antigen - COMP 07/03 1739 NASAL: Influenza Virus Type A Antigen - COMP Radiology data Recent Impressions: RADIOLOGY - XR CHEST 1 V 07/03 1702 Report Impression - Status: SIGNED Entered: 07/03/2024 1810 Impression: 1. No radiographic evidence of acute cardiopulmonary disease. Impression By: [email or web address] Corinne Iniguez M.D. ULTRASOUND - DUP EXTRACRANIAL CARLOS 07/03 180 Report Impression - Status: SIGNED Entered: 07/03/2024 1833 IMPRESSION: In the left carotid bifurcation there is high velocity through the internal carotid artery as outlined above with stenosis estimate of approximately 50-69%. On the right carotid bifurcation the flow velocity estimate is less than 50%. Please see above for follow-up imaging suggestions. Both vertebral arteries exhibit antegrade blood flow. Impression By: [email or web address] - Manuel Hardy M.D. ULTRASOUND - US EXTREM NON VASC LTD 07/03 180 Report Impression - Status: SIGNED Entered: 07/03/2024 182 Impression: Venous mapping as described above. Impression By: Lucina Iniguez M.D. RADIOLOGY - XR CHEST 1 V 07/04 0606 Report Impression - Status: SIGNED Entered: 07/04/2024 0906 IMPRESSION: Negative for acute chest process. Mild biapical pleural parenchymal scarring, left greater than right. Impression By: [email or web address] - Bossman Nichols D.O. Free Text Obj Notes Free Text Obj Notes: GEN: Appears tachypneic and winded with conversation every 3 or 4 words HEENT: Atraumatic, normocephalic, dry mucous membranes NECK: Supple, good range of motion, no tenderness, no JVD LUNGS: Symmetrical air entry, tachypneic, retractions, accessory muscle use, diminished throughout with fine wheezing CV: S tachycardic, warm and well perfused GI: Abdomen is soft, not tender or distended EXT/Musc: No edema or cyanosis. Pedal pulses present. Compartments soft Skin: SWarm to touch NEURO: Awake, alert and oriented x3. No facial droop or focal deficit Diagnosis, Assessment Plan Free text A P: Patient is a 68-year-old male with history of tobacco abuse and COPD in the CVICU for evaluation of coronary artery bypass graft surgery for multivessel coronary artery disease Acute on chronic hypoxic respiratory failure Acute exacerbation of COPD on home oxygen 2 to 4 L Tobacco abuse Multivessel coronary artery disease -DuoNebs, Zithromax, pulmonary consult. Will add ceftriaxone. Send sputum cultures. -Started on budesonide nebs and ipratropium nebs. -SpO2 goal of 88%, wean supplemental oxygen as tolerated, incentive spirometry, pulmonary hygiene -Duplexes of lower extremities -Influenza and COVID swab negative -Preop labs and workup per CT surgery -Will use BiPAP as needed -Started on beta-walter Repeat BMP SCDs for DVT prophylaxis Full code Critical care time 35 minutes spent with patient excluding bedside procedures and teach at 1611 RPT #:[id number] END OF REPORT [facility] 2024-07-04 13:24:00 [facility] ([facility]) Pulmonary Consultation Note REPORT#:[id number] REPORT STATUS: Signed REPORT INITIALIZATION DATE:07/04/24 TIME: 132 PATIENT: HUBERT LYNCH UNIT #: [id number] ROOM/BED: [place] [address] : 53 AGE: 68 SEX: M ATTEND: Marcellus Gilbert MD ADM AUTHOR: Ariela Mccurdy MD REPT SERVICE DT/TIME: 07/04/24 1324 * ALL edits or amendments must be made on the electronic/computer document * History of Present Illness HPI Requesting clinician: CT surgery Reason for consult: COPD exacerbation Chief complaint: SOB PCP: PCP: No Primary or Family Physician HPI: 68 yo M with h/o COPD, chronic hypoxia on home oxygen who presented for OHS in [place] with worsening SOB and productive cough. She was treated there for COPD exacerbation and pneumonia. She had LHC which showed mvd. She was transfered to [facility] for further care. She has had productive cough with yellow sputum. She is a chronic smoker - 1 pack per day. Pt has required BIPAP during hospital course. Hx Obtained From Patient, Prior medical records History - Adult longitudinal Additional medical history: COPD and HTN Alcohol use: Denies EtOH use Drug use: Denies recreational drugs Smoking status for patients 13 years old or older: Current every day smoker Date last smoked: 06/28/24 Packs per day: 1 Years smoked: 67 Pack years: 67 Allergies: Coded Allergies: No Known Allergies (07/03/24) Review of Systems Constitutional: Reports: fatigue. Denies: fever. Skin: Denies: ecchymosis, itching. Allergy/Immun: Denies: itching, rhinorrhea. Eyes: Denies: eye pain, photophobia. ENT: Denies: nose bleeding, sore throat. Respiratory: Reports: BARBA (dyspnea on exertion), pneumonia, productive cough (sputum), SOB, wheezing. Cardiovascular: Denies: chest pain, palpitations. GI: Denies: diarrhea, hematemesis, melena. : Denies: dysuria, hematuria. Heme: Denies: bruising, petechiae. Endocrine: Denies: polydipsia, polyphagia. Neuro: Denies: numbness, seizure. Psych: Denies: anxiety, confusion. Objective Physical Exam Vitals: Last Documented: Result Date Time O2 Delivery Nasal cannula 07/04 1200 O2 Flow Rate 2 07/04 1200 Pulse Ox 93 07/04 1200 B/P 143/72 07/04 1200 B/P Mean 98 07/04 1200 Pulse 94 07/04 1200 Resp 26 07/04 1200 FiO2 40 07/04 0809 Temp 98.2 07/04 0800 General appearance: alert, awake Head/eyes: atraumatic, normocephalic ENT: ENT: normal dentition, normal nose Neck: full range of motion, non-tender, no lymphadenopathy Cardiovascular: normal heart sounds, normal S1/S2, no murmur Respiratory/chest: on oxygen, wheezing, aerating well, clear to auscultation, symmetric expansion Abdomen: soft, non-tender, normal bowel sounds Genitourinary: no bladder distention, no flank pain Extremities: moves all, normal capillary refill Musculoskeletal: full range of motion, normal inspection, painless range of motion Neuro/COMMUNITY HEALTH EDUCATION COORDINATOR: alert, oriented X 3, CNII-XII intact Skin: dry, intact Diagnosis, Assessment Plan Free Text DxA P Notes Free Text DxA P Notes: Assessment: Acute on chronic hypoxic and hypercarbic respiratory failure COPD with acute exacerbation Acute bronchitis Multivessel CAD Heavy tobacco smoker Marijuana use Work-up/Imaging - personally reviewed CT Chest, 07/04/24 - centrilobular emphysema with apical predominance, KAROLINA scarring, bronchial wall thickening CXR, 07/03/24 - hyperinflation, prominent vascular markings BNP elevated - 174 COVID and Flu negative Recommendations: Pt currently in acute COPD exacerbation with wheezing and increased sputum production. Scheduled steroids - IV Solumedrol 40mg PO q8h Bronchodilators scheduled, Atrovent and Levalbuterol As needed bronchodilators Inhaled corticosteroid IV antibiotics - Rocephin and azithromycin Sputum culture pending Check VBG Continue supplemental oxygen, pt on HFNC 4-5L; wean to maintain O2 sat 90-94% BIPAP while sleeping and as needed Smoking cessation coounseling provided Pt undergoing CABG evaluation; recommend improvement in respiratory status prior to surgical intervention Thank you for this consult. Will continue to follow patient. Plan discussed with pt, pt's family and ICU team. Ariela Mccurdy MD Pulmonary Medicine at 1614 RPT #:[id number] END OF REPORT [facility] 2024-07-04 11:56:00 [facility] Adult General Consultation REPORT#:[id number] REPORT STATUS: Signed REPORT INITIALIZATION DATE:07/04/24 TIME: 115 PATIENT: HUBERT LYNCH UNIT #: [id number] ROOM/BED: [place] [address] : 53 AGE: 68 SEX: M ATTEND: Marcellus Gilbert MD ADM AUTHOR: Asim Helms MONOGRAM OPERATOR REPT SERVICE DT/TIME: 07/04/24 1156 * ALL edits or amendments must be made on the electronic/computer document * History of Present Illness Requesting Clinician: Dr. Gilbert Reason for consult: Medical management Chief complaint: SOB, CP PCP: PCP: No Primary or Family Physician HPI: 68-year-old gentleman with a past medical history of COPD, on home oxygen, 4 L who presented to the hospital at [place] for complaints of worsening shortness of breath productive cough,. Patient was treated for COPD exacerbation and pneumonia with antibiotics. He underwent heart catheterization at [facility] multivessel coronary artery disease. The patient does admit to productive cough with yellow sputum. Patient denies any history of PE and DVT. Denies any nausea vomiting diarrhea. Patient was transferred to [facility] for further workup and evaluation for coronary bypass graft surgery History - Adult longitudinal Additional medical history: COPD and HTN Alcohol use: Denies EtOH use Drug use: Denies recreational drugs Smoking status for patients 13 years old or older: Current every day smoker Date last smoked: 06/28/24 Packs per day: 1 Years smoked: 67 Pack years: 67 Medications: Home Medications: Medication Dose/Rte/Freq Days Qty Entered Last Max Daily Dose Reviewed 1 PUFF INH DAILY 07/04/24 07/04/24 Fluticasone/Umeclidin/Vilan ter (TRELEGY ELLIPTA 0901 0903 200-62.5-25) Strength: 200-62.5 BLST.W.DEV ALBUTEROL (ACCUNEB) 1.25 MG INH 07/04/24 07/04/24 Strength: 1.25 MG/3 ML NEB RTQ4H PRN PRN copd 901 0903 IPRATROPIUM/ALBUTEROL 3 ML NEB 07/04/24 07/04/24 (DUONEB 0.5 MG-3/3ML) RTQ4H PRN PRN copd 902 902 Strength: 0.5 MG-3 MG (2.5 MG BASE)/3 ML NEB Current Hospital Medications: Anti-Infective Agents Sig/Dunia Start time Last Medication Dose Route Stop Time Status Admin Ceftriaxone Sodium 1,000 MG Q24H 07/04 1000 AC 07/04 (ROCEPHIN 1000MG IV 07/09 0959 1101 VIAL) Sodium Chloride 10 ML (SODIUM CHLORIDE) Azithromycin 500 MG Q24H 07/03 1730 AC 07/03 (ZITHROMAX) IV 07/06 1729 1835 Sodium Chloride 250 ML (SODIUM CHLORIDE 0.9%) Autonomic Drugs Sig/Dunia Start time Last Medication Dose Route Stop Time Status Admin Ipratropium [place] 500 MCG RTQ6H 07/04 1500 AC (ATROVENT) INH 10/02 1459 Levalbuterol HCl 1.25 MG RTQ4H PRN PRN 07/04 0945 AC (Levalbuterol 1.25 INH 10/02 0944 mg/3 mL NEB) Albuterol/Ipratropium 3 ML RTQ4H PRN PRN 07/03 1730 DC 07/04 (DUONEB) NEB 10/01 1729 0809 Cardiovascular Drugs Sig/Dunia Start time Last Medication Dose Route Stop Time Status Admin Metoprolol Tartrate 12.5 MG Q12HR 07/04 0930 AC 07/04 (LOPRESSOR) PO 10/02 0929 0925 Central Nervous System Agents Sig/Dunia Start time Last Medication Dose Route Stop Time Status Admin Aspirin 81 MG DAILY 07/03 173 AC 07/04 (ASPIRIN) PO 10/01 1729 0904 Magnesium Sulfate 50 ML ONCE ONE 07/03 173 DC 07/03 (MAGNESIUM SULFATE IV 07/03 1928 1835 2GM/SWFI 50ML) Electrolytic, Caloric, And Harriet Sig/Dunia Start time Last Medication Dose Route Stop Time Status Admin Sodium Zirconium 10 GM ONCE ONE 07/04 929 DC 07/04 Cyclosilicate PO 07/04 0931 1101 (Lokelma) Eye, Ear, Nose And Throat (Een Sig/Dunia Start time Last Medication Dose Route Stop Time Status Admin Budesonide 0.5 MG RTBID 07/04 914 AC 07/04 (PULMICORT RESPULES) INH 10/02 0914 1005 Hormones And Synthetic Substit Sig/Dunia Start time Last Medication Dose Route Stop Time Status Admin Methylprednisolone 40 MG ONCE ONE 07/04 914 DC 07/04 Sodium Succinate IV 07/04 0916 0925 (Solu-Medrol 40 MG Vial) Pharmaceutical Aids Sig/Dunia Start time Last Medication Dose Route Stop Time Status Admin Sterile Water 1 ML ASDIR PRN 07/04 929 AC 07/04 (WATER FOR INJECTION) IV 10/02 0929 0924 Allergies: Coded Allergies: No Known Allergies (07/03/24) Review of Systems Constitutional: fatigue, generalized weakness. Eyes: Denies: redness, visual loss/blurred, diplopia, photophobia. ENT: Denies: earache, mouth pain, nose bleeding, throat pain, tongue pain. Respiratory: Reports: BARBA (dyspnea on exertion), productive cough (sputum), SOB, wheezing. Cardiovascular: Denies: BARBA (dyspnea on exertion), orthopnea, palpitations. GI: Denies: anorexia, diarrhea, hematochezia. : Denies: flank pain, nocturia, penile discharge, penile lesion, testicular pain. Endocrine: Denies: polydipsia, polyphagia, polyuria. Neuro: Denies: bowel dysfunction, dizziness, lightheaded, slurred speech. Psych: Denies: anxiety, change in mental status, delusional, stress. Objective VS/I O: Last Documented: Result Date Time Pulse Ox 97 07/04 1100 B/P 154/76 07/04 1100 B/P Mean 108 07/04 1100 Pulse 91 07/04 1100 Resp 33 07/04 1100 O2 Delivery Nasal cannula 07/04 1006 O2 Flow Rate 4 07/04 1006 FiO2 40 07/04 0809 Temp 36.8 07/04 0800 24 hour I O ending at 0700: 07/04 0700 07/03 1900 Intake Total 600.00 Output Total 775 Balance -175.00 Intake, IV 300.00 Intake, Oral 300 Output, Urine 775 Patient 64.9 kg 67 kg Weight Weight Bed scale Not applicable Measurement Method PATIENT WEIGHT: Weight (lb): 143 Weight (oz): 1.28 Weight (kg): 64.900 General appearance: respiratory support, alert, awake Head/Eyes: atraumatic, normocephalic, PERRLA Neck: full range of motion, no JVD, no lymphadenopathy Cardiovascular: normal capillary refill, pedal pulses present Respiratory: aerating well, symmetric expansion, clear to auscultation Abdomen: soft Extremities: moves all Musculoskeletal: no CVA tenderness, no muscle spasm Neuro/COMMUNITY HEALTH EDUCATION COORDINATOR: alert Results Findings/Data: Laboratory Tests: 07/04 07/04 07/04 07/03 0935 0935 0219 2011 Chemistry Sodium (134 - 147 mEq/L) 135 137 Potassium (3.4 - 5.0 mEq/L) 5.0 5.5 H Chloride (100 - 108 mEq/L) 102 103 Carbon Dioxide (21 - 33 mEq/l) 34 H 33 Anion Gap (0 - 20) 4 7 BUN (7 - 25 mg/dL) 30 H 28 H Creatinine (0.6 - 1.3 mg/dL) 1.1 1.2 Glomerular Filtr Rate (70 - 80) 72.2 65.1 L Glucose (77 - 141 mg/dL) 131 152 H Lactic Acid (0.4 - 1.9 mmol/L) 1.6 Calcium (8.0 - 10.5 mg/dL) 8.3 8.8 Ionized Calcium Johnathan (1.09 - 1.30 MMOL/L) 1.12 Phosphorus (2.5 - 4.9 MG/DL) 3.9 Magnesium (1.6 - 2.6 mg/dL) 2.64 H Total Bilirubin (0.0 - 1.0 mg/dL) 0.50 AST (8 - 34 IUnit/L) 60 H ALT (10 - 49 IUnit/L) 48 Total Alk Phosphatase (20 - 125 IUnit/L) 93 B-Natriuretic Peptide (0 - 100 PG/ML) 174.0 H Total Protein (5.7 - 8.2 g/dL) 6.8 Albumin (3.4 - 5.0 g/dL) 3.40 Hematology WBC (4.5 - 11.0 x10 3/uL) 11.2 H RBC (4.00 - 5.60 x10 6/uL) 4.64 Hgb (12.5 - 16.9 g/dL) 14.5 Hct (37.5 - 50.7 %) 44.1 MCV (81.0 - 99.0 fL) 95.0 MCH (27.0 - 33.0 pg) 31.3 MCHC (33.0 - 37.0 g/dL) 32.9 L RDW (11.5 - 14.5 %) 14.9 H Plt Count (150 - 400 x10 3/uL) 243 MPV (7.0 - 9.0 fL) 9.7 H Neut % (Auto) (56.0 - 77.0 %) 91.1 H Lymph % (Auto) (14.0 - 32.0 %) 3.8 L [place] % (Auto) (4.8 - 9.0 %) 4.5 L Eos % (Auto) (0.3 - 3.7 %) 0.0 L Baso % (Auto) (0.0 - 2.0 %) 0.1 Neut # (Auto) (2.0 - 7.6 x10 3/uL) 10.17 H Lymph # (Auto) (1.0 - 3.8 x10 3/uL) 0.42 L [place] # (Auto) (0.1 - 0.8 x10 3/uL) 0.50 Eos # (Auto) (0.0 - 0.2 x10 3/uL) 0.00 Baso # (Auto) (0.0 - 0.2 x10 3/uL) 0.01 Abs Immat Gran (auto) (0.00 - 0.03 x10 3/uL) 0.06 H Immature Gran % (0.0 - 2.0 %) 0.5 Nucleated RBC % (0 - 0 %) 0.0 Nucleated RBCs # (Man) (0.0 - 0.1 x10 3/uL) 0.00 07/03 190 1806 Chemistry Sodium (134 - 147 mEq/L) 135 Potassium (3.4 - 5.0 mEq/L) 5.4 H Chloride (100 - 108 mEq/L) 103 Carbon Dioxide (21 - 33 mEq/l) 27 Anion Gap (0 - 20) 10 BUN (7 - 25 mg/dL) 24 Creatinine (0.6 - 1.3 mg/dL) 1.3 Glomerular Filtr Rate (70 - 80) 59.1 L Glucose (77 - 141 mg/dL) 138 Hemoglobin A1c (4.8 - 6.0 %A1C) 5.5 Calcium (8.0 - 10.5 mg/dL) 9.0 Hematology WBC (4.5 - 11.0 x10 3/uL) 10.7 RBC (4.00 - 5.60 x10 6/uL) 5.46 Hgb (12.5 - 16.9 g/dL) 16.5 Hct (37.5 - 50.7 %) 51.8 H MCV (81.0 - 99.0 fL) 94.9 MCH (27.0 - 33.0 pg) 30.2 MCHC (33.0 - 37.0 g/dL) 31.9 L RDW (11.5 - 14.5 %) 15.3 H Plt Count (150 - 400 x10 3/uL) 199 MPV (7.0 - 9.0 fL) 11.1 H Neut % (Auto) (56.0 - 77.0 %) 92.8 H Lymph % (Auto) (14.0 - 32.0 %) 2.9 L [place] % (Auto) (4.8 - 9.0 %) 3.0 L Eos % (Auto) (0.3 - 3.7 %) 0.2 L Baso % (Auto) (0.0 - 2.0 %) 0.2 Neut # (Auto) (2.0 - 7.6 x10 3/uL) 9.94 H Lymph # (Auto) (1.0 - 3.8 x10 3/uL) 0.31 L [place] # (Auto) (0.1 - 0.8 x10 3/uL) 0.32 Eos # (Auto) (0.0 - 0.2 x10 3/uL) 0.02 Baso # (Auto) (0.0 - 0.2 x10 3/uL) 0.02 Abs Immat Gran (auto) (0.00 - 0.03 x10 3/uL) 0.10 H Immature Gran % (0.0 - 2.0 %) 0.9 Nucleated RBC % (0 - 0 %) 0.0 Nucleated RBCs # (Man) (0.0 - 0.1 x10 3/uL) 0.00 Immature Plt Fraction (0.9 - 11.2 %) 11.4 H Plt Morphology Comment AGGREGATES ESR Westergren (0 - 15 mm/hr) 18 H Urines Urine Color (YEL/STRAW) YELLOW Urine Appearance (CLEAR) CLEAR Urine pH (5.0 - 7.0) 5.0 Ur Specific [place] (1.005 - 1.030) 1.058 H Urine Protein (NEGATIVE) NEGATIVE Urine Glucose (UA) (NEGATIVE) NEGATIVE Urine Ketones (NEGATIVE) NEGATIVE Urine Blood (NEGATIVE) NEGATIVE Urine Nitrite (NEGATIVE) NEGATIVE Urine Bilirubin (NEGATIVE) NEGATIVE Urine Urobilinogen (0.2 - 1.0 mg/dL) 0.2 Ur Leukocyte Esterase (NEGATIVE) NEGATIVE Urine RBC (0 - 3 RBC/HPF) 0-3 Urine WBC (0 - 3 WBC/HPF) 0-3 Ur Squamous Epith Cells (NONE SEEN /HPF) NONE SEEN Urine Bacteria (NONE SEEN /HPF) TRACE Hyaline Casts (NONE SEEN /LPF) 0-2 Urine Mucus (NONE SEEN /LPF) TRACE 07/03 07/03 07/03 07/03 1805 1805 1805 1740 Chemistry Sodium (134 - 147 mEq/L) 137 Potassium (3.4 - 5.0 mEq/L) 5.7 H Chloride (100 - 108 mEq/L) 101 Carbon Dioxide (21 - 33 mEq/l) 31 Anion Gap (0 - 20) 11 BUN (7 - 25 mg/dL) 25 Creatinine (0.6 - 1.3 mg/dL) 1.3 Glomerular Filtr Rate (70 - 80) 59.1 L Glucose (77 - 141 mg/dL) 146 H Calcium (8.0 - 10.5 mg/dL) 9.5 Magnesium (1.6 - 2.6 mg/dL) 2.36 Total Bilirubin (0.0 - 1.0 mg/dL) 0.50 AST (8 - 34 IUnit/L) 39 H ALT (10 - 49 IUnit/L) 51 H Total Alk Phosphatase (20 - 125 IUnit/L) 116 Troponin I High Sens (0 - 54 ng/L) 469 *H C-Reactive Protein (<5.0 MG/L) 13.2 H B-Natriuretic Peptide (0 - 100 PG/ML) 85.0 Total Protein (5.7 - 8.2 g/dL) 8.1 Albumin (3.4 - 5.0 g/dL) 4.10 Triglycerides (40 - 150 mg/dL) 148 Cholesterol (<200 mg/dL) 270 H LDL Cholesterol Measurd (0 - 100 mg/dL) 143.0 H HDL Cholesterol (40 - 60 MG/DL) 109.9 H Cholesterol/HDL Ratio (3.43 - 4.97 RATIO) 2.46 L Coagulation INR (0.8 - 1.2) 1.0 PTT ([place]leton) (25.0 - 39.5 Seconds) 21.9 L PT Patient/Control Mix (9.3 - 12.9 11.7 SECONDS) Serology SARS-CoV-2 Ag (Rapid) (Negative) Negative Microbiology: Date/Time Procedure - Status Source Growth 07/04 0935 Sputum Culture - RES SPUTUM 07/04 0935 Gram Stain - RES SPUTUM 07/04 0219 MRSA DNA Surveillance Screen - RECD NASAL 07/03 1740 MSSA Surveillance Screen - COMP NASAL 07/03 1740 MRSA DNA Surveillance Screen - COMP NASAL 07/03 1740 Influenza Virus Type B Antigen - COMP NASAL 07/03 1740 Influenza Virus Type A Antigen - COMP NASAL Recent Impressions: RADIOLOGY - XR CHEST 1 V 07/03 1702 Report Impression - Status: SIGNED Entered: 07/03/2024 1810 Impression: 1. No radiographic evidence of acute cardiopulmonary disease. Impression By: Lucina Iniguez M.D. ULTRASOUND - DUP EXTRACRANIAL CAROLS 07/03 1801 Report Impression - Status: SIGNED Entered: 07/03/2024 1833 IMPRESSION: In the left carotid bifurcation there is high velocity through the internal carotid artery as outlined above with stenosis estimate of approximately 50-69%. On the right carotid bifurcation the flow velocity estimate is less than 50%. Please see above for follow-up imaging suggestions. Both vertebral arteries exhibit antegrade blood flow. Impression By: [email or web address] - Manuel Hardy M.D. ULTRASOUND - [facility] 07/03 1801 Report Impression - Status: SIGNED Entered: 07/03/2024 182 Impression: Venous mapping as described above. Impression By: [email or web address] - Ahmet Iniguez M.D. RADIOLOGY - XR CHEST 1 V 07/04 0606 Report Impression - Status: SIGNED Entered: 07/04/2024 09 IMPRESSION: Negative for acute chest process. Mild biapical pleural parenchymal scarring, left greater than right. Impression By: [email or web address] - Bossman Nichols D.O. Results: labs reviewed, vital signs reviewed, vital signs stable, x-ray personally reviewed, current med profile rev'd Diagnosis, Assessment Plan Plan discussed with: patient, admitting physician, consultants, nurse Code Status/Resusc. Discussion Code status: full code Free Text DxA P Notes Free Text DxA P Notes: Assessment and plan: Multivessel CAD. Acute COPD excerbation. SOB due to CAD. HX of COPD and PNA. Plan: CVICU. Pulmonary for COPD. CV surgery for CABG eval. Monitor respirartory status, breathing tx, o2 support. IS. PFTs. Pain meds. Antiemetics. Cough meds. Follow labs and replace as needed. Continue home meds. Monitor. at 1322 at 1344 RPT #:[id number] END OF REPORT [facility] 2024-07-04 09:25:00 [facility] ([facility]) Cardiology Consultation REPORT#:[id number] REPORT STATUS: Signed REPORT INITIALIZATION DATE:07/04/24 TIME: 924 PATIENT: HUBERT LYNCH UNIT #: [id number] [facility] AGE: 68 SEX: M ATTEND: Marcellus Gilbert MD ADM AUTHOR: Gerri Sterling AGACNP REPT SERVICE DT/TIME: 07/04/24 5841 * ALL edits or amendments must be made on the electronic/computer document * History of Present Illness HPI Requesting Clinician: DR. Gilbert Reason for consult: CAD Chief complaint: Shortness of breath PCP: PCP: No Primary or Family Physician HPI: 68 YO male with MH of COPD, lifelong heavy smoker who initially presented at [facility] with shortness of breath attributed to COPD exacerbation and pneumonia. He was eventually discharged but presented back to the hospital with persistent shortness of breath which prompted coronary angiogram which revealed multivessel CAD. The patient is transferred to our facility for surgical revascularization evaluation. Hx Obtained From Patient, Prior medical records History - Adult longitudinal Past medical history: Reports: COPD, Hypertension. Denies: Alcoholism/subst abuse, Atrial fibrillation, Congestive heart failure, Coronary artery disease, Kidney disease/ stones. Additional surgical history: Denies PSH Alcohol use: Denies EtOH use Drug use: Denies recreational drugs Smoking status for patients 13 years old or older: Current every day smoker Date last smoked: 06/28/24 Packs per day: 1 Years smoked: 67 Pack years: 67 Home medications: Home Medications: Fluticasone/Umeclidin/Vilanter (TRELEGY ELLIPTA 200-62.5-25) 1 PUFF INH DAILY ALBUTEROL (ACCUNEB) 1.25 MG INH RTQ4H PRN PRN copd IPRATROPIUM/ALBUTEROL (DUONEB 0.5 MG-3/3ML) 3 ML NEB RTQ4H PRN PRN copd Allergies: Coded Allergies: No Known Allergies (07/03/24) Ambulatory status: Independent Review of Systems Constitutional: fatigue, generalized weakness. Respiratory: Reports: pneumonia, productive cough (sputum), SOB, wheezing. Cardiovascular: Reports: dyspnea on exertion, orthopnea, parox noctural dyspnea. Denies: chest pain, edema, palpitations, unstable angina. GI: Denies: abdominal pain, nausea, vomiting. : Denies: dysuria. Musculoskeletal: Denies: extremity swelling. Neuro: weakness. Denies: change in LOC, confusion, syncope. Objective General VS/I O: Vital Signs: Date Time Temp Pulse Resp B/P B/P Pulse O2 O2 Flow FiO2 Mean Ox Delivery Rate 07/04 0911 95 High flow 2 nasal cannula 07/04 0857 98 High flow 5 nasal cannula 07/04 0809 91 100 40 07/04 0809 100 BiPAP 40 07/04 0600 104 25 142/74 101 99 07/04 0500 90 22 143/73 102 98 07/04 0403 99 23 149/70 101 100 07/04 0400 36.9 07/04 0400 High flow 6 nasal cannula 07/04 0350 86 98 40 07/04 0306 114 30 163/78 112 97 07/04 0200 94 97/53 67 97 07/04 0101 101 37 144/63 90 99 07/04 0012 103 98 40 07/04 0000 36.8 07/04 0000 BiPAP 07/04 0000 97 20 124/59 84 98 07/03 2300 91 15 117/58 83 98 07/03 2200 93 20 111/59 82 98 07/03 2100 96 25 106/54 75 98 07/03 2045 102 100 40 07/03 2023 96 High flow 6 nasal cannula 07/03 1999 36.9 High flow 6 nasal cannula 07/03 1999 High flow 6 nasal cannula 07/03 1999 111 30 144/65 94 99 07/03 1900 115 39 141/70 96 96 07/03 1801 107 23 148/68 98 97 07/03 1748 98 Nasal 5 cannula 07/03 1629 37.0 07/03 1629 High flow 4 nasal cannula 24 hour I O ending at 0700: 07/04 0700 07/03 1900 Intake Total 600.00 Output Total 775 Balance -175.00 Intake, IV 300.00 Intake, Oral 300 Output, Urine 775 Patient 64.9 kg 67 kg Weight Weight Bed scale Not applicable Measurement Method PATIENT WEIGHT: Weight (lb): 143 Weight (oz): 1.28 Weight (kg): 64.900 Medications: Active Meds + DC'd Last 24 Hrs Ipratropium [place] (ATROVENT) 500 MCG RTQ6H INH (UNV) Metoprolol Tartrate (LOPRESSOR) 12.5 MG Q12HR PO Sterile Water (WATER FOR INJECTION) 1 ML ASDIR PRN IV Budesonide (PULMICORT RESPULES) 0.5 MG RTBID INH Methylprednisolone Sodium Succinate (Solu-Medrol 40 MG Vial) 40 MG ONCE ONE IV (DC) Albuterol/Ipratropium (DUONEB) 3 ML RTQ4H PRN PRN NEB Aspirin (ASPIRIN) 81 MG DAILY PO Azithromycin (ZITHROMAX) 500 MG Q24H IV Sodium Chloride (SODIUM CHLORIDE 0.9%) 250 ML Magnesium Sulfate (MAGNESIUM SULFATE 2GM/SWFI 50ML) 50 ML ONCE ONE IV ( DC) Physical Exam General appearance: chronically ill appearing, frail, alert, awake, oriented Neck: non-tender, no JVD Cardiovascular: CV assessment: tachycardia Respiratory: accessory muscle use, on oxygen, shortness of breath, wheezing Abdomen: soft, non-tender, normal bowel sounds, no distention Genitourinary: no urinary catheter Lower extremity: LE assessment: no calf tenderness, no edema Musculoskeletal: normal inspection Neuro/COMMUNITY HEALTH EDUCATION COORDINATOR: alert, oriented X 3, normal speech Psychiatry: normal affect, normal mood Results Findings/Data: Laboratory Tests 07/04 180 1805 Chemistry Sodium (134 - 147 mEq/L) 137 135 Potassium (3.4 - 5.0 mEq/L) 5.5 H 5.4 H Chloride (100 - 108 mEq/L) 103 103 Carbon Dioxide (21 - 33 mEq/l) 33 27 Anion Gap (0 - 20) 7 10 BUN (7 - 25 mg/dL) 28 H 24 Creatinine (0.6 - 1.3 mg/dL) 1.2 1.3 Glomerular Filtr Rate (70 - 80) 65.1 L 59.1 L Glucose (77 - 141 mg/dL) 152 H 138 Hemoglobin A1c (4.8 - 6.0 %A1C) 5.5 Lactic Acid (0.4 - 1.9 mmol/L) 1.6 Calcium (8.0 - 10.5 mg/dL) 8.8 9.0 Ionized Calcium Johnathan (1.09 - 1.30 1.12 MMOL/L) Phosphorus (2.5 - 4.9 MG/DL) 3.9 Magnesium (1.6 - 2.6 mg/dL) 2.64 H Total Bilirubin (0.0 - 1.0 mg/dL) 0.50 AST (8 - 34 IUnit/L) 60 H ALT (10 - 49 IUnit/L) 48 Total Alk Phosphatase (20 - 125 93 IUnit/L) C-Reactive Protein (<5.0 MG/L) 13.2 H Total Protein (5.7 - 8.2 g/dL) 6.8 Albumin (3.4 - 5.0 g/dL) 3.40 07/03 1805 Chemistry Sodium (134 - 147 mEq/L) 137 Potassium (3.4 - 5.0 mEq/L) 5.7 H Chloride (100 - 108 mEq/L) 101 Carbon Dioxide (21 - 33 mEq/l) 31 Anion Gap (0 - 20) 11 BUN (7 - 25 mg/dL) 25 Creatinine (0.6 - 1.3 mg/dL) 1.3 Glomerular Filtr Rate (70 - 80) 59.1 L Glucose (77 - 141 mg/dL) 146 H Calcium (8.0 - 10.5 mg/dL) 9.5 Magnesium (1.6 - 2.6 mg/dL) 2.36 Total Bilirubin (0.0 - 1.0 mg/dL) 0.50 AST (8 - 34 IUnit/L) 39 H ALT (10 - 49 IUnit/L) 51 H Total Alk Phosphatase (20 - 125 IUnit/L) 116 Troponin I High Sens (0 - 54 ng/L) 469 *H B-Natriuretic Peptide (0 - 100 PG/ML) 85.0 Total Protein (5.7 - 8.2 g/dL) 8.1 Albumin (3.4 - 5.0 g/dL) 4.10 Triglycerides (40 - 150 mg/dL) 148 Cholesterol (<200 mg/dL) 270 H LDL Cholesterol Measurd (0 - 100 mg/dL) 143.0 H HDL Cholesterol (40 - 60 MG/DL) 109.9 H Cholesterol/HDL Ratio (3.43 - 4.97 RATIO) 2.46 L Laboratory Tests 07/03 1804 Coagulation INR (0.8 - 1.2) 1.0 PTT (Veronica) (25.0 - 39.5 Seconds) 21.9 L PT Patient/Control Mix (9.3 - 12.9 SECONDS) 11.7 Laboratory Tests 07/04 180 Hematology WBC (4.5 - 11.0 x10 3/uL) 11.2 H 10.7 RBC (4.00 - 5.60 x10 6/uL) 4.64 5.46 Hgb (12.5 - 16.9 g/dL) 14.5 16.5 Hct (37.5 - 50.7 %) 44.1 51.8 H MCV (81.0 - 99.0 fL) 95.0 94.9 MCH (27.0 - 33.0 pg) 31.3 30.2 MCHC (33.0 - 37.0 g/dL) 32.9 L 31.9 L RDW (11.5 - 14.5 %) 14.9 H 15.3 H Plt Count (150 - 400 x10 3/uL) 243 199 MPV (7.0 - 9.0 fL) 9.7 H 11.1 H Neut % (Auto) (56.0 - 77.0 %) 91.1 H 92.8 H Lymph % (Auto) (14.0 - 32.0 %) 3.8 L 2.9 L [place] % (Auto) (4.8 - 9.0 %) 4.5 L 3.0 L Eos % (Auto) (0.3 - 3.7 %) 0.0 L 0.2 L Baso % (Auto) (0.0 - 2.0 %) 0.1 0.2 Neut # (Auto) (2.0 - 7.6 x10 3/uL) 10.17 H 9.94 H Lymph # (Auto) (1.0 - 3.8 x10 3/uL) 0.42 L 0.31 L [place] # (Auto) (0.1 - 0.8 x10 3/uL) 0.50 0.32 Eos # (Auto) (0.0 - 0.2 x10 3/uL) 0.00 0.02 Baso # (Auto) (0.0 - 0.2 x10 3/uL) 0.01 0.02 Abs Immat Gran (auto) (0.00 - 0.03 x10 3/uL) 0.06 H 0.10 H Immature Gran % (0.0 - 2.0 %) 0.5 0.9 Nucleated RBC % (0 - 0 %) 0.0 0.0 Nucleated RBCs # (Man) (0.0 - 0.1 x10 3/uL) 0.00 0.00 Immature Plt Fraction (0.9 - 11.2 %) 11.4 H Plt Morphology Comment AGGREGATES ESR Westergren (0 - 15 mm/hr) 18 H Laboratory Tests 07/03 1739 Serology SARS-CoV-2 Ag (Rapid) (Negative) Negative Laboratory Tests 07/03 190 Urines Urine Color (YEL/STRAW) YELLOW Urine Appearance (CLEAR) CLEAR Urine pH (5.0 - 7.0) 5.0 Ur Specific [place] (1.005 - 1.030) 1.058 H Urine Protein (NEGATIVE) NEGATIVE Urine Glucose (UA) (NEGATIVE) NEGATIVE Urine Ketones (NEGATIVE) NEGATIVE Urine Blood (NEGATIVE) NEGATIVE Urine Nitrite (NEGATIVE) NEGATIVE Urine Bilirubin (NEGATIVE) NEGATIVE Urine Urobilinogen (0.2 - 1.0 mg/dL) 0.2 Ur Leukocyte Esterase (NEGATIVE) NEGATIVE Urine RBC (0 - 3 RBC/HPF) 0-3 Urine WBC (0 - 3 WBC/HPF) 0-3 Ur Squamous Epith Cells (NONE SEEN /HPF) NONE SEEN Urine Bacteria (NONE SEEN /HPF) TRACE Hyaline Casts (NONE SEEN /LPF) 0-2 Urine Mucus (NONE SEEN /LPF) TRACE Microbiology Date/Time Procedure - Status Source Growth 07/03 1739 MSSA Surveillance Screen - COMP NASAL 07/03 1739 MRSA DNA Surveillance Screen - COMP NASAL 07/03 1739 Influenza Virus Type B Antigen - COMP NASAL 07/03 1739 Influenza Virus Type A Antigen - COMP NASAL Laboratory Tests 07/04 07/03 07/03 0219 1805 1805 Chemistry Magnesium (1.6 - 2.6 mg/dL) 2.64 H 2.36 Troponin I High Sens (0 - 54 ng/L) 469 *H B-Natriuretic Peptide (0 - 100 PG/ML) 85.0 Radiology Data: Recent Impressions: RADIOLOGY - XR CHEST 1 V 07/03 1702 Report Impression - Status: SIGNED Entered: 07/03/2024 1810 Impression: 1. No radiographic evidence of acute cardiopulmonary disease. Impression By: Lucina Iniguez M.D. ULTRASOUND - DUP EXTRACRANIAL CARLOS 07/03 1801 Report Impression - Status: SIGNED Entered: 07/03/2024 1833 IMPRESSION: In the left carotid bifurcation there is high velocity through the internal carotid artery as outlined above with stenosis estimate of approximately 50-69%. On the right carotid bifurcation the flow velocity estimate is less than 50%. Please see above for follow-up imaging suggestions. Both vertebral arteries exhibit antegrade blood flow. Impression By: [email or web address] - Manuel Hardy M.D. ULTRASOUND - [facility] 07/03 180 Report Impression - Status: SIGNED Entered: 07/03/2024 1823 Impression: Venous mapping as described above. Impression By: [email or web address] - Ahmet Iniguez M.D. RADIOLOGY - XR CHEST 1 V 07/04 0606 Report Impression - Status: SIGNED Entered: 07/04/2024 0906 IMPRESSION: Negative for acute chest process. Mild biapical pleural parenchymal scarring, left greater than right. Impression By: [email or web address] - Bossman Nichols D.O. Results: labs reviewed, vital signs reviewed Diagnosis, Assessment Plan Plan discussed with: patient, collaborating MD, nurse Free Text DxA P Notes Free Text DxA P Notes: 68 YO male with MH of COPD, lifelong heavy smoker who initially presented at [facility] with shortness of breath attributed to COPD exacerbation and pneumonia. He was eventually discharged but presented back to the hospital with persistent shortness of breath which prompted coronary angiogram which revealed multivessel CAD. The patient is transferred to our facility for surgical revascularization evaluation. 1. Multivessel CAD * CABG evaluation ongoing * continue ASA * start atorvastatin 40 mg daily * get echocardiogram 2. COPD exacerbation/Hypoxia lifelong tobacco abuse recently treated for pneumonia * pulmonary consulted 3. Hyperkalemia * K 5.7->5.4->5.5 * give Lokelma 10 mg Appreciate the referral. MDM by Dr. Toribio. at 1750 at 6769 RPT #:[id number] END OF REPORT [facility] 2024-07-04 07:57:00 [facility] Cardiothoracic Surgery Prog REPORT#:[id number] REPORT STATUS: Signed REPORT INITIALIZATION DATE:07/04/24 TIME: 0757 PATIENT: HUBERT LYNCH UNIT #: [id number] ROOM/BED: [facility] : 53 AGE: 68 SEX: M ATTEND: Marcellus Gilbert MD ADM AUTHOR: Bonita Resendiz Physic REPT SERVICE DT/TIME: 07/04/24 6349 * ALL edits or amendments must be made on the electronic/computer document * Subjective Chief complaint: SOB, Multivessel CAD Review of Systems Constitutional: Reports: fatigue. Allergy/Immun: Denies: anaphylaxis, hives, itching. Eyes: Denies: diplopia, eye pain. Respiratory: Reports: BARBA (dyspnea on exertion), SOB. Cardiovascular: Reports: BARBA (dyspnea on exertion). Denies: chest pain. GI: Denies: constipation, diarrhea. : Denies: dysuria, hematuria. Musculoskeletal: Denies: joint pain, joint swelling. Heme: Denies: bleeding, bruising. All systems rev neg: except as marked Objective General VS/I O Last Documented: Result Date Time Pulse Ox 99 07/04 0600 B/P 142/74 07/04 0600 B/P Mean 101 07/04 0600 Pulse 104 07/04 0600 Resp 25 07/04 0600 Temp 98.4 07/04 0400 O2 Delivery High flow nasal cannula 07/04 0400 O2 Flow Rate 6 07/04 0400 FiO2 40 07/04 0350 24 hour I O ending at 0700: 07/04 0700 07/03 1900 Intake Total 600.00 Output Total 775 Balance -175.00 Intake, IV 300.00 Intake, Oral 300 Output, Urine 775 Patient 64.9 kg 67 kg Weight Weight Bed scale Not applicable Measurement Method PATIENT WEIGHT: Weight (lb): 143 Weight (oz): 1.28 Weight (kg): 64.900 Physical Exam General appearance: alert, awake, oriented HEENT: anicteric, mucosal membranes moist Neck: full range of motion, non-tender Cardiovascular: tachycardia Respiratory: crackles, decreased breath sounds Abdomen: soft, non-tender Extremities: dry, moves all Neuro/[employer]ITY [employer] EDUCATION COORDINATOR: alert, oriented X 3 Skin: dry Diagnosis, Assessment Plan Free Text A P: This is a 68-year-old gentleman with a past medical history of COPD, on home oxygen, 4 L who presented to the hospital at [facility] for complaints of worsening shortness of breath productive cough,. Patient was treated for COPD exacerbation and pneumonia with antibiotics. Patient then underwent heart catheterization at [facility] multivessel coronary artery disease. The patient does admit to productive cough with yellow sputum. Patient denies any history of PE and DVT. Denies any nausea vomiting diarrhea. Patient was transferred to [facility] for further workup and evaluation for coronary bypass graft surgery Patient reports he continues to smoke 1 pack/day. Patient denies any alcohol use. Patient transferred to [facility] for COPD exasperation and workup for multivessel coronary disease Assessment/plan 1. Coronary disease 2. COPD exacerbation With recent history of pneumonia 3. Current everyday smoker Patient will be admitted. Pulmonary consulted for COPD. Will order CT of the chest. Echocardiogram ordered. Consult cardiology. Workup underway for Multivessel CAD. Further recommendations to follow. 07/04/24 Patient resting Required BiPAP overnight. Denies chest pains Workup underway. Cardiology consulted Echocardiogram completed. Pending result CT of the chest Carotid Doppler shows 50 to 70% stenosis of the left carotid. Right carotid shows less than 50% stenosis Vein mapping completed Pulmonary consulted, appreciate input. Started on azithromycin Patient seen and examined at [facility]. Workup underway. Plan of care discussed with multidisciplinary team Pulmonary for COPD exacerbation. Cardiology consult. Further recs to follow. at 0810 at 0434 RPT #:[id number] END OF REPORT [facility] 2024-07-03 17:30:00 [facility] ([facility]) Critical Care Consult Note REPORT#:[id number] REPORT STATUS: Signed REPORT INITIALIZATION DATE:07/03/24 TIME: 173 PATIENT: HUBERT LYNCH UNIT #: [id number] ROOM/BED: [place] [id number] : 53 AGE: 68 SEX: M ATTEND: Marcellus Gilbert MD ADM AUTHOR: Gerard Presley DO REPT SERVICE DT/TIME: 07/03/24 1730 * ALL edits or amendments must be made on the electronic/computer document * History of Present Illness HPI Requesting clinician: Dr Gilbert Reason for consult: cad copd Chief complaint: cough, sob, fatigue HPI: Patient is a 68-year-old male with an extensive history of chronic hypoxic respiratory failure, COPD on home oxygen 2 to 4 L. Patient also is an everyday smoker of 1 pack/day. Patient was admitted at outside hospital June 17 and treated for COPD exacerbation and pneumonia with antibiotics, breathing treatments, steroids. He left the hospital after 4 days. He Alexx presented to the hospital July 02 with yellow sputum production, cough, shortness of breath, fatigue. Again being treated for COPD exacerbation. He underwent coronary angiography this morning and was found to have multivessel coronary artery disease. He was transferred here for evaluation by CT surgery for possible CABG evaluation. At the time he is hemodynamically stable although hypoxic on 5 L nasal cannula. He is not having any chest pain. He does have a productive cough with yellow sputum. He is slightly tachycardic in the low 100s after receiving breathing treatments and with any exertion or transferring in bed. He denies fever, lower extremity swelling, history of PE or DVT, hemoptysis, recent travel, nausea, vomiting, diarrhea, abdominal pain, rash, sick contacts. He had a negative influenza and COVID swab outside hospital. He has a workup pending for CABG evaluation and is currently being treated for COPD exacerbation. Will discuss further with pulmonology and CT surgery about steroid plan. History - Adult longitudinal Smoking status for patients 13 years old or older: Current every day smoker Date last smoked: 06/28/24 Packs per day: 1 Years smoked: 67 Pack years: 67 Allergies: Coded Allergies: No Known Allergies (07/03/24) Objective Physical Exam VS/I O: Last Documented: Result Date Time Temp 98.6 07/03 1629 O2 Delivery High flow nasal cannula 07/03 1629 O2 Flow Rate 4 07/03 1629 Patient Weight and BMI Weight (kg): 67.000 BMI: 22.5 Free Text Obj Notes Free Text Obj Notes: GEN: Appears tachypneic and winded with conversation every 3 or 4 words HEENT: Atraumatic, normocephalic, dry mucous membranes NECK: Supple, good range of motion, no tenderness, no JVD LUNGS: Symmetrical air entry, tachypneic, retractions, accessory muscle use, diminished throughout with fine wheezing CV: S tachycardic, warm and well perfused GI: Abdomen is soft, not tender or distended EXT/Musc: No edema or cyanosis. Pedal pulses present. Compartments soft Skin: SWarm to touch NEURO: Awake, alert and oriented x3. No facial droop or focal deficit Diagnosis, Assessment Plan Free text DxA P: Patient is a 68-year-old male with history of tobacco abuse and COPD in the CVICU for evaluation of coronary artery bypass graft surgery for multivessel coronary artery disease Acute on chronic hypoxic respiratory failure Acute exacerbation of COPD on home oxygen 2 to 4 L Tobacco abuse Multivessel coronary artery disease -DuoNebs, Zithromax, pulmonary consult -SpO2 goal of 88%, wean supplemental oxygen as tolerated, incentive spirometry, pulmonary hygiene -Duplexes of lower extremities -Will discuss with CT surgery about DVT chemoprophylaxis -Influenza and COVID swab -Preop labs and workup per CT surgery -Will use BiPAP as needed Critical care time 41 minutes spent with patient excluding bedside procedures and teach at 1734 RPT #:[id number] END OF REPORT [facility] 2024-07-03 17:21:00 [facility] ([facility]) History Physical - Adult REPORT#:[id number] REPORT STATUS: Signed REPORT INITIALIZATION DATE:07/03/24 TIME: 1720 PATIENT: HUBERT LYNCH UNIT #: [id number] [facility] AGE: 68 SEX: M ATTEND: Marcellus Gilbert MD ADM AUTHOR: Bonita Resendiz Physic REPT SERVICE DT/TIME: 07/03/241720 * ALL edits or amendments must be made on the electronic/computer document * Bonita Resendiz 07/03/24 172: History of Present Illness HPI Chief complaint: Shortness of breath Coronary artery disease HPI: This is a 68-year-old gentleman with a past medical history of COPD, on home oxygen, 4 L who presented to the hospital at [facility] for complaints of worsening shortness of breath productive cough,. Patient was treated for COPD exacerbation and pneumonia with antibiotics. Patient then underwent heart catheterization at [facility] multivessel coronary artery disease. The patient does admit to productive cough with yellow sputum. Patient denies any history of PE and DVT. Denies any nausea vomiting diarrhea. Patient was transferred to [facility] for further workup and evaluation for coronary bypass graft surgery Patient reports he continues to smoke 1 pack/day. Patient denies any alcohol use. Patient transferred to [facility] for COPD exasperation and workup for multivessel coronary disease History Smoking status for patients 13 years old or older: Current every day smoker Date last smoked: 06/28/24 Packs per day: 1 Years smoked: 67 Pack years: 67 Medication/Allergy-Vaccine Hx Allergies: Coded Allergies: No Known Allergies (07/03/24) Review of Systems Free Text ROS Notes Free Text ROS Notes: Constitutional: Negative for fever, chills, weight loss Skin: Negative for rash, negative for swelling, negative for any laceration HEENT: Denies hearing loss, denies any ear ringing, denies any earache, denies any sore throat Respiratory: Dyspnea on exertion Cardiac: Denies chest pain, denies palpitations, denies orthopnea GI: Denies constipation, denies diarrhea : Denies hematuria, denies dysuria, denies flank pain Musculoskeletal: Denies any joint pain, denies any joint swelling, denies any myalgia Hematologic: Denies any easy bruising, denies any bleeding Endocrine: denies any night sweats, denies polyuria OR polydipsia Neurologic: Denies any lightheaded, denies any headache, denies any confusion, denies any dizziness Physical Exam VS/I O Vital Signs: Date Time Temp Pulse Resp B/P B/P Pulse O2 O2 Flow FiO2 Mean Ox Delivery Rate 07/04 0600 104 25 142/74 101 99 07/04 0500 90 22 143/73 102 98 07/04 0403 99 23 149/70 101 100 07/04 0400 98.4 07/04 0400 High flow 6 nasal cannula 07/04 0350 86 98 40 07/04 0306 114 30 163/78 112 97 07/04 0200 94 97/53 67 97 07/04 0101 101 37 144/63 90 99 07/04 0012 103 98 40 07/04 0000 98.2 07/04 0000 BiPAP 07/04 0000 97 20 124/59 84 98 07/03 2300 91 15 117/58 83 98 07/03 2200 93 20 111/59 82 98 07/03 2100 96 25 106/54 75 98 07/03 2044 102 100 40 07/03 2023 96 High flow 6 nasal cannula 07/03 1999 98.4 High flow 6 nasal cannula 07/03 1999 High flow 6 nasal cannula 07/03 1999 111 30 144/65 94 99 07/03 1900 115 39 141/70 96 96 07/03 1801 107 23 148/68 98 97 07/03 1748 98 Nasal 5 cannula 07/03 1629 98.6 07/03 1629 High flow 4 nasal cannula 24 hour I O ending at 0700: 07/04 0700 07/03 1900 Intake Total 600.00 Output Total 775 Balance -175.00 Intake, IV 300.00 Intake, Oral 300 Output, Urine 775 Patient 64.9 kg 67 kg Weight Weight Bed scale Not applicable Measurement Method PATIENT WEIGHT: Weight (lb): 143 Weight (oz): 1.28 Weight (kg): 64.900 General: well nourished, well groomed, no acute distress. HEENT: conjunctiva clear, extraocular movement intact, PERRLA, Neck: no, JVD, trachea midline, no, lymphadenopathy, neck supple, normal ROM. Respiratory: Decreased breath sounds, crackles Cardiovascular: Tachycardia Abdomen: Soft, non tender. No rebound. No guarding Extremities: dry, moves all. Musculoskeletal: Full range of motion, no CVA tenderness, no muscle spasm Skin: warm, dry, no, lesions, rash. Neurologic: Alert and oriented x3. Psychiatric: affect and demeanor normal Diagnosis, Assessment Plan Free Text DxA P Notes Free Text DxA P Notes: This is a 68-year-old gentleman with a past medical history of COPD, on home oxygen, 4 L who presented to the hospital at [facility] for complaints of worsening shortness of breath productive cough,. Patient was treated for COPD exacerbation and pneumonia with antibiotics. Patient then underwent heart catheterization at [facility] multivessel coronary artery disease. The patient does admit to productive cough with yellow sputum. Patient denies any history of PE and DVT. Denies any nausea vomiting diarrhea. Patient was transferred to [facility] for further workup and evaluation for coronary bypass graft surgery Patient reports he continues to smoke 1 pack/day. Patient denies any alcohol use. Patient transferred to [facility] for COPD exasperation and workup for multivessel coronary disease Assessment/plan 1. Coronary disease 2. COPD exacerbation With recent history of pneumonia 3. Current everyday smoker Patient will be admitted. Pulmonary consulted for COPD. Will order CT of the chest. Echocardiogram ordered. Consult cardiology. Workup underway for Multivessel CAD. Further recommendations to follow. Marcellus Gilbert 07/22/24 1303: Attestations Physician Attestation Agree w/findings plan: I have seen and examined Mr. Russo. I agree with the findings and plan as documented by VANNESA Godoy. Briefly, 68-year-old male with severe coronary artery disease and COPD. Patient will benefit from intervention on the coronary arteries. He will be worked up and presented in the high risk cardiac surgery conference. I have explained the plan to the patient. at 0756 at 4940 RPT #:[id number] END OF REPORT [facility]"
[2024-07-31 12:46] LABS: Absolute Eosinophils 0.1 K/uL (0-0.5); Absolute Lymphocytes (CBC) 1.5 K/uL (0.7-4.9); Absolute Neutrophil 9.1 K/uL (1.8-8.0); Basophils % 0.3 % (0-1.3); Eosinophils % 0.7 % (0-4.4); Hematocrit 41.2 % (39.6-49.0); Hemoglobin 13.8 g/dL (13.6-17.9); MCH 30.7 pg (27.0-35.0); MCHC 33.4 g/dL (32.0-36.0); MCV 91.9 fL (80-100); MPV 7.7 fL (7.6-11.3); Monocytes % 8.5 % (3.3-12.3); Neutrophils % 77.5 % (41.7-73.7); Platelets 242 thou/uL (152-406); RBC Red Blood Cell Count 4.48 M/uL (4.33-5.43); Red Cell Distribution Width 15.3 % (12.1-15.2)
[2024-07-31 13:47] LABS: Albumin 2.8 g/dL (3.4-5.0); Albumin/Globulin Ratio 0.7 (1.1-1.8); Anion Gap 6.9 mEq/L (5.0-15.0); Bilirubin Direct 0.2 mg/dL (0-0.2); Bilirubin Indirect, Calculated 0.4 mg/dL (0.2-0.8); Bilirubin Total 0.6 mg/dL (0.2-1.0); Globulin 3.9 g/dL (2.3-3.5); Potassium 3.9 mEq/L (3.5-5.1); Protein, Total 6.7 g/dL (6.4-8.2); Troponin High Sensitivity 23.1 pg/mL (<58.9)
--- NOTE | 2024-07-31 13:54 | ER ---
Nurse's Notes [facility] Callie Name: Hubert Lynch Age: 68 yrs Sex: Male : 1955 Arrival Date: 07/31/2024 Time: 12:07 Bed 7 Private MD: Diagnosis: Dyspnea, Hypoxia, Likely new CHF dx Presentation: 07/31 12:10 Chief complaint: EMS states: they were toned out for trouble breathing x2 days. pt is kc6 s/p cardiac cath with 4 stents x 3 weeks ago. pt was 88% on RA for EMS. Coronavirus screen: At this time, the client does not indicate any symptoms associated with coronavirus-19. Ebola Screen: No symptoms or risks identified at this time. Initial Sepsis Screen: Does the patient meet any 2 criteria? RR > 20 per min. HR > 90 bpm. Does the patient have a suspected source of infection? No. Patient's initial sepsis screen is negative. Risk Assessment: Do you want to hurt yourself or someone else? Patient reports no desire to harm self or others. Onset of symptoms was July 31, 2024. Care prior to arrival: Medication(s) given: Albuterol Neb x 1, Atrovent Neb x 1. 12:10 Method Of Arrival: EMS: [facility] kc6 12:10 Acuity: DAVID 2 kc6 Triage Assessment: 18:40 Respiratory: cm10 Historical: - Allergies: 12:12 No Known Allergies; kc6 - PMHx: 12:12 Hypertension; COPD; Myocardial infarction; kc6 - PSHx: 12:12 Stented artery; kc6 - Immunization history:: Adult Immunizations not up to date. - Infectious Disease History:: Denies. - Social history:: Smoking status: Patient reports the use of cigarette tobacco products, smokes one pack cigarettes per day. Screenin:12 [facility] ED Fall Risk Assessment (Adult) History of falling in the last 3 months, kc6 including since admission No falls in past 3 months (0 pts) Confusion or Disorientation No (0 pts) Intoxicated or Sedated No (0 pts) Impaired Gait No (0 pts) Mobility Assist Device Used No (0 pt) Altered Elimination No (0 pt) Score/Fall Risk Level 0 - 2 = Low Risk Oriented to surroundings, Maintained a safe environment, Educated pt \T\ family on fall prevention, incl call for assistance when getting out of bed. Abuse screen: Denies threats or abuse. Denies injuries from another. Nutritional screening: No deficits noted. Tuberculosis screening: No symptoms or risk factors identified. Assessment: 12:42 General: Appears in no apparent distress. uncomfortable, well groomed, well developed, kc6 Behavior is calm, cooperative, appropriate for age. Pain: Denies pain. Neuro: Level of Consciousness is awake, alert, obeys commands, Oriented to person, place, time, situation, Appropriate for age. Cardiovascular: Denies chest pain, Heart tones S1 S2 present Capillary refill < 3 seconds Rhythm is sinus tachycardia. Respiratory: Reports shortness of breath at rest on exertion cough that is productive, Airway is patent Trachea midline Respiratory effort is even, labored, pursed lip, using tripod position, Respiratory pattern is symmetrical, tachypnea Breath sounds with crackles bilaterally. Breath sounds with wheezes bilaterally. GI: No signs and/or symptoms were reported involving the gastrointestinal system. : No signs and/or symptoms were reported regarding the genitourinary system. EENT: No signs and/or symptoms were reported regarding the EENT system. Derm: No signs and/or symptoms reported regarding the dermatologic system. Skin is intact, is healthy with good turgor, Skin is pink, warm \T\ dry. Musculoskeletal: No signs and/or symptoms reported regarding the musculoskeletal system. Circulation, motion, and sensation intact. Range of motion: intact in all extremities. 13:42 Reassessment: Patient appears in no apparent distress at this time. No changes from kc6 previously documented assessment. Patient and/or family updated on plan of care and expected duration. Pain level reassessed. Patient is alert, oriented x 3, equal unlabored respirations, skin warm/dry/pink. 14:42 Reassessment: Patient appears in no apparent distress at this time. No changes from kc6 previously documented assessment. Patient and/or family updated on plan of care and expected duration. Pain level reassessed. Patient is alert, oriented x 3, equal unlabored respirations, skin warm/dry/pink. 15:42 Reassessment: Patient appears in no apparent distress at this time. No changes from kc6 previously documented assessment. Patient and/or family updated on plan of care and expected duration. Pain level reassessed. Patient is alert, oriented x 3, equal unlabored respirations, skin warm/dry/pink. Vital Signs: 12:10 BP 126 / 73; Pulse 111; Resp 23 S; Temp 98.8(O); Pulse Ox 95% on 4 lpm NC; Weight 66.68 kc6 kg (R); Height 5 ft. 8 in. (R); Pain 0/10; 14:01 BP 125 / 67; Pulse 95; Resp 31 S; Pulse Ox 99% on 4 lpm NC; kc6 18:39 BP 130 / 78; Pulse 99; Resp 24; Pulse Ox 95% on 4 lpm NC; cm10 12:10 Body Mass Index 22.35 (66.68 kg, 172.72 cm) kc6 12:10 Pain Scale: Adult [facility] ED Course: 12:10 Patient arrived in ED. 6 12:12 Triage completed. kc6 12:12 Arm band placed on. kc6 12:12 Patient has correct armband on for positive identification. Placed in gown. Bed in low kc6 position. Call light in reach. Side rails up X2. store grocery merchandiser on. Pulse ox on. NIBP on. Door closed. Noise minimized. Lights dimmed. Pillow given. Verbal reassurance given. 12:12 Oxygen administration via nasal cannula \T\ 4L/min. kc6 12:13 Bart Moya MD is Attending Physician. ec2 12:19 Hodan Wynne, MORENA is Primary Nurse. kc6 12:42 Initial lab(s) drawn, by me, sent to lab. Missed attempt(s): 22 gauge in right hand. kc6 13:17 Accessed peripheral vein via ultrasound, utilizing dynamic ultrasound technique Blood cm10 collected. Clean \T\ dry. Dressing intact. Good blood return. Flushes easily. 20G RIGHT UPPER ARM. 13:22 XRAY Chest (1 view) In Process Unspecified. EDMS 13:53 Feliz Bond MD is Hospitalizing Provider. ec2 14:00 No provider procedures requiring assistance completed. Patient admitted, IV remains in kc6 place. 18:39 Provided Education on: Need for admit. cm10 Administered Medications: 14:22 Drug: Furosemide IVP 40 mg IVP once; give over 2 minutes Route: IVP; Site: right upper [facility] arm; 15:51 Follow up: Response: No adverse reaction kc6 14:22 Drug: Potassium Chloride IV 20 mEq IV at calculated rate once; administer over 1-2 kc6 hours Route: IV; Rate: calculated rate; Site: right upper arm; 15:51 Follow up: Response: No adverse reaction; IV Status: Completed infusion; IV Intake: kc6 100ml 14:22 Drug: Potassium Chloride PO 40 mEq PO once Route: PO; kc6 15:52 Follow up: Response: No adverse reaction kc6 14:22 Drug: DuoNeb Nebulize (2.5 mg - 0.5 mg) 3 ml Nebulizer once Route: Nebulizer; kc6 15:52 Follow up: Response: No adverse reaction kc6 14:22 Drug: Nicoderm CQ Transdermal Patch 21 mg/24 hr 21 mg Transdermal once Route: kc6 Transdermal; Site: affected area; 15:51 Follow up: Response: No adverse reaction kc6 14:22 Drug: MethylPrednisoLONE IVP 125 mg IVP once Route: IVP; Site: right upper arm; kc6 15:51 Follow up: Response: No adverse reaction kc6 Medication: 14:00 VIS not applicable for this client. kc6 Intake: 15:51 IV: 100ml; Total: 100ml. kc6 Outcome: 13:53 Decision to Hospitalize by Provider. ec2 14:00 Admitted to ER Hold. Please see [facility] for further documentation. kc6 14:00 Condition: stable 14:00 Instructed on the need for admit, 18:44 Patient left the ED. kc6 Signatures: Dispatcher [employer] Hodan Ulloa RN RN kc6 Barbara Daley RN RN cm10 Bart Moya MD MD ec2
--- NOTE | 2024-07-31 13:54 | EDPHYS ---
Physician Documentation [facility] Name: Hubert Lynch Age: 68 yrs Sex: Male : 1955 Arrival Date: 07/31/2024 Time: 12:07 Bed 7 Private MD: ED Physician Bart Moya HPI: 07/31 12:21 This 68 yrs old Male presents to ER via EMS with complaints of Breathing ec2 Difficulty. 12:21 Patient with recent stenting arrives today for progressive shortness of breath. No ec2 history of heart failure, EMS was called, they report that they had noted hypoxia with saturations in the upper 80s. Patient is not on a diuretic. Reports dyspnea on exertion.. Historical: - Allergies: 12:12 No Known Allergies; kc6 - PMHx: 12:12 Hypertension; COPD; Myocardial infarction; kc6 - PSHx: 12:12 Stented artery; kc6 - Immunization history:: Adult Immunizations not up to date. - Infectious Disease History:: Denies. - Social history:: Smoking status: Patient reports the use of cigarette tobacco products, smokes one pack cigarettes per day. ROS: 12:22 Constitutional: as per hpi ec2 Exam: 12:22 Constitutional: GEN: NAD Head: atraumatic Eyes: EOMI Ears: External ears are ec2 normal. CV tachycardia, trace lower extremity edema LUNGS: Tachypnea, scattered wheezes appreciated. ABD: non-distended SKIN: no evidence of rashes MSK: no evidence of trauma Vital Signs: 12:10 BP 126 / 73; Pulse 111; Resp 23 S; Temp 98.8(O); Pulse Ox 95% on 4 lpm NC; Weight 66.68 kc6 kg (R); Height 5 ft. 8 in. (R); Pain 0/10; 14:01 BP 125 / 67; Pulse 95; Resp 31 S; Pulse Ox 99% on 4 lpm NC; kc6 18:39 BP 130 / 78; Pulse 99; Resp 24; Pulse Ox 95% on 4 lpm NC; cm10 12:10 Body Mass Index 22.35 (66.68 kg, 172.72 cm) kc6 12:10 Pain Scale: Adult kc6 MDM: 12:18 Medical Screening Exam initiated ec2 12:22 Data reviewed: vital signs, nurses notes. ED course: Patient arrives today for ec2 progressive shortness of breath in setting of previous cardiac procedure. Examination yields cardiopulmonary findings as above. EKG obtained, independently reviewed and interpreted by me, shows sinus tachycardia, rate 107, no acute ST segment elevations, normals are nonactionable. Will obtain a cardiac workup. Suspect new onset heart failure.. 13:49 ED course: BNP elevated at 570, CBC, metabolic profile are otherwise nonactionable. ec2 Patient is clearly edematous, will give the patient Lasix as well as potassium supplementation, will admit for diuresis.. 13:53 ED course: Discussed the case with Dr. Mascorro as well as hospitalist will admit and ec2 further manage.. 07/31 12:14 Order name: Basic Metabolic Panel; Complete Time: 13:48 ec2 07/31 12:14 Order name: CBC with Diff; Complete Time: 13:05 ec2 07/31 12:14 Order name: NT PRO-BNP; Complete Time: 13:48 ec2 07/31 12:14 Order name: Troponin HS; Complete Time: 13:48 ec2 07/31 12:14 Order name: LFT's; Complete Time: 13:48 ec2 07/31 14:24 Order name: Basic Metabolic Panel EDMS 07/31 14:24 Order name: Basic Metabolic Panel EDMS 07/31 14:24 Order name: Basic Metabolic Panel EDMS 07/31 14:24 Order name: Basic Metabolic Panel EDMS 07/31 14:24 Order name: CBC with Automated Diff EDMS 07/31 14:24 Order name: CBC with Automated Diff EDMS 07/31 14:24 Order name: CBC with Automated Diff EDMS 07/31 14:24 Order name: CBC with Automated Diff EDMS 07/31 14:24 Order name: Magnesium EDMS 07/31 14:24 Order name: Magnesium EDMS 07/31 14:24 Order name: Magnesium EDMS 07/31 14:24 Order name: Magnesium EDMS 07/31 14:24 Order name: T4 Free EDMS 07/31 14:24 Order name: T4 Free EDMS 07/31 14:24 Order name: Thyroid Stimulating Hormone EDMS 07/31 14:24 Order name: Thyroid Stimulating Hormone EDMS 07/31 14:24 Order name: Troponin High Sensitivity EDMS 07/31 14:24 Order name: Troponin High Sensitivity [facility] 07/31 14:24 Order name: Troponin High Sensitivity [facility] 07/31 16:28 Order name: ABG Arterial Blood Gas [facility] 07/31 12:14 Order name: XRAY Chest (1 view); Complete Time: 14:51 ec2 07/31 14:24 Order name: Echo with Doppler [facility] 07/31 12:14 Order name: Cardiac monitoring; Complete Time: 12:22 ec2 07/31 12:14 Order name: EKG - Nurse/Tech; Complete Time: 12:22 ec2 07/31 12:14 Order name: IV Saline Lock; Complete Time: 13:17 ec2 07/31 12:14 Order name: Labs collected and sent; Complete Time: 12:42 ec2 07/31 12:14 Order name: O2 Per Protocol; Complete Time: 12:22 ec2 07/31 12:14 Order name: O2 Sat Monitoring; Complete Time: 12:22 ec2 07/31 13:01 Order name: Labs - recollect needed: recollect green top; Complete Time: 13:17 bd Administered Medications: 14:22 Drug: Furosemide IVP 40 mg IVP once; give over 2 minutes Route: IVP; Site: right upper kc6 arm; 15:51 Follow up: Response: No adverse reaction kc6 14:22 Drug: Potassium Chloride IV 20 mEq IV at calculated rate once; administer over 1-2 kc6 hours Route: IV; Rate: calculated rate; Site: right upper arm; 15:51 Follow up: Response: No adverse reaction; IV Status: Completed infusion; IV Intake: kc6 100ml 14:22 Drug: Potassium Chloride PO 40 mEq PO once Route: PO; kc6 15:52 Follow up: Response: No adverse reaction kc6 14:22 Drug: DuoNeb Nebulize (2.5 mg - 0.5 mg) 3 ml Nebulizer once Route: Nebulizer; kc6 15:52 Follow up: Response: No adverse reaction kc6 14:22 Drug: Nicoderm CQ Transdermal Patch 21 mg/24 hr 21 mg Transdermal once Route: kc6 Transdermal; Site: affected area; 15:51 Follow up: Response: No adverse reaction kc6 14:22 Drug: MethylPrednisoLONE IVP 125 mg IVP once Route: IVP; Site: right upper arm; kc6 15:51 Follow up: Response: No adverse reaction kc Disposition: 13:53 Critical Care:. ec2 Disposition Summary: 07/31/24 13:53 Hospitalization Ordered Notes: Hospitalization Status: Inpatient Admission ec2 Provider: Feliz Bond ec2 Condition: Stable ec2 Problem: new ec2 Symptoms: have improved ec2 Bed/Room Type: Standard ec2 Location: Telemetry/MedSurg (Inpatient)(07/31/24 17:33) bd Room Assignment: 409(07/31/24 17:33) bd Diagnosis - Dyspnea, Hypoxia, Likely new CHF dx ec2 Forms: - Medication Reconciliation Form ec2 - SBAR form ec2 - Leadership Thank You Letter ec2 Critical care time excluding procedures: 13:53 Critical care time: Bedside Care: 30 minutes, Consultation: 5 minutes. Total time: 35 ec2 minutes Signatures: Dispatcher [employer] EDDorothea Haynes Irene, RN RN iw Gio Cee, DINING ROOM SUPERVISOR-C DINING ROOM SUPERVISOR-Cla1 Hodan Wynne RN RN kc6 Bart Moya MD MD ec2 Corrections: (The following items were deleted from the chart) 14:48 13:53 Telemetry/MedSurg (Inpatient) ec2 bd 14:48 13:53 ec2 bd 16:21 14:48 [facility] ER HOLD bd bd 16:21 14:48 ERHOLD- bd bd 16:51 16:21 Telemetry/MedSurg (Inpatient) bd iw 16:51 16:21 213 bd iw 17:33 16:51 [facility] ER HOLD iw bd 17:33 16:51 ERHOLD- iw bd
[2024-07-31] MEDS ORDERED: POTASSIUM CL SA 10 MEQ TAB PO ONE (14:05)
[2024-07-31] MEDS ORDERED: FUROSEMIDE 40 MG/4 ML VIAL ONE (14:05)
[2024-07-31] MEDS ORDERED: KCL 20 MEQ/100 mL IVPB 100 ML IV ONE (14:06)
[2024-07-31] MEDS ORDERED: NA CHLORIDE 0.9% 250 ML ONE (14:06)
[2024-07-31] MEDS ORDERED: NICOTINE 21 MG/PAT TD ONE (14:08)
[2024-07-31] MEDS ORDERED: METHYLPREDNISOLONE 125 MG INJ ONE (14:08)
[2024-07-31] MEDS ORDERED: ALBUTEROL 2.5 MG/3 ML NEB SOL ONE (14:08)
[2024-07-31] MEDS ORDERED: IPRATROPIUM BROM 0.5MG/2.5ML ONE (14:08)
[2024-07-31] MEDS ORDERED: ALBUTEROL 2.5 MG/3 ML NEB SOL NEB PRN (14:18)
[2024-07-31] MEDS ORDERED: ONDANSETRON 4 MG/2 ML VIAL IV PRN (14:18)
[2024-07-31] MEDS ORDERED: BENZONATATE 100 MG CAP PO PRN (14:22)
--- NOTE | 2024-07-31 14:42 | RAD REPORT ---
EXAMINATION: ONE VIEW CHEST XR CLINICAL INDICATION: Male, 68 years old.,DYSPNEA TECHNIQUE: Frontal chest projection is submitted. Examination is limited by patient positioning and t echnique. COMPARISON: 07/02/2024 FINDINGS: The lungs are diffusely emphysematous but grossly clear. No pneumothorax. Bilateral hemidiaphragmati c flattening versus small pleural effusions, stable.. The heart is normal in size. Mediastinal contours are unremarkable. IMPRESSION: No acute intrathoracic abnormalities. Stable findings as above.
[2024-07-31] MEDS: NICOTINE 21 MG/PAT TD SCH (15:00)
[2024-07-31] MEDS ORDERED: Magnesium Sulfate 2gm IVPB 2 G/50 ML BAG IV ONE (15:45)
[2024-07-31] MEDS: Magnesium Sulfate 2gm IVPB 2 G/50 ML BAG IV ONE (15:46)
[2024-07-31 16:27] LABS: Arterial Blood Carboxyhemoglob 1.8 % (0-1.5); Blood Gas Oxyhemoglobin 92.4 % (94-97); Blood Gas THB 13.9 g/dl (12-18); Blood O2 Saturation 96.1 % (92-98.5)
[2024-07-31] MEDS ORDERED: FUROSEMIDE 40 MG/4 ML VIAL IV SCH (17:00)
--- NOTE | 2024-07-31 17:44 | P.HP ---
Certification for Inpatient Patient admitted to: Inpatient With expected LOS: >2 Midnights Patient will require the following post-hospital care: None Practitioner: I am a practitioner with admitting privileges, knowledge of patient current condition, hospital course, and medical plan of care. Services: Services provided to patient in accordance with Admission requirements found in Title 42 Section 412.3 of the Code of Federal Regulations Patient History Date of Service: 07/31/24 Reason for admission: COPD exacerbation, new onset CHF History of Present Illness: 68-year-old male with history of COPD on chronic home O2, hypertension, hyperlipidemia, tobacco use disorder, CAD with recent stents presents to the emergency department chief complaint of shortness of breath, lower extremity edema. About 1 month ago he had 4 stents placed, he has been compliant with his medications including Effient, aspirin, statin. He reports last few days he has noticed increasing swelling in his lower extremities as well as worsening trouble with his breathing. He also reports increase sputum production and wheezing. Patient was evaluated in the emergency department chest x-ray was performed which showed no acute findings labs were significant for sodium 134 bicarb 35 BNP 572 troponin 23.1 white blood count 11.7. Patient has 3+ pitting edema of his lower extremities currently he was given IV Lasix, steroids, nebs in the ED and was still having some dyspnea, he was started on BiPAP for work of breathing in ED. He will be admitted for further evaluation and management of suspected new onset CHF with possible COPD exacerbation. Allergies No Known Drug Allergies Allergy (Verified 08/20/17 01:40) Unknown No Known Allergies Allergy (Uncoded 08/20/17 01:10) Unknown Home Medications: Ipratropium/Albuterol Sulfate [Combivent Respimat 20-100 Mcg] 1 puff IH BID 08/20/17 predniSONE [Deltasone*] 10 mg PO BID 7 Days #14 tab 06/19/24 Fluticasone/Umeclidin/Vilanter [Trelegy Ellipta 100-62.5-25] 1 each IH DAILY 07/02/24 - Past Medical/Surgical History Diabetic: No -: COPD -: tobacco abuse -: HTN -: dyslipidemia -: TUBERCULOSIS IN -: CAD Psychosocial/ Personal History: Lives at home with family - Family History Mother -: Heart disease Notes: had pacemaker - Social History Smoking Status: Current every day smoker Counseled patient to stop smoking for: less than 10 minutes Alcohol use: No CD- Drugs: Yes Caffeine use: Yes Review of Systems 10-point ROS is otherwise unremarkable Respiratory: Cough, Shortness of Breath, SOB with Excertion, Sputum, Wheezing Physical Examination - Vital Signs Temperature: 97.9 F Blood Pressure: 117/63 Pulse: 104 Respirations: 20 Pulse Ox (%): 94 - Physical Exam General: Alert, In no apparent distress, Oriented x3 HEENT: Atraumatic, PERRLA, EOMI Neck: Supple, 2+ carotid pulse no bruit, Without JVD or thyroid abnormality Respiratory: Diminished, Expiratory wheezes Cardiovascular: Regular rate/rhythm, Normal S1 S2 Gastrointestinal: Normal bowel sounds, No tenderness Musculoskeletal: No tenderness Integumentary: No rashes Neurological: Normal speech, Normal strength at 5/5 x4 extr, Normal affect - Studies Laboratory Data (last 24 hrs) 07/31/24 07/31/24 13:15 12:40 WBC 11.70 H Hgb 13.8 Hct 41.2 Plt Count 242 Sodium 134 L Potassium 3.9 BUN 12 Creatinine 0.86 Glucose 107 H Total Bilirubin 0.6 AST 20 ALT 44 Alkaline Phosphatase 84 Assessment and Plan - Plan Assessment: Acute on chronic hypoxic respiratory failure COPD with exacerbation-on chronic home O2 Suspected new onset CHFbilateral lower extremity pitting edema CAD with recent stents x 4 Hypertension Hyperlipidemia Mild hyponatremia Plan: Acute on chronic hypoxic respiratory failure COPD with exacerbation-on chronic home O2 Suspected new onset CHFbilateral lower extremity pitting edema CAD with recent stents x 4 Cardiology and pulmonology consulted Continue diuresis with IV Lasix Continue steroids, as needed nebulizer treatments BiPAP as needed ABG without respiratory acidosis Effient, aspirin, statin continued echocardiogram ordered Hypertension Hyperlipidemia Continue home medications Mild hyponatremia Continue diuresis for suspected CHF exacerbation DVT PPX: Lovenox Code status: Full Discharge Plan: Home Plan to discharge in: Greater than 2 days - Advance Directives Does patient have a Living Will: No Does patient have a Durable POA for Healthcare: No - Code Status/Comfort Care Code Status Assessed: Yes (Full code) Critical Care: No Time Spent Managing Pts Care (In Minutes): 65
[2024-07-31] MEDS: predniSONE 10 MG TAB PO SCH (20:41)
[2024-07-31] MEDS: ATORVASTATIN 40 MG TAB PO SCH (20:41)
[2024-07-31] MEDS: IPRATROPIUM BROM 0.5MG/2.5ML NEB PRN (21:39)
[2024-07-31] MEDS: ALBUTEROL 2.5 MG/3 ML NEB SOL NEB PRN (21:39)
[2024-08-01 05:52] VITALS: BMI 22.9
[2024-08-01] MEDS: METOPROLOL XL 25 MG TAB PO SCH (05:53)
[2024-08-01 08:00] LABS: Absolute Lymphocytes (CBC) 0.6 K/uL (0.7-4.9); Absolute Monocytes 0.5 K/uL (0.1-1.3); Absolute Neutrophil 10.5 K/uL (1.8-8.0); Basophils % 0.3 % (0-1.3); Hematocrit 39.1 % (39.6-49.0); Lymphocytes % 5.5 % (15.3-44.8); MCH 30.9 pg (27.0-35.0); MCHC 33.2 g/dL (32.0-36.0); MCV 92.9 fL (80-100); MPV 7.5 fL (7.6-11.3); Monocytes % 4.3 % (3.3-12.3); Neutrophils % 89.9 % (41.7-73.7); Nucleated Red Blood Cells % 0.1 % (0-0); Platelets 250 thou/uL (152-406); Red Cell Distribution Width 14.4 % (12.1-15.2)
[2024-08-01] MEDS ORDERED: FUROSEMIDE 40 MG/4 ML VIAL IV SCH (09:00)
[2024-08-01] MEDS: ARFORMOTEROL TARTRATE 15 MCG/2 ML VIAL.NEB NEB SCH (09:00)
[2024-08-01] MEDS ORDERED: AMLODIPINE 5 MG TAB PO SCH (09:00)
[2024-08-01] MEDS: VALSARTAN 160 MG TAB PO SCH (09:00)
[2024-08-01 09:02] LABS: Blood Morphology Comment NOT SEEN (NOT SEEN); Platelet Estimate ADEQ; White Blood Cell Scan OK (OK)
[2024-08-01] MEDS: PNEUMOCOCCAL VACCINE 0.5 ML IMVAC ONE (09:34)
[2024-08-01] MEDS: ENOXAPARIN 40 MG/0.4 ML SQ SCH (09:34)
[2024-08-01] MEDS: ASPIRIN EC 81 MG TAB PO SCH (09:35)
[2024-08-01] MEDS: predniSONE 20 MG TAB PO SCH (09:35)
[2024-08-01] MEDS: ROFLUMILAST 500 MCG TABLET PO SCH (09:35)
[2024-08-01] MEDS: AZITHROMYCIN 250 MG TAB PO SCH (09:35)
[2024-08-01 10:15] LABS: Anion Gap 7.7 mEq/L (5.0-15.0); Magnesium 2.7 mg/dL (1.6-2.4); Potassium 4.7 mEq/L (3.5-5.1); Thyroid Stimulating Hormone 0.312 uIU/mL (0.358-3.740); Troponin High Sensitivity 14.2 pg/mL (<58.9)
--- NOTE | 2024-08-01 10:51 | P.CNS ---
Date of Consult: 08/01/24 Chief Complaint: COPD exacerbation, new onset CHF History of Present Illness: Patient with PMH of CAD recent PCI in [facility], presented with worsening SOB, BARBA, patient also has history of COPD on home oxygen, denies having chest pain, no palpitations, no syncope. Allergies No Known Drug Allergies Allergy (Verified 07/31/24 19:33) Unknown Home medications list reviewed: Yes Home Medications: Fluticasone/Umeclidin/Vilanter [Trelegy Ellipta 100-62.5-25] 1 each IH DAILY 07/02/24 Amlodipine [Norvasc] 5 mg PO DAILY 08/01/24 Aspirin 81 mg PO DAILY 08/01/24 Atorvastatin Calcium 40 mg PO BEDTIME 08/01/24 Metoprolol Succinate [Toprol Xl] 50 mg PO DAILY 08/01/24 Valsartan [Diovan] 160 mg PO DAILY 08/01/24 prasugrel HCL [Prasugrel HCl] 1 tab PO DAILY 08/01/24 - Past Medical/Surgical History Diabetic: No -: COPD -: tobacco abuse -: HTN -: dyslipidemia -: TUBERCULOSIS IN -: CAD -: cardiac stents x 4 Psychosocial/ Personal History: Lives at home with family - Family History Mother Medical History: Heart disease Notes: had pacemaker - Social History Smoking Status: Current every day smoker Alcohol use: No CD- Drugs: No Caffeine use: Yes Place of Residence: Home Review of Systems 10-point ROS is otherwise unremarkable Physical Examination Temp Pulse Resp BP Pulse Ox 97 F 91 H 15 103/64 93 08/01/24 08:00 08/01/24 08:54 08/01/24 08:00 08/01/24 08:00 08/01/24 08:54 General: Alert, In no apparent distress HEENT: Atraumatic, PERRLA, Mucous membr. moist/pink, EOMI, Sclerae nonicteric Neck: Supple, 2+ carotid pulse no bruit, No LAD, Without JVD or thyroid abnorm ality Respiratory: Clear to auscultation bilaterally, Normal air movement Cardiovascular: Regular rate/rhythm, Normal S1 S2 Gastrointestinal: Normal bowel sounds, No tenderness Musculoskeletal: No tenderness Integumentary: No rashes Neurological: Normal gait, Normal speech, Normal tone, Normal affect Lymphatics: No axilla or inguinal lymphadenopathy Laboratory Data (last 24 hrs) 07/31/24 07/31/24 13:15 12:40 WBC 11.70 H Hgb 13.8 Hct 41.2 Plt Count 242 Sodium 134 L Potassium 3.9 BUN 12 Creatinine 0.86 Glucose 107 H Total Bilirubin 0.6 AST 20 ALT 44 Alkaline Phosphatase 84 - Problems (1) Acute on chronic diastolic heart failure Current Visit: Yes Status: Acute Plan: Lasix 40 mg IV BID monitor input and output and electrolytes (2) CAD (coronary artery disease) Current Visit: Yes Status: Acute Plan: continue ASA and Effient and statin get echo
[2024-08-01] MEDS: FLUTICASONE 50MCG NASAL SPRAY NAS SCH (12:17)
--- NOTE | 2024-08-01 12:49 | P.CNS ---
Date of Consult: 08/01/24 Reason for Consult: COPD exacerbation Chief Complaint: COPD exacerbation History of Present Illness: Patient is 68 years of age with a history of COPD was just recently discharged from [facility] had some stents put in apparently had some pneumonia was discharged ho me only 4 days became worsening short of breath some productive white phlegm and it appeared in the emergency room BiPAP when I saw him Allergies No Known Drug Allergies Allergy (Verified 07/31/24 19:33) Unknown Home Medications: Fluticasone/Umeclidin/Vilanter [Trelegy Ellipta 100-62.5-25] 1 each IH DAILY 07/02/24 Amlodipine [Norvasc] 5 mg PO DAILY 08/01/24 Aspirin 81 mg PO DAILY 08/01/24 Atorvastatin Calcium 40 mg PO BEDTIME 08/01/24 Metoprolol Succinate [Toprol Xl] 50 mg PO DAILY 08/01/24 Valsartan [Diovan] 160 mg PO DAILY 08/01/24 prasugrel HCL [Prasugrel HCl] 1 tab PO DAILY 08/01/24 - Past Medical/Surgical History Diabetic: No -: COPD -: tobacco abuse -: HTN -: dyslipidemia -: TUBERCULOSIS IN -: CAD -: cardiac stents x 4 Psychosocial/ Personal History: Lives at home with family - Family History Mother Medical History: Heart disease Notes: had pacemaker - Social History Smoking Status: Current every day smoker Alcohol use: No CD- Drugs: No Caffeine use: Yes Place of Residence: Home Review of Systems 10-point ROS is otherwise unremarkable General: Weakness Respiratory: Shortness of Breath Physical Examination Temp Pulse Resp BP Pulse Ox 98.5 F 99 H 15 111/64 98 08/01/24 12:00 08/01/24 12:00 08/01/24 12:00 08/01/24 12:00 08/01/24 12:00 General: Alert, In no apparent distress, Moderate distress Respiratory: Diminished, Expiratory wheezes Cardiovascular: No edema, Regular rate/rhythm, Normal S1 S2 Gastrointestinal: Normal bowel sounds, Soft and benign, Non-distended Laboratory Data (last 24 hrs) 07/31/24 07/31/24 13:15 12:40 WBC 11.70 H Hgb 13.8 Hct 41.2 Plt Count 242 Sodium 134 L Potassium 3.9 BUN 12 Creatinine 0.86 Glucose 107 H Total Bilirubin 0.6 AST 20 ALT 44 Alkaline Phosphatase 84 - Problems (1) COPD exacerbation Current Visit: Yes Status: Acute Plan: Patient is 68 years of age admitted with recurrent COPD exacerbation recently had some stents put in x-ray shows some interstitial changes COPD labs chemistries reviewed white count is mildly elevated changed to p.o. prednisone add Zithromax Daliresp DC Lasix trial on nasal cannula oxygen I do not think he needs BiPAP also added long-acting bronchodilators
[2024-08-01] MEDS: PRASUGREL (EFFIENT) 10 MG TAB PO SCH (13:35)
[2024-08-01] MEDS ORDERED: NICOTINE 21 MG/PAT TD SCH (14:00)
--- NOTE | 2024-08-01 14:51 | P.PN ---
Date of Service: 08/01/24 Subjective: Breathing improved some overnight No other acute events overnight ROS: 10 point ROS as noted above, otherwise negative Physical exam GEN: Alert, oriented, NAD HEENT: Normal conjunctiva, sclera anicteric CV: Regular rate and rhythm, 3+ pitting edema bilateral lower extremities Pulm: Nonlabored respirations on nasal cannula oxygen ABD: Soft, nontender, nondistended MSK: No joint tenderness Integumentary: No rashes Neuro: Normal speech, normal affect Vitals reviewed Assessment: Acute on chronic hypoxic respiratory failure COPD with exacerbation-on chronic home O2 Suspected new onset CHFbilateral lower extremity pitting edema CAD with recent stents x 4 Hypertension Hyperlipidemia Mild hyponatremia Plan: Acute on chronic hypoxic respiratory failure COPD with exacerbation-on chronic home O2 Suspected new onset CHFbilateral lower extremity pitting edema CAD with recent stents x 4 Cardiology and pulmonology consulted Continue diuresis with IV Lasix Continue steroids, as needed nebulizer treatments BiPAP as needed ABG without respiratory acidosis Effient, aspirin, statin continued echocardiogram ordered Sputum culture added Abx added by pulm Hypertension Hyperlipidemia Continue home medications Mild hyponatremia Continue diuresis for suspected CHF exacerbation DVT PPX: Lovenox Code status: Full Discharge Plan: Home Plan to discharge in: Greater than 2 days Time Spent Managing Pts Care (In Minutes): 35
[2024-08-01] MEDS ORDERED: BUDESONIDE 0.5 MG/2 ML NEB ONE (20:31)
[2024-08-01] MEDS: BUDESONIDE 0.5 MG/2 ML NEB NEB SCH (20:38)
[2024-08-02] MEDS: ALBUTEROL 2.5 MG/3 ML NEB SOL NEB SCH (00:12)
[2024-08-02] MEDS: IPRATROPIUM BROM 0.5MG/2.5ML NEB SCH (00:12)
[2024-08-02 06:56] LABS: Absolute Lymphocytes (CBC) 0.5 K/uL (0.7-4.9); Absolute Monocytes 1.2 K/uL (0.1-1.3); Absolute Neutrophil 9.5 K/uL (1.8-8.0); Basophils % 0.1 % (0-1.3); Eosinophils % 0.1 % (0-4.4); Hematocrit 34.5 % (39.6-49.0); Hemoglobin 11.7 g/dL (13.6-17.9); Lymphocytes % 4.8 % (15.3-44.8); MCH 30.8 pg (27.0-35.0); MCHC 33.8 g/dL (32.0-36.0); MCV 91.1 fL (80-100); Monocytes % 10.6 % (3.3-12.3); Neutrophils % 84.4 % (41.7-73.7); Nucleated Red Blood Cells % 0.1 % (0-0); Platelets 236 thou/uL (152-406); RBC Red Blood Cell Count 3.79 M/uL (4.33-5.43); Red Cell Distribution Width 14.5 % (12.1-15.2)
[2024-08-02 07:05] LABS: Anion Gap 7.3 mEq/L (5.0-15.0); Magnesium 2.5 mg/dL (1.6-2.4); Potassium 4.3 mEq/L (3.5-5.1)
--- NOTE | 2024-08-02 07:26 | ECHO ---
HEIGHT: 5 ft 8 in WEIGHT: 151 lb 3.2 oz DATE OF STUDY: 08/01/[address]: Gio Cee NP 2-DIMENSIONAL: YES M.MODE: YES DOPPLER: YES COLOR FLOW: YES TDS: PORTABLE: YES DEFINITY: BUBBLE STUDY: DIAGNOSIS: NEW CONGESTIVE HEART FAILURE CARDIAC HISTORY: CATHERIZATION: SURGERY: PROSTHETIC VALVE: PACEMAKER: MEASUREMENTS (cm) DIASTOLIC (NORMALS) SYSTOLIC (NORMALS) IVSd 1.1 (0.6-1.2) LA Diam 2.3 (1.9-4.0) LVEF 60-65% LVIDd 3.2 (3.5-5.7) LVIDs 2.2 (2.0-3.5) %FS 33% LVPWd 1.4 (0.6-1.2) Ao Diam 3.0 (2.0-3.7) 2 DIMENSIONAL ASSESSMENT: RIGHT ATRIUM: NORMAL LEFT ATRIUM: NORMAL RIGHT VENTRICLE: NORMAL LEFT VENTRICLE: NORMAL TRICUSPID VALVE: NORMAL MITRAL VALVE: NORMAL PULMONIC VALVE: NORMAL AORTIC VALVE: NORMAL PERICARDIAL EFFUSION: NONE AORTIC ROOT: NORMAL LEFT VENTRICULAR WALL MOTION: NORMAL DOPPLER/COLOR FLOW: GRADE II DIASTOLIC DYSFUNCTION COMMENTS: 1. NORMAL LEFT VENTRICULAR SYSTOLIC FUNCTION, EJECTION FRACTION 60-65%, NORMAL WALL MOTION 2. GRADE II DIASTOLIC DYSFUNCTION 3. MILD ELEVATED FILLING PRESSURE (RIGHT ATRIAL PRESSURE 5-10 mmHg) TECHNOLOGIST: JOSÉ BALL
--- NOTE | 2024-08-02 08:44 | EKG ---
Test Date: 2024-07-31 Test Time: 12:18:12 Farm Mechanic Apprentice: DAYAMI MEASUREMENT RESULTS: Intervals: Rate: 107 VT: 124 QRSD: 80 QT: 290 QTc: 387 Industry: P: 86 VT: 124 QRS: 77 T: 69 INTERPRETIVE STATEMENTS: Sinus tachycardia with premature atrial complexes Biatrial enlargement Nonspecific T wave abnormality Abnormal ECG Compared to ECG 07/31/2024 12:16:58 Atrial premature complex(es) now present Sinus rhythm no longer present T-wave abnormality still present Electronically Signed On 08-02-24 08:38:27 CDT by Noah Cobos
--- NOTE | 2024-08-02 08:44 | EKG ---
Test Date: 2024-07-31 Test Time: 12:16:58 Billboard Poster: DAYAMI MEASUREMENT RESULTS: Intervals: Rate: 105 IN: 120 QRSD: 82 QT: 292 QTc: 385 [place]: P: 85 IN: 120 QRS: 77 T: 64 INTERPRETIVE STATEMENTS: * Pediatric ECG analysis * Normal sinus rhythm Right atrial enlargement Possible Left ventricular hypertrophy Nonspecific T wave abnormality Compared to ECG 07/02/2024 13:51:21 T-wave abnormality now present Sinus tachycardia no longer present Myocardial infarct finding no longer present Electronically Signed On 08-02-24 08:38:31 CDT by Noah Cobos
[2024-08-02] MEDS: FUROSEMIDE 40 MG/4 ML VIAL IV SCH (10:55)
--- NOTE | 2024-08-02 11:43 | P.PN ---
Subjective Date of Service: 08/02/24 Chief Complaint: COPD exacerbation Subjective: No new changes, No C/O voiced, Tolerating diet, Ambulating, Improving Review of Systems 10-point ROS is otherwise unremarkable Physical Examination - Vital Signs Temperature: 97.9 F Blood Pressure: 119/70 Pulse: 85 Respirations: 16 Pulse Ox (%): 100 - Physical Exam General: Alert, In no apparent distress HEENT: Atraumatic, PERRLA, EOMI Neck: Supple, JVD not distended Respiratory: Clear to auscultation bilaterally, Normal air movement Cardiovascular: Regular rate/rhythm, Normal S1 S2 Gastrointestinal: Normal bowel sounds, No tenderness Musculoskeletal: No tenderness Integumentary: No rashes Neurological: Normal speech, Normal tone, Normal affect Lymphatics: No axilla or inguinal lymphadenopathy - Studies Medications List Reviewed: Yes Assessment And Plan - Current Problems (Diagnosis) (1) Acute on chronic diastolic heart failure Current Visit: Yes Status: Acute Plan: Lasix 40 mg IV BID monitor input and output and electrolytes (2) CAD (coronary artery disease) Current Visit: Yes Status: Acute Plan: continue ASA and Effient and statin Echo shows normal LV systolic function, no wall motion abnormalities.
--- NOTE | 2024-08-02 13:24 | P.PN ---
Date of Service: 08/02/24 Subjective: Breathing improved some overnight No other acute events overnight ROS: 10 point ROS as noted above, otherwise negative Physical exam GEN: Alert, oriented, NAD HEENT: Normal conjunctiva, sclera anicteric CV: Regular rate and rhythm, 2+ pitting edema bilateral lower extremities Pulm: Nonlabored respirations on nasal cannula oxygen ABD: Soft, nontender, nondistended MSK: No joint tenderness Integumentary: No rashes Neuro: Normal speech, normal affect Vitals reviewed Assessment: Acute on chronic hypoxic respiratory failure COPD with exacerbation-on chronic home O2 new onset diastolic CHFbilateral lower extremity pitting edema CAD with recent stents x 4 Hypertension Hyperlipidemia Mild hyponatremia Plan: Acute on chronic hypoxic respiratory failure COPD with exacerbation-on chronic home O2 new onset diastolic CHFbilateral lower extremity pitting edema CAD with recent stents x 4 Cardiology and pulmonology consulted Continue diuresis with IV Lasix Continue steroids, as needed nebulizer treatments Effient, aspirin, statin continued echocardiogram shows normal EF, diastolic dysfunction Sputum culture added Abx added by pulm Hypertension Hyperlipidemia Continue home medications Mild hyponatremia Continue diuresis for CHF exacerbation DVT PPX: Lovenox Code status: Full Discharge Plan: Home Plan to discharge in: Greater than 2 days Time Spent Managing Pts Care (In Minutes): 35
[2024-08-03 08:19] LABS: Anion Gap 6.3 mEq/L (5.0-15.0); Magnesium 2.4 mg/dL (1.6-2.4); Potassium 4.3 mEq/L (3.5-5.1)
[2024-08-03 08:38] LABS: Absolute Lymphocytes (CBC) 0.7 K/uL (0.7-4.9); Absolute Monocytes 1.2 K/uL (0.1-1.3); Absolute Neutrophil 7.3 K/uL (1.8-8.0); Basophils % 0.1 % (0-1.3); Eosinophils % 0.1 % (0-4.4); Hematocrit 37.9 % (39.6-49.0); Hemoglobin 12.8 g/dL (13.6-17.9); Lymphocytes % 7.3 % (15.3-44.8); MCH 31.2 pg (27.0-35.0); MCHC 33.9 g/dL (32.0-36.0); MCV 92.2 fL (80-100); MPV 8.2 fL (7.6-11.3); Monocytes % 13.5 % (3.3-12.3); Nucleated Red Blood Cells % 0.1 % (0-0); Platelets 237 thou/uL (152-406); RBC Red Blood Cell Count 4.11 M/uL (4.33-5.43); Red Cell Distribution Width 14.9 % (12.1-15.2)
--- NOTE | 2024-08-03 15:14 | P.PN ---
Date of Service: 08/03/24 Subjective: Breathing improved some overnight No other acute events overnight Feeling better today ROS: 10 point ROS as noted above, otherwise negative Physical exam GEN: Alert, oriented, NAD HEENT: Normal conjunctiva, sclera anicteric CV: Regular rate and rhythm, 2+ pitting edema bilateral lower extremities Pulm: Nonlabored respirations on nasal cannula oxygen ABD: Soft, nontender, nondistended MSK: No joint tenderness Integumentary: No rashes Neuro: Normal speech, normal affect Vitals reviewed Assessment: Acute on chronic hypoxic respiratory failure COPD with exacerbation-on chronic home O2 new onset diastolic CHFbilateral lower extremity pitting edema CAD with recent stents x 4 Hypertension Hyperlipidemia Mild hyponatremia Plan: Acute on chronic hypoxic respiratory failure COPD with exacerbation-on chronic home O2 new onset diastolic CHFbilateral lower extremity pitting edema CAD with recent stents x 4 Cardiology and pulmonology consulted Continue diuresis with IV Lasix Continue steroids, as needed nebulizer treatments Effient, aspirin, statin continued echocardiogram shows normal EF, diastolic dysfunction Sputum culture added Abx added by pulm Setting up home 02 DC in 1-2 days Hypertension Hyperlipidemia Continue home medications Mild hyponatremia Continue diuresis for CHF exacerbation DVT PPX: Lovenox Code status: Full Discharge Plan: Home Plan to discharge in: Greater than 2 days Time Spent Managing Pts Care (In Minutes): 35
[2024-08-03] MEDS: ALBUTEROL INHALER 200 PUFF/6.7 GM IH PRN (16:11)
[2024-08-04 06:55] LABS: Hematocrit 39.2 % (39.6-49.0); Hemoglobin 13.2 g/dL (13.6-17.9); MCHC 33.6 g/dL (32.0-36.0); MCV 92.1 fL (80-100); MPV 8.2 fL (7.6-11.3); Platelets 260 thou/uL (152-406); RBC Red Blood Cell Count 4.25 M/uL (4.33-5.43); Red Cell Distribution Width 14.7 % (12.1-15.2)
[2024-08-04 07:05] LABS: Anion Gap 10.2 mEq/L (5.0-15.0)
[2024-08-04 07:19] LABS: Potassium 4.2 mEq/L (3.5-5.1)
--- NOTE | 2024-08-04 11:46 | P.PN ---
Subjective Date of Service: 08/04/24 Chief Complaint: COPD exacerbation Patient's condition is still using BiPAP on an intermittent basis still wheezing Review of Systems General: Weakness Respiratory: Shortness of Breath Physical Examination - Vital Signs Temperature: 97.7 F Blood Pressure: 104/57 Pulse: 89 Respirations: 16 Pulse Ox (%): 97 - Physical Exam General: Alert, Oriented x3 Respiratory: Expiratory wheezes Cardiovascular: No edema, Regular rate/rhythm, Normal S1 S2 - Studies Medications List Reviewed: Yes Assessment And Plan - Current Problems (Diagnosis) (1) COPD exacerbation Current Visit: Yes Status: Acute Plan: Patient is 68 years of age admitted with COPD exacerbation requiring intermittent BiPAP with present therapy use scheduled bronchodilators every 6 hours was no change in his present medication avoid Lasix as diastolic dysfunction
--- NOTE | 2024-08-04 12:35 | P.PN ---
Date of Service: 08/04/24 Subjective: Lower extremity edema improved Still with significant dyspnea/expiratory wheezing No other acute events overnight ROS: 10 point ROS as noted above, otherwise negative Physical exam GEN: Alert, oriented, NAD HEENT: Normal conjunctiva, sclera anicteric CV: Regular rate and rhythm, 1+ pitting edema bilateral lower extremities Pulm: Nonlabored respirations on nasal cannula oxygen ABD: Soft, nontender, nondistended MSK: No joint tenderness Integumentary: No rashes Neuro: Normal speech, normal affect Vitals reviewed Assessment: Acute on chronic hypoxic respiratory failure COPD with exacerbation-on chronic home O2 new onset diastolic CHFbilateral lower extremity pitting edema CAD with recent stents x 4 Hypertension Hyperlipidemia Mild hyponatremia Plan: Acute on chronic hypoxic respiratory failure COPD with exacerbation-on chronic home O2 new onset diastolic CHFbilateral lower extremity pitting edema CAD with recent stents x 4 Cardiology and pulmonology consulted Lower extremity edema improved, started spironolactone Continue steroids, as needed nebulizer treatments Effient, aspirin, statin continued echocardiogram shows normal EF, diastolic dysfunction Sputum culture added-being Continue Abx added by pulm Setting up home 02 Still significant dyspnea/expiratory wheezing Hypertension Hyperlipidemia Continue home medications Mild hyponatremia Monitor chemistry daily DVT PPX: Lovenox Code status: Full Discharge Plan: Home Plan to discharge in: Greater than 2 days Time Spent Managing Pts Care (In Minutes): 35
[2024-08-04] MEDS: IPRATROPIUM BROM 0.5MG/2.5ML NEB SCH (14:35)
[2024-08-04] MEDS: ALBUTEROL 2.5 MG/3 ML NEB SOL NEB SCH (14:35)
[2024-08-05 05:54] LABS: Hematocrit 39.6 % (39.6-49.0); Hemoglobin 13.3 g/dL (13.6-17.9); MCH 31.3 pg (27.0-35.0); MCHC 33.5 g/dL (32.0-36.0); MCV 93.4 fL (80-100); MPV 7.6 fL (7.6-11.3); Platelets 284 thou/uL (152-406); RBC Red Blood Cell Count 4.24 M/uL (4.33-5.43); Red Cell Distribution Width 14.9 % (12.1-15.2)
[2024-08-05 06:06] LABS: Anion Gap 7.4 mEq/L (5.0-15.0); Magnesium 2.4 mg/dL (1.6-2.4); Potassium 4.4 mEq/L (3.5-5.1)
[2024-08-05] MEDS: SPIRONOLACTONE 25 MG TABLET PO SCH (08:23)
--- NOTE | 2024-08-05 14:15 | P.PN ---
Date of Service: 08/05/24 Subjective: Lower extremity edema improved Still with significant dyspnea/expiratory wheezing No other acute events overnight ROS: 10 point ROS as noted above, otherwise negative Physical exam GEN: Alert, oriented, NAD HEENT: Normal conjunctiva, sclera anicteric CV: Regular rate and rhythm, no edema Pulm: Nonlabored respirations on nasal cannula oxygen ABD: Soft, nontender, nondistended MSK: No joint tenderness Integumentary: No rashes Neuro: Normal speech, normal affect Vitals reviewed Assessment: Acute on chronic hypoxic respiratory failure COPD with exacerbation-on chronic home O2 new onset diastolic CHFbilateral lower extremity pitting edema CAD with recent stents x 4 Hypertension Hyperlipidemia Mild hyponatremia Plan: Acute on chronic hypoxic respiratory failure COPD with exacerbation-on chronic home O2 new onset diastolic CHFbilateral lower extremity pitting edema CAD with recent stents x 4 Cardiology and pulmonology consulted Lower extremity edema improved, started spironolactone Continue steroids, as needed nebulizer treatments Effient, aspirin, statin continued echocardiogram shows normal EF, diastolic dysfunction Sputum culture added-pending Continue Abx added by pulm/added levaquin 08/05 Setting up home 02-set up Still significant dyspnea/expiratory wheezing 1-2 days for DC Hypertension Hyperlipidemia Continue home medications Mild hyponatremia Monitor chemistry daily DVT PPX: Lovenox Code status: Full Discharge Plan: Home Plan to discharge in: Greater than 2 days Time Spent Managing Pts Care (In Minutes): 35
[2024-08-05] MEDS: levoFLOXacin 750 MG TAB PO ONE (14:48)
[2024-08-06 06:30] LABS: Hematocrit 37.6 % (39.6-49.0); Hemoglobin 12.6 g/dL (13.6-17.9); MCH 31.1 pg (27.0-35.0); MCHC 33.4 g/dL (32.0-36.0); MCV 93.1 fL (80-100); MPV 7.9 fL (7.6-11.3); Platelets 303 thou/uL (152-406); RBC Red Blood Cell Count 4.04 M/uL (4.33-5.43); Red Cell Distribution Width 14.8 % (12.1-15.2)
[2024-08-06 06:38] LABS: Anion Gap 4.4 mEq/L (5.0-15.0); Potassium 4.4 mEq/L (3.5-5.1)
[2024-08-06 07:58] VITALS: BP 109/57; TEMP 97.8
[2024-08-06 08:17] VITALS: O2SAT 100
[2024-08-06] MEDS: levoFLOXacin 750 MG TAB PO SCH (08:24)
--- NOTE | 2024-08-06 10:01 | P.PN ---
Subjective Date of Service: 08/06/24 Chief Complaint: COPD exacerbation Subjective: No new changes, No C/O voiced, Tolerating diet, Ambulating, Improving Review of Systems 10-point ROS is otherwise unremarkable Physical Examination - Vital Signs Temperature: 97.8 F Blood Pressure: 109/57 Pulse: 86 Respirations: 18 Pulse Ox (%): 100 - Physical Exam General: Alert, In no apparent distress HEENT: Atraumatic, PERRLA, EOMI Neck: Supple, JVD not distended Respiratory: Clear to auscultation bilaterally, Normal air movement Cardiovascular: Regular rate/rhythm, Normal S1 S2 Gastrointestinal: Normal bowel sounds, No tenderness Musculoskeletal: No tenderness Integumentary: No rashes Neurological: Normal speech, Normal tone, Normal affect Lymphatics: No axilla or inguinal lymphadenopathy - Studies Medications List Reviewed: Yes Assessment And Plan - Current Problems (Diagnosis) (1) Acute on chronic diastolic heart failure Current Visit: Yes Status: Acute Plan: continue Toprol XL 25 mg daily continue Valsartan 180 mg daily continue Aldactone 25 mg daily (2) CAD (coronary artery disease) Current Visit: Yes Status: Acute Plan: continue ASA and Effient and statin Echo shows normal LV systolic function, no wall motion abnormalities.
--- NOTE | 2024-08-06 13:46 | P.DS ---
Admission Date: 07/31/24 Discharge Date: 08/06/24 Disposition: ROUTINE DISCHARGE Discharge Condition: GOOD Reason for Admission: COPD exacerbation Brief History of Present Illness: 68-year-old male with history of COPD on chronic home O2, hypertension, hyperlipidemia, tobacco use disorder, CAD with recent stents presents to the emergency department chief complaint of shortness of breath, lower extremity edema. About 1 month ago he had 4 stents placed, he has been compliant with his medications including Effient, aspirin, statin. He reports last few days he has noticed increasing swelling in his lower extremities as well as worsening trouble with his breathing. He also reports increase sputum production and wheezing. Patient was evaluated in the emergency department chest x-ray was performed which showed no acute findings labs were significant for sodium 134 bicarb 35 BNP 572 troponin 23.1 white blood count 11.7. Patient has 3+ pitting edema of his lower extremities currently he was given IV Lasix, steroids, nebs in the ED and was still having some dyspnea, he was started on BiPAP for work of breathing in ED. He will be admitted for further evaluation and management of suspected new onset CHF with possible COPD exacerbation. Hospital Course: Assessment: Acute on chronic hypoxic respiratory failure COPD with exacerbation-on chronic home O2 new onset diastolic CHFbilateral lower extremity pitting edema CAD with recent stents x 4 Hypertension Hyperlipidemia Mild hyponatremia Patient was admitted to the hospital for COPD exacerbation, he was also noted to have lower extremity edema which was new onset. He was treated for his COPD with steroids, nebulizer treatments, inhalers and had gradual improvement in his symptoms. He was seen by cardiology and echocardiogram was performed. Echocardiogram showed normal LVEF but did show diastolic dysfunction. He was diuresed initially with Lasix and then switched over to spironolactone w [facility] she has been tolerating well and will be discharged with. Sputum culture was obtained which grew Pseudomonas, patient has been started on levofloxacin and he will be given a prescription for Levaquin. Patient also requested refills on his prescriptions, especially his medications for his recent stents including his Effient, aspirin and atorvastatin. These medications have been sent to his pharmacy [facility] in [place]. Patient is stable for discharge at this time, home oxygen has also been set up for him. Prescription sent for all of your medications You will need follow-up with your heart doctor in [place] or the local skirt trimmer here You should also follow-up with Dr. Denney in the clinic for your lungs in 1 to 2 weeks Vital Signs/Physical Exam: Temp Pulse Resp BP Pulse Ox 97.8 F 86 18 109/57 L 100 08/06/24 10:01 08/06/24 10:01 08/06/24 10:01 08/06/24 10:01 08/06/24 10:01 General: Alert, In no apparent distress, Oriented x3 HEENT: Atraumatic, PERRLA Neck: Supple, JVD not distended Respiratory: Normal air movement, Expiratory wheezes Cardiovascular: Regular rate/rhythm, Normal S1 S2 Gastrointestinal: Normal bowel sounds Musculoskeletal: No tenderness Integumentary: No rashes Neurological: Normal speech, Normal affect Laboratory Data at Discharge: WBC 8.90 thou/uL (4.3-10.9) 08/06/24 05:55 Hgb 12.6 g/dL (13.6-17.9) L 08/06/24 05:55 Hct 37.6 % (39.6-49.0) L 08/06/24 05:55 Plt Count 303 thou/uL (152-406) 08/06/24 05:55 Sodium 136 mEq/L (136-145) 08/06/24 05:55 Potassium 4.4 mEq/L (3.5-5.1) 08/06/24 05:55 BUN 19 mg/dL (7-18) H 08/06/24 05:55 Creatinine 0.85 mg/dL (0.70-1.30) 08/06/24 05:55 Glucose 120 mg/dL (74-106) H 08/06/24 05:55 Magnesium 2.4 mg/dL (1.6-2.4) 08/05/24 05:36 Total Bilirubin 0.6 mg/dL (0.2-1.0) 07/31/24 13:15 AST 20 U/L (15-37) 07/31/24 13:15 ALT 44 U/L (16-61) 07/31/24 13:15 Alkaline Phosphatase 84 U/L (45-117) 07/31/24 13:15 Home Medications: Albuterol Inhaler [Ventolin Inhaler*] 2 puff IH Q6H PRN #2 inhaler 08/06/24 Amlodipine [Norvasc*] 5 mg PO DAILY #60 tab 08/06/24 Aspirin 81 mg PO DAILY #60 tab.chew 08/06/24 Atorvastatin Calcium [Lipitor] 40 mg PO BEDTIME #60 tab 08/06/24 Fluticasone Propion/Salmeterol [Advair 250-50 Diskus] 1 each IH BID #1 inh 08/06/24 Metoprolol Succinate [Toprol Xl*] 50 mg PO DAILY #60 tab 08/06/24 Roflumilast [Daliresp*] 500 mcg PO DAILY #30 tab 08/06/24 Spironolactone [Aldactone*] 25 mg PO DAILY #30 tab 08/06/24 Valsartan [Diovan] 160 mg PO DAILY #60 tab 08/06/24 levoFLOXacin [Levaquin*] 750 mg PO DAILY #7 tab 08/06/24 prasugrel HCL [Prasugrel HCl] 1 tab PO DAILY #60 tab 08/06/24 predniSONE [Deltasone*] 10 mg PO BID 10 Days #20 tab 08/06/24 New Medications: Fluticasone Propion/Salmeterol [Advair 250-50 Diskus] 1 each IH BID #1 inh Spironolactone [Aldactone*] 25 mg PO DAILY #30 tab Aspirin 81 mg PO DAILY #60 tab.chew Roflumilast [Daliresp*] 500 mcg PO DAILY #30 tab predniSONE [Deltasone*] 10 mg PO BID 10 Days #20 tab Valsartan [Diovan] 160 mg PO DAILY #60 tab levoFLOXacin [Levaquin*] 750 mg PO DAILY #7 tab Atorvastatin Calcium [Lipitor] 40 mg PO BEDTIME #60 tab Amlodipine [Norvasc*] 5 mg PO DAILY #60 tab prasugrel HCL [Prasugrel HCl] 1 tab PO DAILY #60 tab Metoprolol Succinate [Toprol Xl*] 50 mg PO DAILY #60 tab Albuterol Inhaler [Ventolin Inhaler*] 2 puff IH Q6H PRN #2 inhaler PRN Reason: Shortness Of Breath Physician Discharge Instructions: Patient was admitted to the hospital for COPD exacerbation, he was also noted to have lower extremity edema which was new onset. He was treated for his COPD with steroids, nebulizer treatments, inhalers and had gradual improvement in his symptoms. He was seen by cardiology and echocardiogram was performed. Echocardiogram showed normal LVEF but did show diastolic dysfunction. He was diuresed initially with Lasix and then switched over to spironolactone which she has been tolerating well and will be discharged with. Sputum culture was obtained which grew Pseudomonas, patient has been started on levofloxacin and he will be given a prescription for Levaquin. Patient also requested refill s on his prescriptions, especially his medications for his recent stents including his Effient, aspirin and atorvastatin. These medications have been sent to his pharmacy [facility] in [place]. Patient is stable for discharge at this time, home oxygen has also been set up for him. Prescription sent for all of your medications You will need follow-up with your heart doctor in [place] or the local ardiologist here You should also follow-up with Dr. Denney in the clinic for your lungs in 1 to 2 weeks Diet: Low sodium Activity: Ad alena Followup: Tommie Denney MD [ACTIVE - CAN ADMIT] - 1-2 Weeks Noah Cobos MD [ACTIVE - CAN ADMIT] - 1-2 Weeks NONE,NONE [Primary Care Provider] - 1-2 Weeks Time spent managing pt's care (in minutes): 50
== END 2024-08-06 10:47 | disposition home or self-care (01) | DRG 291 ==
LOC: ER 12:07 → ERHOLD 14:18 → 4TH 18:18
PROVIDERS: ADMIT Hospitalist; ATTEND Hospitalist
PROC: 4A033R1 Measurement of Arterial Saturation, Peripheral, Percutaneous Approach (ICD-10-PCS; principal; 2024-07-31)
PROC: 5A09357 Assistance with Respiratory Ventilation, Less than 24 Consecutive Hours, Continuous Positive Airway Pressure (ICD-10-PCS; 2024-07-31)
DX: I11.0 Hypertensive heart disease with heart failure (principal); I50.33 Acute on chronic diastolic (congestive) heart failure; J96.21 Acute and chronic respiratory failure with hypoxia; J44.1 Chronic obstructive pulmonary disease with (acute) exacerbation; E87.1 Hypo-osmolality and hyponatremia; E78.5 Hyperlipidemia, unspecified; I25.2 Old myocardial infarction; I25.10 Atherosclerotic heart disease of native coronary artery without angina pectoris; F17.210 Nicotine dependence, cigarettes, uncomplicated; Z23 Encounter for immunization; Z95.5 Presence of coronary angioplasty implant and graft; Z79.82 Long term (current) use of aspirin; Z99.81 Dependence on supplemental oxygen; Z79.52 Long term (current) use of systemic steroids; Z79.899 Other long term (current) drug therapy
CPT/HCPCS: 36415; 36600; 71045; 80048; 80076; 82805; 83735; 83880; 84439; 84443; 84484; 85025; 85027; 87070; 87077; 87184; 87186; 87205; 90471; 90732; 93005; 93306; 94640; 94660; 94760; 96365; 96375; 99285; J1650; J1940; J2919; J3475; J3480; J7050; J7512; J7605; J7613; J7626; J7644

== ENCOUNTER 2024-08-16 07:27 | Inpatient (IN) | payer OTHER ==
--- OUTSIDE RECORDS SUMMARY | 2024-08-16 07:33 | XMS REPORT | Continuity of Care Document ---
Author Name Unknown Address [address] [facility] [place] [address] [facility] Address [address] [facility] 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 Name Role Phone Maribel Suresh Primary Care Physician [phone] Marcellus Gilbert Attending Clinician Unavailjeanna dugan Doctor Unassigned, [place] Attending Clinician U MARIELA Lau Attending Clinician Unavail Mariela Cervantes MD Attending Clinician [phone] Barbara BERG, Eliu Duenas Attending Clinician Unavail able ERIC FERRER Attending Clinician Unavailable Angie Platt DO Attending Clinician [phone] Eric Ferrer MD Attending Clinician [phone] Jose MORRISSEY, Ruddy Duenas Attending Clinician [phone] Marcellus Gilbert Admitting Clinician MARIELA Ambriz Admitting Clinician Unavail able ERIC FERRER Admitting Clinician Hebert Ferrer MD, Eric Admitting Clinician [phone] Jose MORRISSEY, Ruddy Duenas Admitting Clinician [phone] Payers Payer Name Policy Type Policy Number Effective Date Expirati on Date Source Problems Condition Name Condition Details Condition Category Status Onset Date Resolution Date Last Treatment Date Treating Clinician Comments Source SOB (shortness of breath) SOB (shortness of breath) Disease Active 2021-05 0- 00:00: 00 [facility] Allergies, Adverse Reactions, Alerts Allergy Name Allergy Type Status Severity Reaction(s) Onset Date Inactive Date Treating Clinician Comments Source No Known Allergie s DA Active U 2 00:00: 00 [facility] NO KNOWN ALLERGIE S Drug Class Active [facility] Social History Social Habit Start Date Stop Date Quantity Comments Source History of tobacco use Occasional tobacco smoker [facility] Exposure to SARS-CoV-2 (event) 2022-06-30 00:00:00 2022-07-10 18:14:00 Not sure [facility] Alcohol intake 2022-07-10 00:00:00 2022-07-10 00:00:00 Current drinker of alcohol (finding) [facility] History SDOH Transport Med 2022-03-09 00:00:00 2022-03-09 00:00:00 2 [facility] History SDOH Transport Non-Med 2022-03-09 00:00:00 2022-03-09 00:00:00 2 [facility] Tobacco use and exposure 2018 00:00:00 2018 00:00:00 Smokeless tobacco non-user [facility] Sex Assigned At 1955 00:00:00 1955 00:00:00 [facility] Smoking Status Start Date Stop Date Source Occasional tobacco smoker 2018 00:00:00 [facility] Medications Ordered Medication Name Filled Medication Name [...] , ONCE, 1 dose, On 07/10/22 at 1915, ALEJANDRA [facility] cloNIDine (CATAPRES) tablet 0.2 mg 07-11 01:15: 00 07-11 01:23 :00 No .2mg 0.2 mg, Oral, ONCE, 1 dose, On 07/10/22 at 1915, STAT [facility] methylpredn isolone sod succ (SOLU-MEDRO L) injection 125 mg 07-11 01:15: 00 07-11 02:04 :00 No 125mg 125 mg, Intravenou s, ONCE, 1 dose, On 07/10/22 at 1915, 2 mL [facility] ipratropium -albuteroL (DUONEB) 0.5 mg-3 mg(2.5 mg base)/3 mL nebulizer solution 3 mL 07-11 00:30: 00 07-11 00:36 :00 No 3mL 3 mL, Inhalation , ONCE, 1 dose, On 07/10/22 at 1830, ALEJANDRA [facility] furosemide (LASIX) injection 40 mg 07-11 00:30: 00 07-11 02:03 :00 No 40mg 40 mg, IV Push, ONCE, 1 dose, On 07/10/22 at 1830, ALEJANDRA [facility] doxycycline hyclate 100 mg capsule 07-10 00:00: 00 Yes [id number] 100mg Take 1 capsule by mouth in the morning and 1 capsule in the evening. [facility] hydrOXYzine 10 mg tablet 07-10 00:00: 00 Yes [id number] 10mg Take 1 tablet by mouth every 8 (eight) hours as needed for Itching for up to 10 doses. [facility] amLODIPine 5 mg tablet 07-10 00:00: 00 08-10 04:59 :00 No [id number] 5mg Take 1 tablet by mouth in the morning for 30 doses. [facility] hydrocortis one 1 % ointment 07-10 00:00: 00 07-21 04:59 :00 No [id number] Apply to affected area(s) 2 (two) times daily as needed for Itching or Dermatitis /Rash for up to 10 days. [facility] predniSONE 20 mg tablet 07-10 00:00: 00 07-16 05:59 :00 No [id number] 20mg Take 1 tablet by mouth in the morning and 1 tablet in the evening. Do all this for 5 days. [facility] hydroCHLORO thiazide 25 mg tablet 2021-05 00:00: 00 04-09 05:59 :00 No [id number] 25mg Take 1 tablet by mouth in the morning for 30 days. [facility] predniSONE 20 mg tablet 2021-05 00:00: 00 03-13 04:59 :00 No [id number] 40mg Take 2 tablets by mouth in the morning for 3 days. [facility] ipratropium /albuterol sulfate (COMBIVENT INHALE) 2021-05 15:45: 43 Yes Inhale. [facility] budesonide/ formoterol fumarate (SYMBICORT INHALE) 2021-05 14:43: 19 03-08 00:00 :00 No Inhale. [facility] amLODIPine 5 mg tablet 2021-05 14:43: 19 03-08 00:00 :00 No 5mg Take 5 mg by mouth in the morning. [facility] dextrometho rphan-mackenzief enesin 10-100 mg/5 mL solution 2021-05 00:00: 00 Yes [id number] 10mL Take 10 mL by mouth every 6 (six) hours as needed for Cough. [facility] albuterol 90 mcg/actuati on inhaler 2021-05 00:00: 00 Yes [id number] 2{puff} Inhale 2 Puffs every 4 (four) hours as needed for Wheezing or Shortness of Breath. [facility] hydrocortis one 1 % ointment 2021-05 00:00: 00 07-10 00:00 :00 No [id number] Apply to affected area(s) 2 (two) times daily as needed for Itching or Dermatitis /Rash. [facility] hydrOXYzine 10 mg tablet 2021-05 00:00: 00 07-10 00:00 :00 No [id number] 10mg Take 1 tablet by mouth every 8 (eight) hours as needed for Itching. [facility] lisinopriL 5 mg tablet 2021-05 00:00: 00 04-08 05:59 :00 No [id number] 5mg Take 1 tablet by mouth in the morning for 30 days. [facility] levoFLOXaci n 750 mg tablet 2021-05 00:00: 00 03-13 04:59 :00 No [id number] 750mg Take 1 tablet by mouth in the morning for 4 days. [facility] sodium chloride 7% (HYPER-CHARLIE) nebulizer solution 4 mL 2021-05 17:45: 00 Yes 4mL 4 mL, Inhalation , DAILY, First dose on 03/07/22 at 1245, Until Discontinu ed, Routine [facility] predniSONE (DELTASONE) tablet 40 mg 2021-05 14:00: 00 03-12 13:59 :00 No 40mg 40 mg, Oral, DAILY, 5 doses, First dose on 03/07/22 at 0900, Last dose on Bianka 03/11/22 at 0900, Routine [facility] hydrOXYzine (ATARAX) tablet 10 mg 2021-05 12:32: 22 Yes 10mg 10 mg, Oral, Q8HPRN, Starting on 03/07/22 at 0732, Until Discontinu ed, Routine, Itching [facility] ipratropium -albuteroL (DUONEB) 0.5 mg-3 mg(2.5 mg base)/3 mL nebulizer solution 3 mL 2021-05 01:00: 00 Yes 3mL 3 mL, Inhalation , Q4H, First dose (after last modificati on) on 03/06/22 at 2000, Until Discontinu ed, Routine [facility] enoxaparin (LOVENOX) injection 40 mg 2021-05 22:00: 00 Yes 40mg 40 mg, Subcutaneo us, DAILY, First dose on 03/06/22 at 1700, Until Discontinu ed, Routine [facility] nicotine (NICODERM) 21 mg/24 hr patch 1 Patch 2021-05 21:30: 00 Yes 1{patch } 1 Patch, Topical, Administer over 24 Hours, Q24H, First dose on 03/06/22 at 1630, Until Discontinu ed, Routine [facility] hydroCHLORO thiazide (ESIDRIX) tablet 25 mg 2021-05 20:30: 00 Yes 25mg 25 mg, Oral, DAILY, First dose on 03/06/22 at 1530, Until Discontinu ed, Routine [facility] amLODIPine (NORVASC) tablet 10 mg 2021-05 20:30: 00 Yes 10mg 10 mg, Oral, DAILY, First dose on 03/06/22 at 1530, Until Discontinu ed, Routine [facility] hydrocortis one (CORTIZONE- 10) 1 % ointment 2021-05 20:30: 00 Yes Topical (Apply To Affected Areas), BID, First dose on 03/06/22 at 1530, Until Discontinu ed, Routine [facility] levoFLOXaci n (LEVAQUIN) tablet 750 mg 2021-05 17:00: 00 03-13 16:59 :00 No 750mg 750 mg, Oral, Q24H ABX, 7 doses, First dose on Tue03/06/22 at 1200, Last dose on Tue03/12/22 at 1200, ALEJANDRA
Re ason for Anti-Infec tive: Documented Infection< br>Documen aracely Infection Site: Respirator y
Durat ion of Therapy: 7 days
Re stricted use approved by: ADC PROVIDER [facility] ipratropium -albuteroL (DUONEB) 0.5 mg-3 mg(2.5 mg base)/3 mL nebulizer solution 3 mL 2021-05 17:00: 00 03-06 20:51 :01 No 3mL 3 mL, Inhalation , Q6H, First dose on 03/06/22 at 1200, Until Discontinu ed, Routine [facility] dextrometho rphan-guaif enesin (ROBITUSSIN DM) 10-100 mg/5 mL solution 10 mL 2021-05 16:58: 57 Yes 10mL 10 mL, Oral, Q6HPRN, Starting on 03/06/22 at 1158, Until Discontinu ed, Routine, Cough [facility] ondansetron (ZOFRAN (PF)) injection 4 mg 2021-05 16:57: 41 Yes 4mg 4 mg, Slow IV Push, Q6HPRN, Starting on 03/06/22 at 1157, Until Discontinu ed, Routine, Nausea and Vomiting (N/V) [facility] acetaminoph en (TYLENOL) tablet 650 mg 2021-05 16:57: 29 Yes 650mg 650 mg, Oral, Q6HPRN, Starting on 03/06/22 at 1157, Until Discontinu ed, Routine, Pain (scale 1-3), Temp > 38.5 C [facility] albuterol (PROVENTIL) 2.5 mg /3 mL (0.083 %) nebulizer solution 5 mg 2021-05 16:15: 00 03-06 15:19 :00 No 5mg 5 mg, Inhalation , ONCE, 1 dose, On 03/06/22 at 1115, ALEJANDRA [facility] magnesium sulfate in water 2 gram/50 mL (4 %) infusion 2 g 2021-05 16:15: 00 03-06 16:20 :00 No 2g 2 g, IV Piggyback, Administer over 60 Minutes, ONCE, 1 dose, On 03/06/22 at 1115, Routine [facility] ipratropium (ATROVENT) 0.02 % nebulizer solution 0.5 mg 2021-05 15:00: 00 03-06 14:13 :00 No .5mg 0.5 mg, Inhalation , ONCE, 1 dose, On 03/06/22 at 1000, ALEJANDRA [facility] methylpredn isolone sod succ (SOLU-MEDRO L) injection 125 mg 2021-05 15:00: 00 03-06 14:17 :00 No 125mg 125 mg, Slow IV Push, ONCE NOW, 1 dose, On 03/06/22 at 1000, ALEJANDRA [facility] albuterol (PROVENTIL) 2.5 mg /3 mL (0.083 %) nebulizer solution 5 mg 2021-05 15:00: 00 03-06 14:13 :00 No 5mg 5 mg, Inhalation , ONCE, 1 dose, On 03/06/22 at 1000, ALEJANDRA [facility] budesonide/ formoterol fumarate (SYMBICORT INHALE) 0 12-20 20:20: 01 Yes Inhale. [facility] ipratropium /albuterol sulfate (COMBIVENT INHALE) 0 12-20 20:20: 01 Yes Inhale. [facility] fluticasone propion/charlie meterol (ADVAIR DISKUS INHALE) 0 12-20 20:20: 01 Yes Inhale. [facility] ceFAZolin (ANCEF) injection 0 12-20 19:30: 00 Yes PRN, Starting Tue12/20/18 at 1430, Until Discontinu ed, ALEJANDRA, Intra-op [facility] carbachol (MIOSTAT) 0.01 % intraocular injection 12-20 19:29: 00 Yes PRN, Starting Tue12/20/18 at 1429, Until Discontinu ed, Routine, Intra-op [facility] balanced salt irrig soln comb1 (BSS PLUS) ophthalmic solution 500 mL bag 12-20 19:16: 00 Yes PRN, Starting Tue12/20/18 at 1416, Until Discontinu ed, Routine, Intra-op [facility] bupivacaine (preserv free) (SENSORCAIN E MPF) 0.75 % (7.5 mg/mL) injection 12-20 19:07: 00 Yes PRN, Starting Tue12/20/18 at 1407, Until Discontinu ed, Routine, Intra-op [facility] lactated ringers IV infusion 500 mL 12-20 16:15: 00 12-20 16:32 :00 No 500mL at 20 mL/hr, 500 mL, IV Infusion, ONCE, 1 dose, Tue12/20/18 at 1115, Routine, DSU Pre-op [facility] budesonide/ formoterol fumarate (SYMBICORT INHALE) 12-20 15:20: 01 Yes Inhale. [facility] budesonide/ formoterol fumarate (SYMBICORT INHALE) 12-19 13:41: 21 Yes Inhale. [facility] ipratropium /albuterol sulfate (COMBIVENT INHALE) 12-19 13:41: 21 Yes Inhale. [facility] fluticasone propion/charlie meterol (ADVAIR DISKUS INHALE) 12-19 13:41: 21 Yes Inhale. [facility] Vital Signs Vital Name Observation Time Observation Value Comments S oureliud Systolic blood pressure 2022-07-11 02:30:00 134 mm[Hg] [facility] Diastolic blood pressure 2022-07-11 02:30:00 86 mm[Hg] [facility] Heart rate 2022-07-11 02:30:00 100 /min [facility] Respiratory rate 2022-07-11 02:30:00 31 /min [facility] Oxygen saturation in Arterial blood by Pulse oximetry 2022-07-11 02:30:00 93 /min [facility] Body temperature 2022-07-11 00:15:00 36.78 Bonnie [facility] Body height 2022-07-11 00:15:00 172.7 cm Univ [facility] Body weight 2022-07-11 00:15:00 63.504 kg [facility] BMI 2022-07-11 00:15:00 21.29 kg/m2 [facility] Respiratory rate 2022-03-08 17:00:00 16 /min [facility] Oxygen saturation in Arterial blood by Pulse oximetry 2022-03-08 17:00:00 92 /min [facility] Heart rate 2022-03-08 16:30:00 99 /min [facility] Body temperature 2022-03-08 16:30:00 36.39 Bonnie [facility] Systolic blood pressure 2022-03-08 16:30:00 145 mm[Hg] [facility] Diastolic blood pressure 2022-03-08 16:30:00 93 mm[Hg] [facility] Body weight 2022-03-08 09:00:00 66.996 kg [facility] BMI 2022-03-08 09:00:00 22.46 kg/m2 [facility] Body height 2022-03-06 14:02:00 172.7 cm [facility] Systolic blood pressure 2018-12-20 19:42:00 156 mm[Hg] [facility] Diastolic blood pressure 2018-12-20 19:42:00 96 mm[Hg] [facility] Body temperature 2018-12-20 19:42:00 36.78 Bonnie [facility] Respiratory rate 2018-12-20 19:42:00 18 /min [facility] Oxygen saturation in Arterial blood by Pulse oximetry 2018-12-20 19:42:00 100 /min [facility] Heart rate 2018-12-20 16:23:00 73 /min [facility] Body height 2018-12-18 18:12:00 172.7 cm [facility] Body weight 2018-12-18 18:12:00 65.772 kg [facility] BMI 2018-12-18 18:12:00 22.05 kg/m2 [facility] Procedures Procedure Date / Time Performed Performing Clinician Source DILATION OF 2 COR ART WITH 4 DRUG-ELUT, PERC APPRO 2024-07-11 00:00:00 [facility] INSERT EXT HEART ASSIST IN HEART, INTRAOP, PERC 2024-07-11 00:00:00 [facility] MEASURE OF CARDIAC SAMPL PRESSURE, L HEART, PERC 2024-07-11 00:00:00 [facility] ASSIST WITH CARDIAC OUTPUT USING IMPELLER PUMP, CO 2024-07-11 00:00:00 [facility] FLUOROSCOPY OF MULT COR ART USING L OSM CONTRAST 2024-07-11 00:00:00 [facility] ULTRASONOGRAPHY OF MULTIPLE CORONARY ARTERIES, INT 2024-07-11 00:00:00 [facility] MEDICATION CORRESPONDENCE 2022-08-02 05:01:00 Do ctor Unassigned, [facility] EKG-12 LEAD 2022-07-11 02:53:59 Mariela Jerry [facility] COMP. METABOLIC PANEL ([id number]) 2022-07-11 02:00:00 Mariela Jerry [facility] RAPID STREP SCREEN FOR GROUP A 2022-07-11 01:23:00 Mariela Jerry [facility] RAPID INFLUENZA A/B 2022-07-11 01:23:00 Mariela Jerry [facility] XR CHEST 2 VW 2022-07-11 01:21:24 Mariela Jerry [facility] TROPONIN I 2022-07-11 00:59:00 Mariela Jerry [facility] CBC WITH DIFF 2022-07-11 00:59:00 Mariela Jerry [facility] N-TERMINAL PRO-BNP 2022-07-11 00:59:00 Mariela Jerry [facility] COVID-19 (ID NOW RAPID TESTING) 2022-07-11 00:59:00 Mariela Jerry [facility] CONSENT/REFUSAL FOR DIAGNOSIS AND TREATMENT 2022-07-11 00:03:12 Doctor Unassigned, [facility] AUTHORIZATION FOR RELEASE OF PHI 2022-06-22 06:01:00 Doctor Unassigned, [place] EXTERNAL PROVIDER - ADC REFERRAL 2022-03-17 06:01:00 Doctor Unassigned, [place] MAGNESIUM 2022-03-07 08:47:00 [facility] Fer[facility] BASIC METABOLIC PANEL (NA, K, CL, CO2, GLUCOSE, BUN, CREATININE, CA) 2022-03-07 08:47:00 Eric Ferrer [facility] CBC WITH DIFF 2022-03-07 08:47:[address] [facility] LEGIONELLA URINARY ANTIGEN TST 2022-03-06 21:41:00 [facility] 2022-03-06 21:41:00 [facility] PNEUMOCOCCAL ANTIGEN 2022-03-06 21:40:00 Kavin Ferrer i [facility] PROCALCITONIN 2022-03-06 18:08:00 Eric Ferrer [facility] MRSA / MSSA SCREEN BY PCRSAPPHIRE 2022-03-06 18:08:00 Eric Ferrer [facility] RESPIRATORY PANEL BY PCR 2022-03-06 18:08:00 Glenna Ferrer [facility] XR CHEST 1 VW 2022-03-06 14:30:00 Angie Platt [facility] HB ECG ROUTINE & RHYTHM STRIP 2022-03-06 14:15:12 Angie Platt [facility] TROPONIN I 2022-03-06 14:09:00 Angie Platt Un [facility] COMP. METABOLIC PANEL ([id number]) 2022-03-06 14:09:00 Angie Platt [facility] CBC WITH DIFF 2022-03-06 14:09:00 Angie Platt [facility] COVID-19 (ID NOW RAPID TESTING) 2022-03-06 14:09:00 Angie Platt [facility] NOTICE OF PRIVACY PRACTICES 2022-03-06 13:48:55 Doctor Unassigned, [place] CONSENT/REFUSAL FOR DIAGNOSIS AND TREATMENT 2022-03-06 13:48:32 Doctor Unassigned, [place] ASSIGNMENT OF BENEFITS 2018-12-19 14:02:27 Docto r Unassigned, [place] [facility] Encounters Start Date/Time End Date/Time Encounter Type Admission Type Attending [facility] Facility Care Department Encounter ID Source 2024-07-03 16:22:00 2024-07-12 10:12:00 Inpatient UR Marcellus Gilbert [facility] INTE.02 [id number] [facility] 2022-08-02 00:00:00 2022-08-02 00:00:00 Orders Only Doctor Unassigned, [facility] 1.2840.114 350.1.13.10 4.2.7.2.686 [id number] [facility] 2022-07-10 18:17:00 2022-07-10 21:16:00 Emergency X MARIELA JERRY [facility] ERT [id number] [facility] 2022-07-10 18:17:00 2022-07-10 21:16:00 Emergency Mariela Jerry [facility] [id number] 350.1.13.10 4.2.7.2.686 [id number] [facility] 2022-06-22 00:00:00 2022-06-22 00:00:00 Orders Only Doctor Unassigned, [place] 1.2840.114 350.1.13.10 4.2.7.2.686 [id number] [facility] 2022-03-17 00:00:00 2022-03-17 00:00:00 Orders Only Doctor Unassigned, [facility] 1.2.840.114 350.1.13.10 4.2.7.2.686 [id number] [facility] 2022-03-09 00:00:00 2022-03-09 00:00:00 Transition of Care Abiel Jimenezele Henrique BRIENZane AMOR [facility]STR[facility] [id number] 350.1.13.10 4.2.7.2.686 [id number] [facility] 2022-03-06 08:50:00 2022-03-08 15:45:00 Inpatient X [facility]IS[facility]IC [facility] HENRY [id number] [facility] 2022-03-06 08:50:00 2022-03-08 15:45:00 Hospital Encounter LcAngie Jelani [facility] [id number] 350.1.13.10 4.2.7.2.686 [id number] [facility] 2022-03-06 00:00:00 2022-03-06 00:00:00 Orders Only Doctor Unassigned, [facility] 1.2.840.114 350.1.13.10 4.2.7.2.686 [id number] [facility] 2018-12-20 11:11:00 2018-12-20 15:19:[address] Hospital Encounter Jose Ruddy Henrique [facility] 1.2.840.114 350.1.13.10 4.2.7.2.686 [id number] [facility] 2018-12-19 00:00:00 2018-12-19 00:00:00 Orders Only Doctor Unassigned, [place] 1.2.840.114 350.1.13.10 4.2.7.2.686 [id number] [facility] Results Test Description Test Time Test Comments Results Result Co mments Source [id number] 08:37:00* Test Item Value Reference Range Interpretation Comme nts MAGNESIUM (test code = MAG) 2.15 mg/dL 1.6-2.6 N CBC W/AUTO [id number] 07:49:00* Test Item Value Reference Range Interpretation [...] 0.00 x10 3/uL 0.0-0.1 N COAGULATION TIME [id number] 09:48:00* Test Item Value Reference Range Interpretation Comme nts COAGULATION TIME ACTIVATED (test code = ACT) 291 SECONDS Performed by certified beauty operator apprentice at [facility] COAGULATION TIME [id number] 09:09:00* Test Item Value Reference Range Interpretation Comme nts COAGULATION TIME ACTIVATED (test code = ACT) 313 SECONDS Performed by certified beauty operator apprentice at [facility] COAGULATION TIME [id number] 08:48:00* Test Item Value Reference Range Interpretation Comme nts COAGULATION TIME ACTIVATED (test code = ACT) 324 SECONDS Performed by certified beauty operator apprentice at [facility] COAGULATION TIME [id number] 08:16:00* Test Item Value Reference Range Interpretation Comme nts COAGULATION TIME ACTIVATED (test code = ACT) 233 SECONDS Performed by certified beauty operator apprentice at [facility] COAGULATION TIME [id number] 08:05:00* Test Item Value Reference Range Interpretation Comme nts COAGULATION TIME ACTIVATED (test code = ACT) 211 SECONDS Performed by certified beauty operator apprentice at [facility] BASIC METABOLIC [id number] 07:46:00* Test Item Value Reference Range Interpretation [...] code = CA) 8.2 mg/dL 8.0-10.5 N [id number] 07:46:00* Test Item Value Reference Range Interpretation Comme nts MAGNESIUM (test code = MAG) 1.90 mg/dL 1.6-2.6 N CBC W/AUTO [id number] 06:50:00* Test Item Value Reference Range Interpretation [...] NRBC#) 0.00 x10 3/uL 0.0-0.1 N PROTHROMBIN [id number] 16:59:00* Test Item Value Reference Range Interpretation [...] Infarction (to prevent recurrent infarct). BASIC METABOLIC [id number] 07:17:00* Test Item Value Reference Range Interpretation [...] code = CA) 8.4 mg/dL 8.0-10.5 N [id number] 07:17:00* Test Item Value Reference Range Interpretation Comme nts MAGNESIUM (test code = MAG) 1.96 mg/dL 1.6-2.6 N CBC W/AUTO [id number] 06:52:00* Test Item Value Reference Range Interpretation [...] 0.00 x10 3/uL 0.0-0.1 N BASIC METABOLIC [id number] 09:12:00* Test Item Value Reference Range Interpretation [...] code = CA) 9.3 mg/dL 8.0-10.5 N [id number] 09:12:00* Test Item Value Reference Range Interpretation Comme nts MAGNESIUM (test code = MAG) 2.12 mg/dL 1.6-2.6 N CBC W/AUTO [id number] 08:57:00* Test Item Value Reference Range Interpretation [...] 0.00 x10 3/uL 0.0-0.1 N COMPREHENSIVE METABOLIC [id number] 06:08:00* Test Item Value Reference Range Interpretation [...] code = ALKP) 93 IUnit/L 20-125 N [id number] 06:08:00* Test Item Value Reference Range Interpretation Comme nts MAGNESIUM (test code = MAG) 2.18 mg/dL 1.6-2.6 N CBC W/AUTO [id number] 05:37:00* Test Item Value Reference Range Interpretation [...] 0.00 x10 3/uL 0.0-0.1 N COMPREHENSIVE METABOLIC [id number] 06:25:00* Test Item Value Reference Range Interpretation [...] code = ALKP) 95 IUnit/L 20-125 N [id number] 06:25:00* Test Item Value Reference Range Interpretation Comme nts MAGNESIUM (test code = MAG) 2.28 mg/dL 1.6-2.6 N CBC W/AUTO [id number] 06:18:00* Test Item Value Reference Range Interpretation [...] 0.00 x10 3/uL 0.0-0.1 N COMPREHENSIVE METABOLIC [id number] 06:04:00* Test Item Value Reference Range Interpretation [...] code = ALKP) 85 IUnit/L 20-125 N [id number] 06:04:00* Test Item Value Reference Range Interpretation Comme nts PHOSPHOROUS (test code = PHOS) 2.7 MG/DL 2.5-4.9 N [id number] 06:04:00* Test Item Value Reference Range Interpretation Comme nts MAGNESIUM (test code = MAG) 2.33 mg/dL 1.6-2.6 N CALCIUM [id number] 06:04:00* Test Item Value Reference Range Interpretation Comme nts CALCIUM IONIZED (test code = NAMITA) 1.14 MMOL/L 1.09-1.30 N CBC W/AUTO [id number] 04:44:00* Test Item Value Reference Range Interpretation [...] 0.00 x10 3/uL 0.0-0.1 N BASIC METABOLIC [id number] 05:55:00* Test Item Value Reference Range Interpretation [...] code = CA) 6.9 mg/dL 8.0-10.5 L [id number] 05:55:00* Test Item Value Reference Range Interpretation Comme nts MAGNESIUM (test code = MAG) 1.87 mg/dL 1.6-2.6 CBC W/AUTO [id number] 05:31:00* Test Item Value Reference Range Interpretation [...] 0.00 x10 3/uL 0.0-0.1 N B-TYPE NATRIURETIC [id number] 10:16:00* Test Item Value Reference Range Interpretation Comme nts B-TYPE NATRIURETIC PEPTIDE ( test code = BNP) 174.0 PG/ML 0-100 H BASIC METABOLIC [id number] 10:14:00* Test Item Value Reference Range Interpretation [...] CA) 8.3 mg/dL 8.0-10.5 N COMPREHENSIVE METABOLIC [id number] 04:03:00* Test Item Value Reference Range Interpretation [...] code = ALKP) 93 IUnit/L 20-125 N [id number] 04:03:00* Test Item Value Reference Range Interpretation Comme nts PHOSPHOROUS (test code = PHOS) 3.9 MG/DL 2.5-4.9 N [id number] 04:03:00* Test Item Value Reference Range Interpretation Comme nts MAGNESIUM (test code = MAG) 2.64 mg/dL 1.6-2.6 H CALCIUM [id number] 04:03:00* Test Item Value Reference Range Interpretation Comme nts CALCIUM IONIZED (test code = NAMITA) 1.12 MMOL/L 1.09-1.30 N CBC W/AUTO [id number] 02:55:00* Test Item Value Reference Range Interpretation [...] 0.00 x10 3/uL 0.0-0.1 N SED RATE [id number] 21:17:00* Test Item Value Reference Range Interpretation Comme nts SED RATE WESTERGREN (test co de = SEDW) 18 mm/hr 0-15 H LACTIC [id number] 21:05:00* Test Item Value Reference Range Interpretation Comme nts LACTIC ACID (test code = LACT) 1.6 mmol/L 0.4-1.9 N BASIC METABOLIC [id number] 20:54:00* Test Item Value Reference Range Interpretation [...] 8.0-10.5 N UA RFLX MICR CULT IF [id number] 19:43:00* Test Item Value Reference Range Interpretation [...] Indication for culture: Dysuria/FrequencySpecimen Description: CLEAN CATCHPLT [id number] 19:32:00* Test Item Value Reference Range Interpretation Comme nts PLATELET ESTIMATE (test code = PLTEST) x10 3/uL 150-400 PLATELET MORPHOLOGY (test code = PLTMORPH) AGGREGATES FEW, SMAL L AGGREGATES CBC W/AUTO [id number] 19:32:00* Test Item Value Reference Range Interpretation [...] 0.00 x10 3/uL 0.0-0.1 N SED RATE [id number] 19:24:00* Test Item Value Reference Range Interpretation Comme nts SED RATE WESTERGREN (test code = SEDW) mm/hr 0-15 COVID 19 INHOUSE [id number] 19:14:00* Test Item Value Reference Range Interpretation Comme nts COVID 19 INHOUSE AG (test code = SUKBQ46PDGD) Negative Negative A negative resul t is [...] moderate, high or waivedcomplexity tests. B-TYPE NATRIURETIC [id number] 19:04:00* Test Item Value Reference Range Interpretation Comme nts B-TYPE NATRIURETIC PEPTIDE ( test code = BNP) 85.0 PG/ML 0-100 N COMPREHENSIVE METABOLIC [id number] 18:52:00* Test Item Value Reference Range Interpretation [...] = LDL) 143.0 mg/dL 0-100 H <100 TDIWSNO16 0-129 NEAR OPTIMAL/ABOVE [id number] YJDFCOSWAQ409-046 HIGH>QU=771 VERY HIGH*Guidelines provided by the National Cholesterol EducationProgram Adult Treatment Panel III [id number] 18:52:00* Test Item Value Reference Range Interpretation Comme nts MAGNESIUM (test code = MAG) 2.36 mg/dL 1.6-2.6 N TROP-I HIGH [id number] 18:52:00* Test Item Value Reference Range Interpretation Comme nts TROP-I HIGH SENSITIVITY (test code = TROPIHS) 469 ng/L 0-54 HH Critical result called to TERESA RENTERIA RNby [id number] at 1852 07/03/24Nurse read back result and [...] URL. These results were obtained using [employer] 360 IM TnIHreagent. Results from different methodologies should not becompared to one another as quantitative results and URLs mayvary by method. C REACTIVE [id number] 18:45:00* Test Item Value Reference Range Interpretation Comme [facility] C REACTIVE PROTEIN (test code = CRP) 13.2 MG/L <5.0 H Note change in REFERENCE RANGE due to change in REAGENT. PROTHROMBIN [id number] 18:39:00* Test Item Value Reference Range Interpretation Comme [facility] PROTHROMBIN TIME PATIENT (test code = PTP) [...] Infarction (to prevent recurrent infarct). THROMBOPLASTIN TIME [id number] 18:39:00* Test Item Value Reference Range Interpretation Comme [facility] THROMBOPLASTIN TIME PARTIAL (test code = PTT) 21.9 Seconds 25.0-39.5 L Therapeutic Rang e: 58.8 - 96.0 Seconds Effective 03/02/2024 HGBA1C%2024-07-03 18:34:00* Test Item Value Reference Range Interpretation Comme [facility] HGBA1C% (test code = HGBA1C%) 5.5 %A1C 4.8-6.0 N COMP Metabolic Panel (65391)2022-07-11 02:45:20* Test Item Value Reference Range Interpretation Comme [facility] NA (test code = 7693452138) 139 mmol/L 135-145 K (test code = 7113219549) 4.8 mmol/L 3.5-5.0 CL (test code = 8031313046) 102 mmol/L 98-108 CO2 TOTAL (test code = 9604050028) 30 mmol/L 23-31 AGAP (test code = 9510070084) 7 2-16 BUN (test code = 4967275657) 7 mg/dL 7-23 GLUCOSE (test code = 4340101960) 94 mg/dL 70-110 CREATININE (test code = 1877847593) 0.84 mg/dL 0.60-1.25 TOTAL BILI (test code = 3939343137) 0.8 mg/dL 0.1-1.1 CALCIUM (test code = 1108905458) 8.9 mg/dL 8.6-10.6 T PROTEIN (test code = 9095092160) 8.3 g/dL 6.3-8.2 H ALBUMIN (test code = 6146261530) 4.1 g/dL 3.5-5.0 ALK PHOS (test code = 9984716212) 80 U/L 34-122 ALTv (test code = 1742-6) 27 U/L 5-50 AST(SGOT) (test code = 6612089804) 38 U/L 13-40 eGFR (test code = 5838201547) 90.9 mL/min/1.73m2 DOUG (test code = DOUG) [...] imaging tests). Lab Interpretation (test code = 11116-9) Abnormal [facility] with Gjppaupywdca6737-14-65 01:45:17* Test Item Value Reference Range Interpretation Comme nts WBC (test code = 6690-2) 6.93 See_Comment [Automated ORDISSIMO] The system which generated this result transmitted reference range: 4.20 - 10.70 10*3/?L. The reference range was not used to interpret this result as normal/abnormal. RBC (test code = 789-8) 5.25 See_Comment [Automated ORDISSIMO] The system which generated this result transmitted [...] 33.7 g/dL 31.2-35.0 RDW-SD (test code = 14533-0) 44.1 fL 38.5-51.6 RDW-CV (test code = 788-0) 13.3 % 12.1-15.4 PLT (test code = 777-3) 260 See_Comment [Automated ORDISSIMO] The system which generated this result transmitted reference range: 150 - 328 10*3/?L. The reference range was not used to interpret this result as normal/abnormal. MPV (test code = 92325-2) 10.3 fL 9.8-13.0 NRBC/100 WBC (test code = 5934530840) 0.0 See_Comment [Automated me ssage] The system which generated this result transmitted reference range: 0.0 - 10.0 /100 WBCs. The reference range was not used to interpret this result as normal/abnormal. NRBC x10^3 (test code = 9473502810) See_Comment [Automated me ssage] The system which generated this result transmitted reference range: 10*3/?L. The reference range was not used to interpret this result as normal/abnormal. GRAN MAT (NEUT) % (test code = 770-8) 65.5 % IMM GRAN % (test code = 9095871156) 0.40 % LYMPH % (test code = 736-9) 18.8 % MONO % (test code = 5905-5) 10.5 % EOS % (test code = 713-8) 4.2 % BASO % (test code = 706-2) 0.6 % GRAN MAT x10^3(ANC) (test code = 5237329534) 4.54 10*3/uL 1.99-6.95 IMM GRAN x10^3 (test code = 5998362188) 0.03 10*3/uL 0.00-0.06 LYMPH x10^3 (test code = 731-0) 1.30 10*3/uL 1.09-3.23 MONO x10^3 (test code = 742-7) 0.73 10*3/uL 0.36-1.02 EOS x10^3 (test code = 711-2) 0.29 10*3/uL 0.06-0.53 BASO x10^3 (test code = 704-7) 0.04 10*3/uL 0.01-0.09 [facility] F2623-03-15 01:41:36* Test Item Value Reference Range Interpretation Comme nts TROPONIN I (test code = 3849162269) 0.007 ng/mL <=0.034 DOUG (test code = [...] of biotin. Lab Interpretation (test code = 36960-4) Normal [facility] TexasN-TERMINAL [id number]-CYG5802-67-05 01:38:36* Test Item Value Reference Range Interpretation Comme nts NT-proBNP (test code = 9230155369) 144 pg/mL <=125 H DOUG (test code = DOUG) Biotin has been reported to cause a negative bias, interpret results relative to patient's use of biotin. Lab Interpretation (test code = 94425-1) Abnormal [facility] TexasSputum Bfhlvbp7197-05-86 17:08:10* Test Item Value Reference Range Interpretation Comme nts SPUTUM CULTURE (test code = 622-1) 2+ Respiratory vance: Commensal upper respiratory microorganisms only. Gram stain (test code = 664-3) Few Epithelial cells DOUG (test code = DOUG) Bacterial pathogens associated with lower respiratory infections were not identified, which include Pseudomonas aeruginosa and Staphylococcus aureus (MRSA or MSSA). [facility] Met[facility] (NA, K, CL, CO2, GLUCOSE, BUN, CREATININE, CA)2022-03-07 10:12:31* Test Item Value Reference Range Interpretation Comme nts NA (test code = 0037658787) 138 mmol/L 135-145 K (test code = 6858031632) 5.6 mmol/L 3.5-5.0 H CL (test code = 1887697983) 99 mmol/L 98-108 CO2 TOTAL (test code = 2426114377) 31 mmol/L 23-31 AGAP (test code = 4683189902) 2-16 BUN (test code = 6757231963) 22 mg/dL 7-23 GLUCOSE (test code = 7271521811) 134 mg/dL 70-110 H CREATININE (test code = 6838093937) 1.00 mg/dL 0.60-1.25 CALCIUM (test code = 9355802766) 9.7 mg/dL 8.6-10.6 eGFR (test code = 2324154825) mL/min/1.73m2 DOUG (test code = DOUG) Association [...] imaging tests). Lab Interpretation (test code = 73263-1) Abnormal [facility] TexasMagn[facility] Yfwqh9231-30-62 10:12:31* Test Item Value Reference Range Interpretation Comme nts MAGNESIUM (test code = 5708193520) 2.3 mg/dL 1.7-2.4 Lab Interpretation (test cod e = 52106-6) Normal [facility] with Tyazvortrgwn9771-28-61 09:56:07* Test Item Value Reference Range Interpretation Comme nts WBC (test code = 6690-2) See_Comment [Automated ORDISSIMO] The system which generated this result transmitted [...] 34.5 g/dL 31.2-35.0 RDW-SD (test code = 17216-8) 46.2 fL 38.5-51.6 RDW-CV (test code = 788-0) 14.6 % 12.1-15.4 PLT (test code = 777-3) See_Comment H [Automated messa ge] The system which generated this result transmitted reference range: 150 - 328 10*3/?L. The reference range was not used to interpret this result as normal/abnormal. MPV (test code = 77732-1) 10.7 fL 9.8-13.0 NRBC/100 WBC (test code = 5946539800) See_Comment [Automated [employer] ssage] The system which generated this result transmitted reference range: 0.0 - 10.0 /100 WBCs. The reference range was not used to interpret this result as normal/abnormal. NRBC x10^3 (test code = 7999152000) See_Comment [Automated messa ge] The system which generated this result transmitted reference range: 10*3/?L. The reference range was not used to interpret this result as normal/abnormal. GRAN MAT (NEUT) % (test code = 770-8) 84.1 % IMM GRAN % (test code = 4396507986) 1.20 % LYMPH % (test code = 736-9) 10.5 % MONO % (test code = 5905-5) 4.0 % EOS % (test code = 713-8) 0.0 % BASO % (test code = 706-2) 0.2 % GRAN MAT x10^3(ANC) (test code = 7852412876) 8.16 10*3/uL 1.99-6.95 H IMM GRAN x10^3 (test code = 5468506261) 0.12 10*3/uL 0.00-0.06 H LYMPH x10^3 (test code = 731-0) 1.02 10*3/uL 1.09-3.23 L MONO x10^3 (test code = 742-7) 0.39 10*3/uL 0.36-1.02 EOS x10^3 (test code = 711-2) 0.06-0.53 L BASO x10^3 (test code = 704-7) 0.01-0.09 Lab Interpretation (test code = 33708-7) Abnormal [facility] TexasPROCALCITONIN2022-10-30 00:08:09* Test Item Value Reference Range Interpretation Comments Procalcitonin (test code = 3090010894) 0.05 ng/mL See_Comment [Automated message] The system which generated this result transmitted reference range: <=0.07. The reference range was not used to interpret this result as normal/abnormal . DOUG (test code = ODUG) INTERPRETATION OF PROCALCITONIN RESULTS IN ADULTS >= [...] lung abscess/empyema. For further information please refer to:[email or web address] Lab Interpretation (test code = 23287-6) Normal [facility] TexasTRRAYMONDN M0227-55-77 14:41:37* Test Item Value Reference Range Interpretation Comments TROPONIN I (test code = 2424664467) 0.003 ng/mL See_Comment [Automated message] The system [...] of biotin. Lab Interpretation (test code = 12428-5) Normal [facility]. METABOLIC PANEL (70237)2022-03-06 14:30:18* Test Item Value Reference Range Interpretation Comme nts NA (test code = 9645626981) 140 mmol/L 135-145 K (test code = 6935519500) 5.2 mmol/L 3.5-5.0 H CL (test code = 5785410199) 100 mmol/L 98-108 CO2 TOTAL (test code = 1787332472) 29 mmol/L 23-31 AGAP (test code = 4738417459) 2-16 BUN (test code = 8028392471) 7 mg/dL 7-23 GLUCOSE (test code = 4060767404) 120 mg/dL 70-110 H CREATININE (test code = 2389788925) 0.74 mg/dL 0.60-1.25 TOTAL BILI (test code = 9037014786) 1.0 mg/dL 0.1-1.1 CALCIUM (test code = 1304330284) 9.9 mg/dL 8.6-10.6 T PROTEIN (test code = 6422200787) 8.7 g/dL 6.3-8.2 H ALBUMIN (test code = 9997776979) 4.4 g/dL 3.5-5.0 ALK PHOS (test code = 7015167671) 103 U/L 34-122 ALTv (test code = 1742-6) 22 U/L 5-50 AST(SGOT) (test code = 7229088279) 31 U/L 13-40 eGFR (test code = 3255628340) mL/min/1.73m2 DOUG (test code = DOUG) Association [...] imaging tests). Lab Interpretation (test code = 85465-7) Abnormal [facility] WITH [id number] 14:18:56* Test Item Value Reference Range Interpretation Comme nts WBC (test code = 6690-2) See_Comment [Automated ORDISSIMO] The system which generated this result transmitted reference range: 4.20 - 10.70 10*3/?L. The reference range was not used to interpret this result as normal/abnormal. RBC (test code = 789-8) See_Comment [Automated ORDISSIMO] The system which generated this result transmitted [...] 34.2 g/dL 31.2-35.0 RDW-SD (test code = 13317-3) 47.8 fL 38.5-51.6 RDW-CV (test code = 788-0) 14.8 % 12.1-15.4 PLT (test code = 777-3) See_Comment [Automated messa ge] The system which generated this result transmitted reference range: 150 - 328 10*3/?L. The reference range was not used to interpret this result as normal/abnormal. MPV (test code = 66395-2) 9.7 fL 9.8-13.0 L NRBC/100 WBC (test code = 6438417707) See_Comment [Automated [employer] ssage] The system which generated this result transmitted reference range: 0.0 - 10.0 /100 WBCs. The reference range was not used to interpret this result as normal/abnormal. NRBC x10^3 (test code = 6839519208) See_Comment [Automated [employer] ge] The system which generated this result transmitted reference range: 10*3/?L. The reference range was not used to interpret this result as normal/abnormal. GRAN MAT (NEUT) % (test code = 770-8) 77.2 % IMM GRAN % (test code = 2198070109) 0.50 % LYMPH % (test code = 736-9) 14.0 % MONO % (test code = 5905-5) 7.6 % EOS % (test code = 713-8) 0.3 % BASO % (test code = 706-2) 0.4 % GRAN MAT x10^3(ANC) (test code = 3261666100) 8.15 10*3/uL 1.99-6.95 H IMM GRAN x10^3 (test code = 4710819302) 0.05 10*3/uL 0.00-0.06 LYMPH x10^3 (test code = 731-0) 1.48 10*3/uL 1.09-3.23 MONO x10^3 (test code = 742-7) 0.80 10*3/uL 0.36-1.02 EOS x10^3 (test code = 711-2) 0.03 10*3/uL 0.06-0.53 L BASO x10^3 (test code = 704-7) 0.04 10*3/uL 0.01-0.09 Lab Interpretation (test code = 07980-0) Abnormal [facility] Notes Date/Time Note Provider Source 2024-07-12 07:38:00 [facility] ([facility]) Discharge Summary REPORT#:[id number] REPORT STATUS: Signed REPORT INITIALIZATION DATE:07/12/24 TIME: 737 PATIENT: HUBERT LYNCH UNIT #: [id number] ROOM/BED: [place] [address] : 53 AGE: 68 SEX: M ATTEND: Marcellus Gilbert MD ADM AUTHOR: Asim Helms SPINNER TENDER REPT SERVICE DT/TIME: 07/12/24 07 * ALL [...] L who presented to the hospital at [place] for complaints of worsening shortness of breath productive cough,. Patient was treated for COPD exacerbation and pneumonia with antibiotics. He underwent heart catheterization at [facility] multivessel coronary artery disease. He [...] Discharge Instructions Additional Discharge Routines: PCP Follow-Up, Slot Floor Person Follow-Up )( Diet: Cardiac )( Activity: Resume Normal Activity Follow-up Appointments PCP follow up: PCP: No Primary or Family Physician PCP follow up timeframe: In 2-3 weeks Consulting provider 1: Provider 1: Nereyda Toribio MD Specialty: CardiologyInterventional Consult follow up timeframe: In 2-3 weeks at 0858 at 1254 RPT #:[id number] END OF REPORT [facility] 2024-07-12 06:53:00 [id number] [place] [address] PATIENT NAME: HUBERT LYNCH ADMIT DATE: 07/03/24 ACCOUNT NO: [id number] ROOM NO: G.DCCVN1 AGE: 68 REPORT TYPE: eELECTROCARDIOGRAM REPORT SEX: M ADMITTING PHYSICIAN:Marcellus Gilbert MD ATTENDING PHYSICIAN:Marcellus Gilbert MD Order: [id number] Test Reason : POST OP Test Date/Time [...] MD at 1311 PATIENT NAME: HUBERT LYNCH [facility] 2024-07-12 05:55:00 [facility] ([facility]) Hospitalist Progress Note REPORT#:[id number] REPORT STATUS: Signed REPORT INITIALIZATION DATE:07/12/24 TIME: 554 PATIENT: HUBERT LYNCH UNIT #: [id number] [facility] AGE: 68 SEX: M ATTEND: Marcellus Gilbert MD ADM AUTHOR: Asim Helms SPINNER TENDER REPT SERVICE DT/TIME: 07/12/24554 * ALL edits or amendments must be made on the electronic/computer document * Subjective Chief complaint: S/p PCI and stent placement. No CP, fever, chills. NO N/v/d. BP and HR stable. Review of Systems Constitutional: Reports: fatigue, generalized weakness. Allergy/Immun: Denies: anaphylaxis, rhinorrhea, sneezing. Respiratory: Denies: BABRA (dyspnea on exertion), parox nocturnal dyspnea, pleuritic [...] Sodium Chloride (SODIUM CHLORIDE 0.9%) 1,000 ML .[id number] ONE IV (DC) Sodium Chloride (SODIUM CHLORIDE [...] UNIT Q12HR SUBQ Fluticasone Propionate (Flonase Nasal Bee) 2 SPRAY DAILY NASAL (CKD) Atorvastatin Calcium (LIPITOR) 40 MG 2100 PO Levalbuterol HCl (Levalbuterol 1.25 mg/3 mL NEB) 1.25 MG RTQ6H INH Sterile Water (WATER FOR INJECTION) 1 ML ASDIR PRN IV Ipratropium [place] (ATROVENT) 500 MCG RTQ6H INH Levalbuterol HCl [...] Musculoskeletal: no CVA tenderness, no muscle spasm Neuro/UX MANAGER: alert, oriented X 3, CNII-XII intact Results [...] consultants, nurse at 0738 at 1254 RPT #:[id number] END OF REPORT [facility] 2024-07-11 15:35:00 [facility] Pulmonology Progress Note REPORT#:[id number] REPORT STATUS: Signed REPORT INITIALIZATION DATE:07/11/24 TIME: 1534 PATIENT: HUBERT LYNCH UNIT #: [id number] ROOM/BED: DCCVN1-1 : 51 AGE: 68 SEX: M ATTEND: Marcellus Gilbert MD ADM AUTHOR: Ariela Mccurdy MD REPT SERVICE DT/TIME: 07/11/24 153 * ALL edits or amendments must be made on the electronic/computer document * Subjective Chief complaint: SOB HPI: 68 yo M with h/o COPD, chronic hypoxia on home oxygen who presented for OHS in [place] with worsening SOB and productive cough. She was treated there for COPD exacerbation and pneumonia. She had LHC which showed mvd. She was transfered to [facility] further care. She has had productive [...] Sodium Chloride (SODIUM CHLORIDE 0.9%) 1,000 ML .[id number] ONE IV Sodium Chloride (SODIUM CHLORIDE 0.9%) [...] UNIT Q12HR SUBQ Fluticasone Propionate (Flonase Nasal Bee) 2 SPRAY DAILY NASAL (CKD) Atorvastatin Calcium (LIPITOR) 40 MG 2100 PO Levalbuterol HCl (Levalbuterol 1.25 mg/3 mL NEB) 1.25 MG RTQ6H INH Sterile Water (WATER FOR INJECTION) 1 ML ASDIR PRN IV Ipratropium [place] (ATROVENT) 500 MCG RTQ6H INH Levalbuterol HCl [...] motion, normal inspection, painless range of motion Neuro/UX MANAGER: alert, oriented X 3, CNII-XII intact Skin: [...] Mccurdy MD Pulmonary Medicine at 1512 RPT #:[id number] END OF REPORT [facility] 2024-07-11 10:26:00 [phone] [place] [address] PATIENT NAME: HUBERT LYNCH ADMIT DATE: 07/03/24 ACCOUNT NO: [id number] [place]OM NO: [facility] AGE: 68 REPORT TYPE: eELECTROCARDIOGRAM REPORT SEX: M ADMITTING PHYSICIAN:Marcellus Gilbert MD ATTENDING PHYSICIAN:Marcellus Gilbert MD Order: [id number] Test Reason : PCI Test Date/Time Stamp: [...] enlargement Anterior infarct , possibly acute ACUTE [place] / STEMI Abnormal ECG No previous ECGs available Confirmed by MD ROSENTHAL GERARD ([id number]) on 07/11/2024 5:27:46 PM Referred By: Marcellus Gilbert Confirmed by:ISAIAH ROSENTHAL MD at 1727 PATIENT NAME: HUBERT LYNCH [facility] 2024-07-11 10:13:00 [facility] Hospitalist Progress Note REPORT#:[id number] REPORT STATUS: Signed REPORT INITIALIZATION DATE:07/11/24 TIME: 1013 PATIENT: HUBERT LYNCH UNIT #: [id number] ROOM[facility]BED: [facility] : 51 AGE: 68 SEX: M ATTEND: [...] Sodium Chloride (SODIUM CHLORIDE 0.9%) 1,000 ML .[id number] ONE IV (UNV) Sodium Chloride (SODIUM CHLORIDE [...] UNIT Q12HR SUBQ Fluticasone Propionate (Flonase Nasal Bee) 2 SPRAY DAILY NASAL (CKD) Cefepime HCl (MAXIPIME) 1 GM Q6H IV (DC) Sodium Chloride (SODIUM CHLORIDE) 10 ML Atorvastatin Calcium (LIPITOR) 40 MG 2100 PO Levalbuterol HCl (Levalbuterol 1.25 mg/3 mL NEB) 1.25 MG RTQ6H INH Sterile Water (WATER FOR INJECTION) 1 ML ASDIR PRN IV Ipratropium [place] (ATROVENT) 500 MCG RTQ6H INH Levalbuterol HCl [...] Musculoskeletal: no CVA tenderness, no muscle spasm Neuro/UX MANAGER: alert, oriented X 3, CNII-XII intact Results [...] % (Auto) (14.0 - 32.0 %) 18.2 [place] % (Auto) (4.8 - 9.0 %) 7.4 Eos % (Auto) (0.3 - 3.7 %) 0.5 Baso % (Auto) (0.0 - 2.0 %) 0.1 Neut # (Auto) (2.0 - 7.6 x10 3/uL) 6.03 Lymph # (Auto) (1.0 - 3.8 x10 3/uL) 1.50 [place] # (Auto) (0.1 - 0.8 x10 3/uL) [...] consultants, nurse at 1015 at 1149 RPT #:[id number] END OF REPORT [facility] 2024-07-10 23:57:00 [facility] Cardiology Progress Note REPORT#:[id number] REPORT STATUS: Signed REPORT INITIALIZATION DATE:07/10/24 TIME: 2356 PATIENT: HUBERT LYNCH UNIT #: [id number] ROOM/BED: [place] [id number] : 51 AGE: 68 SEX: M ATTEND: Marcellus Gilbert MD ADM AUTHOR: Nereyda Toribio MD REPT SERVICE DT/TIME: 07/10/24 4505 * ALL edits or amendments must be [...] UNIT Q12HR SUBQ Fluticasone Propionate (Flonase Nasal Bee) 2 SPRAY DAILY NASAL (CKD) Cefepime HCl (MAXIPIME) 1 GM Q6H IV (DC) Sodium Chloride (SODIUM CHLORIDE) 10 ML Atorvastatin Calcium (LIPITOR) 40 MG 2100 PO Levalbuterol HCl (Levalbuterol 1.25 mg/3 mL NEB) 1.25 MG RTQ6H INH Sterile Water (WATER FOR INJECTION) 1 ML ASDIR PRN IV Ipratropium [place] (ATROVENT) 500 MCG RTQ6H INH Levalbuterol HCl [...] calf tenderness, no edema Musculoskeletal: normal inspection Neuro/UX MANAGER: alert, oriented X 3, normal speech Skin: [...] (Auto) (14.0 - 32.0 %) 4.3 L [place] % (Auto) (4.8 - 9.0 %) 4.6 L Eos % (Auto) (0.3 - 3.7 %) 0.0 L Baso % (Auto) (0.0 - 2.0 %) 0.1 Neut # (Auto) (2.0 - 7.6 x10 3/uL) 7.63 H Lymph # (Auto) (1.0 - 3.8 x10 3/uL) 0.36 L [place] # (Auto) (0.1 - 0.8 x10 3/uL) [...] lifelong heavy smoker who initially presented at [facility] with shortness of breath attributed to COPD [...] Valsartan 160 mg daily at 2357 RPT #:[id number] END OF REPORT [facility] 2024-07-10 13:51:00 [facility] Pulmonology Progress Note REPORT#:[id number] REPORT STATUS: Signed REPORT INITIALIZATION DATE:07/10/24 TIME: 135 PATIENT: HUBERT LYNCH UNIT #: [id number] ROOM/BED: [place] [address] : 53 AGE: 68 SEX: M ATTEND: Marcellus Gilbert MD ADM AUTHOR: Ariela Mccurdy MD REPT SERVICE DT/TIME: 07/10/24 1351 * ALL edits or amendments must be made on the electronic/computer document * Subjective Chief complaint: SOB HPI: 68 yo M with h/o COPD, chronic hypoxia on home oxygen who presented for OHS in [place] with worsening SOB and productive cough. She was treated there for COPD exacerbation and pneumonia. She had LHC which showed mvd. She was transfered to [facility] for further care. She has had productive [...] UNIT Q12HR SUBQ Fluticasone Propionate (Flonase Nasal Bee) 2 SPRAY DAILY NASAL (CKD) Cefepime HCl (MAXIPIME) 1 GM Q6H IV (DC) Sodium Chloride (SODIUM CHLORIDE) 10 ML Mupirocin (BACTROBAN 2% 22 GM OINTMENT) 1 APPLIC BID NASAL (DC) Atorvastatin Calcium (LIPITOR) 40 MG 2100 PO Levalbuterol HCl (Levalbuterol 1.25 mg/3 mL NEB) 1.25 MG RTQ6H INH Sterile Water (WATER FOR INJECTION) 1 ML ASDIR PRN IV Ipratropium [place] (ATROVENT) 500 MCG RTQ6H INH Levalbuterol HCl [...] motion, normal inspection, painless range of motion Neuro/UX MANAGER: alert, oriented X 3, CNII-XII intact Skin: [...] Mccurdy MD Pulmonary Medicine at 0859 RPT #:[id number] END OF REPORT [facility] 2024-07-10 11:10:00 [facility] ([facility]) Hospitalist Progress Note REPORT#:[id number] REPORT STATUS: Signed REPORT INITIALIZATION DATE:07/10/24 TIME: 1110 PATIENT: HUBERT LYNCH UNIT #: [id number] ROOM/BED: [place] [address] : 53 AGE: 68 SEX: M ATTEND: Marcellus Gilbert MD ADM AUTHOR: Asim Helms SPINNER TENDER REPT SERVICE DT/TIME: 07/10/24 1110 * ALL [...] UNIT Q12HR SUBQ Fluticasone Propionate (Flonase Nasal Bee) 2 SPRAY DAILY NASAL (CKD) Cefepime HCl (MAXIPIME) 1 GM Q6H IV Sodium Chloride (SODIUM CHLORIDE) 10 ML Mupirocin (BACTROBAN 2% 22 GM OINTMENT) 1 APPLIC BID NASAL (DC) Atorvastatin Calcium (LIPITOR) 40 MG 2100 PO Levalbuterol HCl (Levalbuterol 1.25 mg/3 mL NEB) 1.25 MG RTQ6H INH Sterile Water (WATER FOR INJECTION) 1 ML ASDIR PRN IV Ipratropium [place] (ATROVENT) 500 MCG RTQ6H INH Levalbuterol HCl [...] Musculoskeletal: no CVA tenderness, no muscle spasm Neuro/UX MANAGER: alert, oriented X 3, CNII-XII intact Results [...] (Auto) (14.0 - 32.0 %) 4.3 L [place] % (Auto) (4.8 - 9.0 %) 4.6 L Eos % (Auto) (0.3 - 3.7 %) 0.0 L Baso % (Auto) (0.0 - 2.0 %) 0.1 Neut # (Auto) (2.0 - 7.6 x10 3/uL) 7.63 H Lymph # (Auto) (1.0 - 3.8 x10 3/uL) 0.36 L [place] # (Auto) (0.1 - 0.8 x10 3/uL) [...] consultants, nurse at 1112 at 0853 RPT #:[id number] END OF REPORT [facility] 2024-07-09 11:00:00 [facility] Hospitalist Progress Note REPORT#:[id number] REPORT STATUS: Signed REPORT INITIALIZATION DATE:07/09/24 TIME: 1100 PATIENT: HUBERT LYNCH UNIT #: [id number] ROOM/BED: [place] [address] : 53 AGE: 68 SEX: M ATTEND: [...] UNIT Q12HR SUBQ Fluticasone Propionate (Flonase Nasal Bee) 2 SPRAY DAILY NASAL (CKD) Cefepime HCl (MAXIPIME) 1 GM Q6H IV Sodium Chloride (SODIUM CHLORIDE) 10 ML Mupirocin (BACTROBAN 2% 22 GM OINTMENT) 1 APPLIC BID NASAL Atorvastatin Calcium (LIPITOR) 40 MG 2100 PO Levalbuterol HCl (Levalbuterol 1.25 mg/3 mL NEB) 1.25 MG RTQ6H INH Sterile Water (WATER FOR INJECTION) 1 ML ASDIR PRN IV Ipratropium [place] (ATROVENT) 500 MCG RTQ6H INH Levalbuterol HCl [...] Musculoskeletal: no CVA tenderness, no muscle spasm Neuro/UX MANAGER: alert, oriented X 3, CNII-XII intact Results [...] (Auto) (14.0 - 32.0 %) 6.8 L [place] % (Auto) (4.8 - 9.0 %) 3.1 L Eos % (Auto) (0.3 - 3.7 %) 0.0 L Baso % (Auto) (0.0 - 2.0 %) 0.1 Neut # (Auto) (2.0 - 7.6 x10 3/uL) 8.62 H Lymph # (Auto) (1.0 - 3.8 x10 3/uL) 0.66 L [place] # (Auto) (0.1 - 0.8 x10 3/uL) [...] consultants, nurse at 1102 at 0803 RPT #:[id number] END OF REPORT [facility] 2024-07-09 10:53:00 [facility]) Pulmonology Progress Note REPORT#:[id number] REPORT STATUS: Signed REPORT INITIALIZATION DATE:07/09/24 TIME: 105 PATIENT: HUBERT LYNCH UNIT #: [id number] ROOM/BED: [place] [address] : 53 AGE: 68 SEX: M ATTEND: Marcellus Gilbert MD ADM AUTHOR: Ariela Mccurdy MD REPT SERVICE DT/TIME: 07/09/24 1053 * ALL edits or amendments must be made on the electronic/computer document * Subjective Chief complaint: SOB HPI: 68 yo M with h/o COPD, chronic hypoxia on home oxygen who presented for OHS in [place] with worsening SOB and productive cough. She was treated there for COPD exacerbation and pneumonia. She had LHC which showed mvd. She was transfered to [facility] for further care. She has had productive [...] UNIT Q12HR SUBQ Fluticasone Propionate (Flonase Nasal Bee) 2 SPRAY DAILY NASAL (CKD) Cefepime HCl (MAXIPIME) 1 GM Q6H IV Sodium Chloride (SODIUM CHLORIDE) 10 ML Mupirocin (BACTROBAN 2% 22 GM OINTMENT) 1 APPLIC BID NASAL Atorvastatin Calcium (LIPITOR) 40 MG 2100 PO Levalbuterol HCl (Levalbuterol 1.25 mg/3 mL NEB) 1.25 MG RTQ6H INH Sterile Water (WATER FOR INJECTION) 1 ML ASDIR PRN IV Ipratropium [place] (ATROVENT) 500 MCG RTQ6H INH Levalbuterol HCl [...] motion, normal inspection, painless range of motion Neuro/UX MANAGER: alert, oriented X 3, CNII-XII intact Skin: [...] Mccurdy MD Pulmonary Medicine at 1505 RPT #:[id number] END OF REPORT [facility] 2024-07-09 01:17:00 [facility] ([facility]) Cardiology Progress Note REPORT#:[id number] REPORT STATUS: Signed REPORT INITIALIZATION DATE:07/09/24 TIME: 116 PATIENT: HUBERT LYNCH UNIT #: [id number] ROOM/BED: [place] [address] : 53 AGE: 68 SEX: M ATTEND: [...] UNIT Q12HR SUBQ Fluticasone Propionate (Flonase Nasal Bee) 2 SPRAY DAILY NASAL (CKD) Cefepime HCl [...] INJECTION) 1 ML ASDIR PRN IV Ipratropium [place] (ATROVENT) 500 MCG RTQ6H INH Levalbuterol HCl [...] calf tenderness, no edema Musculoskeletal: normal inspection Neuro/UX MANAGER: alert, oriented X 3, normal speech Skin: [...] (Auto) (14.0 - 32.0 %) 4.3 L [place] % (Auto) (4.8 - 9.0 %) 5.3 Eos % (Auto) (0.3 - 3.7 %) 0.0 L Baso % (Auto) (0.0 - 2.0 %) 0.1 Neut # (Auto) (2.0 - 7.6 x10 3/uL) 8.72 H Lymph # (Auto) (1.0 - 3.8 x10 3/uL) 0.42 L [place] # (Auto) (0.1 - 0.8 x10 3/uL) [...] lifelong heavy smoker who initially presented at [facility] with shortness of breath attributed to COPD [...] Valsartan 160 mg daily at 2356 RPT #:[id number] END OF REPORT [facility] 2024-07-08 10:42:00 [facility] ([facility]) Pulmonology Progress Note REPORT#:[id number] REPORT STATUS: Signed REPORT INITIALIZATION DATE:07/08/24 TIME: 104 PATIENT: HUBERT LYNCH UNIT #: [id number] ROOM/BED: [place] [address] : 53 AGE: 68 SEX: M ATTEND: Marcellus Gilbert MD ADM AUTHOR: Ariela Mccurdy MD REPT SERVICE DT/TIME: 07/08/24 1042 * ALL edits or amendments must be made on the electronic/computer document * Subjective Chief complaint: SOB HPI: 68 yo M with h/o COPD, chronic hypoxia on home oxygen who presented for OHS in [place] with worsening SOB and productive cough. She was treated there for COPD exacerbation and pneumonia. She had LHC which showed mvd. She was transfered to [facility] for further care. She has had productive cough with yellow sputum. She is a chronic smoker - 1 pack per day. Pt has required BIPAP during hospital course. Comments: Pt denies SOB, chest pain Wheezing resolved VSS on O2 via [place] Review of Systems ROS All systems rev [...] UNIT Q12HR SUBQ Fluticasone Propionate (Flonase Nasal Bee) 2 SPRAY DAILY NASAL (CKD) Cefepime HCl [...] INJECTION) 1 ML ASDIR PRN IV Ipratropium [place] (ATROVENT) 500 MCG RTQ6H INH Levalbuterol HCl [...] motion, normal inspection, painless range of motion Neuro/UX MANAGER: alert, oriented X 3, CNII-XII intact Skin: [...] Mccurdy MD Pulmonary Medicine at 1143 RPT #:[id number] END OF REPORT [facility] 2024-07-08 10:09:00 [facility] Hospitalist Progress Note REPORT#:[id number] REPORT STATUS: Signed REPORT INITIALIZATION DATE:07/08/24 TIME: 100 PATIENT: HUBERT LYNCH UNIT #: [id number] ROOM/BED: [place] [address] : 53 AGE: 68 SEX: M ATTEND: [...] UNIT Q12HR SUBQ Fluticasone Propionate (Flonase Nasal Bee) 2 SPRAY DAILY NASAL (CKD) Cefepime HCl [...] INJECTION) 1 ML ASDIR PRN IV Ipratropium [place] (ATROVENT) 500 MCG RTQ6H INH Levalbuterol HCl [...] Musculoskeletal: no CVA tenderness, no muscle spasm Neuro/UX MANAGER: alert, oriented X 3, CNII-XII intact Results [...] (Auto) (14.0 - 32.0 %) 4.3 L [place] % (Auto) (4.8 - 9.0 %) 5.3 Eos % (Auto) (0.3 - 3.7 %) 0.0 L Baso % (Auto) (0.0 - 2.0 %) 0.1 Neut # (Auto) (2.0 - 7.6 x10 3/uL) 8.72 H Lymph # (Auto) (1.0 - 3.8 x10 3/uL) 0.42 L [place] # (Auto) (0.1 - 0.8 x10 3/uL) [...] consultants, nurse at 1011 at 1142 RPT #:[id number] END OF REPORT [facility] 2024-07-07 14:00:00 [facility] Cardiology Progress Note REPORT#:[id number] REPORT STATUS: Signed REPORT INITIALIZATION DATE:07/07/24 TIME: 1400 PATIENT: HUBERT LYNCH UNIT #: [id number] ROOM/BED: [place] [address] : 53 AGE: 68 SEX: M ATTEND: [...] UNIT Q12HR SUBQ Fluticasone Propionate (Flonase Nasal Bee) 2 SPRAY DAILY NASAL (CKD) Cefepime HCl [...] INJECTION) 1 ML ASDIR PRN IV Ipratropium [place] (ATROVENT) 500 MCG RTQ6H INH Levalbuterol HCl [...] calf tenderness, no edema Musculoskeletal: normal inspection Neuro/UX MANAGER: alert, oriented X 3, normal speech Skin: [...] (Auto) (14.0 - 32.0 %) 4.9 L [place] % (Auto) (4.8 - 9.0 %) 5.5 Eos % (Auto) (0.3 - 3.7 %) 0.0 L Baso % (Auto) (0.0 - 2.0 %) 0.0 Neut # (Auto) (2.0 - 7.6 x10 3/uL) 8.03 H Lymph # (Auto) (1.0 - 3.8 x10 3/uL) 0.44 L [place] # (Auto) (0.1 - 0.8 x10 3/uL) [...] lifelong heavy smoker who initially presented at [facility] with shortness of breath attributed to COPD [...] Valsartan 160 mg daily at 2355 RPT #:[id number] END OF REPORT [facility] 2024-07-07 13:26:00 [facility]) Cardiothoracic Surgery Prog REPORT#:[id number] REPORT STATUS: Signed REPORT INITIALIZATION DATE:07/07/24 TIME: 1326 PATIENT: HUBERT LYNCH UNIT #: [id number] [address] AGE: 68 SEX: M ATTEND: Marcellus Gilbert MD ADM AUTHOR: Bonita Resendiz Physic REPT SERVICE DT/TIME: 07/07/24 7654 * ALL edits or amendments must be [...] Abdomen: soft, non-tender Extremities: dry, moves all Neuro/UX MANAGER: alert, oriented X 3 Skin: dry Diagnosis, Assessment Plan Free Text A P: This is a 68-year-old gentleman with a past medical history of COPD, on home oxygen, 4 L who presented to the hospital at [place] for complaints of worsening shortness of breath productive cough,. Patient was treated for COPD exacerbation and pneumonia with antibiotics. Patient then underwent heart catheterization at [facility] multivessel coronary artery disease. The patient does admit to productive cough with yellow sputum. Patient denies any history of PE and DVT. Denies any nausea vomiting diarrhea. Patient was transferred to LTAC[facility] for further workup and evaluation for coronary bypass graft surgery Patient reports he continues to smoke 1 pack/day. Patient denies any alcohol use. Patient transferred to LT[facility] for COPD exasperation and workup for multivessel [...] on azithromycin Patient seen and examined at [facility]. Workup underway. Plan of care discussed with [...] mapping completed Patient seen and examined at [facility]. Workup underway. Plan of care discussed with multidisciplinary team Patient will need to be discussed in the high risk clinical conference on Tuesday. Further recommendations to follow. Patient seen and examined at [facility]. Plan of care discussed with multidisciplinary team 07/07/24 Patient resting comfortable Denies complaint On room air Patient was discussed in the high risk conference on Tuesday. Since this was to consider PCI next week. CV surgery will be available if need at 1327 RPT #:[id number] END OF REPORT [facility] 2024-07-07 11:20:00 [facility] ([facility] Hospitalist Progress Note REPORT#:[id number] REPORT STATUS: Signed REPORT INITIALIZATION DATE:07/07/24 TIME: 112 PATIENT: HUBERT LYNCH UNIT #: [id number] ROOM/BED: [place] [address] : 53 AGE: 68 SEX: M ATTEND: [...] UNIT Q12HR SUBQ Fluticasone Propionate (Flonase Nasal Bee) 2 SPRAY DAILY NASAL (CKD) Cefepime HCl [...] INJECTION) 1 ML ASDIR PRN IV Ipratropium [place] (ATROVENT) 500 MCG RTQ6H INH Levalbuterol HCl [...] Musculoskeletal: no CVA tenderness, no muscle spasm Neuro/UX MANAGER: alert, oriented X 3, CNII-XII intact Results [...] (Auto) (14.0 - 32.0 %) 4.9 L [place] % (Auto) (4.8 - 9.0 %) 5.5 Eos % (Auto) (0.3 - 3.7 %) 0.0 L Baso % (Auto) (0.0 - 2.0 %) 0.0 Neut # (Auto) (2.0 - 7.6 x10 3/uL) 8.03 H Lymph # (Auto) (1.0 - 3.8 x10 3/uL) 0.44 L [place] # (Auto) (0.1 - 0.8 x10 3/uL) [...] consultants, nurse at 1121 at 1142 RPT #:[id number] END OF REPORT [facility] 2024-07-07 10:57:00 [facility] ([facility]) Pulmonology Progress Note REPORT#:[id number] REPORT STATUS: Signed REPORT INITIALIZATION DATE:07/07/24 TIME: 1056 PATIENT: HUBERT LYNCH UNIT #: [id number] ROOM/BED: 3356[address]1 : 53 AGE: 68 SEX: M ATTEND: Marcellus Gilbert MD ADM AUTHOR: Ariela Mccurdy MD REPT SERVICE DT/TIME: 07/07/24 105 * ALL edits or amendments must be made on the electronic/computer document * Subjective Chief complaint: SOB HPI: 68 yo M with h/o COPD, chronic hypoxia on home oxygen who presented for OHS in [place] with worsening SOB and productive cough. She was treated there for COPD exacerbation and pneumonia. She had LHC which showed mvd. She was transfered to [facility] for further care. She has had productive [...] UNIT Q12HR SUBQ Fluticasone Propionate (Flonase Nasal Bee) 2 SPRAY DAILY NASAL (CKD) Cefepime HCl [...] INJECTION) 1 ML ASDIR PRN IV Ipratropium [place] (ATROVENT) 500 MCG RTQ6H INH Levalbuterol HCl [...] motion, normal inspection, painless range of motion Neuro/UX MANAGER: alert, oriented X 3, CNII-XII intact Skin: [...] Mccurdy MD Pulmonary Medicine at 1016 RPT #:[id number] END OF REPORT [facility] 2024-07-06 09:47:00 [facility] Hospitalist Progress Note REPORT#:[id number] REPORT STATUS: Signed REPORT INITIALIZATION DATE:07/06/24 TIME: 946 PATIENT: HUBERT LYNCH UNIT #: [id number] ROOM/BED: [place] [address] : 53 AGE: 68 SEX: M ATTEND: [...] ONE PO (DC) Fluticasone Propionate (Flonase Nasal Bee) 2 SPRAY DAILY NASAL (CKD) Cefepime HCl [...] INJECTION) 1 ML ASDIR PRN IV Ipratropium [place] (ATROVENT) 500 MCG RTQ6H INH Ceftriaxone Sodium [...] Musculoskeletal: no CVA tenderness, no muscle spasm Neuro/UX MANAGER: alert, oriented X 3, CNII-XII intact Results [...] (Auto) (14.0 - 32.0 %) 5.0 L [place] % (Auto) (4.8 - 9.0 %) 5.9 Eos % (Auto) (0.3 - 3.7 %) 0.0 L Baso % (Auto) (0.0 - 2.0 %) 0.1 Neut # (Auto) (2.0 - 7.6 x10 3/uL) 8.36 H Lymph # (Auto) (1.0 - 3.8 x10 3/uL) 0.47 L [place] # (Auto) (0.1 - 0.8 x10 3/uL) [...] consultants, nurse at 0950 at 1344 RPT #:[id number] END OF REPORT [facility] 2024-07-06 09:39:00 [facility] ([facility]) Pulmonology Progress Note REPORT#:[id number] REPORT STATUS: Signed REPORT INITIALIZATION DATE:07/06/24 TIME: 938 PATIENT: HUBERT LYNCH UNIT #: [id number] ROOM/BED: [place] [address] : 53 AGE: 68 SEX: M ATTEND: Marcellus Gilbert MD ADM AUTHOR: Ariela Mccurdy MD REPT SERVICE DT/TIME: 07/06/24 0939 * ALL edits or amendments must be made on the electronic/computer document * Subjective Chief complaint: SOB HPI: 68 yo M with h/o COPD, chronic hypoxia on home oxygen who presented for OHS in [place] with worsening SOB and productive cough. She was treated there for COPD exacerbation and pneumonia. She had LHC which showed mvd. She was transfered to [facility] for further care. She has had productive [...] ONE PO (DC) Fluticasone Propionate (Flonase Nasal Bee) 2 SPRAY DAILY NASAL (CKD) Cefepime HCl [...] INJECTION) 1 ML ASDIR PRN IV Ipratropium [place] (ATROVENT) 500 MCG RTQ6H INH Ceftriaxone Sodium [...] motion, normal inspection, painless range of motion Neuro/UX MANAGER: alert, oriented X 3, CNII-XII intact Skin: [...] Ariela Mccurdy MD Pulmonary Medicine at 1651 [facility] #:[id number] END OF REPORT [facility] 2024-07-06 08:27:00 [facility] ([facility]) Cardiology Progress Note REPORT#:[id number] REPORT STATUS: Signed REPORT INITIALIZATION DATE:07/06/24 TIME: 826 PATIENT: HUBERT LYNCH UNIT #: [id number] [facility] AGE: 68 SEX: M ATTEND: [...] ONE PO (DC) Fluticasone Propionate (Flonase Nasal Bee) 2 SPRAY DAILY NASAL (CKD) Cefepime HCl [...] INJECTION) 1 ML ASDIR PRN IV Ipratropium [place] (ATROVENT) 500 MCG RTQ6H INH Ceftriaxone Sodium [...] calf tenderness, no edema Musculoskeletal: normal inspection Neuro/UX MANAGER: alert, oriented X 3, normal speech Skin: [...] (Auto) (14.0 - 32.0 %) 5.0 L [place] % (Auto) (4.8 - 9.0 %) 5.9 Eos % (Auto) (0.3 - 3.7 %) 0.0 L Baso % (Auto) (0.0 - 2.0 %) 0.1 Neut # (Auto) (2.0 - 7.6 x10 3/uL) 8.36 H Lymph # (Auto) (1.0 - 3.8 x10 3/uL) 0.47 L [place] # (Auto) (0.1 - 0.8 x10 3/uL) [...] lifelong heavy smoker who initially presented at [facility] with shortness of breath attributed to COPD [...] Dr. Toribio. at 1029 at 1838 RPT #:[id number] END OF REPORT [facility] 2024-07-06 07:07:00 [facility] ([facility]) Clinical Note REPORT#:[id number] REPORT STATUS: Signed REPORT INITIALIZATION DATE:07/06/24 TIME: 706 PATIENT: HUBERT LYNCH UNIT #: [id number] ROOM/BED: [place] : 53 AGE: 68 SEX: [...] better outcome at 0712 at 1321 RPT #:[id number] END OF REPORT [facility] 2024-07-05 15:41:00 [facility] Pulmonology Progress Note REPORT#:[id number] REPORT STATUS: Signed REPORT INITIALIZATION DATE:07/05/24 TIME: 154 PATIENT: HUBERT LYNCH UNIT #: [id number] ROOM/BED: [place] : 53 AGE: 68 SEX: M ATTEND: Marcellus Gilbert MD ADM AUTHOR: Ariela Mccurdy MD REPT SERVICE DT/TIME: 07/05/24 1541 * ALL edits or amendments must be made on the electronic/computer document * Subjective Chief complaint: SOB HPI: 68 yo M with h/o COPD, chronic hypoxia on home oxygen who presented for OHS in [place] with worsening SOB and productive cough. She was treated there for COPD exacerbation and pneumonia. She had LHC which showed mvd. She was transfered to [facility] for further care. She has had productive [...] INJECTION) 1 ML ASDIR PRN IV Ipratropium [place] (ATROVENT) 500 MCG RTQ6H INH Ceftriaxone Sodium [...] motion, normal inspection, painless range of motion Neuro/UX MANAGER: alert, oriented X 3, CNII-XII intact Skin: [...] Ariela Mccurdy MD Pulmonary Medicine at 1544 [facility] #:[id number] END OF REPORT [facility] 2024-07-05 12:07:00 [facility] ([facility] Critical Care Progress Note REPORT#:[id number] REPORT STATUS: Signed REPORT INITIALIZATION DATE:07/05/24 TIME: 1207 PATIENT: HUBERT LYNCH UNIT #: [id number] ROOM/BED: [place] [address] : 53 AGE: 68 SEX: M ATTEND: [...] INJECTION) 1 ML ASDIR PRN IV Ipratropium [place] (ATROVENT) 500 MCG RTQ6H INH Ceftriaxone Sodium [...] (Auto) (14.0 - 32.0 %) 3.5 L [place] % (Auto) (4.8 - 9.0 %) 6.7 Eos % (Auto) (0.3 - 3.7 %) 0.0 L Baso % (Auto) (0.0 - 2.0 %) 0.0 Neut # (Auto) (2.0 - 7.6 x10 3/uL) 7.57 Lymph # (Auto) (1.0 - 3.8 x10 3/uL) 0.30 L [place] # (Auto) (0.1 - 0.8 x10 3/uL) [...] bedside procedures and teach at 1210 RPT #:[id number] END OF REPORT [facility] 2024-07-05 07:50:00 [facility] ([facility]) Hospitalist Progress Note REPORT#:[id number] REPORT STATUS: Signed REPORT INITIALIZATION DATE:07/05/24 TIME: 075 PATIENT: HUBERT LYNCH UNIT #: [id number] ROOM[address]BED: [address] : 53 AGE: 68 SEX: M ATTEND: Marcellus Gilbert MD ADM AUTHOR: Asim Helms SPINNER TENDER REPT SERVICE DT/TIME: 07/05/24 0750 * ALL [...] INJECTION) 1 ML ASDIR PRN IV Ipratropium [place] (ATROVENT) 500 MCG RTQ6H INH Ceftriaxone Sodium [...] Musculoskeletal: no CVA tenderness, no muscle spasm Neuro/UX MANAGER: alert, oriented X 3, CNII-XII intact Results [...] (Auto) (14.0 - 32.0 %) 3.5 L [place] % (Auto) (4.8 - 9.0 %) 6.7 Eos % (Auto) (0.3 - 3.7 %) 0.0 L Baso % (Auto) (0.0 - 2.0 %) 0.0 Neut # (Auto) (2.0 - 7.6 x10 3/uL) 7.57 Lymph # (Auto) (1.0 - 3.8 x10 3/uL) 0.30 L [place] # (Auto) (0.1 - 0.8 x10 3/uL) [...] Report Impression - Status: SIGNED Entered: 07/04/2024 4720 IMPRESSION: Emphysema and scar in both lungs. [...] meds. Monitor. at 1130 at 1427 RPT #:[id number] END OF REPORT [facility] 2024-07-05 07:42:00 [facility]) Cardiothoracic Surgery Prog REPORT#:[id number] REPORT STATUS: Signed REPORT INITIALIZATION DATE:07/05/24 TIME: 741 PATIENT: HUBERT LYNCH UNIT #: [id number] [address]: [address] : [address] AGE: 68 SEX: M [...] Abdomen: soft, non-tender Extremities: dry, moves all Neuro/UX MANAGER: alert, oriented X 3 Skin: dry Diagnosis, Assessment Plan Free Text A P: This is a 68-year-old gentleman with a past medical history of COPD, on home oxygen, 4 L who presented to the hospital at [place] for complaints of worsening shortness of breath productive cough,. Patient was treated for COPD exacerbation and pneumonia with antibiotics. Patient then underwent heart catheterization at [facility] multivessel coronary artery disease. The patient does admit to productive cough with yellow sputum. Patient denies any history of PE and DVT. Denies any nausea vomiting diarrhea. Patient was transferred to LTAC[facility] for further workup and evaluation for coronary bypass graft surgery Patient reports he continues to smoke 1 pack/day. Patient denies any alcohol use. Patient transferred to [facility]AC[facility] for COPD exasperation and workup for multivessel [...] on azithromycin Patient seen and examined at [facility]. Workup underway. Plan of care discussed with [...] mapping completed Patient seen and examined at [facility]. Workup underway. Plan of care discussed with multidisciplinary team Patient will need to be discussed in the high risk clinical conference on Tuesday. Further recommendations to follow. Patient seen and examined at [facility]. Plan of care discussed with multidisciplinary team at 0746 at 0435 RPT #:[id number] END OF REPORT [facility] 2024-07-05 07:32:00 [facility] Cardiology Progress Note REPORT#:[id number] REPORT STATUS: Signed REPORT INITIALIZATION DATE:07/05/24 TIME: 731 PATIENT: HUBERT LYNCH UNIT #: [id number] [address]: [address] : [address] AGE: 68 SEX: M [...] INJECTION) 1 ML ASDIR PRN IV Ipratropium [place] (ATROVENT) 500 MCG RTQ6H INH Ceftriaxone Sodium [...] calf tenderness, no edema Musculoskeletal: normal inspection Neuro/UX MANAGER: alert, oriented X 3, normal speech Psychiatry: [...] (Auto) (14.0 - 32.0 %) 3.5 L [place] % (Auto) (4.8 - 9.0 %) 6.7 Eos % (Auto) (0.3 - 3.7 %) 0.0 L Baso % (Auto) (0.0 - 2.0 %) 0.0 Neut # (Auto) (2.0 - 7.6 x10 3/uL) 7.57 Lymph # (Auto) (1.0 - 3.8 x10 3/uL) 0.30 L [place] # (Auto) (0.1 - 0.8 x10 3/uL) [...] lifelong heavy smoker who initially presented at [facility] with shortness of breath attributed to COPD [...] Dr. Toribio. at 0907 at 1826 RPT #:[id number] END OF REPORT [facility] 2024-07-04 18:26:00 [id number] [place] [address] PATIENT NAME: HUBERT LYNCH ADMIT DATE: 07/03/24 ACCOUNT NO: [id number] ROOM NO: [facility] AGE: 68 REPORT TYPE: eECHOCARDIOGRAM REPORT SEX: M ADMITTING PHYSICIAN:Marcellus Gilbert MD ATTENDING PHYSICIAN:Marcellus Gilbert MD *[place] [address] Transthoracic Echocardiogram Patient: Hubert Lynch Study Date: 07/03/2024 BP: 111 / 59 URN: [id number] Location: : 1955 Age: 68 Gender: M Height: 68 in / 172.7 cm Weight: 147 lb / 66.7 kg BMI/BSA: 22.4 kg/m 2 / 1.79 m 2 *Ordering Physician: * Bonita Resendiz Physic *Interpreting Physician: * Nereyda Toribio MD *Project Management It Specialist: * Chelsey Germain Indications: CARDIAC SURGERY PRE-OP. IF NOT DONE THIS ADMISSION. Study data: Transthoracic echocardiogram. Procedure: A transthoracic echocardiogram was performed. Images were obtained using a Tripcover cardiac ultrasound machine. The study was technically [...] 18:26 at 1826 PATIENT NAME: HUBERT LYNCH [facility] 2024-07-04 14:36:00 [facility] ([facility]) Critical Care Progress Note REPORT#:[id number] REPORT STATUS: Signed REPORT INITIALIZATION DATE:07/04/24 TIME: 1435 PATIENT: HUBERT LYNCH UNIT #: [id number] ROOM/BED: [place] [address] : 53 AGE: 68 SEX: M ATTEND: [...] INJECTION) 1 ML ASDIR PRN IV Ipratropium Grandview (ATROVENT) 500 MCG RTQ6H INH Ceftriaxone Sodium [...] - 32.0 %) 3.8 L 2.9 L [place] % (Auto) (4.8 - 9.0 %) 4.5 L 3.0 L Eos % (Auto) (0.3 - 3.7 %) 0.0 L 0.2 L Baso % (Auto) (0.0 - 2.0 %) 0.1 0.2 Neut # (Auto) (2.0 - 7.6 x10 3/uL) 10.17 H 9.94 H Lymph # (Auto) (1.0 - 3.8 x10 3/uL) 0.42 L 0.31 L [place] # (Auto) (0.1 - 0.8 x10 3/uL) [...] pH (5.0 - 7.0) 5.0 Ur Specific [place] (1.005 - 1.030) 1.058 H Urine Protein [...] -Will use BiPAP as needed -Started on beta-waletr Repeat BMP SCDs for DVT prophylaxis Full code Critical care time 35 minutes spent with patient excluding bedside procedures and teach at 1611 RPT #:[id number] END OF REPORT [facility] 2024-07-04 13:24:00 [facility] ([facility]) Pulmonary Consultation Note REPORT#:[id number] REPORT STATUS: Signed REPORT INITIALIZATION DATE:07/04/24 TIME: 132 PATIENT: HUBERT LYNCH UNIT #: [id number] ROOM/BED: [place] [address] : 53 AGE: 68 SEX: M ATTEND: [...] home oxygen who presented for [facility] in [place] with worsening SOB and productive cough. She was treated there for COPD exacerbation and pneumonia. She had LHC which showed mvd. She was transfered to [facility] for further care. She has had productive [...] motion, normal inspection, painless range of motion Neuro/UX MANAGER: alert, oriented X 3, CNII-XII intact Skin: [...] Mccurdy MD Pulmonary Medicine at 1614 RPT #:[id number] END OF REPORT [facility] 2024-07-04 11:56:00 [facility] Adult General Consultation REPORT#:[id number] REPORT STATUS: Signed REPORT INITIALIZATION DATE:07/04/24 TIME: 115 PATIENT: HUBERT LYNCH UNIT #: [id number] ROOM/BED: [place] [address] : 53 AGE: 68 SEX: M ATTEND: Marcellus Gilbert MD ADM AUTHOR: Asim Helms SPINNER TENDER REPT SERVICE DT/TIME: 07/04/24 1156 * ALL edits or amendments must be made on the electronic/computer document * History of Present Illness Requesting Clinician: Dr. Gilbert Reason for consult: Medical management Chief complaint: SOB, CP PCP: PCP: No Primary or Family Physician HPI: 68-year-old gentleman with a past medical history of COPD, on home oxygen, 4 L who presented to the hospital at [place] for complaints of worsening shortness of breath productive cough,. Patient was treated for COPD exacerbation and pneumonia with antibiotics. He underwent heart catheterization at [facility] multivessel coronary artery disease. The patient does admit to productive cough with yellow sputum. Patient denies any history of PE and DVT. Denies any nausea vomiting diarrhea. Patient was transferred to [facility] for further workup and evaluation for coronary [...] Dose Route Stop Time Status Admin Ipratropium [place] 500 MCG RTQ6H 07/04 1500 AC (ATROVENT) [...] Musculoskeletal: no CVA tenderness, no muscle spasm Neuro/UX MANAGER: alert Results Findings/Data: Laboratory Tests: 07/04 07/04 [...] (Auto) (14.0 - 32.0 %) 3.8 L [place] % (Auto) (4.8 - 9.0 %) 4.5 L Eos % (Auto) (0.3 - 3.7 %) 0.0 L Baso % (Auto) (0.0 - 2.0 %) 0.1 Neut # (Auto) (2.0 - 7.6 x10 3/uL) 10.17 H Lymph # (Auto) (1.0 - 3.8 x10 3/uL) 0.42 L [place] # (Auto) (0.1 - 0.8 x10 3/uL) [...] (Auto) (14.0 - 32.0 %) 2.9 L [place] % (Auto) (4.8 - 9.0 %) 3.0 L Eos % (Auto) (0.3 - 3.7 %) 0.2 L Baso % (Auto) (0.0 - 2.0 %) 0.2 Neut # (Auto) (2.0 - 7.6 x10 3/uL) 9.94 H Lymph # (Auto) (1.0 - 3.8 x10 3/uL) 0.31 L [place] # (Auto) (0.1 - 0.8 x10 3/uL) [...] pH (5.0 - 7.0) 5.0 Ur Specific [place] (1.005 - 1.030) 1.058 H Urine Protein [...] Coagulation INR (0.8 - 1.2) 1.0 PTT ([place]) (25.0 - 39.5 Seconds) 21.9 L PT [...] - Manuel Hardy M.D. ULTRASOUND - [facility] 07/03 1801 Report Impression - Status: SIGNED [...] meds. Monitor. at 1322 at 1344 RPT #:[id number] END OF REPORT [facility] 2024-07-04 09:25:00 [facility] ([facility]) Cardiology Consultation REPORT#:[id number] REPORT STATUS: Signed REPORT INITIALIZATION DATE:07/04/24 TIME: 924 PATIENT: HUBERT LYNCH UNIT #: [id number] [facility] AGE: 68 SEX: M ATTEND: Marcellus Gilbert MD ADM AUTHOR: Gerri Sterling AGACNP REPT SERVICE DT/TIME: 07/04/24 9021 * ALL edits or amendments must be made on the electronic/computer document * History of Present Illness HPI Requesting Clinician: DR. Gilbert Reason for consult: CAD Chief complaint: Shortness of breath PCP: PCP: No Primary or Family Physician HPI: 68 YO male with MH of COPD, lifelong heavy smoker who initially presented at [facility] with shortness of breath attributed to COPD [...] Meds + DC'd Last 24 Hrs Ipratropium [place] (ATROVENT) 500 MCG RTQ6H INH (UNV) Metoprolol [...] calf tenderness, no edema Musculoskeletal: normal inspection Neuro/UX MANAGER: alert, oriented X 3, normal speech Psychiatry: [...] - 32.0 %) 3.8 L 2.9 L [place] % (Auto) (4.8 - 9.0 %) 4.5 L 3.0 L Eos % (Auto) (0.3 - 3.7 %) 0.0 L 0.2 L Baso % (Auto) (0.0 - 2.0 %) 0.1 0.2 Neut # (Auto) (2.0 - 7.6 x10 3/uL) 10.17 H 9.94 H Lymph # (Auto) (1.0 - 3.8 x10 3/uL) 0.42 L 0.31 L [place] # (Auto) (0.1 - 0.8 x10 3/uL) [...] pH (5.0 - 7.0) 5.0 Ur Specific [place] (1.005 - 1.030) 1.058 H Urine Protein [...] - Manuel Hardy M.D. ULTRASOUND - [facility] 07/03 180 Report Impression - Status: SIGNED [...] lifelong heavy smoker who initially presented at [facility] with shortness of breath attributed to COPD [...] MDM by Dr. Toribio. at 1750 at 4893 RPT #:[id number] END OF REPORT [facility] 2024-07-04 07:57:00 [facility] Cardiothoracic Surgery Prog REPORT#:[id number] REPORT STATUS: Signed REPORT INITIALIZATION DATE:07/04/24 TIME: 0757 PATIENT: HUBERT LYNCH UNIT #: [id number] [facility]BED: [facility] : 53 AGE: 68 SEX: M ATTEND: Marcellus Gilbert MD ADM AUTHOR: Bonita Resendiz Physic REPT SERVICE DT/TIME: 07/04/24 2704 * ALL edits or amendments must be [...] Abdomen: soft, non-tender Extremities: dry, moves all Neuro/UX MANAGER: alert, oriented X 3 Skin: dry Diagnosis, Assessment Plan Free Text A P: This is a 68-year-old gentleman with a past medical history of COPD, on home oxygen, 4 L who presented to the hospital at [place] for complaints of worsening shortness of breath productive cough,. Patient was treated for COPD exacerbation and pneumonia with antibiotics. Patient then underwent heart catheterization at [facility] multivessel coronary artery disease. The patient does admit to productive cough with yellow sputum. Patient denies any history of PE and DVT. Denies any nausea vomiting diarrhea. Patient was transferred to [facility] for further workup and evaluation for coronary bypass graft surgery Patient reports he continues to smoke 1 pack/day. Patient denies any alcohol use. Patient transferred to [facility] for COPD exasperation and workup for multivessel [...] on azithromycin Patient seen and examined at [facility]. Workup underway. Plan of care discussed with multidisciplinary team Pulmonary for COPD exacerbation. Cardiology consult. Further recs to follow. at 0810 at 0434 RPT #:[id number] END OF REPORT [facility] 2024-07-03 17:30:00 [facility] ([facility]) Critical Care Consult Note REPORT#:[id number] REPORT STATUS: Signed REPORT INITIALIZATION DATE:07/03/24 TIME: 173 PATIENT: HUBERT LYNCH UNIT #: [id number] ROOM/BED: [place] [address] : 53 AGE: 68 SEX: M ATTEND: [...] bedside procedures and teach at 1734 RPT #:[id number] END OF REPORT [facility] 2024-07-03 17:21:00 [facility] ([facility]) History Physical - Adult REPORT#:[id number] REPORT STATUS: Signed REPORT INITIALIZATION DATE:07/03/24 TIME: 1720 PATIENT: HUBERT LYNCH UNIT #: [id number] [facility] AGE: 68 SEX: M ATTEND: [...] L who presented to the hospital at [place] for complaints of worsening shortness of breath productive cough,. Patient was treated for COPD exacerbation and pneumonia with antibiotics. Patient then underwent heart catheterization at [facility] multivessel coronary artery disease. The patient does admit to productive cough with yellow sputum. Patient denies any history of PE and DVT. Denies any nausea vomiting diarrhea. Patient was transferred to [facility] for further workup and evaluation for coronary bypass graft surgery Patient reports he continues to smoke 1 pack/day. Patient denies any alcohol use. Patient transferred to [facility] for COPD exasperation and workup for multivessel [...] L who presented to the hospital at [place] for complaints of worsening shortness of breath productive cough,. Patient was treated for COPD exacerbation and pneumonia with antibiotics. Patient then underwent heart catheterization at [facility] multivessel coronary artery disease. The patient does admit to productive cough with yellow sputum. Patient denies any history of PE and DVT. Denies any nausea vomiting diarrhea. Patient was transferred to [facility] for further workup and evaluation for coronary bypass graft surgery Patient reports he continues to smoke 1 pack/day. Patient denies any alcohol use. Patient transferred to [facility] for COPD exasperation and workup for multivessel [...] plan to the patient. at 0756 at 1651 RPT #:[id number] END OF REPORT [facility]"
[2024-08-16] MEDS ORDERED: CEFTRIAXONE 1000 MG/VIAL ONE (07:45)
[2024-08-16] MEDS ORDERED: LEVALBUTEROL 1.25 MG/3 ML NEB ONE ×3 (07:45→11:42)
[2024-08-16] MEDS ORDERED: IPRATROPIUM BROM 0.5MG/2.5ML ONE (07:45)
[2024-08-16] MEDS ORDERED: METHYLPREDNISOLONE 125 MG INJ ONE (07:45)
[2024-08-16] MEDS ORDERED: NA CHLORIDE 0.9% 500 ML ONE (07:46)
[2024-08-16] MEDS ORDERED: NA CHLORIDE 0.9% 100 ML ONE (07:46)
--- NOTE | 2024-08-16 08:19 | RAD REPORT ---
Procedure: Chest Single View HISTORY: Cough COMPARISON: 2018 FINDINGS: The lungs appear clear of acute infiltrate. Mild left upper lobe/pleural opacities without significan t change. Lungs are moderately to markedly hyperaerated. No significant pleural effusion noted. The heart is normal size. IMPRESSION: COPD without visualization of an acute abnormality
[2024-08-16] MEDS ORDERED: Magnesium Sulfate 2gm IVPB 2 G/50 ML BAG IV ONE (08:36)
--- NOTE | 2024-08-16 08:38 | EDPHYS ---
Physician Documentation [facility] Name: Hubert Lynch Age: 68 yrs Sex: Male : 1955 Arrival Date: 08/16/2024 Time: 07:27 Bed 7 Private MD: ED Physician Olman Magaña HPI: 08/16 08:16 This 68 yrs old Male presents to ER via EMS with complaints of Breathing wayne Difficulty. 08:16 The patient has shortness of breath at rest, with light activity. Onset: The wayne symptoms/episode began/occurred 3 day(s) ago. Duration: The symptoms are continuous, and are steadily getting worse. The patient's shortness of breath is aggravated by coughing, supine position, talking, walking. Associated signs and symptoms: Pertinent positives: non-productive cough. Severity of symptoms: in the emergency department the symptoms are worse markedly. The patient has experienced similar episodes in the past, multiple times, chronically, and the symptoms today are exactly the same. Historical: - Allergies: 07:36 No Known Drug Allergies; ph - PMHx: 07:36 COPD; Hypertension; Myocardial infarction; ph - PSHx: 07:36 Stented artery; ph - Immunization history:: Adult Immunizations unknown. - Infectious Disease History:: Denies. - Social history:: Smoking status: Patient reports the use of cigarette tobacco products, smokes one-half pack cigarettes per day. ROS: 08:18 Constitutional: Negative for fever, chills, and weight loss, Eyes: Negative for injury, wayne pain, redness, and discharge, ENT: Negative for injury, pain, and discharge, Neck: Negative for injury, pain, and swelling, Cardiovascular: Negative for chest pain, palpitations, and edema, Abdomen/GI: Negative for abdominal pain, nausea, vomiting, diarrhea, and constipation, Back: Negative for injury and pain, : Negative for injury, bleeding, discharge, and swelling, MS/Extremity: Negative for injury and deformity, Skin: Negative for injury, rash, and discoloration, Neuro: Negative for headache, weakness, numbness, tingling, and seizure, Psych: Negative for depression, anxiety, suicide ideation, homicidal ideation, and hallucinations, Allergy/Immunology: Negative for hives, rash, and allergies, Endocrine: Negative for neck swelling, polydipsia, polyuria, polyphagia, and marked weight changes, Hematologic/Lymphatic: Negative for swollen nodes, abnormal bleeding, and unusual bruising, 08:18 Respiratory: Positive for cough, shortness of breath, wheezing, inspiratory, expiratory, Exam: 08:21 Constitutional: This is a well developed, well nourished patient who is awake, alert, wayne and in no acute distress. Head/Face: Normocephalic, atraumatic. Eyes: Pupils equal round and reactive to light, extra-ocular motions intact. Lids and lashes normal. Conjunctiva and sclera are non-icteric and not injected. Cornea within normal limits. Periorbital areas with no swelling, redness, or edema. ENT: Nares patent. No nasal discharge, no septal abnormalities noted. Tympanic membranes are normal and external auditory canals are clear. Oropharynx with no redness, swelling, or masses, exudates, or evidence of obstruction, uvula midline. Mucous membranes moist. Neck: Trachea midline, no thyromegaly or masses palpated, and no cervical lymphadenopathy. Supple, full range of motion without nuchal rigidity, or vertebral point tenderness. No Meningismus. Chest/axilla: Normal chest wall appearance and motion. Nontender with no deformity. No lesions are appreciated. Cardiovascular: Regular rate and rhythm with a normal S1 and S2. No gallops, murmurs, or rubs. Normal PMI, no JVD. No pulse deficits. Abdomen/GI: Soft, non-tender, with normal bowel sounds. No distension or tympany. No guarding or rebound. No evidence of tenderness throughout. Back: No spinal tenderness. No costovertebral tenderness. Full range of motion. Male : Normal genitalia with no discharge or lesions. Skin: Warm, dry with normal turgor. Normal color with no rashes, no lesions, and no evidence of cellulitis. MS/ Extremity: Pulses equal, no cyanosis. Neurovascular intact. Full, normal range of motion., bilateral aka Neuro: Awake and alert, GCS 15, oriented to person, place, time, and situation. Cranial nerves II-XII grossly intact. Motor strength 5/5 in all extremities. Sensory grossly intact. Cerebellar exam normal. Normal gait. Psych: Awake, alert, with orientation to person, place and time. Behavior, mood, and affect are within normal limits. 08:21 ECG was reviewed by the Attending Physician. 08:21 Respiratory: mild respiratory distress is noted, moderate respiratory distress is noted, Respirations: labored breathing, that is moderate, Breath sounds: bronchial sounds, that are moderate, are heard diffusely, decreased breath sounds, that are moderate, are located in both bases, rhonchi, that are mild, are scattered, stridor, is not appreciated, + upper airway congestion. wheezing: inspiratory expiratory is heard diffusely, 08:38 ECG was reviewed by the Attending Physician. wayne Vital Signs: 07:34 BP 101 / 60; Pulse 111; Resp 32; Temp 98.1; Pulse Ox 100% on 4 lpm NC; Weight 65.77 kg; ph Height 5 ft. 8 in. ; 08:46 BP 97 / 59; Pulse 119; Resp 28; Pulse Ox 100% on 4 lpm NC; ph 10:00 BP 109 / 60; Pulse 111; Resp 28; Pulse Ox 100% on 4 lpm NC; ph 11:05 BP 122 / 66; Pulse 107; Resp 26; Pulse Ox 100% on 4 lpm NC; ph 07:34 Body Mass Index 22.05 (65.77 kg, 172.72 cm) ph Janee Coma Score: 08:38 Eye Response: spontaneous(4). Motor Response: obeys commands(6). Verbal Response: wayne oriented(5). Total: 15. MDM: 07:28 Medical Screening Exam initiated wayne 08:23 Differential diagnosis: asthma, Bronchitis CHF exacerbation, Chronic Obstructive wayne Pulmonary Disease obstructed airway, tracheal injury, bronchitis, flu, URI, acute asthma, exercise-induced asthma, reactive airway, CHF, anaphylaxis, URI, foreign body, Myocardial Infarction pneumonia, Pneumothorax pulmonary edema, Pulmonary Embolism reactive airway disease, Unstable Angina. Antibiotic administration: Rocephin and Zithromax given. Immunization status: Pneumococcal vaccine: within last 5 years. Influenza vaccine: within last 5 years. Data reviewed: vital signs, nurses notes, lab test result(s), EKG, radiologic studies, plain films. Consideration of Admission/Observation Patient was admitted/placed on observation. Escalation of care including admission/observation considered. I considered the following discharge prescriptions or medication management in the emergency department Medications were administered in the Emergency Department. See MAR. Test considered but Not performed: CT: no ct chest. 08/16 07:32 Order name: Basic Metabolic Panel; Complete Time: 10:31 wayne 08/16 07:32 Order name: CBC with Diff; Complete Time: 11:27 [facility] 08/16 07:32 Order name: LFT's; Complete Time: 10:31 wayne 08/16 07:32 Order name: Magnesium; Complete Time: 10:31 wayne 08/16 07:32 Order name: NT PRO-BNP; Complete Time: 10:31 [facility] 08/16 07:32 Order name: PT-INR; Complete Time: 09:34 [facility] 08/16 07:32 Order name: Troponin HS; Complete Time: 10:31 [facility] 08/16 07:32 Order name: COVID-19 Ag + Flu A+B Ag; Complete Time: 10:31 [facility] 08/16 07:32 Order name: Lactate w/ 2H reflex if indic.; Complete Time: 09:34 [facility] 08/16 07:32 Order name: Blood Culture Adult (2) [facility] 08/16 08:49 Order name: Manual Differential; Complete Time: 11:27 EDMS 08/16 09:01 Order name: Urinalysis w/ reflexes EDMS 08/16 09:01 Order name: Basic Metabolic Panel EDMS 08/16 09:01 Order name: Basic Metabolic Panel EDMS 08/16 09:01 Order name: Basic Metabolic Panel EDMS 08/16 09:01 Order name: Basic Metabolic Panel EDMS 08/16 09:01 Order name: Basic Metabolic Panel EDMS 08/16 09:01 Order name: Basic Metabolic Panel EDMS 08/16 09:01 Order name: Basic Metabolic Panel EDMS 08/16 09:01 Order name: Basic Metabolic Panel EDMS 08/16 09:01 Order name: CBC with Automated Diff EDMS 08/16 09:01 Order name: CBC with Automated Diff EDMS 08/16 09:01 Order name: CBC with Automated Diff EDMS 08/16 09:01 Order name: CBC with Automated Diff EDMS 08/16 09:01 Order name: CBC with Automated Diff EDMS 08/16 09:01 Order name: CBC with Automated Diff EDMS 08/16 09:01 Order name: CBC with Automated Diff EDMS 08/16 09:01 Order name: CBC with Automated Diff EDMS 08/16 09:01 Order name: Comprehensive Metabolic Panel EDMS 08/16 09:01 Order name: Comprehensive Metabolic Panel EDMS 08/16 09:01 Order name: Magnesium EDMS 04/10 09:01 Order name: Magnesium EDMS 08/16 09:01 Order name: Magnesium EDMS 08/16 09:01 Order name: Magnesium EDMS 08/16 09:01 Order name: Magnesium EDMS 08/16 09:01 Order name: Magnesium EDMS 08/16 09:01 Order name: Magnesium EDMS 08/16 09:01 Order name: Magnesium EDMS 08/16 09:02 Order name: ABG Arterial Blood Gas; Complete Time: 11:27 [facility] 08/16 07:32 Order name: XRAY Chest (1 view); Complete Time: 08:34 [facility] 08/16 11:40 Order name: BIPAP [facility] 08/16 09:05 Order name: Occupational Therapy Consult [facility] 08/16 09:05 Order name: Physical Therapy Consult [facility] 08/16 10:35 Order name: Social Service Consult [facility] 08/16 07:32 Order name: Cardiac monitoring; Complete Time: 08:06 [facility] 08/16 07:32 Order name: EKG - Nurse/Tech; Complete Time: 08:41 [facility] 08/16 07:32 Order name: IV Saline Lock; Complete Time: 08:41 [facility] 08/16 07:32 Order name: Labs collected and sent; Complete Time: 08:41 [facility] 08/16 07:32 Order name: O2 Per Protocol; Complete Time: 08:06 [facility] 08/16 07:32 Order name: O2 Sat Monitoring; Complete Time: 08:06 [facility] 08/16 08:49 Order name: Labs - recollect needed: green; Complete Time: 11:04 bc6 EC:38 Rate is 120 beats/min. Rhythm is regular. QRS [place] is Normal. SD interval is normal. [facility] QRS interval is normal. QT interval is normal. No Q waves. T waves are Normal. No ST changes noted. Clinical impression: Sinus tachycardia and No evidence of ischemia. Interpreted by me. Reviewed by me. Administered Medications: 08:06 Drug: Levalbuterol Inhalation 3.75 mg Inhalation once Route: Inhalation; ph 09:00 Follow up: Response: No adverse reaction ph 08:06 Drug: Ipratropium Inhalation Aerosol 0.5 mg Inhalation once Route: Inhalation; ph 09:00 Follow up: Response: No adverse reaction ph 08:42 Drug: NS 0.9% IV 500 ml 500 ml IV at 1 bolus once; to be given as a bolus over 30 ph minutes Volume: 500 ml; Route: IV; Rate: 1 bolus; Site: right hand; 09:15 Follow up: Response: No adverse reaction; IV Status: Completed infusion; IV Intake: ph 500ml 08:42 Drug: MethylPrednisoLONE IVP 125 mg IVP once Route: IVP; Site: right hand; ph 09:00 Follow up: Response: No adverse reaction ph 08:43 Drug: Rocephin IV 1 grams IV at per protocol once; Given slow IV push per pharmacy ph instructions Route: IV; Rate: per protocol; Site: right hand; 09:15 Follow up: Response: No adverse reaction; IV Status: Completed infusion ph 08:43 Drug: Magnesium Sulfate IVPB 2 grams IVPB once over 2 hrs Route: IVPB; Infused Over: 2 ph hrs; Site: right hand; 10:00 Follow up: Response: No adverse reaction; IV Status: Completed infusion ph 11:28 Drug: Levalbuterol Inhalation 1.25 mg Inhalation once Route: Inhalation; ph 12:00 Follow up: Response: No adverse reaction ph 11:34 Not Given (Other Intervention Used): ns 0.9% 500 ml IV at 125 ml/hr once; to be given ph as a bolus over 30 minutes 11:34 Not Given (Other Intervention Used): ns 0.9% 1000 ml IV at 1000 ml once; to be given as ph a bolus over 60 minutes 11:50 Drug: Levalbuterol Inhalation 2.5 mg Inhalation once Route: Inhalation; ph 12:00 Follow up: Response: No adverse reaction ph 11:50 Drug: Ativan IVP 0.5 mg IVP once Route: IVP; Site: right hand; ph 12:15 Follow up: Response: No adverse reaction; Anxiety decreased ph 13:09 Drug: Zithromax IVPB 500 mg IVPB once over 1 hrs; mix in 250 mL NS Route: IVPB; Infused ph Over: 1 hrs; Site: right hand; 14:10 Follow up: Response: No adverse reaction; IV Status: Completed infusion ph Disposition Summary: 08/16/24 08:38 Hospitalization Ordered Notes: Hospitalization Status: Inpatient Admission wayne Provider: Feliz Bond cha Location: Telemetry/MedSurg (Inpatient) wayne Condition: Fair wayne Problem: an acute exacerbation wayne Symptoms: have worsened wayne Bed/Room Type: Standard wayne Room Assignment: 412(08/16/24 16:08) bc6 Diagnosis - COPD/ Chronic obstructive pulmonary disease with (acute) exacerbation wayne - Hypoxemia wayne - Tobacco abuse counseling wayne - Tobacco use wayne - Acute and chronic respiratory failure with hypercapnia wayne Forms: - Medication Reconciliation Form wayne - SBAR form wayne - Leadership Thank You Letter [facility] Signatures: Dispatcher [employer] EDMS Olman Magaña MD MD cha Attema, Lee, SLABBER-C [id number] Sasha Padilla RN RN Anne Sarmiento bc6 Corrections: (The following items were deleted from the chart) 07:33 07:33 BASIC METABOLIC PANEL+C.LAB.BRZ ordered. EDMS EDMS 07:33 07:33 CBC+H.LAB.BRZ ordered. EDMS EDMS 07:33 07:33 HEPATIC FUNCTION+C.LAB.BRZ ordered. EDMS EDMS 07:33 07:33 MAGNESIUM+C.LAB.BRZ ordered. EDMS EDMS 07:33 07:33 PROBNP+C.LAB.BRZ ordered. EDMS EDMS 07:33 07:33 PROTIME (+INR)+COAG.LAB.BRZ ordered. EDMS EDMS 07:33 07:33 Troponin High Sensitivity+C.LAB.BRZ ordered. EDMS EDMS 07:33 07:33 COVID-19 Ag + Flu A+B Ag+I.LAB.BRZ ordered. EDMS EDMS 07:33 07:33 LACTATE+C.LAB.BRZ ordered. EDMS EDMS 07:33 07:33 BLOOD CULTURE*+BA.LAB.BRZ ordered. EDMS EDMS 07:33 07:33 Chest Single View+RAD.RAD.BRZ ordered. EDMS EDMS 16:08 08:38 [facility] bc6
--- NOTE | 2024-08-16 08:38 | ER ---
Nurse's Notes [facility] Name: Hubert Lynch Age: 68 yrs Sex: Male : 1955 Arrival Date: 08/16/2024 Time: 07:27 Bed 7 Private MD: Diagnosis: COPD/ Chronic obstructive pulmonary disease with (acute) exacerbation;Hypoxemia;Tobacco abuse counseling;Tobacco use;Acute and chronic respiratory failure with hypercapnia Presentation: 08/16 07:34 Chief complaint: EMS states: Difficulty breathing that started last night, hx of COPD, ph uses home O2 at 4L/min, Spo2 was 96%, other VSS, A\T\A x 1 given. Coronavirus screen: Vaccine status: Patient reports being unvaccinated. Ebola Screen: No symptoms or risks identified at this time. Initial Sepsis Screen: Does the patient meet any 2 criteria? No. Patient's initial sepsis screen is negative. Does the patient have a suspected source of infection? No. Patient's initial sepsis screen is negative. Risk Assessment: Do you want to hurt yourself or someone else? Patient reports no desire to harm self or others. Onset of symptoms was August 16, 2024. 07:34 Method Of Arrival: EMS: [facility] ph 07:34 Acuity: DAVID 2 ph Historical: - Allergies: 07:36 No Known Drug Allergies; ph - PMHx: 07:36 COPD; Hypertension; Myocardial infarction; ph - PSHx: 07:36 Stented artery; ph - Immunization history:: Adult Immunizations unknown. - Infectious Disease History:: Denies. - Social history:: Smoking status: Patient reports the use of cigarette tobacco products, smokes one-half pack cigarettes per day. Screenin:44 [facility] ED Fall Risk Assessment (Adult) History of falling in the last 3 months, ph including since admission No falls in past 3 months (0 pts) Confusion or Disorientation No (0 pts) Intoxicated or Sedated No (0 pts) Impaired Gait No (0 pts) Mobility Assist Device Used No (0 pt) Altered Elimination No (0 pt) Score/Fall Risk Level 0 - 2 = Low Risk Oriented to surroundings, Maintained a safe environment, Hourly rounding (assess needs \T\ fall precautionary measures) done. Abuse screen: Denies threats or abuse. Denies injuries from another. Nutritional screening: No deficits noted. Tuberculosis screening: No symptoms or risk factors identified. Assessment: 08:00 General: Appears in no apparent distress. uncomfortable, Behavior is cooperative, ph appropriate for age. Pain: Complains of pain in chest Pain does not radiate. Neuro: Level of Consciousness is awake, alert, obeys commands, Oriented to person, place, time, situation. Cardiovascular: Reports chest pain, shortness of breath, Rhythm is sinus tachycardia. Respiratory: Airway is patent Respiratory effort is labored, Respiratory pattern is tachypnea. GI: No signs and/or symptoms were reported involving the gastrointestinal system. Derm: Skin is pink, warm \T\ dry. Musculoskeletal: Range of motion: intact in all extremities. 09:00 Reassessment: Patient appears in no apparent distress at this time. No changes from previously documented assessment. Patient and/or family updated on plan of care and expected duration. Pain level reassessed. 10:00 Reassessment: Patient appears in no apparent distress at this time. Patient and/or ph family updated on plan of care and expected duration. Pain level reassessed. 11:40 Reassessment: Patient appears in no apparent distress at this time. Patient and/or ph family updated on plan of care and expected duration. Pain level reassessed. Pt states that SOB is becoming worse, appears anxious, SPO 98% on 3L NC, ERP notified, verbal order received for Ativan IVP, 0.5 mg, see JUL. 12:15 Reassessment: Patient appears in no apparent distress at this time. Patient and/or ph family updated on plan of care and expected duration. Pain level reassessed. Pt resting comfortably. Vital Signs: 07:34 BP 101 / 60; Pulse 111; Resp 32; Temp 98.1; Pulse Ox 100% on 4 lpm NC; Weight 65.77 kg; ph Height 5 ft. 8 in. ; 08:46 BP 97 / 59; Pulse 119; Resp 28; Pulse Ox 100% on 4 lpm NC; ph 10:00 BP 109 / 60; Pulse 111; Resp 28; Pulse Ox 100% on 4 lpm NC; ph 11:05 BP 122 / 66; Pulse 107; Resp 26; Pulse Ox 100% on 4 lpm NC; ph 07:34 Body Mass Index 22.05 (65.77 kg, 172.72 cm) ph Janee Coma Score: 08:38 Eye Response: spontaneous(4). Motor Response: obeys commands(6). Verbal Response: wayne oriented(5). Total: 15. ED Course: 07:27 Patient arrived in ED. as 07:27 None, None is Private Physician. as 07:28 Olman Magaña MD is Attending Physician. wayne 07:34 Sasha Padilla, RN is Primary Nurse. ph 07:36 Triage completed. ph 07:36 Arm band placed on Patient placed in an exam room, on a stretcher, on oxygen, on ph engine monitor, on pulse oximetry. 08:07 Missed attempt(s): 22 gauge in right forearm. Bleeding controlled, band aid applied, ph catheter tip intact. 08:09 XRAY Chest (1 view) In Process Unspecified. EDMS 08:37 Feliz Bond MD is Hospitalizing Provider. wayne 08:37 Initial lab(s) drawn, by me, sent to lab. Inserted saline lock: 24 gauge in right hand, iw using aseptic technique. Blood collected. Flushed with 10 mL NS. 08:45 Patient has correct armband on for positive identification. Placed in gown. Bed in low ph position. Call light in reach. Side rails up X 1. Client placed on continuous cardiac and pulse oximetry monitoring. NIBP monitoring applied. color television console monitor on. Pulse ox on. NIBP on. Door closed. Noise minimized. Lights dimmed. Warm blanket given. 12:00 No provider procedures requiring assistance completed. Patient admitted, IV remains in ph place. Administered Medications: 08:06 Drug: Levalbuterol Inhalation 3.75 mg Inhalation once Route: Inhalation; ph 09:00 Follow up: Response: No adverse reaction ph 08:06 Drug: Ipratropium Inhalation Aerosol 0.5 mg Inhalation once Route: Inhalation; ph 09:00 Follow up: Response: No adverse reaction ph 08:42 Drug: NS 0.9% IV 500 ml 500 ml IV at 1 bolus once; to be given as a bolus over 30 ph minutes Volume: 500 ml; Route: IV; Rate: 1 bolus; Site: right hand; 09:15 Follow up: Response: No adverse reaction; IV Status: Completed infusion; IV Intake: ph 500ml 08:42 Drug: MethylPrednisoLONE IVP 125 mg IVP once Route: IVP; Site: right hand; ph 09:00 Follow up: Response: No adverse reaction ph 08:43 Drug: Rocephin IV 1 grams IV at per protocol once; Given slow IV push per pharmacy ph instructions Route: IV; Rate: per protocol; Site: right hand; 09:15 Follow up: Response: No adverse reaction; IV Status: Completed infusion ph 08:43 Drug: Magnesium Sulfate IVPB 2 grams IVPB once over 2 hrs Route: IVPB; Infused Over: 2 ph hrs; Site: right hand; 10:00 Follow up: Response: No adverse reaction; IV Status: Completed infusion ph 11:28 Drug: Levalbuterol Inhalation 1.25 mg Inhalation once Route: Inhalation; ph 12:00 Follow up: Response: No adverse reaction ph 11:34 Not Given (Other Intervention Used): ns 0.9% 500 ml IV at 125 ml/hr once; to be given ph as a bolus over 30 minutes 11:34 Not Given (Other Intervention Used): ns 0.9% 1000 ml IV at 1000 ml once; to be given as ph a bolus over 60 minutes 11:50 Drug: Levalbuterol Inhalation 2.5 mg Inhalation once Route: Inhalation; ph 12:00 Follow up: Response: No adverse reaction ph 11:50 Drug: Ativan IVP 0.5 mg IVP once Route: IVP; Site: right hand; ph 12:15 Follow up: Response: No adverse reaction; Anxiety decreased ph 13:09 Drug: Zithromax IVPB 500 mg IVPB once over 1 hrs; mix in 250 mL NS Route: IVPB; Infused ph Over: 1 hrs; Site: right hand; 14:10 Follow up: Response: No adverse reaction; IV Status: Completed infusion ph Medication: 11:00 VIS not applicable for this client. ph Intake: 09:15 IV: 500ml; Total: 500ml. ph Outcome: 08:38 Decision to Hospitalize by Provider. wayne 12:15 Admitted to ER Hold. Please see [facility] for further documentation. ph 12:15 Condition: stable 12:15 Instructed on the need for admit, 17:24 Patient left the ED. ph Signatures: Dispatcher [employer] Olman Theodore MD MD cha Martinez, Amelia as Williams, Irene, RN RN Sasha Padilla RN RN ph
[2024-08-16 08:43] LABS: Absolute Eosinophils 0.1 K/uL (0-0.5); Absolute Lymphocytes (CBC) 2.1 K/uL (0.7-4.9); Absolute Monocytes 0.8 K/uL (0.1-1.3); Absolute Neutrophil 10.6 K/uL (1.8-8.0); Basophils % 0.4 % (0-1.3); Eosinophils % 0.8 % (0-4.4); Hematocrit 36.5 % (39.6-49.0); Hemoglobin 12.2 g/dL (13.6-17.9); Lymphocytes % 15.2 % (15.3-44.8); MCH 30.1 pg (27.0-35.0); MCHC 33.5 g/dL (32.0-36.0); MCV 89.8 fL (80-100); MPV 7.6 fL (7.6-11.3); Monocytes % 5.6 % (3.3-12.3); Platelets 344 thou/uL (152-406); RBC Red Blood Cell Count 4.06 M/uL (4.33-5.43)
[2024-08-16] MEDS ORDERED: IPRATROPIUM BROM 0.5MG/2.5ML NEB PRN (08:56)
[2024-08-16] MEDS ORDERED: ALBUTEROL 2.5 MG/3 ML NEB SOL NEB PRN (08:56)
[2024-08-16] MEDS ORDERED: ONDANSETRON 4 MG/2 ML VIAL IV PRN (08:56)
[2024-08-16 09:06] LABS: PT Prothrombin Time 11.9 SECONDS (10-13.0); Protime INR 1.05
[2024-08-16] MEDS ORDERED: NA CHLORIDE 0.9% 1,000 ML ONE (09:40)
[2024-08-16 10:00] LABS: Influenza A Ag Negative; Influenza B Ag Negative; SARS-CoV-2 Antigen Rapid Res Negative (Negative)
[2024-08-16 10:23] LABS: Albumin 2.7 g/dL (3.4-5.0); Albumin/Globulin Ratio 0.8 (1.1-1.8); Anion Gap 9.9 mEq/L (5.0-15.0); Bilirubin Direct 0.2 mg/dL (0-0.2); Bilirubin Indirect, Calculated 0.2 mg/dL (0.2-0.8); Bilirubin Total 0.4 mg/dL (0.2-1.0); Globulin 3.5 g/dL (2.3-3.5); Magnesium 4.7 mg/dL (1.6-2.4); Potassium 3.9 mEq/L (3.5-5.1); Protein, Total 6.2 g/dL (6.4-8.2)
--- NOTE | 2024-08-16 10:31 | P.HP ---
Certification for Inpatient Patient admitted to: Inpatient With expected LOS: >2 Midnights Patient will require the following post-hospital care: Home Health Services Practitioner: I am a practitioner with admitting privileges, knowledge of patient current condition, hospital course, and medical plan of care. Services: Services provided to patient in accordance with Admission requirements found in Title 42 Section 412.3 of the Code of Federal Regulations Patient History Date of Service: 08/16/24 Reason for admission: Shortness of breath History of Present Illness: 68-year-old male with history of COPD on 4 L of oxygen at baseline, CAD with recent PCI with multiple stents, HTN, discharge from [facility] about 10 days ago after being treated for COPD, came back to the emergency room complains of shortness of breath, and cough secondary to recurrent COPD. Clinically patient was wheezing profusely however O2 sats in the 90s on 4 L of oxygen. Chest x-ray showed chronic findings of COPD otherwise unremarkable. Of note while patient still actively smoking Allergies No Known Drug Allergies Allergy (Verified 07/31/24 19:33) Unknown Home medications list reviewed: Yes Home Medications: Albuterol Inhaler [Ventolin Inhaler*] 2 puff IH Q6H PRN #2 inhaler 08/06/24 Amlodipine [Norvasc*] 5 mg PO DAILY #60 tab 08/06/24 Aspirin 81 mg PO DAILY #60 tab.chew 08/06/24 Atorvastatin Calcium [Lipitor] 40 mg PO BEDTIME #60 tab 08/06/24 Fluticasone Propion/Salmeterol [Advair 250-50 Diskus] 1 each IH BID #1 inh 08/06/24 Metoprolol Succinate [Toprol Xl*] 50 mg PO DAILY #60 tab 08/06/24 Roflumilast [Daliresp*] 500 mcg PO DAILY #30 tab 08/06/24 Spironolactone [Aldactone*] 25 mg PO DAILY #30 tab 08/06/24 Valsartan [Diovan] 160 mg PO DAILY #60 tab 08/06/24 levoFLOXacin [Levaquin*] 750 mg PO DAILY #7 tab 08/06/24 prasugrel HCL [Prasugrel HCl] 1 tab PO DAILY #60 tab 08/06/24 predniSONE [Deltasone*] 10 mg PO BID 10 Days #20 tab 08/06/24 - Past Medical/Surgical History Diabetic: No -: COPD -: tobacco abuse -: HTN -: dyslipidemia -: TUBERCULOSIS IN -: CAD -: cardiac stents x 4 Psychosocial/ Personal History: Lives at home with family - Family History Mother -: Heart disease Notes: had pacemaker - Social History Alcohol use: No CD- Drugs: No Caffeine use: Yes Review of Systems General: Unremarkable Eyes: Unremarkable ENT: Unremarkable Respiratory: Cough, Shortness of Breath Cardiovascular: Unremarkable Gastrointestinal: Unremarkable Musculoskeletal: Unremarkable Neurological: Unremarkable Physical Examination - Physical Exam General: Alert, Oriented x3 HEENT: Atraumatic Neck: Supple Respiratory: Expiratory wheezes Cardiovascular: No edema, Regular rate/rhythm Gastrointestinal: Normal bowel sounds Musculoskeletal: No clubbing, No swelling, No erythema, No tenderness Neurological: Normal gait, Normal strength at 5/5 x4 extr - Studies Laboratory Data (last 24 hrs) 08/16/24 08/16/24 08/16/24 09:43 08:32 08:32 WBC 13.60 H Hgb 12.2 L Hct 36.5 L Plt Count 344 PT 11.9 INR 1.05 Sodium 138 Potassium 3.9 BUN 11 Creatinine 0.84 Glucose 106 Magnesium 4.7 H Total Bilirubin 0.4 AST 31 ALT 52 Alkaline Phosphatase 78 Assessment and Plan - Plan 1. Acute on chronic hypoxic respiratory failure secondary to COPD exacerbation - Patient still actively smoking - On exam, has diffuse wheezes -Chest x-ray showed chronic findings of COPD, otherwise unremarkable - On antibiotics, nebs and steroids 2. History of CAD with recent PCI with multiple stents - Resumed statin, aspirin and prasugrel 3. History of essential hypertension - SBP currently in the 90s so we will hold BP meds 4. History of active tobacco use - Cessation advised 5. DVT prophylaxis - Subcu Lovenox Patient is full code - Advance Directives Does patient have a Living Will: No Does patient have a Durable POA for Healthcare: No
[2024-08-16 10:34] LABS: Blood Gas Oxyhemoglobin 94.3 % (94-97); Blood O2 Saturation 97.4 % (92-98.5)
[2024-08-16 10:35] LABS: Arterial Blood Carboxyhemoglob 1.1 % (0-1.5); Blood Gas THB 11.8 g/dl (12-18)
[2024-08-16 10:43] LABS: Band Neutrophils 1 % (0-1); Blood Morphology Comment NOT SEEN (NOT SEEN); Differential Total Cells Count 100; Eosinophils 2 % (0-3); Lymphocytes 11 % (15-42); Metamyelocytes 1 % (0-0); Monocytes 6 % (0-10); Platelet Estimate ADEQ; Segmented Neutrophils 79 % (40-80)
[2024-08-16] MEDS: METHYLPRED NA SUC 40 MG in NA CHLORIDE 0.9% 100 ML IV SCH (11:00)
[2024-08-16] MEDS ORDERED: LORazepam 2 MG/ML VIAL ONE (11:44)
[2024-08-16] MEDS: IPRATROPIUM BROM 0.5MG/2.5ML NEB SCH (12:30)
[2024-08-16] MEDS: ALBUTEROL 2.5 MG/3 ML NEB SOL NEB SCH (12:30)
[2024-08-16] MEDS ORDERED: AZITHROMYCIN 500 MG INJ IVPB ONE (12:57)
[2024-08-16] MEDS ORDERED: METHYLPREDNISOLONE 40 MG INJ ONE (12:58)
[2024-08-16] MEDS ORDERED: NA CHLORIDE 0.9% 250 ML ONE (12:58)
[2024-08-16] MEDS: METHYLPREDNISOLONE 40 MG INJ IV SCH (17:45)
[2024-08-16] MEDS: ENOXAPARIN 40 MG/0.4 ML SQ SCH (17:45)
[2024-08-16] MEDS ORDERED: ALPRAZOLAM 0.25 MG TABLET PO PRN (18:47)
[2024-08-16] MEDS: BUDESONIDE 0.25 MG/2 ML NEB NEB SCH (20:45)
[2024-08-16] MEDS: ATORVASTATIN 40 MG TAB PO SCH (20:59)
[2024-08-16] MEDS: DOXYCYCLINE 100 MG CAP PO SCH (20:59)
[2024-08-17 08:32] LABS: Absolute Lymphocytes (CBC) 0.9 K/uL (0.7-4.9); Absolute Monocytes 0.3 K/uL (0.1-1.3); Absolute Neutrophil 14.7 K/uL (1.8-8.0); Basophils % 0.1 % (0-1.3); Hematocrit 36.4 % (39.6-49.0); Hemoglobin 12.3 g/dL (13.6-17.9); Lymphocytes % 5.4 % (15.3-44.8); MCH 30.5 pg (27.0-35.0); MCHC 33.7 g/dL (32.0-36.0); MCV 90.6 fL (80-100); MPV 7.6 fL (7.6-11.3); Monocytes % 2.1 % (3.3-12.3); Neutrophils % 92.4 % (41.7-73.7); Nucleated Red Blood Cells % 0.1 % (0-0); Platelets 307 thou/uL (152-406); RBC Red Blood Cell Count 4.01 M/uL (4.33-5.43); Red Cell Distribution Width 14.9 % (12.1-15.2)
[2024-08-17] MEDS: ASPIRIN 81 MG CHEWABLE TABLET PO SCH (09:07)
[2024-08-17] MEDS: PRASUGREL (EFFIENT) 10 MG TAB PO SCH (09:08)
[2024-08-17 09:45] LABS: Albumin 2.9 g/dL (3.4-5.0); Albumin/Globulin Ratio 0.7 (1.1-1.8); Anion Gap 9.6 mEq/L (5.0-15.0); Bilirubin Total 0.4 mg/dL (0.2-1.0); Magnesium 2.4 mg/dL (1.6-2.4); Potassium 4.6 mEq/L (3.5-5.1); Protein, Total 6.9 g/dL (6.4-8.2)
[2024-08-17 09:51] LABS: Blood Morphology Comment NOT SEEN (NOT SEEN); Platelet Estimate ADEQ; White Blood Cell Scan OK (OK)
[2024-08-17 12:01] LABS: Specific Gravity 1.023 (1.005-1.030); Sqamous Epithelial <5 /HPF (None Seen); Urine Bacteria None Seen /HPF (<20); Urine Bilirubin NEGATIVE (Negative); Urine Blood Negative (Negative); Urine Clarity Clear (Clear); Urine Color Light-Yellow (Yellow); Urine Culture Reflex Order NOT NEEDED; Urine Glucose NEGATIVE (Negative); Urine Ketones NEGATIVE (Negative); Urine Microscopic Reflex YN ORDER UMIC; Urine Mucus Slight /HPF (None Seen); Urine Nitrite NEGATIVE (Negative); Urine Protein TRACE (Negative); Urine RBC None Seen /HPF (None Seen); Urine Urobilinogen Normal (Normal); Urine WBC <5 /HPF (<5); Urine pH 5.5 (5.0-7.0)
--- NOTE | 2024-08-17 14:19 | EKG ---
Test Date: 2024-08-16 Test Time: 08:29:03 Mat Puncher: KOMAL MEASUREMENT RESULTS: Intervals: Rate: 120 OK: 116 QRSD: 80 QT: 308 QTc: 435 [place]: P: 82 OK: 116 QRS: 78 T: 67 INTERPRETIVE STATEMENTS: Sinus tachycardia with occasional premature ventricular complexes Biatrial enlargement Abnormal ECG Compared to ECG 07/31/2024 12:18:12 Ventricular premature complex(es) now present Atrial premature complex(es) no longer present T-wave abnormality no longer present Electronically Signed On 08-17-24 14:13:55 CDT by Noah Cobos
--- NOTE | 2024-08-17 15:47 | P.PN ---
Date of Service: 08/17/24 Subjective: Seen leaning over his bed onto the table. He remains wheezy. Denies any fevers or chills. States he is cut down on his smoking. He now smokes half a pack per week. We had a discussion involving smoking cessation and consideration of nicotine replacement. Review of Systems General: Unremarkable Eyes: Unremarkable ENT: Unremarkable Respiratory: Cough, Shortness of Breath Cardiovascular: Unremarkable Gastrointestinal: Unremarkable Musculoskeletal: Unremarkable Neurological: Unremarkable Physical Examination - Physical Exam General: Alert, Oriented x3 HEENT: Atraumatic Neck: Supple Respiratory: Expiratory wheezes Cardiovascular: No edema, Regular rate/rhythm Gastrointestinal: Normal bowel sounds Musculoskeletal: No clubbing, No swelling, No erythema, No tenderness Neurological: Normal gait, Normal strength at 5/5 x4 extr - Studies Laboratory Data (last 24 hrs) 08/16/24 08/16/24 08/16/24 09:43 08:32 08:32 WBC 13.60 H Hgb 12.2 L Hct 36.5 L Plt Count 344 PT 11.9 INR 1.05 Sodium 138 Potassium 3.9 BUN 11 Creatinine 0.84 Glucose 106 Magnesium 4.7 H Total Bilirubin 0.4 AST 31 ALT 52 Alkaline Phosphatase 78 Assessment and Plan - Plan 1. Acute on chronic hypoxic respiratory failure secondary to COPD exacerbation - Patient still actively smoking - On exam, has diffuse wheezes, remains on 5 L nasal cannula -Chest x-ray showed chronic findings of COPD, otherwise unremarkable - On antibiotics, nebs and steroids - Lab work today revealing increase white count. Could be secondary to steroids. Obtain procalcitonin and CRP. Switch from doxycycline to Levaquin 2. History of CAD with recent PCI with multiple stents - Resumed statin, aspirin and prasugrel 3. History of essential hypertension - SBP currently in the 90s so we will hold BP meds 4. History of active tobacco use - Cessation advised 5. Leukocytosis - As above DVT prophylaxis - Subcu Lovenox Patient is full code - Advance Directives Does patient have a Living Will: No Does patient have a Durable POA for Healthcare: No
[2024-08-17] MEDS: Levofloxacin500mg IV 500 MG/100 ML BAG IV SCH (16:36)
[2024-08-18 06:29] LABS: Absolute Lymphocytes (CBC) 0.7 K/uL (0.7-4.9); Absolute Monocytes 0.4 K/uL (0.1-1.3); Basophils % 0.1 % (0-1.3); Hematocrit 32.9 % (39.6-49.0); Hemoglobin 11.2 g/dL (13.6-17.9); Lymphocytes % 4.7 % (15.3-44.8); MCH 31.1 pg (27.0-35.0); MCHC 34.1 g/dL (32.0-36.0); MCV 91.3 fL (80-100); MPV 7.7 fL (7.6-11.3); Monocytes % 2.6 % (3.3-12.3); Neutrophils % 92.6 % (41.7-73.7); Nucleated Red Blood Cells % 0.1 % (0-0); Platelets 272 thou/uL (152-406)
[2024-08-18 06:40] LABS: Anion Gap 7.5 mEq/L (5.0-15.0); Magnesium 2.3 mg/dL (1.6-2.4); Potassium 4.5 mEq/L (3.5-5.1)
[2024-08-18] MEDS: SPIRONOLACTONE 25 MG TABLET PO SCH (09:00)
[2024-08-18] MEDS: METOPROLOL XL 50 MG TAB PO SCH (09:00)
[2024-08-18] MEDS: VALSARTAN 160 MG TAB PO SCH (09:00)
[2024-08-18] MEDS: AMLODIPINE 5 MG TAB PO SCH (09:00)
[2024-08-18] MEDS: ACETAMINOPHEN 500 MG TAB PO PRN (09:42)
--- NOTE | 2024-08-18 11:38 | P.PN ---
Subjective Date of Service: 08/18/24 (Hospitalist) Chief Complaint: COPD exacerbation Patient is 68 years of age with a history of severe COPD recurrent hospitalization for exacerbation Pseudomonas isolated in this sputum at last visit apparently he became acutely short of breath and it appeared in the hospital complaining of anxiety and insomnia Review of Systems General: Weakness Respiratory: Cough, Shortness of Breath Physical Examination - Vital Signs Temperature: 98.5 F Blood Pressure: 154/73 Pulse: 120 Respirations: 18 Pulse Ox (%): 99 - Physical Exam General: Alert, In no apparent distress, Oriented x3 Respiratory: Clear to auscultation bilaterally, Normal air movement, Diminished, Friction rub Cardiovascular: Normal pulses, Regular rate/rhythm Gastrointestinal: Normal bowel sounds, Soft and benign Assessment And Plan - Current Problems (Diagnosis) (1) COPD exacerbation Current Visit: No Status: Acute Plan: Patient is 68 years of age with a history of severe COPD admitted again with an exacerbation he complains of anxiety hypertension and insomnia compliant with his inhalers patient has Pseudomonas isolated in the sputum last visit will change him over to p.o. Levaquin 750 daily sputum cultures resume his oral anti hypertensive medication he has element of some diastolic dysfunction probably has underlying depression and anxiety also add BuSpar labs reviewed white count is elevated edmar You patient was discharged last time on levofloxacin Discharge Plan: Home Plan to discharge in: 48 Hours
[2024-08-18] MEDS: BUSPIRONE HCL 5 MG TABLET PO SCH (12:12)
[2024-08-18 12:37] VITALS: BMI 26.6
[2024-08-18] MEDS: TRAZODONE 50 MG TABLET PO SCH (20:58)
[2024-08-18] MEDS: predniSONE 20 MG TAB PO SCH (20:58)
[2024-08-18] MEDS: MIRTAZAPINE 15 MG TAB PO SCH (20:59)
[2024-08-19 06:01] LABS: Absolute Lymphocytes (CBC) 0.6 K/uL (0.7-4.9); Absolute Monocytes 0.4 K/uL (0.1-1.3); Absolute Neutrophil 8.5 K/uL (1.8-8.0); Basophils % 0.1 % (0-1.3); Hematocrit 29.6 % (39.6-49.0); Hemoglobin 10.2 g/dL (13.6-17.9); Lymphocytes % 6.3 % (15.3-44.8); MCH 31.5 pg (27.0-35.0); MCHC 34.3 g/dL (32.0-36.0); MCV 91.8 fL (80-100); MPV 7.3 fL (7.6-11.3); Monocytes % 4.5 % (3.3-12.3); Neutrophils % 89.1 % (41.7-73.7); Nucleated Red Blood Cells % 0.1 % (0-0); Platelets 290 thou/uL (152-406); RBC Red Blood Cell Count 3.23 M/uL (4.33-5.43)
[2024-08-19 06:34] LABS: Anion Gap 6.5 mEq/L (5.0-15.0); Magnesium 2.2 mg/dL (1.6-2.4); Potassium 4.5 mEq/L (3.5-5.1)
[2024-08-19] MEDS: levoFLOXacin 750 MG TAB PO SCH (08:48)
--- NOTE | 2024-08-19 09:59 | P.DS ---
Admission Date: 08/16/24 Discharge Date: 08/19/24 Disposition: ROUTINE DISCHARGE Discharge Condition: FAIR Reason for Admission: COPD exacerbation - Problems (1) COPD exacerbation Current Visit: No Status: Acute Brief History of Present Illness: Patient is 68 years of age with a history of presumed severe COPD and Pseudomonas lung infection admitted with an exacerbation Hospital Course: Patient was admitted to the hospital did well with conservative therapy complained of insomnia was started on mirtazapine and again treated with levofloxacin Pseudomonas was isolated at the last visit his white count was elevated at the time of discharge patient alert oriented responsive in no distress vital signs stable labs chemistries reviewed white count was now normal cultures normal he responded well to Levaquin which was reordered patient to continue with Roflumilast 10 mg of prednisone resume his Trelegy continue with low-dose spironolactone follow-up with me in 2 weeks at the time of discharge he was alert oriented responsive cooperative chest diminished air entry cardiovascular system heart sounds normal Vital Signs/Physical Exam: Temp Pulse Resp BP Pulse Ox 97.4 F 110 H 16 115/75 100 08/19/24 08:00 08/19/24 08:50 08/19/24 08:00 08/19/24 08:50 08/19/24 08:00 Laboratory Data at Discharge: WBC 9.50 thou/uL (4.3-10.9) 08/19/24 05:40 Hgb 10.2 g/dL (13.6-17.9) L D 08/19/24 05:40 Hct 29.6 % (39.6-49.0) L 08/19/24 05:40 Plt Count 290 thou/uL (152-406) 08/19/24 05:40 PT 11.9 SECONDS (10-13.0) 08/16/24 08:32 INR 1.05 08/16/24 08:32 Sodium 139 mEq/L (136-145) D 08/19/24 05:40 Potassium 4.5 mEq/L (3.5-5.1) 08/19/24 05:40 BUN 24 mg/dL (7-18) H 08/19/24 05:40 Creatinine 0.89 mg/dL (0.70-1.30) 08/19/24 05:40 Glucose 254 mg/dL (74-106) H 08/19/24 05:40 Magnesium 2.2 mg/dL (1.6-2.4) 08/19/24 05:40 Total Bilirubin 0.4 mg/dL (0.2-1.0) 08/17/24 08:22 AST 26 U/L (15-37) 08/17/24 08:22 ALT 56 U/L (16-61) 08/17/24 08:22 Alkaline Phosphatase 85 U/L (45-117) 08/17/24 08:22 Home Medications: Albuterol Inhaler [Ventolin Inhaler*] 2 puff IH Q6H PRN #2 inhaler 08/06/24 Amlodipine [Norvasc*] 5 mg PO DAILY #60 tab 08/06/24 Aspirin 81 mg PO DAILY #60 tab.chew 08/06/24 Atorvastatin Calcium [Lipitor] 40 mg PO BEDTIME #60 tab 08/06/24 Metoprolol Succinate [Toprol Xl*] 50 mg PO DAILY #60 tab 08/06/24 Roflumilast [Daliresp*] 500 mcg PO DAILY #30 tab 08/06/24 Spironolactone [Aldactone*] 25 mg PO DAILY #30 tab 08/06/24 Valsartan [Diovan] 160 mg PO DAILY #60 tab 08/06/24 prasugrel HCL [Prasugrel HCl] 1 tab PO DAILY #60 tab 08/06/24 Fluticasone/Umeclidin/Vilanter [Trelegy Ellipta 100-62.5-25] 1 each IH DAILY 30 Days #60 aero 08/19/24 Mirtazapine 15 mg PO BEDTIME 90 Days #90 tab 08/19/24 levoFLOXacin [Levaquin*] 750 mg PO DAILY 10 Days #10 tab 08/19/24 predniSONE [Deltasone*] 10 mg PO DAILY 90 Days #90 tab 08/19/24 New Medications: predniSONE [Deltasone*] 10 mg PO DAILY 90 Days #90 tab levoFLOXacin [Levaquin*] 750 mg PO DAILY 10 Days #10 tab Mirtazapine 15 mg PO BEDTIME 90 Days #90 tab Fluticasone/Umeclidin/Vilanter [Trelegy Ellipta 100-62.5-25] 1 each IH DAILY 30 Days #60 aero Physician Discharge Instructions: [facility] Continuing [employer]: RANDY Blancas [phone]. Expect a call within 1-2 business days from discharge. Call with questions or concerns. Alternate: RANDY Maldonado [phone]. Diet: Regular Followup: NONE,NONE [Primary Care Provider] - Tommie Denney MD [ACTIVE - CAN ADMIT] -
[2024-08-19 10:23] VITALS: O2SAT 98
[2024-08-19 12:05] VITALS: BP 133/77; TEMP 98.2
== END 2024-08-19 11:55 | disposition home or self-care (01) | DRG 189 ==
LOC: ER 07:27 → ERHOLD 12:18 → 4TH 17:18
PROVIDERS: ADMIT Internal Medicine; ATTEND Internal Medicine Sleep Medicine
PROC: 5A09457 Assistance with Respiratory Ventilation, 24-96 Consecutive Hours, Continuous Positive Airway Pressure (ICD-10-PCS; principal; 2024-08-16)
DX: J96.21 Acute and chronic respiratory failure with hypoxia (principal); J44.1 Chronic obstructive pulmonary disease with (acute) exacerbation; J96.22 Acute and chronic respiratory failure with hypercapnia; I10 Essential (primary) hypertension; F41.9 Anxiety disorder, unspecified; G47.00 Insomnia, unspecified; D72.829 Elevated white blood cell count, unspecified; I25.2 Old myocardial infarction; F17.210 Nicotine dependence, cigarettes, uncomplicated; B96.5 Pseudomonas (aeruginosa) (mallei) (pseudomallei) as the cause of diseases classified elsewhere; Z23 Encounter for immunization; Z71.6 Tobacco abuse counseling; Z11.52 Encounter for screening for COVID-19; Z99.81 Dependence on supplemental oxygen; Z79.82 Long term (current) use of aspirin; Z79.52 Long term (current) use of systemic steroids; Z79.899 Other long term (current) drug therapy
CPT/HCPCS: 36415; 71045; 80048; 80053; 80076; 81001; 82805; 83605; 83735; 83880; 84145; 84484; 85025; 85610; 86140; 87040; 87428; 93005; 94640; 94660; 96365; 96367; 96368; 96375; 97116; 97161; 97530; 99285; J0696; J1650; J2919; J3475; J7030; J7040; J7050; J7512; J7613; J7614; J7634; J7644